=== PATIENT | female | born 1945 | race Caucasian/White ===

== ENCOUNTER 2018-04-12 13:53 | Inpatient (IN) | payer OTHER, BC ==
[2018-04-12 15:49] LABS: Absolute Lymphocytes (CBC) 1.5 K/uL (0.7-4.9); Absolute Monocytes 0.5 K/uL (0.1-1.3); Absolute Neutrophil 3.7 K/uL (1.8-8.0); Basophils % 0.7 % (0-1.3); Eosinophils % 2.8 % (0-4.4); Hematocrit 36.7 % (36.0-45.0); Lymphocytes % 25.9 % (15.3-44.8); MCH 29.2 pg (27.0-35.0); MCV 89.5 fL (80-100); MPV 9.4 fL (7.6-11.3); Monocytes % 9.2 % (3.3-12.3); RBC Red Blood Cell Count 4.09 M/uL (3.86-4.86)
[2018-04-12 15:50] LABS: Protime INR 1.32
--- NOTE | 2018-04-12 15:51 | ER ---
Nurse's Notes [facility] Name: Helen Hdz Age: 73 yrs Sex: Female : 1945 Arrival Date: 04/12/2018 Time: 13:57 Bed 8 Private MD: out of town, doctor Diagnosis: Cellulitis and acute lymphangitis of other parts of limb;Type 2 diabetes mellitus;Personal history of diabetic foot ulcer-recurrent Presentation: 04/12 14:04 Presenting complaint: Patient states: "My doctor sent me to [facility] for a bone ph infection in my foot. I got IV antibiotics and it was getting better. I got home from the hospital on Thursday and when the home health nurse came today she said it was looking bad again and that new blisters have formed." Pt reports wound to L foot, denies fever, N/V/D. Transition of care: patient was not received from another setting of care. Onset of symptoms was April 12, 2018. Risk Assessment: Do you want to hurt yourself or someone else? Patient reports no desire to harm self or others. Initial Sepsis Screen: Does the patient meet any 2 criteria? No. Patient's initial sepsis screen is negative. Does the patient have a suspected source of infection? Yes: Bone or joint infection. Note PCP Dr Alvarez. Care prior to arrival: None. 14:04 Method Of Arrival: Ambulatory ph 14:04 Acuity: MARINO 3 ph Historical: - Allergies: 14:11 Oxycodone; ph 14:11 Tape; ph - PMHx: 14:11 Atrial Fib; Diabetes - NIDDM; Hypertension; ph - PSHx: 14:11 Hysterectomy; klaudia foot; Knee surgery; achilles repair; ph - Immunization history:: Adult Immunizations up to date. - Social history:: Smoking status: Patient/guardian denies using tobacco. - Ebola Screening: : No symptoms or risks identified at this time. Screenin:00 Abuse screen: Denies threats or abuse. Denies injuries from another. Nutritional sv screening: No deficits noted. Tuberculosis screening: No symptoms or risk factors identified. Fall Risk None identified. Assessment: 15:00 General: Appears in no apparent distress. comfortable, obese, well developed, Behavior sv is calm, cooperative, appropriate for age. General: Denies fever. Pain: Complains of pain in left foot Pain currently is 6 out of 10 on a pain scale. Quality of pain is described as tender, Is intermittent. Neuro: Level of Consciousness is awake, alert, obeys commands, Oriented to person, place, time, situation, Moves all extremities. Speech is normal. Cardiovascular: Patient's skin is warm and dry. Respiratory: Respiratory effort is even, unlabored, Respiratory pattern is regular, symmetrical. Derm: Skin is pink, warm \\T\\ dry. Wound noted lateral side of left foot Wound is wound is circular about 1 inch diameter. Pt reports redness has increased around her wound. There is also a new "blister" that has "popped up". Pt had her wound covered by the home health nurse. Musculoskeletal: Range of motion: intact in all extremities. 15:40 Reassessment: Patient appears in no apparent distress at this time. No changes from sv previously documented assessment. Patient and/or family updated on plan of care and expected duration. Pain level reassessed. Patient is alert, oriented x 3, equal unlabored respirations, skin warm/dry/pink. 16:50 Reassessment: Patient appears in no apparent distress at this time. No changes from sv previously documented assessment. Patient and/or family updated on plan of care and expected duration. Pain level reassessed. Patient is alert, oriented x 3, equal unlabored respirations, skin warm/dry/pink. Vital Signs: 14:08 BP 120 / 70; Pulse 77; Resp 18; Temp 98.7; Pulse Ox 100% on R/A; Weight 103.42 kg; ph Height 5 ft. 8 in. (172.72 cm); Pain 6/10; 15:38 BP 126 / 66; Pulse 59 MON; Resp 15; Pulse Ox 100% ; sv 16:00 BP 122 / 79; Pulse 57; Resp 14; Pulse Ox 99% ; sv 17:06 BP 137 / 60; Pulse 59; Resp 16; Pulse Ox 100% ; sv 14:08 Body Mass Index 34.67 (103.42 kg, 172.72 cm) ph 15:38 A fib sv ED Course: 13:57 Patient arrived in ED. mr 13:58 out of town, doctor is Private Physician. mr 14:08 Triage completed. ph 14:11 Arm band placed on. ph 14:12 Samy Howell MD is Attending Physician. aleshia 15:00 Chaka, Rosi, RN is Primary Nurse. sv 15:00 Patient has correct armband on for positive identification. Bed in low position. Call sv light in reach. Side rails up X2. Adult w/ patient. laboratory monitor on. Pulse ox on. NIBP on. Door closed. Warm blanket given. Head of bed elevated. 15:05 Initial lab(s) drawn, by me, sent to lab. First set of blood cultures drawn by me. sv Inserted saline lock: 20 gauge in left forearm, using aseptic technique. Blood collected. Flushed left forearm with 5 ml normal saline. 15:36 ED physician to see patient. sv 15:39 Chest Single View XRAY Sent. sv 15:39 Foot Left 2 View XRAY Sent. sv 15:42 X-ray completed. Portable x-ray completed in exam room. Patient tolerated procedure jw2 well. 15:43 Chest Single View XRAY In Process Unspecified. EDMS 15:43 Foot Left 2 View XRAY In Process Unspecified. EDMS 15:47 Niranjan Prajapati MD is Hospitalizing Provider. aleshia 16:[address] via stretcher. sv 16:50 Wound care: to decubitus located on lateral side of left foot was cleaned with with NS, sv dressed with Kerlix, non-adherent gauze and silvadene ointment. Wound is 1.3 cm length x 1 cm width., Patient tolerated well. 17:11 No provider procedures requiring assistance completed. Patient admitted, IV remains in sv place. intact. Administered Medications: 17:04 Drug: Zosyn 3.375 grams Route: IVPB; Infused Over: 60 mins; Site: left forearm; sv 17:30 Follow up: Response: No adverse reaction; IV Status: Completed infusion; IV Intake: sv 100ml 17:04 Drug: NS 0.9% 1000 ml Route: IV; Rate: 125 ml/hr; Site: left forearm; sv 17:05 Drug: Silvadene Cream 1 % 1 application Route: Topical; Site: affected area; sv 17:45 Drug: vancoMYCIN 1 grams Route: IVPB; Infused Over: 2 hrs; Site: left antecubital; sg 17:47 Follow up: Response: No adverse reaction; IV Status: Infusion continued upon admission sv Intake: 17:30 IV: 100ml; Total: 100ml. sv Outcome: 15:50 Decision to Hospitalize by Provider. aleshia 17:30 Admitted to Med/surg accompanied by tech, family with patient, via wheelchair, room sv 224, with chart, Report called to Juliette GONZALES 17:30 Condition: stable 17:30 Instructed on the need for admit. 17:47 Patient left the ED. noelle Signatures: Dispatcher [employer] Rosi Whitaker RN RN sv Gay, Steven, RN RN sg Anderson, Corey, MD MD cha Rivera, Maria mr Hall, Patricia, RN RN Sheron Carbone 2 Corrections: (The following items were deleted from the chart) 19:54 17:30 Admitted to Med/surg accompanied by tech, family with patient, via wheelchair, sv with chart, Report called to Juliette GONZALES
--- NOTE | 2018-04-12 15:51 | EDPHYS ---
Physician Documentation [facility] Name: Helen Hdz Age: 73 yrs Sex: Female : 1945 Arrival Date: 04/12/2018 Time: 13:57 Bed 8 Private MD: out of town, doctor ED Physician Samy Howell HPI: 04/12 15:39 This 73 yrs old Female presents to ER via Ambulatory with complaints of Wound aleshia Infection. 15:39 The patient presents to the emergency department na. Context: the OD/poisoning occurred aleshia at at an unknown location. Associated signs and symptoms: Pertinent positives: nausea, red left lateral foot. Severity of symptoms: At their worst the symptoms were moderate in the emergency department the symptoms are unchanged. The patient has experienced similar episodes in the past, several times. Historical: - Allergies: 14:11 Oxycodone; ph 14:11 Tape; ph - PMHx: 14:11 Atrial Fib; Diabetes - NIDDM; Hypertension; ph - PSHx: 14:11 Hysterectomy; klaudia foot; Knee surgery; achilles repair; ph - Immunization history:: Adult Immunizations up to date. - Social history:: Smoking status: Patient/guardian denies using tobacco. - Ebola Screening: : No symptoms or risks identified at this time. ROS: 15:41 Constitutional: Negative for fever, chills, and weight loss, Eyes: Negative for injury, aleshia pain, redness, and discharge, ENT: Negative for injury, pain, and discharge, Neck: Negative for injury, pain, and swelling, Cardiovascular: Negative for chest pain, palpitations, and edema, Respiratory: Negative for shortness of breath, cough, wheezing, and pleuritic chest pain, Abdomen/GI: Negative for abdominal pain, nausea, vomiting, diarrhea, and constipation, Back: Negative for injury and pain, : Negative for injury, bleeding, discharge, and swelling, Skin: Negative for injury, rash, and discoloration, Neuro: Negative for headache, weakness, numbness, tingling, and seizure, Psych: Negative for depression, anxiety, suicide ideation, homicidal ideation, and hallucinations, Allergy/Immunology: Negative for hives, rash, and allergies, Endocrine: Negative for neck swelling, polydipsia, polyuria, polyphagia, and marked weight changes, Hematologic/Lymphatic: Negative for swollen nodes, abnormal bleeding, and unusual bruising. 15:41 MS/extremity: Positive for decreased range of motion, pain, swelling, tenderness, warmth, of the dorsum of left foot. Exam: 15:41 Constitutional: This is a well developed, well nourished patient who is awake, alert, aleshia and in no acute distress. Head/Face: Normocephalic, atraumatic. Eyes: Pupils equal round and reactive to light, extra-ocular motions intact. Lids and lashes normal. Conjunctiva and sclera are non-icteric and not injected. Cornea within normal limits. Periorbital areas with no swelling, redness, or edema. ENT: Nares patent. No nasal discharge, no septal abnormalities noted. Tympanic membranes are normal and external auditory canals are clear. Oropharynx with no redness, swelling, or masses, exudates, or evidence of obstruction, uvula midline. Mucous membranes moist. Neck: Trachea midline, no thyromegaly or masses palpated, and no cervical lymphadenopathy. Supple, full range of motion without nuchal rigidity, or vertebral point tenderness. No Meningismus. Chest/axilla: Normal chest wall appearance and motion. Nontender with no deformity. No lesions are appreciated. Cardiovascular: Regular rate and rhythm with a normal S1 and S2. No gallops, murmurs, or rubs. Normal PMI, no JVD. No pulse deficits. Respiratory: Lungs have equal breath sounds bilaterally, clear to auscultation and percussion. No rales, rhonchi or wheezes noted. No increased work of breathing, no retractions or nasal flaring. Abdomen/GI: Soft, non-tender, with normal bowel sounds. No distension or tympany. No guarding or rebound. No evidence of tenderness throughout. Back: No spinal tenderness. No costovertebral tenderness. Full range of motion. Female : Normal external genitalia. Neuro: Awake and alert, GCS 15, oriented to person, place, time, and situation. Cranial nerves II-XII grossly intact. Motor strength 5/5 in all extremities. Sensory grossly intact. Cerebellar exam normal. Normal gait. Psych: Awake, alert, with orientation to person, place and time. Behavior, mood, and affect are within normal limits. 15:41 Musculoskeletal/extremity: ROM: full active range of motion, full passive range of motion, Circulation is intact in all extremities. numbness, decreased sensation, Compartment Syndrome exam of affected extremity: is normal. DVT Exam: no pain, no tenderness, negative Homans' sign noted on exam, no appreciated bluish discoloration, no erythema, no increased warmth, swelling. 15:41 Skin: cellulitis, that is mild, that is moderate, induration, that is moderate is noted. Vital Signs: 14:08 BP 120 / 70; Pulse 77; Resp 18; Temp 98.7; Pulse Ox 100% on R/A; Weight 103.42 kg; ph Height 5 ft. 8 in. (172.72 cm); Pain 6/10; 15:38 BP 126 / 66; Pulse 59 MON; Resp 15; Pulse Ox 100% ; sv 16:00 BP 122 / 79; Pulse 57; Resp 14; Pulse Ox 99% ; sv 17:06 BP 137 / 60; Pulse 59; Resp 16; Pulse Ox 100% ; sv 14:08 Body Mass Index 34.67 (103.42 kg, 172.72 cm) ph 15:38 A fib sv MDM: 14:12 Patient medically screened. [facility] 15:43 Data reviewed: vital signs, nurses notes, lab test result(s), EKG, radiologic studies, aleshia plain films. 04/12 15:17 Order name: Amylase, Serum 04/12 15:17 Order name: Basic Metabolic Panel 04/12 15:17 Order name: Blood Culture Adult (2) 04/12 15:17 Order name: BNP; Complete Time: 16:04/12 15:17 Order name: C-Reactive Protein 04/12 15:17 Order name: CBC with Diff; Complete Time: 16:04/12 15:17 Order name: Ckmb 04/12 15:17 Order name: CPK 04/12 15:17 Order name: Lactate 04/12 15:17 Order name: LFT's 04/12 15:17 Order name: Lipase 04/12 15:17 Order name: Procalcitonin 04/12 15:17 Order name: Protime (+inr); Complete Time: 16:27 04/12 15:17 Order name: Ptt, Activated; Complete Time: 16:27 04/12 15:17 Order name: Sed Rate; Complete Time: 16:04/12 15:17 Order name: Troponin (emerg Dept Use Only); Complete Time: 16:27 sv 04/12 15:17 Order name: Chest Single View XRAY; Complete Time: 16:27 sv 04/12 15:22 Order name: Foot Left 2 View XRAY; Complete Time: 16:27 sv 04/12 15:39 Order name: Wound Culture [facility] 04/12 15:58 Order name: Foot Left Wo Cont EDMS 04/12 16:27 Order name: Basic Metabolic Panel EDMS 04/12 16:27 Order name: Basic Metabolic Panel EDMS 04/12 16:27 Order name: Basic Metabolic Panel EDMS 04/12 16:27 Order name: Basic Metabolic Panel EDMS 04/12 16:27 Order name: CBC with Automated Diff EDMS 04/12 16:27 Order name: CBC with Automated Diff EDMS 04/12 16:27 Order name: CBC with Automated Diff EDMS 04/12 16:27 Order name: CBC with Automated Diff EDMS 04/12 15:17 Order name: Cardiac monitoring; Complete Time: 15:39 sv 04/12 15:17 Order name: EKG - Nurse/Tech; Complete Time: 15:39 sv 04/12 15:17 Order name: IV Saline Lock - Large Bore; Complete Time: 15:18 sv 04/12 15:17 Order name: Labs collected and sent; Complete Time: 15:18 sv 04/12 15:17 Order name: O2 Per Protocol; Complete Time: 15:18 sv 04/12 15:17 Order name: O2 Sat Monitoring; Complete Time: 15:18 sv 04/12 15:58 Order name: CONS Physician Consult EDME 04/12 16:27 Order name: CONS Pharmacy Consult EDME 04/12 16:27 Order name: CONS Pharmacy Consult EDME 04/12 16:27 Order name: Consistent Carb (ADA) [address] EDMS Administered Medications: 17:04 Drug: Zosyn 3.375 grams Route: IVPB; Infused Over: 60 mins; Site: left forearm; sv 17:30 Follow up: Response: No adverse reaction; IV Status: Completed infusion; IV Intake: sv 100ml 17:04 Drug: NS 0.9% 1000 ml Route: IV; Rate: 125 ml/hr; Site: left forearm; sv 17:05 Drug: Silvadene Cream 1 % 1 application Route: Topical; Site: affected area; sv 17:45 Drug: vancoMYCIN 1 grams Route: IVPB; Infused Over: 2 hrs; Site: left antecubital; 17:47 Follow up: Response: No adverse reaction; IV Status: Infusion continued upon admission sv Disposition: 04/12/18 15:50 Hospitalization ordered by Niranjan Prajapati for Inpatient Admission. Preliminary diagnosis are Cellulitis and acute lymphangitis of other parts of limb, Type 2 diabetes mellitus, Personal history of diabetic foot ulcer - recurrent. - Bed requested for Telemetry/MedSurg (Inpatient). - Status is Inpatient Admission. sg - Condition is Fair. - Problem is new. - Symptoms have improved. UTI on Admission? No Signatures: Dispatcher [employer] EDRosi Deng RN RN Jolynn Malik RN RN dw Gay, Steven, RN RN sg Anderson, Corey, MD MD cha Hall, Patricia, RN RN ph Corrections: (The following items were deleted from the chart) 16:36 15:50 Hospitalization Ordered by Niranjan Prajapati MD for Inpatient Admission. Preliminary dw diagnosis is Cellulitis and acute lymphangitis of other parts of limb; Type 2 diabetes mellitus; Personal history of diabetic foot ulcer - recurrent. Bed requested for Telemetry/MedSurg (Inpatient). Status is Inpatient Admission. Condition is Fair. Problem is new. Symptoms have improved. UTI on Admission? No. aleshia 16:37 16:36 04/12/2018 15:50 Hospitalization Ordered by Niranjan Prajapati MD for Inpatient dw Admission. Preliminary diagnosis is Cellulitis and acute lymphangitis of other parts of limb; Type 2 diabetes mellitus; Personal history of diabetic foot ulcer - recurrent. Bed requested for Telemetry/MedSurg (Inpatient). Status is Inpatient Admission. Condition is Fair. Problem is new. Symptoms have improved. UTI on Admission? No. dante 17:47 16:37 04/12/2018 15:50 Hospitalization Ordered by Niranjan Prajapati MD for Inpatient sg Admission. Preliminary diagnosis is Cellulitis and acute lymphangitis of other parts of limb; Type 2 diabetes mellitus; Personal history of diabetic foot ulcer - recurrent. Bed requested for Telemetry/MedSurg (Inpatient). Status is Inpatient Admission. Condition is Fair. Problem is new. Symptoms have improved. UTI on Admission? No. dante
[2018-04-12] MEDS ORDERED: GLUCAGON 1 MG/VIAL IM PRN (15:56)
[2018-04-12] MEDS ORDERED: D50W 25 GM/50 ML SYRINGE IV PRN (15:56)
[2018-04-12 15:58] LABS: Potassium 4.5 mEq/L (3.6-5.0)
--- NOTE | 2018-04-12 16:04 | RAD REPORT ---
EXAM DESCRIPTION: RAD - Foot Left 2 View - 04/12/2018 3:47 pm CLINICAL HISTORY: Left foot pain FINDINGS: Soft tissue swelling involves the lateral aspect of foot. Lucency is present within the ba se of the fifth metatarsal which may indicate osteomyelitis. The bones are osteoporotic. No acute fracture or dislocation is seen
--- NOTE | 2018-04-12 16:07 | RAD REPORT ---
EXAM DESCRIPTION: Dolores Single View04/12/2018 3:47 pm CLINICAL HISTORY: fever COMPARISON: 2016 FINDINGS: The lungs appear clear of acute infiltrate. The heart is upper limits normal size IMPRESSION: No acute abnormalities displayed
[2018-04-12 16:11] LABS: CKMB Creatine Kinase MB 3.5 ng/ml (0.3-4.0)
[2018-04-12] MEDS ORDERED: ONDANSETRON 4 MG/2 ML VIAL IV PRN (16:24)
[2018-04-12] MEDS ORDERED: MORPHINE 2 MG/ML SYR IV PRN (16:24)
[2018-04-12] MEDS ORDERED: ACETAMINOPHEN 500 MG TAB PO PRN (16:24)
[2018-04-12] MEDS: INSULIN -REGULAR HUMAN 50 UNIT/0.5 ML ML SQ SCH ×2 (16:30→20:36)
[2018-04-12] MEDS ORDERED: SILVER SULFADIAZINE 1% 25 GM TOP ONE (16:37)
[2018-04-12 16:39] LABS: Albumin 3.8 g/dL (3.2-5.5); Bilirubin Direct 0.1 mg/dL (0-0.2); C-Reactive Protein 7.3 mg/L (<10.0); Protein, Total 7.7 g/dL (6.0-8.3)
[2018-04-12] MEDS ORDERED: PIPER/TAZO/NS 3.375gm 3.375 GM/100 ML BAG ONE ×2 (16:45→23:11)
[2018-04-12] MEDS ORDERED: VANCOMYCIN 1.25 GM in NA CHLORIDE 0.9% 250 ML IVPB SCH (17:00)
[2018-04-12] MEDS: PIPER/TAZO/NS 3.375gm 3.375 GM/100 ML BAG IVPB SCH ×2 (17:00→23:52)
[2018-04-12] MEDS ORDERED: VANCOMYCIN 1 GM/250 ML BAG ONE (17:29)
[2018-04-12] MEDS: NA CHLORIDE 0.9% 1,000 ML IV SCH ×2 (18:07→23:51)
--- NOTE | 2018-04-12 18:16 | HP ---
Date of Admission: 04/12/2018 Primary Care Physician: Dr. Alvarez Consultants: Dr. Cohen, General Surgery and Dr. Calzada with ID Code Status: Full. Chief Complaint: Redness, swelling of the left foot. History Of Present Illness: The patient is a 73-year-old female with a past medical history of diabetes; hypertension; atrial fibrillation, on Xarelto; hypothyroidism; chronic venous insufficiency; neuropathy, who was recently discharged approximately 1 week ago from [facility] for long-term IV antibiotics. The patient received 6 weeks of IV antibiotics for left foot diabetic ulcer and cellulitis. The patient states that she was doing well until approximately 1 week when the foot began to appear slightly pink along the dorsal aspect and started to worsen. The patient was been seen by home health nurses and her followup appointment with Dr. Rose was not until April 19 , however, got concerned. The patient denies any fevers, chills, nausea, vomiting. No discharge from the ulceration. The patient contacted Dr. Calzada, who recommended the patient be evaluated in the ER. Upon arrival, her workup revealed normal WBC count. ESR was elevated at 50. C-reactive protein was normal. Procalcitonin is also negative. The patient was started on IV antibiotics and referred for admission. X-ray was done to rule out any acute free air in the foot, none was seen. However, lucency which shown indicating osteomyelitis in the fifth metatarsal. When the patient was seen in the ER, she was awake, alert, and oriented x3, in some mild distress due to her pain. Past Medical History: Diabetes, hypertension, atrial fibrillation, hypothyroidism, chronic venous insufficiency, neuropathy. 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 Allergies: THE PATIENT DENIES ANY ALLERGY TO HYDROCODONE, WHICH IS LISTED IN HER CHART, DOES REPORT ALLERGY TO ZYVOX, WHICH CAUSES A RASH. Medications: List reviewed. Social History: The patient denies any smoking, alcohol, or illicit drug use. Family History: No history of premature coronary artery disease. Review of Systems: An 11-point system reviewed and negative except as per HPI. Physical Examination: Vital signs: Blood pressure 120/70, pulse 77, respirations 18, temperature 98.7 , O2 of 100% on room air. General: Awake, alert, oriented x3, some mild distress. Elderly female, ill appearing. HEENT: Normocephalic, atraumatic, PERRLA, EOMI. Moist mucous membranes. Oropharynx is clear. Poor dentition. Conjunctivae anicteric. Neck: Supple. No JVD. Trachea midline. CV: S1, S2. Irregularly irregular. Peripheral pulses weak bilaterally. No murmurs. Respiratory: Clear to auscultation bilaterally. No wheezing. No stridor. No use of accessory muscles. Gastrointestinal: Abdomen is soft, nontender, nondistended. Positive bowel sounds. No guarding or rigidity. Extremities: No clubbing, cyanosis. Trace pedal edema. No calf tenderness. Skin: The patient has erythema of the left foot on the dorsal aspect extending into the palmar aspect with a dry ulcer. No pustular drainage. Mild tenderness to palpation, warm to touch. Neuro: Cranial nerves II through XII intact grossly. No focal neurological deficits. Strength is 5/5 bilateral upper and lower extremities. Speech is normal. Decreased sensation to bilateral lower extremities to light touch. Psych: Mood is okay. Affect is full. Insight and judgment are good. Laboratory Data: Sodium 136, potassium 4.5, CO2 of 28, BUN 25, creatinine 0.79 , glucose 92, lactic acid 9.7, calcium 9.3. BNP 297. Troponin less than 0.03. Albumin 2.8, amylase 49, lipase 62. Procalcitonin 0.05. INR 1.2. WBC is 6, H and H are 12 and 36.7, platelets 225, neutrophils 61%. Blood cultures and wound cultures pending. Chest x-ray personally reviewed, shows no acute abnormalities. Foot x-ray personally reviewed shows soft tissue swelling involves the lateral aspect of the foot. Lucency is present within the base of the fifth metatarsal which may indicate osteomyelitis. Wounds are osteopenic. No acute fracture or dislocation is seen. Assessment: A 73-year-old female with; 1. Left foot osteomyelitis secondary to diabetic foot ulcer, failed outpatient treatment. We will continue with broad-spectrum IV antibiotics, followup on blood cultures and wound cultures. Dr. Cohen and Dr. Calzada with Surgery and ID have been consulted. The patient may need surgical intervention. 2. Atrial fibrillation, on Xarelto. We will hold dose for now due to a possible surgical intervention, controlled ventricular rate. We will continue beta-ciara. 3. Diabetes mellitus type 2 with neuropathy, non-insulin dependent. We will continue with sliding scale insulin. Monitor Accu-Cheks. 4. Essential hypertension. Resume home medications as appropriate. 5. Hypothyroidism, continue [place] Thyroid. 6. Chronic venous insufficiency. 7. Obesity. 8. Gastrointestinal and deep venous thrombosis prophylaxis with PPI and SCDs. No chemical anticoagulation due to possible surgery. Plan: Admit the patient to Med-Surg, place as an inpatient, MRI of the left foot in a.m. ASHUTOSH Voice ID: [id number]
[2018-04-12] MEDS ORDERED: HOME MED 1 EA UNK (Acetaminophen With Codeine [Tylenol With Codeine #4 Tablet] 1 TAB) PO PRN (18:25)
[2018-04-12 18:27] VITALS: BMI 34.7
[2018-04-12] MEDS: HYDROCODONE/APAP 7.5/325 MG TAB PO PRN ×2 (20:35→23:54)
[2018-04-12] MEDS: GABAPENTIN 400 MG CAP PO SCH (20:35)
--- NOTE | 2018-04-12 23:37 | CON ---
Date of Consultation: 04/12/2018 Diagnoses: Left foot cellulitis, abscess, infected diabetic ulcer. History Of Present Illness: This is a case of a 73-year-old patient with a history of osteomyelitis, who just finished 6 weeks of antibiotics in [facility] in [place] about a week ago. The patie nt was seen by the wound [facility] health nurse, found to have acceleration of her symptoms with redn ess over the left foot region, increase in temperature, diagnosis of cellulitis, sent to the ER. The patient was admitted with an abscess and infected diabetic ulcer. The patient states she was gettin g a lot better, and then this restarted once again. Most of the erythema is on the dorsum of the isabelle t on the lateral side. She denies any trauma. She is saying that she has a diabetic ulcer in that a shashi, has not healed in about a year and a half. Past Medical History: Atrial fibrillation, diabetes, and hypertension. Past Surgical History: Hysterectomy and knee surgery. Allergies: OXYCODONE. Social History: She does not smoke. She does not drink alcohol. Review of Systems: Constitutional: Denies any fever or chills. Respiratory: Denies any shortness of breath. Gastrointestinal: Denies any melena or hematochezia. Genitourinary: Denies any dysuria or hematuria. Physical Examination: General: The patient is awake and alert. HEENT: Pupils are equal and reactive. Anicteric. Neck: Supple. Chest: Clear. Abdomen: Soft and depressible. No guarding or rebound. Pelvic: Deferred. Breasts: Deferred. Rectal: Deferred. Extremities: Over the left foot region, the patient has a plantar diabetic ulcer on the fifth metata rsal region. On the dorsum of left foot, the patient has an area of about 10 x 10 cm with erythema, increased temperature, consistent with cellulitis. It looks like there is some fluctuance forming on the dorsal part of the foot. Dorsalis pedis is still present, although diminished. No cyanosis. T he patient has some peripheral neuropathy. Laboratory Data: WBC count 6, with hemoglobin 12, and platelets of 325. INR is 1.32. Creatinine is 0.79. Foot x-ray shows soft tissue swelling in lateral aspect of the foot, the base of the fifth me tatarsal region, may indicate osteomyelitis. Assessment/plan: Osteomyelitis, infected diabetic foot ulcer with abscess, with plan for incision an d drainage and debridement. With benefits, alternatives, and risks fully explained to the patient, w hich include, but are not limited to infection, bleeding, damage to adjacent structures, anesthesia c omplications, nonhealing wound, myocardial infarction, and even . She also understands this may not relieve any symptoms. She might need more than one surgical intervention. She understood. The patient has to be n.p.o. after midnight. TAJ/CHRISTINE Voice ID: [id number] Report ID: [id number]
[2018-04-13 00:45] LABS: Urine Appearance CLOUDY; Urine Bilirubin NEGATIVE (NEG); Urine Blood NEGATIVE (NEG); Urine Color YELLOW; Urine Glucose NEGATIVE (NEG); Urine Protein NEGATIVE (NEG); Urine Specific Gravity >=1.030 (1.005-1.030)
[2018-04-13 00:47] LABS: Urine Microscopic Reflex ORDER UMIC
[2018-04-13 01:34] LABS: Calcium Oxalate Crystals- Ur MODERATE (NONE SEEN); Urine Bacteria <20 /HPF (<20); Urine Culture Reflex Order REFLEXED; Urine RBC NONE SEEN /HPF (NONE SEEN)
[2018-04-13] MEDS: LEVOTHYROXINE SOD 0.05 MG TABLET PO SCH (04:21)
[2018-04-13 04:35] LABS: Absolute Lymphocytes (CBC) 1.3 K/uL (0.7-4.9); Absolute Monocytes 0.4 K/uL (0.1-1.3); Absolute Neutrophil 2.2 K/uL (1.8-8.0); Basophils % 1.1 % (0-1.3); Eosinophils % 3.5 % (0-4.4); Hematocrit 32.8 % (36.0-45.0); Lymphocytes % 32.6 % (15.3-44.8); MCH 29.5 pg (27.0-35.0); MCV 89.6 fL (80-100); MPV 9.1 fL (7.6-11.3); Monocytes % 10.7 % (3.3-12.3); RBC Red Blood Cell Count 3.66 M/uL (3.86-4.86)
[2018-04-13 04:45] LABS: Potassium 4.8 mEq/L (3.6-5.0)
[2018-04-13] MEDS: INSULIN -REGULAR HUMAN 50 UNIT/0.5 ML ML SQ SCH ×4 (07:30→21:00)
[2018-04-13] MEDS: GABAPENTIN 400 MG CAP PO SCH ×4 (08:07→21:12)
[2018-04-13] MEDS ORDERED: PROPOFOL 200 MG/20 ML VIAL IV ONE (08:27)
[2018-04-13] MEDS ORDERED: MIDAZOLAM HCL 2 MG/2 ML INJ ONE (08:28)
[2018-04-13] MEDS ORDERED: FENTANYL CITR 100 MCG/2 ML ONE (08:29)
[2018-04-13] MEDS ORDERED: ONDANSETRON HCL 40 MG/20 ML VIAL ONE (08:29)
[2018-04-13] MEDS: FUROSEMIDE 40 MG TABLET PO SCH (09:00)
[2018-04-13] MEDS: LISINOPRIL 20 MG TAB PO SCH (09:00)
[2018-04-13] MEDS: ATENOLOL 25 MG TAB PO SCH (09:00)
[2018-04-13] MEDS: PIPER/TAZO/NS 3.375gm 3.375 GM/100 ML BAG IVPB SCH ×2 (09:00→17:30)
--- NOTE | 2018-04-13 09:53 | P.BOP ---
Preoperative diagnosis: left foot abscess, infected diabetic ulcer, osteomyelitis Postoperative diagnosis: same Primary procedure: Incision and drainage of complex left foot abscess 10x7x5 Estimated blood loss: <10cc Specimen: necrotic tissue , culture Findings: left foot abscess with multiple loculations Anesthesia: General Complications: None Transferred to: Recovery Room Condition: Good
[2018-04-13] MEDS: VANCOMYCIN 1.75 GM in NA CHLORIDE 0.9% 500 ML IVPB SCH (11:53)
[2018-04-13] MEDS: NA CHLORIDE 0.9% 1,000 ML IV SCH (14:11)
[2018-04-13] MEDS: HYDROCODONE/APAP 7.5/325 MG TAB PO PRN ×2 (14:12→21:12)
--- NOTE | 2018-04-13 14:47 | CON ---
History: The patient is a well known case to me for last couple of years. [facility]. [facility] treatment of IV antibiotic and diabetic foot ulcer abena tment. The patient's course in the hospital was without any challenges. The patient was sent home o n home treatment and antibiotics. A call was received from home health team that the patient is not doing well, and she was admitted to the hospital yesterday. The patient also had a surgical debridem ent of her left foot abscess by surgical team. Past Medical History: Include diabetes mellitus, osteomyelitis of left foot, morbid obesity, hyperte nsion, atrial fibrillation, hypothyroidism, chronic venous insufficiency, neuropathy. 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 Allergies: HYDROCODONE, ZYVOX. Social History: Nonsmoker, nondrinker. Lives at home. Family History: Noncontributory. Medications: Vancomycin and Zosyn. See MARs for other medication. Review of Systems: A 10-point review was performed. Physical Examination: General: This is a 73-year-old female, not in any acute cardiopulmonary distress. Vital Signs: Temperature 97, pulse 63, respirations 16, blood pressure 119/63. HEENT: Poor dentition, otherwise unremarkable. Neck: Supple. Lungs: Clear to auscultation. Heart: S1, S2. Regular. Abdomen: Soft, nontender. Bowel sounds positive. Extremities: Left foot in surgical dressing. Laboratory Data: Shows WBC 4.1, hemoglobin 10.8, platelets are 181. Chemistry shows sodium 140, pot assium 4.8, chloride 107, bicarb 28, BUN 25, creatinine 0.9, glucose is 97. Micro data shows blood c ultures are pending, and blood and wound culture done yesterday shows 3+ Staph coagulase positive for staph aureus. Assessment And Plan: Left foot osteomyelitis and abscesses, status post debridement and cellulitis, improving. Continue IV antibiotic, empiric antibiotic for now. We will examine the patient's wound in foot tomorrow as the patient has surgical debridement done today. Thank you Dr. Prajapati for consult. NF/MODL Voice ID: [id number] Report ID: [id number]
--- NOTE | 2018-04-13 15:03 | EKG ---
Test Date: 2018-04-12 Test Time: 15:25:33 Control Panel Tester: SWATI MEASUREMENT RESULTS: Intervals: Rate: 51 ME: QRSD: 78 QT: 450 QTc: 414 Mcloud: P: ME: QRS: -28 T: 2 INTERPRETIVE STATEMENTS: Atrial fibrillation with slow ventricular response Inferior infarct, age undetermined Anterior infarct, age undetermined Abnormal ECG Compared to ECG 10/16/2016 17:50:35 No significant changes Electronically Signed On 04-13-18 14:59:15 CDT by Horacio Banks
--- NOTE | 2018-04-13 18:14 | RAD REPORT ---
EXAM DESCRIPTION: MRIFoot Left Wo Cont04/13/2018 4:02 pm CLINICAL HISTORY: Left foot pain and swelling COMPARISON: March 2017 TECHNIQUE: Axial, sagittal and coronal magnetic resonance imaging of the left foot was obtained. FINDINGS: A soft tissue ulceration involves the lateral aspect of the forefoot. No significant abnormal signal is visualized within the bones to suggest osteomyelitis. A 3 centimeter area of abnormal signal is present within the adjacent soft tissue along at the planta r surface of the lateral forefoot. IMPRESSION: No evidence of osteomyelitis 3 centimeter area of abnormal signal within the plantar soft tissue of the lateral forefoot may repre sent an abscess. As IV contrast was not administered it is difficult to confirm if this is an abscess . Ultrasound is recommended for further evaluation
--- NOTE | 2018-04-13 19:18 | PN ---
Date of Progress Note: 04/13/2018 Subjective: The patient is seen and examined. Chart reviewed and case discussed with RN and Dr. Farnaz rubio. The patient had I and D done today. Tolerated procedure well. The patient was continued on IV antibiotics. Does complain of some pain at the incision site. Review of Systems: Negative except as above. Medications: Reviewed. Physical Examination: Vital Signs: Temperature 97.1, heart rate 63, blood pressure 119/63, respirations 16, O2 of 98% on r oom air. General: Awake, alert, and oriented x3. Some mild distress. Ill-appearing elderly female, obese, BMI 34.7. CV: S1 and S2. No murmurs. Irregularly irregular. Peripheral pulses weak bilater ally. Respiratory: Moving air well bilaterally. No wheezing. Gastrointestinal: Abdomen is soft, nontender, and nondistended. Positive bowel sounds. Extremities: No clubbing or cyanosis. The patient has 2+ lower extremity edema. Neurologic: Nonfocal. The patient does have decreased sensation to light touch in lower extremities . Skin: Left foot incision site clean, dry, intact, and bandaged. Laboratory Data: Sodium 140, potassium 4.8, chloride 107, CO2 of 28, BUN 25, creatinine 0.92, glucos e 97, and calcium 8.6. WBC 4.1, H and H 10.8 and 32.8, and platelets 181. Wound cultures pending. Blood cultures also pending. Urine culture pending. Preliminary wound culture is growing 2+ coagula se positive Staph. Assessment And Plan: A 73-year-old female with: 1.Left foot osteomyelitis secondary to diabetic foot ulcer, failed outpatient treatment. We will co ntinue vancomycin and Zosyn. Blood cultures are pending. Wound culture is growing Staph preliminary. We will follow up with ID and Sensitivity. Appreciate Dr. Cohen and Dr Calzada's input. At this point, the patient will need continued IV antibiotics prior to possible amputation. The patient yohana erated abscess I and D well. We will follow up on culture results. 2.Atrial fibrillation with controlled ventricular rate. Xarelto on hold due to the procedure. We wi ll resume with Xarelto in a.m. Continue beta-ciara. 3.Diabetes mellitus type 2 with neuropathy, non-insulin dependent. We will continue sliding scale. Monitor Accu-Cheks. Check hemoglobin A1c. 4.Essential hypertension, stable. 5.Hypothyroidism. Continue [place] Thyroid. 6.Chronic venous insufficiency. 7.Obesity, BMI 34.7. 8.Gastrointestinal and deep venous thrombosis prophylaxis with PPI and SCDs. No chemical anticoagul ation due to surgery. We will continue with treatment. Obtain MRI of the foot for further intervent ion planning. We will obtain PICC line for IV antibiotics. Continue wound care. /CHRISTINE Voice ID: [id number] Report ID: [id number]
[2018-04-14] MEDS: PIPER/TAZO/NS 3.375gm 3.375 GM/100 ML BAG IVPB SCH ×2 (00:32→10:16)
[2018-04-14] MEDS: VANCOMYCIN 1.75 GM in NA CHLORIDE 0.9% 500 ML IVPB SCH (05:28)
[2018-04-14] MEDS: LEVOTHYROXINE SOD 0.05 MG TABLET PO SCH (05:29)
[2018-04-14 05:53] LABS: Absolute Lymphocytes (CBC) 0.9 K/uL (0.7-4.9); Absolute Monocytes 0.3 K/uL (0.1-1.3); Absolute Neutrophil 2.1 K/uL (1.8-8.0); Basophils % 0.9 % (0-1.3); Eosinophils % 3.7 % (0-4.4); Lymphocytes % 26.3 % (15.3-44.8); MCH 29.5 pg (27.0-35.0); MCV 89.5 fL (80-100); MPV 8.8 fL (7.6-11.3); Monocytes % 9.7 % (3.3-12.3); RBC Red Blood Cell Count 3.57 M/uL (3.86-4.86)
[2018-04-14 06:00] LABS: Potassium 4.2 mEq/L (3.6-5.0)
[2018-04-14] MEDS: INSULIN -REGULAR HUMAN 50 UNIT/0.5 ML ML SQ SCH ×2 (07:30→11:30)
[2018-04-14 08:31] VITALS: O2SAT 91
--- NOTE | 2018-04-14 08:38 | RAD REPORT ---
EXAM DESCRIPTION: RAD - Chest Single View - 04/13/2018 11:57 pm CLINICAL HISTORY: Device placement PICC line placement COMPARISON: April 04 FINDINGS: A PICC line has been inserted with its tip in the superior vena cava. The lungs appear clear of acute infiltrate. The heart is borderline enlarged IMPRESSION: PICC line with its tip in thesuperior vena cava
[2018-04-14 09:42] VITALS: TEMP 97.2
[2018-04-14] MEDS: GABAPENTIN 400 MG CAP PO SCH ×2 (10:17→12:51)
[2018-04-14] MEDS: ATENOLOL 25 MG TAB PO SCH (10:17)
[2018-04-14] MEDS: LISINOPRIL 20 MG TAB PO SCH (10:17)
[2018-04-14] MEDS: FUROSEMIDE 40 MG TABLET PO SCH (10:17)
[2018-04-14] MEDS: HYDROCODONE/APAP 7.5/325 MG TAB PO PRN (12:51)
[2018-04-14] MEDS ORDERED: RIVAROXABAN 20 MG TABLET PO SCH (13:06)
[2018-04-14 15:05] VITALS: BP 163/72
--- NOTE | 2018-04-15 07:17 | DS ---
Date of Discharge: 04/14/2018 Consultants: Dr. Cohen with General Surgery. Dr. Calzada with ID. Procedures: On , incision and drainage of complex left foot abscess 10 cm x 7 cm x 5 cm. Admitting Diagnoses: 1.Diabetic foot ulcer, osteomyelitis, failed outpatient treatment. 2.Atrial fibrillation, on Xarelto, paroxysmal. 3.Diabetes mellitus type 2 with neuropathy, noninsulin dependent. 4.Essential hypertension. 5.Hypothyroidism. 6.Chronic venous insufficiency. 7.Obesity. Discharge Diagnoses: 1.Diabetic foot ulcer, status post I and D with no osteomyelitis. X-ray showed concerns for osteomy elitis; however, MRI of the foot did not show any osteo. We will continue with 6 more weeks of IV an tibiotics. 2.Atrial fibrillation with controlled ventricular rate, on Xarelto, chronic. 3.Diabetes mellitus type 2 with neuropathy, non-insulin dependent. 4.Essential hypertension. 5.Hypothyroidism, on [place] Thyroid. 6.Chronic venous insufficiency. 7.Obesity, BMI 34.7. Hospital Course: The patient is a 73-year-old female who was recently discharged from [facility] for diabetic foot wound. The patient had been doing well. She was free of disease. Howev er, approximately one and half weeks after discharge, the patient developed some redness and erythema on the lateral aspect of her left foot. The patient was found to have diabetic foot ulcer. X-ray s howed initially changes consistent with osteomyelitis. The patient was taken by Dr. Cohen for I a nd D, which the patient tolerated well. Her Xarelto had been held due to the procedure. The patient 's diabetes otherwise was fairly well controlled. The patient was resumed on IV antibiotics. Dr. Tiarra mcleod, who had been taken care of the patient for the past couple of years, was consulted, agreed with treatment. PICC line was placed. The patient was referred back to [facility]. Her wound culture s preliminary are growing Staph aureus with final ID and sensitivity pending. The patient remained a febrile. Her pain improved, swelling went down. MRI of the foot was done to confirm osteomyelitis, however, showed a 2 cm area of abnormal signal within the plantar soft tissue of the lateral foot, ma y represent abscess. The patient was then discharged back to [facility] in stable condition. Activity: Fall precautions. Wound care as per surgeon. Followup: Primary care physician in 1 week. Follow up with Infectious Disease, Dr. Calzada, in 2 wee ks. Follow up with surgeon, Dr. Cohen, in 2 weeks for wound check. Return to ER for worsening co ndition. Diet: Diabetic. Total time spent discharging the patient was 39 minutes. Physical Examination: General: Awake, alert, oriented x3. No acute distress. CV: S1, S2. Irregularly irregular. Peripheral pulses weak. Respiratory: Moving air well bilaterally. Abdomen: Abdomen is soft, nontender, and nondistended. Positive bowel sounds. Extremities: No clubbing or cyanosis. The patient has peripheral edema. Neurologic: Nonfocal. Skin: Left foot incision site clean, dry, intact. SA/MODL Voice ID: [id number] Report ID: [id number]
--- NOTE | 2018-04-26 15:32 | OP ---
Date of Procedure: 04/13/2018 Surgeon: Jesús Cohen MD Preoperative Diagnoses: Left foot abscess, infected diabetic ulcer, osteomyelitis. Postoperative Diagnoses: Left foot abscess, infected diabetic ulcer, osteomyelitis. Procedures: Incision and drainage of complex left foot abscess, 10 x 7 x 5 cm. Estimated Blood Loss: Less than 10 cc. Specimen: Necrotic tissue and culture. Findings: Left foot abscess with multiple loculations. Anesthesia: General plus local. Indications: This is the case of a female, who comes to us with above diagnosis. Fully explained th e benefits and alternatives of I and D of the complex left leg abscess with debridement which include , but are not limited to infection, bleeding, damage to adjacent structures, anesthesia complication, nonhealing wound, chronic wound, SC, and even . She also understands this may not relieve the symptoms. She might need more than one surgical intervention. She understands the possibility of al so amputation, although she is not ready to sign any amputation papers. Description Of Procedure: The patient was brought to the operating room, placed in supine position. Anesthesia was done without complication. Time-out was called. Left foot was prepped and draped in a sterile fashion. After that, we proceeded to incise the abscess. It looked like that the complex abscess goes through and through from dorsal to the plantar surface of the foot. So, we have to put drains in that area. It is a complex abscess with multiple loculations going through the foot. Nec rotic tissue was removed. This goes all the way down to tendon and muscle. Area was irrigated. Hem ostasis was obtained. The area was packed. The patient tolerated the procedure well. Local anesthe tic was applied over the area. The patient sent to recovery in stable condition. Sponge count and i nstrument counts were correct. HM/MODL Voice ID: [id number] Report ID: [id number]
== END 2018-04-14 16:10 | DRG 638 ==
LOC: ER 13:53 → ERHOLD 15:52 → 2ND 17:20
PROVIDERS: ADMIT Family Medicine; ATTEND Family Medicine
PROC: 02HV33Z Insertion of Infusion Device into Superior Vena Cava, Percutaneous Approach (ICD-10-PCS; 2018-04-13)
PROC: 0Y9N3ZZ Drainage of Left Foot, Percutaneous Approach (ICD-10-PCS; principal; 2018-04-13 09:00)
DX: E11.621 Type 2 diabetes mellitus with foot ulcer (principal); L02.612 Cutaneous abscess of left foot; I48.0 Paroxysmal atrial fibrillation; E11.40 Type 2 diabetes mellitus with diabetic neuropathy, unspecified; I10 Essential (primary) hypertension; E03.9 Hypothyroidism, unspecified; I87.2 Venous insufficiency (chronic) (peripheral); E66.9 Obesity, unspecified; Z68.34 Body mass index [BMI] 34.0-34.9, adult; Z96.659 Presence of unspecified artificial knee joint; Z79.01 Long term (current) use of anticoagulants
CPT/HCPCS: 36415; 71045; 80048; 80076; 81003; 81015; 82150; 82550; 82553; 82962; 83605; 83690; 83880; 84145; 84484; 85025; 85610; 85652; 85730; 86140; 87040; 87070; 87075; 87077; 87086; 87088; 87186; 87205; 88304; 93005; 94760; 96365; 96375; 99285; J2250; J2405; J2543; J3010; J3370; J7030

== ENCOUNTER 2018-10-22 18:21 | Inpatient (IN) | payer OTHER, BC ==
--- OUTSIDE RECORDS SUMMARY | 2018-10-22 20:46 | XMS REPORT ---
:1945 [facility] [address] [place] [address] Dr. Becker [address] [place] [id number] Care Team Providers Name Role Phone Unavailable Unavailable Unavailable Problems This patient has no known problems. Allergies, Adverse Reactions, Alerts This patient has no known allergies or adverse reactions. Medications This patient has no known medications.
--- OUTSIDE RECORDS SUMMARY | 2018-10-22 20:46 | XMS REPORT ---
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 with diabetes mellitus due to underlying condition Problem Seasonal allergies J30.2 Active Problem Paroxysmal atrial fibrillation I48.0 Active Problem Heart disease I51.9 Active Problem Hypothyroidism, unspecified type E03.9 Active Problem Type 2 diabetes mellitus without E11.9 Active complication, without long-term current use of insulin Assessment Family history of breast cancer Z80.3 Active Assessment Hypothyroidism, unspecified type E03.9 Active Assessment Type 2 diabetes mellitus without E11.9 Active complication, without long-term current use of insulin Assessment Chronic renal failure, stage 2 N18.2 Active (mild) Assessment Seasonal allergies J30.2 Active Assessment 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 with diabetes mellitus due to underlying condition Medications Medication Code Code Instructions Start End Status Dosage System Date Date Fluticasone ND 34439980639 50 MCG/ACT Aug 09, Active 1 spray in Propionate Nasally Once a 2018 each day nostril Metformin HCl ND 18036884431 500 MG Orally Active 1 tablet twice a day with a meal Furosemide ND 75456817492 40 MG Orally Active 1 tablet Once a day Gabapentin ND 78329571697 400 MG Orally Active 2 capsules qid three times a day, 3 at bedtime Acetaminophen-Co ND 83759710271 300-60 MG Oral Active (Schedule deine three times a III Drug) day TK 1 T PO Q 6 H PRN Xarelto ND 49459502364 20 MG Orally Active 1 tablet Once a day with food Potassium ND 25978374161 20 MEQ Orally Active 1 capsule Chloride Once a day Lisinopril [facility] 29137371049 20 MG Orally Active 1 tablet Once a day Desloratadine [facility] 85987859393 5 MG Orally Aug 09, Sep 08, Active 1 tablet Once a day 2017 2017 Levothyroxine [facility] 00318825812 125 MCG Orally Active 1 tablet on Sodium Once a day an empty stomach in the morning Atenolol [facility] 49985454076 25 MG Oral Active TAKE 1 TABLET BY MOUTH EVERY DAY Results No Known Results Summary Purpose [employer] Submission
--- OUTSIDE RECORDS SUMMARY | 2018-10-22 20:46 | XMS REPORT ---
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
--- OUTSIDE RECORDS SUMMARY | 2018-10-22 20:46 | XMS REPORT ---
:1945 Author Organization [employer] Care Team Providers Name Role Phone Ezio Michelle Provider Role Unavailable Allergies, Adverse Reactions, Alerts Substance Reaction Event Type Zyvox nausea + blisters in mout Drug Allergy Lortab rash Drug Allergy Hydrocodone Bitartrate rash Drug Allergy Problems Problem Type Condition Code Onset Dates Condition Status Assessment Paroxysmal atrial fibrillation I48.0 Active Problem Type 2 diabetes mellitus without [...] failure, stage 2 N18.2 Active (mild) Assessment Essential (primary) hypertension I10 Active Assessment Chronic renal failure, stage 2 N18.2 Active (mild) Assessment 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 with diabetes mellitus due to underlying condition Assessment Hyperthyroidism E05.90 Active Assessment Type 2 diabetes mellitus without E11.9 Active complication, without long-term current use of insulin Medications Medication Code Code Instructions Start End Status Dosage System Date Date Potassium [facility] 65116917122 20 MEQ Orally Active 1 capsule Chloride Once a day Gabapentin [facility] 83116114047 400 MG Orally Active 2 capsules qid three times a day, 3 at bedtime Levothyroxine ND 52393912882 150 MCG Orally Active 1 tablet Sodium Once a day on an empty stomach in the morning Atenolol ND 68904226596 25 MG Oral Active TAKE 1 TABLET BY MOUTH EVERY DAY Lisinopril ND 40845809857 20 MG Orally Active 1 tablet Once a day Metformin HCl ND 72880925667 500 MG Orally Active 1 tablet twice a day with a meal Furosemide ND 53112466869 40 MG Orally Active 1 tablet Once a day Xarelto [facility] 30213856721 20 MG Orally Active 1 tablet Once a day with food Acetaminophen-Co [facility] [address]-88 300-60 MG Oral Active (Schedule deine three times a III Drug) day TK 1 T PO Q 6 H PRN Results No Known Results Summary Purpose [employer] Submission
--- OUTSIDE RECORDS SUMMARY | 2018-10-22 20:47 | XMS REPORT ---
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 with diabetes mellitus due to underlying condition Problem Seasonal allergies J30.2 Active Problem Paroxysmal atrial fibrillation I48.0 Active Problem Heart disease I51.9 Active Problem Hypothyroidism, unspecified type E03.9 Active Problem Type 2 diabetes mellitus without E11.9 Active complication, without long-term current use of insulin Medications Medication Code System Code Instructions Start Date End Date Status Dosage Lisinopril [facility] 66917328843 20 MG Orally Once Active 1 tablet a day Results No Known Results Summary Purpose [employer] Submission
[2018-10-22] MEDS ORDERED: SODIUM CHL 0.9% 1000 ML BAG IV SCH (22:00)
[2018-10-22 22:23] VITALS: BMI 33.3
[2018-10-22] MEDS ORDERED: NA CHLORIDE 0.9% 1,000 ML IV SCH (23:45)
[2018-10-22 23:51] LABS: Urine Appearance CLEAR; Urine Bilirubin NEGATIVE (NEG); Urine Blood NEGATIVE (NEG); Urine Color YELLOW; Urine Glucose NEGATIVE (NEG); Urine Protein NEGATIVE (NEG)
[2018-10-22 23:57] LABS: Urine Microscopic Reflex ORDER UMIC
[2018-10-23 01:35] LABS: Urine Bacteria <20 /HPF (<20); Urine Culture Reflex Order REFLEXED; Urine RBC NONE SEEN /HPF (NONE SEEN)
[2018-10-23] MEDS ORDERED: VANCOMYCIN 1.75 GM in NA CHLORIDE 0.9% 500 ML IVPB ONE (03:00)
[2018-10-23] MEDS: TRAMADOL HCL 50 MG TAB PO PRN ×2 (04:23→17:40)
[2018-10-23 05:43] LABS: Absolute Lymphocytes (CBC) 1.6 K/uL (0.7-4.9); Absolute Monocytes 0.6 K/uL (0.1-1.3); Absolute Neutrophil 3.7 K/uL (1.8-8.0); Basophils % 0.6 % (0-1.3); Eosinophils % 2.5 % (0-4.4); Hematocrit 32.7 % (36.0-45.0); Lymphocytes % 26.3 % (15.3-44.8); MCH 31.7 pg (27.0-35.0); MCV 89.2 fL (80-100); MPV 9.4 fL (7.6-11.3); Monocytes % 10.3 % (3.3-12.3); RBC Red Blood Cell Count 3.66 M/uL (3.86-4.86)
[2018-10-23 05:53] LABS: Albumin 3.2 g/dL (3.4-5.0); Bilirubin Total 1.7 mg/dL (0.2-1.0); Potassium 4.4 mmol/L (3.5-5.1); Protein, Total 7.5 g/dL (6.4-8.2)
[2018-10-23] MEDS: PANTOPRAZOLE 40MG TABLET PO SCH (06:57)
[2018-10-23] MEDS ORDERED: VANCOMYCIN 1.75 GM in NA CHLORIDE 0.9% 500 ML IVPB SCH (07:00)
[2018-10-23] MEDS ORDERED: INFLUENZA VACCINE (for 3y+) 0.5 ML DOSE IMVAC ONE (09:00)
[2018-10-23] MEDS: VANCOMYCIN 1.75 GM in NA CHLORIDE 0.9% 500 ML IVPB SCH (10:05)
--- NOTE | 2018-10-23 11:39 | P.HP ---
Certification for Inpatient Patient admitted to: Inpatient With expected LOS: >2 Midnights Patient will require the following post-hospital care: Home Health Services Practitioner: I am a practitioner with admitting privileges, knowledge of patient current condition, hospital course, and medical plan of care. Services: Services provided to patient in accordance with Admission requirements found in Title 42 Section 412.3 of the Code of Federal Regulations Patient History Date of Service: 10/23/18 Primary Care Provider: Viviana Reason for admission: Infection of right thumb History of Present Illness: Patient is here with an infection of the right thumb. She was seen in the wound care center on 10/13. States she was biting her thumb over the holidays. Started getting swollen. Had started her on augmentin. States she had 5 doses of this. However she started having red streaks running up her forearm. However the patient denies any pain, fever or chills. The patient went to [facility]. Wished to be transfered here instead of [facility]. Was started on vancomycin Allergies acetaminophen [From Lortab] Allergy (Verified 10/22/18 21:58) Itching dextrose 5 % in water [From Zyvox] Allergy (Verified 10/22/18 21:58) Nausea/Vomiting hydrocodone [From Lortab] Allergy (Verified 10/22/18 21:58) Itching linezolid [From Zyvox] Allergy (Verified 10/22/18 21:58) Nausea/Vomiting oxycodone Allergy (Verified 10/22/18 21:58) Unknown adhesive tape Adverse Reaction (Verified 10/22/18 21:58) Itching Home Medications: Atenolol [Tenormin*] 25 mg PO DAILY 06/10/18 Furosemide 40 mg PO DAILY 06/10/18 Gabapentin 2 cap PO TIDWM 06/10/18 Gabapentin 3 cap PO BEDTIME 06/10/18 Vance [Vance*] 1 pkt PO BID 06/10/18 Levothyroxine Sodium [Synthroid] 150 mcg PO DAILY 06/10/18 Lisinopril [Prinivil*] 1 tab PO DAILY 06/10/18 Metformin HCl [Glucophage] 1 tab PO TID 06/10/18 Potassium Chloride 10 meq PO DAILY 06/10/18 Rivaroxaban [Xarelto*] 20 mg PO DAILY AT SUPPER 06/10/18 Apap/Codeine 300mg/60mg 1 tab PO TID 10/22/18 - Past Medical/Surgical History Has patient received pneumonia vaccine in the past: Yes Diabetic: Yes -: Atrial fibrillation -: HTN -: DM-Type 2 -: Hypothyroidism -: Chronic venous insufficiency -: Diabetic ulcer to the left foot -: DM Neuropathy -: 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 -: Hysterectomy Psychosocial/ Personal History: She is a , She has one child, She lives by herself - Family History Father -: Heart disease, Lung disease - Social History Smoking Status: Never smoker Alcohol use: No CD- Drugs: No Caffeine use: Yes Place of Residence: Home Review of Systems 10-point ROS is otherwise unremarkable Musculoskeletal: Hand Pain (swelling of the right thumb) Physical Examination - Vital Signs Temperature: 97.4 F Blood Pressure: 144/66 Pulse: 68 Respirations: 16 Pulse Ox (%): 97 - Physical Exam General: Alert, In no apparent distress HEENT: Atraumatic, PERRLA, Mucous membr. moist/pink, EOMI, Sclerae nonicteric Neck: Supple, 2+ carotid pulse no bruit, No LAD, Without JVD or thyroid abnormality Respiratory: Clear to auscultation bilaterally, Normal air movement Cardiovascular: Regular rate/rhythm, Normal S1 S2 Gastrointestinal: Normal bowel sounds, No tenderness Musculoskeletal: No tenderness, Other (swelling of the right thumb. The patient has no tenderness on palpation and passive movement of the thumb) Integumentary: No rashes, Erythema (right thumb) Neurological: Normal gait, Normal speech, Normal strength at 5/5 x4 extr, Normal tone, Normal affect Lymphatics: No axilla or inguinal lymphadenopathy - Studies Laboratory Data (last 24 hrs) 10/23/18 04:53: Sodium 138, Potassium 4.4, BUN 26 H, Creatinine 0.80, Glucose 95 , Total Bilirubin 1.7 H, AST 18, ALT 19, Alkaline Phosphatase 61 10/23/18 04:53: WBC 6.2 D, Hgb 11.6 L, Hct 32.7 L, Plt Count 245 Assessment and Plan - Problems (Diagnosis) (1) Infected abrasion of right thumb Current Visit: Yes Status: Acute Plan: Patient failed out patient oral antibiotics. Will put her on unsyn and continue vancomycin. Have discussed with Dr. Rutherford. Will keep npo if the patient needs surgery tomorrow. Qualifiers: Encounter type: subsequent encounter Qualified Code(s): S60.311D - Abrasion of right thumb, subsequent encounter; L08.9 - Local infection of the skin and subcutaneous tissue, unspecified (2) Diabetes Onset Date: 06/11/18 Current Visit: No Status: Chronic Plan: Continue home metformin. Will have an insulin sliding scale. Will check a1c. 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 Adjust as necessary Qualifiers: Hypertension type: essential hypertension Qualified Code(s): I10 - Essential (primary) hypertension (4) Hypothyroidism Onset Date: 10/17/16 Current Visit: No Status: Chronic Plan: check tsh Qualifiers: Hypothyroidism type: acquired Qualified Code(s): E03.9 - Hypothyroidism, unspecified Discharge Plan: Home Plan to discharge in: Greater than 2 days - Advance Directives Does patient have a Living Will: No Does patient have a Durable POA for Healthcare: No - Code Status/Comfort Care Code Status Assessed: No Code Status: Full Code Physician Review: Patient Assessed, Agree with Above Assessment and Plan Critical Care: No Time Spent Managing Pts Care (In Minutes): 50
[2018-10-23] MEDS ORDERED: AMPICILLIN/SULBACT 1.5GM VIAL IVPB SCH (12:00)
[2018-10-23] MEDS: NA CHLORIDE 0.9% 1,000 ML IV SCH ×3 (12:00→23:54)
[2018-10-23] MEDS: AMPICILLIN/SULBACT 1.5 GM in NA CHLORIDE 0.9% 100 ML IVPB SCH ×3 (12:52→23:48)
[2018-10-23] MEDS: METFORMIN HCL 500 MG TAB PO SCH (12:52)
[2018-10-23] MEDS: GABAPENTIN 400 MG CAP PO SCH ×2 (12:54→17:00)
[2018-10-23] MEDS ORDERED: RIVAROXABAN 10 MG TABLET PO SCH (17:00)
[2018-10-23] MEDS ORDERED: ENOXAPARIN 40 MG/0.4 ML SQ SCH (17:00)
[2018-10-23] MEDS: JUVEN PACKET PO SCH (21:36)
[2018-10-24] MEDS: VANCOMYCIN 1.75 GM in NA CHLORIDE 0.9% 500 ML IVPB SCH ×2 (03:39→21:02)
[2018-10-24 06:04] LABS: Absolute Lymphocytes (CBC) 1.4 K/uL (0.7-4.9); Absolute Monocytes 0.4 K/uL (0.1-1.3); Absolute Neutrophil 2.3 K/uL (1.8-8.0); Basophils % 0.9 % (0-1.3); Eosinophils % 3.7 % (0-4.4); Hematocrit 32.2 % (36.0-45.0); Lymphocytes % 32.3 % (15.3-44.8); MCH 30.8 pg (27.0-35.0); MCV 90.3 fL (80-100); MPV 8.8 fL (7.6-11.3); Monocytes % 9.6 % (3.3-12.3); RBC Red Blood Cell Count 3.56 M/uL (3.86-4.86)
[2018-10-24 06:18] LABS: Albumin 2.9 g/dL (3.4-5.0); Bilirubin Total 0.9 mg/dL (0.2-1.0); Potassium 4.4 mmol/L (3.5-5.1); Protein, Total 7.1 g/dL (6.4-8.2); Thyroid Stimulating Hormone 0.239 uIU/mL (0.360-3.740)
[2018-10-24] MEDS: PANTOPRAZOLE 40MG TABLET PO SCH ×2 (06:30→13:13)
[2018-10-24] MEDS: LEVOTHYROXINE SOD 0.075 MG TAB PO SCH ×2 (06:30→13:13)
[2018-10-24] MEDS: AMPICILLIN/SULBACT 1.5 GM in NA CHLORIDE 0.9% 100 ML IVPB SCH ×3 (06:43→17:45)
[2018-10-24] MEDS: GABAPENTIN 400 MG CAP PO SCH ×3 (08:00→17:40)
[2018-10-24] MEDS: NA CHLORIDE 0.9% 1,000 ML IV SCH ×3 (08:00→21:08)
[2018-10-24] MEDS: JUVEN PACKET PO SCH ×2 (09:00→21:02)
[2018-10-24] MEDS: ATENOLOL 25 MG TAB PO SCH (09:05)
[2018-10-24] MEDS ORDERED: NA CHLORIDE 0.9% 1,000 ML ONE (09:19)
[2018-10-24] MEDS ORDERED: FENTANYL CITR 100 MCG/2 ML ONE (09:48)
[2018-10-24] MEDS ORDERED: MIDAZOLAM HCL 2 MG/2 ML INJ ONE (09:48)
[2018-10-24] MEDS ORDERED: PROPOFOL 200 MG/20 ML VIAL IV ONE (10:11)
[2018-10-24 11:03] VITALS: O2SAT 100
--- NOTE | 2018-10-24 11:13 | P.PN ---
Subjective Date of Service: 10/24/18 Primary Care Provider: Viviana Chief Complaint: Infection of right thumb Subjective: New changes (post op) Review of Systems is unable to be obtained (post up very drowsy) Physical Examination - Vital Signs Temperature: 97.9 F Blood Pressure: 157/69 Pulse: 55 Respirations: 18 Pulse Ox (%): 99 - Physical Exam General: In no apparent distress, Confused HEENT: Atraumatic, PERRLA, EOMI Neck: Supple, JVD not distended Respiratory: Clear to auscultation bilaterally, Normal air movement Cardiovascular: Regular rate/rhythm, Normal S1 S2 Gastrointestinal: Normal bowel sounds, No tenderness Musculoskeletal: No tenderness, Other (right thumb has surgical dressing on it) Integumentary: No rashes Neurological: Normal speech, Normal tone, Normal affect Lymphatics: No axilla or inguinal lymphadenopathy - Studies Laboratory Data (last 24 hrs) 10/24/18 05:40: Sodium 141, Potassium 4.4, BUN 26 H, Creatinine 0.80, Glucose 104, Total Bilirubin 0.9, AST 19, ALT 18, Alkaline Phosphatase 55 10/24/18 05:40: WBC 4.4 D, Hgb 11.0 L, Hct 32.2 L, Plt Count 222 Assessment & Plan - Problems (Diagnosis) (1) Infected abrasion of right thumb Current Visit: Yes Status: Acute Plan: Patient failed out patient oral antibiotics. Will put her on unsyn and continue vancomycin. Taken to the OR by Dr. Rutherford. Per nursing, wound irrigated and drained. Cultures taken. Will await the results. Qualifiers: Encounter type: subsequent encounter Qualified Code(s): S60.311D - Abrasion of right thumb, subsequent encounter; L08.9 - Local infection of the skin and subcutaneous tissue, unspecified (2) Diabetes Onset Date: 06/11/18 Current Visit: No Status: Chronic Plan: Continue home metformin. Will have an insulin sliding scale. Will check a1c. ADA diet Qualifiers: Diabetes mellitus type: type 2 Diabetes mellitus parts counterman insulin use: unspecified parts counterman insulin use status Diabetes mellitus complication status : with neurologic complications Diabetes mellitus complication detail: with polyneuropathy Qualified Code(s): E11.42 - Type 2 diabetes mellitus with diabetic polyneuropathy (3) HTN (hypertension) Onset Date: 10/17/16 Current Visit: No Status: Chronic Plan: Continue home medications. Adjust as necessary Qualifiers: Hypertension type: essential hypertension Qualified Code(s): I10 - Essential (primary) hypertension (4) Hypothyroidism Onset Date: 10/17/16 Current Visit: No Status: Chronic Plan: check tsh Qualifiers: Hypothyroidism type: acquired Qualified Code(s): E03.9 - Hypothyroidism, unspecified Discharge Plan: Home Plan to discharge in: 48 Hours - Code Status/Comfort Care Code Status Assessed: No Code Status: Full Code Physician Review: Patient Assessed, Agree with Above Assessment and Plan Critical Care: No Time Spent Managing Pts Care (In Minutes): 25
[2018-10-24] MEDS: METFORMIN HCL 500 MG TAB PO SCH ×2 (12:00→17:00)
[2018-10-24] MEDS: TRAMADOL HCL 50 MG TAB PO PRN (13:12)
[2018-10-24] MEDS: FUROSEMIDE 40 MG TABLET PO SCH (13:13)
[2018-10-24] MEDS: POTASSIUM CL SA 10 MEQ TAB PO SCH (13:13)
[2018-10-24] MEDS: LISINOPRIL 20 MG TAB PO SCH (13:13)
[2018-10-25] MEDS: AMPICILLIN/SULBACT 1.5 GM in NA CHLORIDE 0.9% 100 ML IVPB SCH ×3 (00:11→12:00)
[2018-10-25] MEDS: NA CHLORIDE 0.9% 1,000 ML IV SCH (04:00)
[2018-10-25] MEDS: TRAMADOL HCL 50 MG TAB PO PRN ×2 (05:32→12:59)
[2018-10-25] MEDS: PANTOPRAZOLE 40MG TABLET PO SCH (05:33)
[2018-10-25] MEDS: LEVOTHYROXINE SOD 0.075 MG TAB PO SCH (05:33)
[2018-10-25 06:20] LABS: Absolute Lymphocytes (CBC) 1.3 K/uL (0.7-4.9); Absolute Monocytes 0.4 K/uL (0.1-1.3); Basophils % 0.7 % (0-1.3); Hematocrit 30.3 % (36.0-45.0); Lymphocytes % 26.7 % (15.3-44.8); MCV 89.4 fL (80-100); MPV 8.9 fL (7.6-11.3); Monocytes % 8.4 % (3.3-12.3); RBC Red Blood Cell Count 3.39 M/uL (3.86-4.86)
[2018-10-25 06:40] LABS: Albumin 2.9 g/dL (3.4-5.0); Bilirubin Total 0.9 mg/dL (0.2-1.0); Potassium 3.9 mmol/L (3.5-5.1); Protein, Total 6.7 g/dL (6.4-8.2)
[2018-10-25] MEDS: JUVEN PACKET PO SCH (09:00)
--- NOTE | 2018-10-25 09:14 | OP ---
Surgeon: Geoffrey Rutherford MD School Examiner: None. Preoperative Diagnosis: Paronychia of the right thumb. Postoperative Diagnosis: Paronychia of the right thumb. Procedure Performed: Nail plate removal, debridement of skin and subcutaneous tissue. Anesthesia: General. Procedure In Detail: After satisfactory induction of general anesthesia, the nail was prepped with B etadine scrub, Betadine paint, dry sterile drapes were applied in usual manner. The arm was elevated, exsanguinated with an Esmarch, tourniquet was inflated to 250 mmHg. Hand was placed on a [place] ta ble. A periosteal elevator was used to remove the nail plate. There was an area of cloudy fluid on the radial side. The wound was cultured. Then the wound was jet lavaged, irrigated. After that, th e skin and subcutaneous tissue were debrided as needed with the scalpel and tenotomy scissors. After irrigation, tourniquet was released and then Xeroform and 2-inch Kyle were applied. The patient to lerated the procedure well and returned to recovery. ABHIJEET/CHRISTINE Voice ID: [id number] Report ID: [id number]
[2018-10-25] MEDS: ATENOLOL 25 MG TAB PO SCH (09:51)
[2018-10-25] MEDS: LISINOPRIL 20 MG TAB PO SCH (09:51)
[2018-10-25] MEDS: GABAPENTIN 400 MG CAP PO SCH ×2 (09:51→13:08)
[2018-10-25] MEDS: METFORMIN HCL 500 MG TAB PO SCH ×2 (09:51→12:00)
[2018-10-25] MEDS: FUROSEMIDE 40 MG TABLET PO SCH (09:51)
[2018-10-25] MEDS: POTASSIUM CL SA 10 MEQ TAB PO SCH (09:52)
--- NOTE | 2018-10-25 10:55 | P.DS ---
Admission Date: 10/22/18 Discharge Date: 10/25/18 Primary Care Provider: Viviana Disposition: ROUTINE DISCHARGE Discharge Condition: GOOD Reason for Admission: Infection of right thumb - Problems (1) Infected abrasion of right thumb Onset Date: 10/25/18 Current Visit: Yes Status: Acute Qualifiers: Encounter type: subsequent encounter Qualified Code(s): S60.311D - Abrasion of right thumb, subsequent encounter; L08.9 - Local infection of the skin and subcutaneous tissue, unspecified (2) Diabetes Onset Date: 06/11/18 Current Visit: No Status: Chronic Qualifiers: Diabetes mellitus type: type 2 Diabetes mellitus half-way insulin use: unspecified half-way insulin use status Diabetes mellitus complication status : with neurologic complications Diabetes mellitus complication detail: with polyneuropathy Qualified Code(s): E11.42 - Type 2 diabetes mellitus with diabetic polyneuropathy (3) HTN (hypertension) Onset Date: 10/17/16 Current Visit: No Status: Chronic Qualifiers: Hypertension type: essential hypertension Qualified Code(s): I10 - Essential (primary) hypertension (4) Hypothyroidism Onset Date: 10/17/16 Current Visit: No Status: Chronic Qualifiers: Hypothyroidism type: acquired Qualified Code(s): E03.9 - Hypothyroidism, unspecified Brief History of Present Illness: Patient is here with an infection of the right thumb. She was seen in the wound care center on 10/13. States she was biting her thumb over the holidays. Started getting swollen. Had started her on augmentin. States she had 5 doses of this. However she started having red streaks running up her forearm. However the patient denies any pain, fever or chills. The patient went to [facility]. Wished to be transfered here instead of [facility]. Was started on vancomycin Hospital Course: Transfered from [facility]. Started on IV fluids. Seen by Dr. Rutherford and had surgical debridement of the right thumb nail on 10/24/18. Will discharge her today on oral antibiotics. Will have her follow up with Dr. Rutherford on Thu 10am. Can follow up with me in the wound care center the following Thursday Vital Signs/Physical Exam: Temp Pulse Resp BP Pulse Ox 97.4 F 55 18 133/72 97 10/25/18 04:00 10/25/18 04:00 10/25/18 04:00 10/25/18 04:00 10/25/18 04:00 General: Alert, In no apparent distress HEENT: Atraumatic, PERRLA, EOMI Neck: Supple, JVD not distended Respiratory: Clear to auscultation bilaterally, Normal air movement Cardiovascular: Regular rate/rhythm, Normal S1 S2 Gastrointestinal: Normal bowel sounds, No tenderness Musculoskeletal: No tenderness Integumentary: No rashes Neurological: Normal speech, Normal tone, Normal affect Lymphatics: No axilla or inguinal lymphadenopathy Laboratory Data at Discharge: WBC 5.0 K/uL (4.3-10.9) 10/25/18 06:00 Hgb 10.5 g/dL (12.0-15.0) L 10/25/18 06:00 Hct 30.3 % (36.0-45.0) L 10/25/18 06:00 Plt Count 220 K/uL (152-406) 10/25/18 06:00 Sodium 140 mmol/L (136-145) 10/25/18 06:00 Potassium 3.9 mmol/L (3.5-5.1) 10/25/18 06:00 BUN 26 mg/dL (7-18) H 10/25/18 06:00 Creatinine 0.80 mg/dL (0.55-1.3) 10/25/18 06:00 Glucose 106 mg/dL (74-106) 10/25/18 06:00 Total Bilirubin 0.9 mg/dL (0.2-1.0) 10/25/18 06:00 AST 16 U/L (15-37) 10/25/18 06:00 ALT 17 U/L (12-78) 10/25/18 06:00 Alkaline Phosphatase 58 U/L (45-117) 10/25/18 06:00 Home Medications: RX: Atenolol [Tenormin*] 25 mg PO DAILY 06/10/18 RX: Furosemide 40 mg PO DAILY 06/10/18 RX: Gabapentin 2 cap PO TIDWM 06/10/18 RX: Gabapentin 3 cap PO BEDTIME 06/10/18 RX: Vance [Vance*] 1 pkt PO BID 06/10/18 RX: Levothyroxine Sodium [Synthroid] 150 mcg PO DAILY 06/10/18 RX: Lisinopril [Prinivil*] 1 tab PO DAILY 06/10/18 RX: Metformin HCl [Glucophage] 1 tab PO TID 06/10/18 RX: Potassium Chloride 10 meq PO DAILY 06/10/18 RX: Rivaroxaban [Xarelto*] 20 mg PO DAILY AT SUPPER 06/10/18 Apap/Codeine 300mg/60mg 1 tab PO TID 10/22/18 Amox/Clavulanate [Augmentin 875-125 Tab] 875 mg PO BID 7 Days #14 tab 10/25/18 Smz./Tmp. [Bactrim Ds 800 MG/160 MG] 1 tab PO BID 7 Days #14 tab 10/25/18 New Medications: Amox/Clavulanate [Augmentin 875-125 Tab] 875 mg PO BID 7 Days #14 tab Smz./Tmp. [Bactrim Ds 800 MG/160 MG] 1 tab PO BID 7 Days #14 tab Diet: ADA Activity: Ad carin Followup: Geoffrey Rutherford MD [ACTIVE - CAN ADMIT] - 1-2 Days Time spent managing pt's care (in minutes): 40
--- NOTE | 2018-10-25 12:47 | PN ---
The patient's wound is open. We removed the nail plate yesterday. We will plan on letting it heal b y itself with topical dressing changes, Xeroform q.shift, and she will be discharged per her primary care. MADIE Voice ID: [id number] Report ID: [id number]
[2018-10-25 15:40] VITALS: BP 163/85; TEMP 97.8
== END 2018-10-25 17:05 | disposition home or self-care (01) | DRG 603 ==
LOC: 2ND 20:44
PROVIDERS: ADMIT Internal Medicine; ATTEND Internal Medicine
PROC: 0JDJ3ZZ Extraction of Right Hand Subcutaneous Tissue and Fascia, Percutaneous Approach (ICD-10-PCS; 2018-10-24)
PROC: 0HTQXZZ Resection of Finger Nail, External Approach (ICD-10-PCS; principal; 2018-10-24 09:00)
DX: L08.9 Local infection of the skin and subcutaneous tissue, unspecified (principal); S60.311D Abrasion of right thumb, subsequent encounter; X58.XXXD Exposure to other specified factors, subsequent encounter; E03.9 Hypothyroidism, unspecified; I10 Essential (primary) hypertension; I48.91 Unspecified atrial fibrillation; Z79.01 Long term (current) use of anticoagulants; Z79.84 Long term (current) use of oral hypoglycemic drugs; E11.42 Type 2 diabetes mellitus with diabetic polyneuropathy; L03.011 Cellulitis of right finger
CPT/HCPCS: 29581; 36415; 80053; 80202; 81003; 81015; 82962; 83036; 84443; 85025; 87070; 87075; 87077; 87086; 87088; 87186; 87205; 88304; 88311; 99213; J0295; J2250; J2704; J3010; J7030

== ENCOUNTER 2020-07-18 14:51 | Emergency (ER) | payer OTHER, BC ==
--- OUTSIDE RECORDS SUMMARY | 2020-07-18 14:53 | XMS REPORT | Continuity of Care Document ---
:1945 Author Organization Formerly [facility] t Address [address] [place] [address] Care Team Providers Name Role Phone Unavailable Unavailable Unavailable Problems Condition Condition Condition Status Onset Resolution Last Treating Co mments Source Name Details Category Date Date Treatment Clinician Date Paroxysmal Paroxysmal Problem Active [facility] atrial atrial [facility] fibrillati fibrillati [facility] ent Clinics Type 2 Type [address] [facility] diabetes diabetes [facility] - mellitus mellitus Memori a without without l complicati complicati Ou tpati on, on, ent without without Clinics long-term long-term current current use of use of insulin insulin Essential Essential Problem Active [facility] (primary[facility] (primary[facility] - hypertensi hypertensi Me moria on on l Outpati ent Clinics Hyperthyro Hyperthyro Problem Active [facility] idism idism [facility] Diabetic Diabetic Problem [facility]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 Mariza kes - athy athy Memoria associated associated l with with Outpati diabetes diabetes ent mellitus mellitus Clinic s due to due to underlying underlying condition condition Acquired Acquired Problem [facility] hypothyroi hypothyroi Mariza kes - dism dism [facility]oria l Out[facility] ent Clinics Heart Heart Problem Active [facility] disease disease [facility] Chronic Chronic Problem Active [facility] renal renal [facility] - failure, failure, 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) (mild) Outpati ent Clinics Environmen Environmen Problem Active [facility] natasha natasha [facility] - allergies allergies Kenyon lauri l Outpati ent Clinics Seasonal Seasonal Problem Active [facility] allergies allergies [facility] - [facility] 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, 1.5, [facility]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 l Outpati ent Clinics 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 Me moria l Outpati ent Clinics Obstructiv Obstructiv Problem Active [facility] e sleep e sleep [facility] - apnea apnea Memoria syndrome syndrome [facility] Allergies, Adverse Reactions, Alerts Allergy Allergy Status Severity Reaction(s) Onset Inactive Treating Comm ents Source Name Type Date Date Clinician Hydrocod Adverse Active rash [facility] one Reaction [facility] - Bitartra Memoria te l [facility] Zyvox Adverse Active nausea + [facility] Reaction blisters in Venkat es - mout Memoria [facility] Lortab Adverse Active rash [facility] Reaction [facility] - Memoria [facility] Medications Ordered Filled Start Stop Current Ordering Indication Dosage Frequency Signature Comments Components Source Medication Medication Date Date Medication? Clinician (SIG) Name Name Levothyroxi Levothyroxi 2019- Yes Ezio [address] [facility] ne Sodium ne Sodium 9-20 Viviana on an Venkat es - 00:00: empty Memoria 00 stomach in the [facility] ent Clinics Liothyronin Liothyronin Yes Ezio [address] [facility] e Sodium e Sodium 9-20 Viviana on an [facility]ukes - 00:00: empty Memoria 00 stomach [facility] Eliquis 5 Eliquis 5 2019-0 2020- No Ezio one [facility] mg mg 9 03-07 Viviana [facility] - 00:00: 00:00 Memoria 00 :00 [facility] Simvastatin Simvastatin 2018- Yes Ezio [address] [facility] 2-05 Viviana in the [facility] - 00:00: evening Memoria 00 [facility] ent [facility] Fluticasone Fluticasone Yes Ezio [address] [facility] Propionate Propionate 9-24 Viviana each Mariza kes - 00:00: nostril Memoria 00 [facility] ent [facility] Levothyroxi Levothyroxi Yes Ezio [address] [facility] ne Sodium ne Sodium Viviana on an Venkat es - empty Memoria stomach in [facility] ent [facility] Metformin Metformin Yes Ezio [address] [facility] HCl HCl Viviana with a [facility]ukes - meal Memoria [facility] Atenolol Atenolol Yes Ezio TAKE [address] [facility] Viviana TABLET BY Lukes - MOUTH Memoria EVERY DAY [facility] ent [facility] Potassium Potassium Yes Ezio [address] [facility] Chloride Chloride Viviana [facility] - Memoria l Outpati ent Clinics Potassium Potassium Yes Ezio TAKE [address] Chloride Chloride Viviana TABLET BY L ukes - Eli ER Eli ER MOUTH Memoria EVERY DAY l Outpati ent Clinics Acetaminoph Acetaminoph Yes Ezio (Schedule [facility] en-Codeine en-Codeine Viviana III Drug) [facility] - TK 1 T PO Memoria Q 6 H PRN l Outpati ent Clinics Gabapentin Gabapentin Yes Ezio TAKE [address] [facility] Viviana CAPSULES [facility] - BY MOUTH 3 Memoria TIMES A l DAY AND 3 Outpati CAPSULES ent BY MOUTH Clinics AT BEDTIME Furosemide Furosemide Yes Ezio [address] [facility] Viviana [facility] Lisinopril Lisinopril Yes Ezio [address] [facility] Viviana [facility] Procedures This patient has no known procedures. Encounters Start End Encounter Admission Attending Care Care Encounter Source Date/Time Date/Time Type Type Clinicians Facility Department ID 2019-09-23 2019-09-23 Outpatient Yovana Yent [id number] [facility] 16:28:00 16:28:00 [facility] Medicine Outpati ent Clinics 2019-08-12 2019-08-12 Outpatient Y[place]ana [place] [id number] [facility] 13:07:00 13:07:00 [facility] Medicine Outpati ent Clinics 2019-08-03 2019-08-03 Outpatient Yovana Yent [id number] [facility] 15:14:00 15:14:00 [facility] Medicine Outpati ent Clinics 2019-08-01 2019-08-01 [place]patient [place] [id number] [facility] 15:20:00 15:20:00 [facility] Medicine Outpati ent Clinics 2019-07-27 2019-07-27 Outpatient [place] [id number] 11:40:00 11:40:00 [facility] Medicine Outpati ent Clinics 2019-07-25 2019-07-25 Outpatient [place] [id number] [address] 14:00:00 14:00:[address] [facility] Medicine Medicine Outpati ent Clinics 2019-03-24 2019-03-24 [place] [id number] 10:51:00 10:51:[address] [facility] Medicine Medicine Outpati ent Clinics 2019-03-23 2019-03-23 [facility] [id number] 14:00:00 14:00:[address] [facility] Medicine l Medicine Outpati ent Clinics 2018-12-21 2018-12-21 [facility] [id number] [facility] 10:00:00 10:00:[address] [facility] Medicine Medicine Outpati ent Clinics 2018-12-06 2018-12-06 [facility] [id number] [facility] 13:00:00 13:00:00 t [facility] Medicine Outpati ent Clinics 2018-12-06 2018-12-06 [facility] [id number] [address] 08:35:00 08:35:[address] [facility] Medicine Medicine Outpati ent Clinics 2018-11-25 2018-11-25 [facility] [id number] [facility] 14:09:00 14:09:[address] [facility] Medicine Medicine Outpati ent Clinics 2018-11-11 2018-11-11 [facility] [id number] [address] 11:42:00 11:42:[address] [facility] Medicine Medicine Outpati ent Clinics 2018-08-10 2018-08-10 [facility] [id number] [facility] 13:19:00 13:19:[address] [facility] Medicine Medicine Outpati ent Clinics 2018-08-09 2018-08-09 [facility] [id number] [facility] 10:30:00 10:30:[address] [facility] Medicine Medicine Outpati ent Clinics 2018-07-23 2018-07-23 Outpatient Yovana [place] [id number] [facility] 09:44:00 09:44:00 [facility] 2018-07-12 2018-07-12 Outpatient Yovana Clarke [id number] 10:30:00 10:30:00 [facility] ent Clinics Results This patient has no known results.
[2020-07-18 16:19] LABS: Absolute Lymphocytes (CBC) 1.5 K/uL (0.7-4.9); Basophils % 0.5 % (0-1.3); Hematocrit 33.7 % (36.0-45.0); Lymphocytes % 33.9 % (15.3-44.8); MPV 9.2 fL (7.6-11.3); RBC Red Blood Cell Count 3.77 M/uL (3.86-4.86)
[2020-07-18 16:26] LABS: Protime INR 1.57
[2020-07-18] MEDS ORDERED: METHYLPREDNISOLONE 125 MG INJ ONE (16:38)
[2020-07-18] MEDS ORDERED: IPRATROPIUM BROM 0.5MG/2.5ML ONE (16:38)
[2020-07-18] MEDS ORDERED: ALBUTEROL 2.5 MG/3 ML NEB SOL ONE (16:39)
--- NOTE | 2020-07-18 16:43 | RAD REPORT ---
EXAM DESCRIPTION: Dolores Single View07/18/2020 4:05 pm CLINICAL HISTORY: Shortness breath COMPARISON: none FINDINGS: The lungs appear clear of acute infiltrate. The heart is borderline enlarged IMPRESSION: No acute abnormalities displayed
[2020-07-18 16:54] LABS: Albumin 3.4 g/dL (3.4-5.0); Bilirubin Direct 0.4 mg/dL (0-0.2); Bilirubin Total 1.6 mg/dL (0.2-1.0); Magnesium 2.2 mg/dL (1.8-2.4); Potassium 3.9 mmol/L (3.5-5.1); Protein, Total 7.9 g/dL (6.4-8.2)
--- NOTE | 2020-07-18 17:41 | ER ---
Nurse's Notes [facility] Name: Helen Hdz Age: 75 yrs Sex: Female : 1945 Arrival Date: 07/18/2020 Time: 14:54 Bed 19 Private MD: Ezio Michelle Diagnosis: Acute bronchitis Presentation: 07/18 15:00 Chief complaint: Patient states: Cough, SOB, CP, no appetite since Thursday, getting ll1 worse. Fever 99.4 at home. Coronavirus screen: Client denies travel out of the [place] in the last 14 days. cough unrelated to allergies, difficulty breathing, fatigue, fever, Client presents with at least one sign or symptom that may indicate coronavirus-19. Standard/surgical mask placed on the client. Ebola Screen: Patient denies travel to an Ebola-affected area in the 21 days before illness onset. Initial Sepsis Screen: Does the patient meet any 2 criteria? No. Patient's initial sepsis screen is negative. Risk Assessment: Do you want to hurt yourself or someone else? Patient reports no desire to harm self or others. Onset of symptoms was July 14, 2020. 15:00 Method Of Arrival: Wheelchair ll1 15:00 Acuity: MARINO 3 ll1 Historical: - Allergies: 15:04 Oxycodone; ll1 15:04 Tape; ll1 - PMHx: 15:04 Atrial Fib; Hypertension; Diabetes - NIDDM; ll1 - PSHx: 15:04 Hysterectomy; klaudia foot; Knee surgery; achilles repair; ll1 - Immunization history:: Flu vaccine is not up to date. - Social history:: Smoking status: Patient denies any tobacco usage or history of. Patient/guardian denies using street drugs. Screenin:57 Abuse screen: Denies threats or abuse. Denies injuries from another. Nutritional ph screening: No deficits noted. Tuberculosis screening: No symptoms or risk factors identified. Fall Risk None identified. Assessment: 15:45 General: Appears in no apparent distress. comfortable, obese, well groomed, Behavior is ph calm, cooperative, appropriate for age. Pain: Denies pain. Neuro: Level of Consciousness is awake, alert, obeys commands, Oriented to person, place, time, situation. Cardiovascular: Capillary refill < 3 seconds in bilateral fingers Patient's skin is warm and dry. Rhythm is regular. Respiratory: Reports shortness of breath at rest cough that is non-productive, Airway is patent Respiratory effort is even, unlabored, Respiratory pattern is regular, symmetrical, Breath sounds with wheezes in mediastinum. GI: No signs and/or symptoms were reported involving the gastrointestinal system. EENT: Reports nasal congestion nasal discharge. Derm: Skin is intact, Skin is pink, warm \T\ dry. Musculoskeletal: Circulation, motion, and sensation intact. Range of motion: intact in all extremities. 16:57 Reassessment: Patient appears in no apparent distress at this time. Patient and/or ph family updated on plan of care and expected duration. Pain level reassessed. Patient is alert, oriented x 3, equal unlabored respirations, skin warm/dry/pink. 17:00 Reassessment: Patient appears in no apparent distress at this time. Patient and/or ph family updated on plan of care and expected duration. Pain level reassessed. Patient is alert, oriented x 3, equal unlabored respirations, skin warm/dry/pink. Vital Signs: 15:00 BP 132 / 66; Pulse 75; Resp 20; Temp 98.2; Pulse Ox 98% ; Weight 113.4 kg; Height 5 ft. ll1 6 in. (167.64 cm); Pain 7/10; 16:52 BP 138 / 64; Pulse 72; Resp 18; Pulse Ox 99% on Nebulizer Mask; ph 18:00 BP 127 / 68; Pulse 78; Resp 18; Temp 97.8; Pulse Ox 99% on R/A; ph 15:00 Body Mass Index 40.35 (113.40 kg, 167.64 cm) ll1 ED Course: 14:54 Patient arrived in ED. mr 14:55 Ezio Michelle MD is Private Physician. mr 15:03 Triage completed. ll1 15:04 Arm band placed on Patient placed in an exam room, on a stretcher. ll1 15:09 Theodora Rosa, CHRISTIAN is Primary Nurse. ph 15:09 Grupo Oro PA is PHCP. jr8 15:09 Tony Posada MD is Attending Physician. jr8 15:40 Inserted saline lock: 20 gauge in right antecubital area, using aseptic technique. jp3 Blood collected. Patient maintains SpO2 saturation greater than 95% on room air. 15:40 First set of blood cultures drawn by me. jp3 15:53 Initial lab(s) drawn, by me, sent to lab. Second set of blood cultures drawn by me. jp3 16:05 XRAY Chest (1 view) In Process Unspecified. EDMS 16:57 Patient has correct armband on for positive identification. Bed in low position. Call ph light in reach. Side rails up X 1. environmental monitoring specialist on. Pulse ox on. NIBP on. Door closed. Noise minimized. Warm blanket given. 17:40 Ezio Michelle MD is Referral Physician. jr8 18:25 No provider procedures requiring assistance completed. IV discontinued, intact, ph bleeding controlled, No redness/swelling at site. Pressure dressing applied. Administered Medications: 16:49 Drug: Albuterol - atroVENT (3:1) (2.5 mg - 0.5 mg) 3 ml Route: Nebulizer; ph 18:30 Follow up: Response: No adverse reaction ph 16:49 Drug: SOLU-Medrol 125 mg Route: IVP; Site: right antecubital; ph 18:29 Follow up: Response: No adverse reaction ph 17:59 Drug: Tussionex Pennkinetic ER 5 ml Route: PO; ph 18:26 Follow up: Response: No adverse reaction ph Outcome: 17:41 Discharge ordered by . jrLucille 18:25 Discharged to home via wheelchair. ph 18:25 Condition: good 18:25 Discharge instructions given to patient, Instructed on discharge instructions, follow up and referral plans. medication usage, Demonstrated understanding of instructions, follow-up care, medications, Prescriptions given X prescriptions called into [facility] by GRACE Lombardo 18:27 Patient left the ED. Addendum: 07/21/2020 11:24 Addendum: COVID-19 Result: Negative result given to RN to notify pt. Notified pt of i w negative COVID 19 swab results. Pt advised that even with a negative test result they should remain in isolation until symptom free for 3 days without medication. Pt also advised to return to the ED for worsening symptoms. Signatures: Dispatcher [employer] [facility] Otilia Holcomb mr Erlinda Grigsby RN RN Grupo Oro PA PA jrTheodora Sarkar RN RN Sarah Hernandez RN RN Kunal Almonte jp3 Salbador Gates, RN RN ll1
--- NOTE | 2020-07-18 17:41 | EDPHYS ---
Physician Documentation [facility] Name: Helen Hdz Age: 75 yrs Sex: Female : 1945 Arrival Date: 07/18/2020 Time: 14:54 Bed 19 Private MD: Ezio Michelle ED Physician Tony Posada HPI: 07/18 17:13 This 75 yrs old Female presents to ER via Wheelchair with complaints of jr8 Cough, Shortness Of Breath, Chest Pain. 17:13 The patient or guardian reports cough, that is intermittent, described as mild. Onset: jr8 The symptoms/episode began/occurred gradually, 3 day(s) ago. Severity of symptoms: At their worst the symptoms were mild, in the emergency department the symptoms are unchanged. Modifying factors: The symptoms are alleviated by nothing, the symptoms are aggravated by nothing. Associated signs and symptoms: The patient has no apparent associated signs or symptoms. The patient has not experienced similar symptoms in the past. The patient has not recently seen a physician. Patient stated that she has had three days of cold like symptoms but now having shortness of breath and wheezing . Historical: - Allergies: 15:04 Oxycodone; ll1 15:04 Tape; ll1 - PMHx: 15:04 Atrial Fib; Hypertension; Diabetes - NIDDM; ll1 - PSHx: 15:04 Hysterectomy; klaudia foot; Knee surgery; achilles repair; ll1 - Immunization history:: Flu vaccine is not up to date. - Social history:: Smoking status: Patient denies any tobacco usage or history of. Patient/guardian denies using street drugs. ROS: 17:13 Eyes: Negative for injury, pain, redness, and discharge, ENT: Negative for injury, jr8 pain, and discharge, Neck: Negative for injury, pain, and swelling, Cardiovascular: Negative for chest pain, palpitations, and edema, Abdomen/GI: Negative for abdominal pain, nausea, vomiting, diarrhea, and constipation, Back: Negative for injury and pain, MS/Extremity: Negative for injury and deformity, Skin: Negative for injury, rash, and discoloration, Neuro: Negative for headache, weakness, numbness, tingling, and seizure. 17:13 Respiratory: Positive for cough, shortness of breath, wheezing, expiratory. Exam: 17:13 Eyes: Pupils equal round and reactive to light, extra-ocular motions intact. Lids and jr8 lashes normal. Conjunctiva and sclera are non-icteric and not injected. Cornea within normal limits. Periorbital areas with no swelling, redness, or edema. ENT: Nares patent. No nasal discharge, no septal abnormalities noted. Tympanic membranes are normal and external auditory canals are clear. Oropharynx with no redness, swelling, or masses, exudates, or evidence of obstruction, uvula midline. Mucous membranes moist. Neck: Trachea midline, no thyromegaly or masses palpated, and no cervical lymphadenopathy. Supple, full range of motion without nuchal rigidity, or vertebral point tenderness. No Meningismus. Cardiovascular: Regular rate and rhythm with a normal S1 and S2. No gallops, murmurs, or rubs. Normal PMI, no JVD. No pulse deficits. Abdomen/GI: Soft, non-tender, with normal bowel sounds. No distension or tympany. No guarding or rebound. No evidence of tenderness throughout. Back: No spinal tenderness. No costovertebral tenderness. Full range of motion. Skin: Warm, dry with normal turgor. Normal color with no rashes, no lesions, and no evidence of cellulitis. MS/ Extremity: Pulses equal, no cyanosis. Neurovascular intact. Full, normal range of motion. Neuro: Awake and alert, GCS 15, oriented to person, place, time, and situation. Cranial nerves II-XII grossly intact. Motor strength 5/5 in all extremities. Sensory grossly intact. Cerebellar exam normal. Normal gait. 17:13 Respiratory: the patient does not display signs of respiratory distress, Respirations: normal, Breath sounds: wheezing: expiratory that is moderate, is heard diffusely. Vital Signs: 15:00 BP 132 / 66; Pulse 75; Resp 20; Temp 98.2; Pulse Ox 98% ; Weight 113.4 kg; Height 5 ft. ll1 6 in. (167.64 cm); Pain 7/10; 16:52 BP 138 / 64; Pulse 72; Resp 18; Pulse Ox 99% on Nebulizer Mask; ph 18:00 BP 127 / 68; Pulse 78; Resp 18; Temp 97.8; Pulse Ox 99% on R/A; ph 15:00 Body Mass Index 40.35 (113.40 kg, 167.64 cm) ll1 MDM: 15:16 Patient medically screened. 8 17:13 Data reviewed: vital signs, nurses notes, lab test result(s), EKG, radiologic studies, jr8 plain films. Data interpreted: Pulse oximetry: on room air is 99 %. Interpretation: normal. Counseling: I had a detailed discussion with the patient and/or guardian regarding: the historical points, exam findings, and any diagnostic results supporting the discharge/admit diagnosis, lab results, radiology results, the need for outpatient follow up, a family practitioner, to return to the emergency department if symptoms worsen or persist or if there are any questions or concerns that arise at home. Response to treatment: the patient's symptoms have markedly improved after treatment. ED course: Patients wheezing has improved. feeling better. No pneumonia present. Hemodynamically stable with normal oxygen saturations. Dr. Michelle came and saw patient as well and will f/u with him on outpatient basis. Knows to come back if worse . 07/18 15:20 Order name: Basic Metabolic Panel; Complete Time: 17:00 07/18 15:20 Order name: CBC with Diff; Complete Time: 17:00 07/18 15:20 Order name: LFT's; Complete Time: 17:00 07/18 15:20 Order name: Magnesium; Complete Time: 17:00 07/18 15:20 Order name: NT PRO-BNP; Complete Time: 17:00 07/18 15:20 Order name: PT-INR; Complete Time: 17:00 07/18 15:20 Order name: XRAY Chest (1 view); Complete Time: 17:00 07/18 15:20 Order name: EKG; Complete Time: 15:21 07/18 15:20 Order name: Blood Culture Adult (2) 07/18 15:20 Order name: Procalcitonin; Complete Time: 17:10 07/18 17:10 Order name: COVID-19 07/18 15:20 Order name: Cardiac monitoring; Complete Time: 16:04 07/18 15:20 Order name: EKG - Nurse/Tech; Complete Time: 16:49 07/18 15:20 Order name: IV Saline Lock; Complete Time: 16:04 07/18 15:20 Order name: Labs collected and sent; Complete Time: 16:07/18 15:20 Order name: O2 Per Protocol; Complete Time: 16:07/18 15:20 Order name: O2 Sat Monitoring; Complete Time: 16: Administered Medications: 16:49 Drug: Albuterol - atroVENT (3:1) (2.5 mg - 0.5 mg) 3 ml Route: Nebulizer; ph 18:30 Follow up: Response: No adverse reaction ph 16:49 Drug: SOLU-Medrol 125 mg Route: IVP; Site: right antecubital; ph 18:29 Follow up: Response: No adverse reaction ph 17:59 Drug: Tussionex Pennkinetic ER 5 ml Route: PO; ph 18:26 Follow up: Response: No adverse reaction ph Disposition: 07/19 17:05 Co-signature as Attending Physician, Tony Posada MD I agree with the assessment and kdr plan of care. Disposition: 07/18/20 17:41 Discharged to Home. Impression: Acute bronchitis. - Condition is Stable. - Discharge Instructions: Acute Bronchitis, Adult. - Medication Reconciliation Form, Thank You Letter, Antibiotic Education, Prescription Opioid Use form. - Follow up: Ezio Michelle MD; When: 2 - 3 days; Reason: Recheck today's complaints, Continuance of care, Re-evaluation by your physician. - Problem is new. - Symptoms have improved. - Notes: Prescriptions for Prednisone 10 mg, Albuterol inhaler, Albuterol ampules, and nebulizer machine were called in to [facility] upon patient request. Signatures: Dispatcher [employer] EDAR Tony Posada MD MD [facility] Grupo Oro PA PA jr8 Theodora Rosa RN RN Sarah Hernandez RN RN Salbador Gates RN RN ll1 Corrections: (The following items were deleted from the chart) 07/18 18:27 17:41 07/18/2020 17:41 Discharged to Home. Impression: Acute bronchitis. Condition is hb Stable. Forms are Medication Reconciliation Form, Thank You Letter, Antibiotic Education, Prescription Opioid Use. Follow up: Ezio Michelle; When: 2 - 3 days; Reason: Recheck today's complaints, Continuance of care, Re-evaluation by your physician. Problem is new. Symptoms have improved. jr8
[2020-07-18] MEDS ORDERED: HYDROCODONE/CHLORPHEN 5 ML/OSYR ONE (17:50)
--- NOTE | 2020-07-19 08:17 | EKG ---
Test Date: 2020-07-18 Test Time: 16:33:51 [employer] Instructor: ROSA MEASUREMENT RESULTS: Intervals: Rate: 81 CT: QRSD: 72 QT: 392 QTc: [address] [place]: P: CT: QRS: -30 T: 43 INTERPRETIVE STATEMENTS: Atrial fibrillation Left axis deviation Low voltage QRS Cannot rule out Anteroseptal infarct, age undetermined Abnormal ECG Compared to ECG 06/10/2018 17:51:25 Left-axis deviation now present Low QRS voltage now present Left ventricular hypertrophy no longer present Myocardial infarct finding still present Electronically Signed On 07-19-20 08:16:24 CDT by Horacio Banks
[2020-07-20 14:53] VITALS: O2SAT 99
[2020-07-20 14:54] VITALS: BP 127/68; TEMP 97.8
== END 2020-07-18 18:27 | disposition home or self-care (01) ==
LOC: ER 14:51
DX: J20.9 Acute bronchitis, unspecified (principal); Z20.828 Contact with and (suspected) exposure to other viral communicable diseases; Z88.6 Allergy status to analgesic agent
CPT/HCPCS: 93005; 87040 ×2; 85025; 80048; 36415; 83735; 85610; 80076; 84145; 83880; 71045; 96374; 99285; U0002; J2930

== ENCOUNTER 2020-09-19 12:01 | Emergency (ER) | payer OTHER, BC ==
--- OUTSIDE RECORDS SUMMARY | 2020-09-19 12:19 | XMS REPORT | Continuity of Care Document ---
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 [facility] - mellitus mellitus Memori a without without l complicati complicati Ou tpati on, on, ent without without Clinics long-term long-term current current use of use of insulin insulin Essential Essential Problem Active [facility] (primary) (primary) [facility] - hypertensi hypertensi Me moria on on l [facility] Hyperthyro Hyperthyro Problem Active [facility] idism idism [facility] - [facility]oria l [facility] Diabetic Diabetic Problem Active [facility] [...] stage 2 stage 2 l (mild) (mild) [facility] Environmen Environmen Problem Active [facility] natasha natasha [facility] - allergies allergies Kenyon lauri l [facility] Seasonal Seasonal Problem Active [facility] allergies allergies [facility] - [facility] l [facility] 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, 1.5, [facility]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 [facility] 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 Me moria l [facility] Obstructiv Obstructiv Problem Active [facility] e sleep e sleep [facility] - apnea apnea Memoria syndrome syndrome [facility] Allergies, Adverse Reactions, Alerts Allergy Allergy Status Severity Reaction(s) Onset Inactive Treating Comm ents Source Name Type Date Date Clinician Hydrocod Adverse Active rash [facility] one Reaction [facility] - Bitartra Memoria te l [facility] Zyvox Adverse Active nausea + [facility] Reaction blisters in [facility] Lortab Adverse Active rash [facility] Reaction [facility] - Memoria [facility] Medications Ordered Filled Start Stop Current Ordering Indication Dosage Frequency Signature Comments Components Source Medication Medication Date Date Medication? Clinician (SIG) Name Name Levothyroxi Levothyroxi 2019- Yes Ezio [address] [facility] ne Sodium ne Sodium 9-20 Viviana on an Venkat es - 00:00: empty [facility]oria 00 [facility] Liothyronin Liothyronin Yes Ezio [address] [facility] e Sodium e Sodium 9-20 Viviana on an [facility]ukes - 00:00: empty Memoria 00 stomach [facility] Eliquis 5 Eliquis 5 2019-0 2020- No Ezio one [facility] mg mg 07-25 03-07 Viviana [facility] - 00:00: 00:00 Memoria 00 :00 [facility] Simvastatin Simvastatin 2018-0 Yes Ezio [address] [facility] 2-05 Viviana in the [facility] - 00:00: evening Memoria 00 [facility] ent [facility] Fluticasone Fluticasone 2018-0 Yes Ezio [address] [facility] Propionate Propionate 9-24 Viviana each Mariza kes - 00:00: nostril Memoria 00 [facility] Levothyroxi Levothyroxi Yes Ezio [address] [facility] ne Sodium ne Sodium Viviana on an Venkat es - empty [facility]oria stomach [facility] Metformin Metformin Yes Ezio [address] [facility] HCl HCl Viviana with a [facility]ukes - meal Memoria [facility] Atenolol Atenolol Yes Ezio TAKE [address] [facility] Viviana TABLET BY [facility] - MOUTH Memoria EVERY DAY l Outpati ent Clinics Potassium Potassium Yes Ezio 1 capsule [facility] [...] Date/Time Type Type Clinicians Facility Department ID 2020-07-31 2020-07-31 Orders Doctor JUAN [id number] 00:00:00 00:00:00 Only Unassigned, RAPHAEL [id number] O[facility] [id number] 2019-09-23 2019-09-23 Outpatient Yovana Clarke [id number] [facility] 16:28:00 16:28:00 [facility] Medicine Outpati ent Clinics 2019-08-12 2019-08-12 Outpatient Yovana Clarke [id number] [facility] 13:07:00 13:07:00 [facility] Medicine Outpati ent Clinics 2019-08-03 2019-08-03 Outpatient Yovana Clarke [id number] [facility] 15:14:00 15:14:00 [facility] Medicine Outpati ent Clinics 2019-08-01 2019-08-01 Outpatient Yovana Clarke [id number] [facility] 15:20:00 15:20:00 t [facility] Medicine Medicine Outpati ent Clinics 2019-07-27 2019-07-27 [facility] [id number] [facility] 11:40:00 11:40:00 t [facility] Medicine Outpati ent Clinics 2019-07-25 2019-07-25 [facility] [id number] 14:00:00 14:00:00 t [facility] Medicine l Medicine Outpati ent Clinics 2019-03-24 2019-03-24 [facility] [id number] [address] 10:51:00 10:51:00 t [facility] Medicine Outpati ent Clinics 2019-03-23 2019-03-23 [facility] [id number] 14:00:00 14:00:00 t [facility] Medicine Outpati ent Clinics 2018-12-21 2018-12-21 [facility] [id number] 10:00:00 10:00:00 t [facility] Medicine Medicine Outpati ent Clinics 2018-12-06 2018-12-06 [facility] [id number] [facility] 13:00:00 13:00:00 [facility] Medicine Outpati ent Clinics 2018-12-06 2018-12-06 [facility] [id number] 08:35:00 08:35:00 t [facility] Medicine Medicine Outpati ent Clinics 2018-11-25 2018-11-25 [facility] [id number] 14:09:00 14:09:00 [facility] Medicine Medicine Outpati ent Clinics 2018-11-11 2018-11-11 [facility] [id number] 11:42:00 11:42:00 [facility] Medicine Medicine Outpati ent Clinics 2018-08-10 2018-08-10 [facility] [id number] 13:19:00 13:19:00 t [facility] 2018-08-09 2018-08-09 [facility] [id number] [facility] 10:30:00 10:30:00 t [facility] 2018-07-23 2018-07-23 [facility] [id number] [facility] 09:44:00 09:44:00 t [facility] 2018-07-12 2018-07-12 [facility] [id number] [facility] 10:30:00 10:30:00 t [facility] Results This patient has no known results.
--- NOTE | 2020-09-19 13:36 | RAD REPORT ---
EXAM DESCRIPTION: RAD - Foot Left 3 View - 09/19/2020 1:29 pm CLINICAL HISTORY: non-healing wound Diabetic, foot wound COMPARISON: Foot Left 3 View dated 07/30/2020; Foot Left 2 View dated 11/28/2019 FINDINGS: Large ulceration is present at the base of the fifth metatarsal with bony exposure suspect ed. This likely indicates chronic osteomyelitis. Small to moderate posterior and plantar calcaneal sp urs are seen. No soft tissue gas is evident.
[2020-09-19 13:53] LABS: Absolute Lymphocytes (CBC) 1.5 K/uL (0.7-4.9); Basophils % 0.8 % (0-1.3); Lymphocytes % 20.6 % (15.3-44.8); MPV 8.7 fL (7.6-11.3)
[2020-09-19 14:19] LABS: Potassium 4.3 mmol/L (3.5-5.1)
--- NOTE | 2020-09-19 14:58 | ER ---
Nurse's Notes [facility] Name: Helen Hdz Age: 75 yrs Sex: Female : 1945 Arrival Date: 09/19/2020 Time: 12:03 Bed 13 Private MD: Ezio Michelle Diagnosis: Cellulitis of left lower limb Presentation: 09/19 12:14 Chief complaint: Patient states: "I have a wound on my left foot and I have diabetes. I jd3 have been dealing with it for 2 years. I have home health nurse taking care of it every other day. today the nurse said it is turning cuba and she is worried it might be getting gangrenous.". Coronavirus screen: At this time, the client does not indicate any symptoms associated with coronavirus-19. Ebola Screen: Patient negative for fever greater than or equal to 101.5 degrees Fahrenheit, and additional compatible Ebola Virus Disease symptoms. Initial Sepsis Screen: Does the patient meet any 2 criteria? No. Patient's initial sepsis screen is negative. Does the patient have a suspected source of infection? No. Patient's initial sepsis screen is negative. Risk Assessment: Do you want to hurt yourself or someone else? Patient reports no desire to harm self or others. Onset of symptoms was September 19, 2020. 12:14 Method Of Arrival: Ambulatory jd3 12:14 Acuity: MARINO 3 jd3 12:19 Note wound care doctor: Dr. Michelle. jd3 Historical: - Allergies: 12:17 Tape; jd3 12:17 Oxycodone; jd3 - PMHx: 12:17 Hypertension; Atrial Fib; Diabetes - NIDDM; jd3 - PSHx: 12:17 klaudia foot; Knee surgery; Hysterectomy; achilles repair; jd3 - Immunization history:: Adult Immunizations up to date. - Social history:: Smoking status: Patient denies any tobacco usage or history of. - Family history:: not pertinent. - Hospitalizations: : No recent hospitalization is reported. Screenin:30 Abuse screen: Denies threats or abuse. Denies injuries from another. Nutritional ca1 screening: No deficits noted. Tuberculosis screening: No symptoms or risk factors identified. Fall Risk IV access (20 points). Assessment: 12:30 General: Appears in no apparent distress. comfortable, Behavior is calm, cooperative, ca1 appropriate for age. Pain: Denies pain. Neuro: Level of Consciousness is awake, alert, obeys commands, Oriented to person, place, time, situation. Cardiovascular: Heart tones S1 S2 present Capillary refill < 3 seconds Patient's skin is warm and dry. Respiratory: Airway is patent Respiratory effort is even, unlabored, Respiratory pattern is regular, symmetrical, Breath sounds are clear bilaterally. GI: Abdomen is round non-distended, Bowel sounds present X 4 quads. Abd is soft and non tender X 4 quads. : No signs and/or symptoms were reported regarding the genitourinary system. EENT: No signs and/or symptoms were reported regarding the EENT system. Derm: Skin is healthy with good turgor, Skin is pink, warm \\T\\ dry. Wound noted arch of left foot Wound is ulcer, warm to touch, foul smelling, and draining greenish-yellow drainage. Musculoskeletal: Circulation, motion, and sensation intact. Capillary refill < 3 seconds. 13:26 Reassessment: Patient appears in no apparent distress at this time. Patient and/or ca1 family updated on plan of care and expected duration. Pain level reassessed. Patient is alert, oriented x 3, equal unlabored respirations, skin warm/dry/pink. 14:33 Reassessment: Patient appears in no apparent distress at this time. Patient and/or ca1 family updated on plan of care and expected duration. Pain level reassessed. Patient is alert, oriented x 3, equal unlabored respirations, skin warm/dry/pink. 15:22 Reassessment: Patient appears in no apparent distress at this time. Patient is alert, ca1 oriented x 3, equal unlabored respirations, skin warm/dry/pink. Vital Signs: 12:17 BP 125 / 66; Pulse 87; Resp 17 S; Temp 97.1(TE); Pulse Ox 99% on R/A; Weight 108.86 kg jd3 (R); Height 5 ft. 6 in. (167.64 cm) (R); Pain 2/10; 13:26 BP 100 / 67; Pulse 85; Resp 16 S; Pulse Ox 98% on R/A; ca1 14:30 BP 100 / 51; Pulse 71; Resp 16 S; Pulse Ox 95% on R/A; ca1 15:24 BP 115 / 64; Pulse 65; Resp 16 S; Pulse Ox 97% on R/A; ca1 12:17 Body Mass Index 38.74 (108.86 kg, 167.64 cm) jd3 ED Course: 12:03 Patient arrived in ED. ag5 12:03 Ezio Michelle MD is Private Physician. ag5 12:15 Triage completed. jd3 12:19 Arm band placed on. jd3 12:25 Refugio Santoyo MD is Attending Physician. rn 12:30 Patient has correct armband on for positive identification. Placed in gown. Bed in low ca1 position. Call light in reach. Side rails up X 1. Pulse ox on. NIBP on. 13:03 Lorin Kraft, CHRISTIAN is Primary Nurse. ca1 13:23 No provider procedures requiring assistance completed. Initial lab(s) drawn, by nj, ca1 sent to lab. Inserted saline lock: 20 gauge in right antecubital area, using aseptic technique. Blood collected. 13:30 XRAY Foot LEFT 3 View In Process Unspecified. EDMS 14:43 Wound culture swab sent to lab. jp3 14:57 Ezio Michelle MD is Referral Physician. rn 15:26 IV discontinued, intact, bleeding controlled, No redness/swelling at site. Pressure ca1 dressing applied. Administered Medications: No medications were administered Outcome: 14:58 Discharge ordered by . rn 15:26 Discharged to home via wheelchair. ca1 15:26 Condition: stable 15:26 Discharge instructions given to patient, Instructed on discharge instructions, follow up and referral plans. medication usage, Demonstrated understanding of instructions, follow-up care, medications, Prescriptions given X 1. 15:31 Patient left the ED. ca1 Addendum: 09/23/2020 07:19 Addendum: Culture Results: Positive wound culture. No further action required. Bacteria e b sensitive to prescribed antibiotic. Signatures: Dispatcher [employer] EDMS Refugio Santoyo MD MD rn Davies, Jonathon, RN RN Irais Hernandez Jacob jp3 Lorin Kraft RN RN ca1 Sondra Evangelista ag5 Corrections: (The following items were deleted from the chart) 09/19 12:20 12:17 Pulse 87bpm; Resp 17bpm; Spontaneous; Pulse Ox 99% RA; Temp 97.1F Temporal; jd3 108.86 kg Reported; Height 5 ft. 6 in. Reported; BMI: 38.7; Pain 2/10; jd3
--- NOTE | 2020-09-19 14:58 | EDPHYS ---
Physician Documentation [facility] Name: Helen Hdz Age: 75 yrs Sex: Female : 1945 Arrival Date: 09/19/2020 Time: 12:03 Bed 13 Private MD: Ezio Michelle ED Physician Refugio Santoyo HPI: 09/19 13:14 This 75 yrs old Female presents to ER via Ambulatory with complaints of Wound rn Infection. 13:14 wound infection. Description: draining. Onset: The symptoms/episode began/occurred at rn an unknown time. Modifying factors: the symptoms are alleviated by nothing, the symptoms are aggravated by nothing. Severity of symptoms: At their worst the symptoms were mild, in the emergency department the symptoms are unchanged. The patient has experienced similar episodes in the past. Reports longstanding wound to left lateral foot, home healthcare commented that wound appears to be draining more and looks infected, with some odor. No fever. No new trauma. Reports hx of osteomyelitis. Sees Dr. Michelle, rpeorts gets like this, abx improves it temporarily. . Historical: - Allergies: 12:17 Tape; jd3 12:17 Oxycodone; jd3 - PMHx: 12:17 Hypertension; Atrial Fib; Diabetes - NIDDM; jd3 - PSHx: 12:17 klaudia foot; Knee surgery; Hysterectomy; achilles repair; jd3 - Immunization history:: Adult Immunizations up to date. - Social history:: Smoking status: Patient denies any tobacco usage or history of. - Family history:: not pertinent. - Hospitalizations: : No recent hospitalization is reported. ROS: 13:14 Constitutional: Negative for fever, chills, and weight loss, Eyes: Negative for injury, rn pain, redness, and discharge, Neck: Negative for injury, pain, and swelling, Cardiovascular: Negative for chest pain, palpitations Respiratory: Negative for shortness of breath, cough, wheezing, and pleuritic chest pain, Abdomen/GI: Negative for abdominal pain, nausea, vomiting, diarrhea, and constipation, MS/Extremity: Negative for injury and deformity, Skin: + non-healing wound with increased drainage left foot Neuro: + chronic neuropathy and numbness to bilateral feet Exam: 13:14 Constitutional: This is a well developed, well nourished patient who is awake, alert, rn and in no acute distress. Head/Face: Normocephalic, atraumatic. Eyes: Pupils equal round, extra-ocular motions intact. ENT: MMM Cardiovascular: Regular rate and rhythm. No pulse deficits. Respiratory: No increased work of breathing, no retractions or nasal flaring. MS/ Extremity: Pulses equal, no cyanosis. Full, normal range of motion. Equal circumference. + wound to bottom/lateral left foot, minimal drainage, no streaking, no warmth, no fluctuance. Neuro: Awake and alert, GCS 15, oriented to person, place, time, and situation. Vital Signs: 12:17 BP 125 / 66; Pulse 87; Resp 17 S; Temp 97.1(TE); Pulse Ox 99% on R/A; Weight 108.86 kg jd3 (R); Height 5 ft. 6 in. (167.64 cm) (R); Pain 2/10; 13:26 BP 100 / 67; Pulse 85; Resp 16 S; Pulse Ox 98% on R/A; ca1 14:30 BP 100 / 51; Pulse 71; Resp 16 S; Pulse Ox 95% on R/A; ca1 15:24 BP 115 / 64; Pulse 65; Resp 16 S; Pulse Ox 97% on R/A; ca1 12:17 Body Mass Index 38.74 (108.86 kg, 167.64 cm) jd3 MDM: 12:25 Patient medically screened. rn 14:56 Differential diagnosis: cellulitis. Data reviewed: vital signs, nurses notes, lab test rn result(s), radiologic studies, plain films, and as a result, I will discharge patient. Counseling: I had a detailed discussion with the patient and/or guardian regarding: the historical points, exam findings, and any diagnostic results supporting the discharge/admit diagnosis, lab results, radiology results, the need for outpatient follow up, to return to the emergency department if symptoms worsen or persist or if there are any questions or concerns that arise at home. Special discussion: I discussed with the patient/guardian in detail that at this point there is no indication for admission to the hospital. It is understood, however, that if the symptoms persist or worsen the patient needs to return immediately for re-evaluation. ED course: Xray foot does not show new osteomyelitis, procalcitonin normal, normal WBC, will dc home with f/u and abx. . 14:59 ED course: Checked wound cultures from recent wound care visits, multiple organisms, rn common susceptibility to levaquin, will dc home with levaquin.. 09/19 12:47 Order name: CBC with Diff; Complete Time: 14:35 rn 09/19 12:47 Order name: Basic Metabolic Panel; Complete Time: 14:35 rn 09/19 12:47 Order name: Procalcitonin; Complete Time: 14:56 rn 09/19 12:47 Order name: Sed Rate; Complete Time: 14:35 rn 09/19 12:47 Order name: XRAY Foot LEFT 3 View; Complete Time: 13:41 rn 09/19 14:36 Order name: Wound Culture rn 09/19 12:47 Order name: IV Start; Complete Time: 13:23 rn Administered Medications: No medications were administered Disposition: 09/19/20 14:58 Discharged to Home. Impression: Cellulitis of left lower limb. - Condition is Stable. - Discharge Instructions: Cellulitis, Adult, Wound Care. - Prescriptions for Levaquin 500 mg Oral Tablet - take 1 tablet by ORAL route once daily for 7 days; 7 tablet. - Medication Reconciliation Form, Thank You Letter, Antibiotic Education, Prescription Opioid Use form. - Follow up: Ezio Michelle MD; When: As needed; Reason: Recheck today's complaints, Re-evaluation by your physician. - Problem is new. - Symptoms have improved. Signatures: Dispatcher [employer] EDMS Refugio Santoyo MD MD rn Davies, Jonathon, RN RN jd3 Lorin Kraft RN RN ca1 Corrections: (The following items were deleted from the chart) 15:31 14:58 09/19/2020 14:58 Discharged to Home. Impression: Cellulitis of left lower limb. ca1 Condition is Stable. Forms are Medication Reconciliation Form, Thank You Letter, Antibiotic Education, Prescription Opioid Use. Follow up: Ezio Michelle; When: As needed; Reason: Recheck today's complaints, Re-evaluation by your physician. Problem is new. Symptoms have improved. rn
[2020-09-19 16:04] VITALS: TEMP 97.1
[2020-09-19 16:08] VITALS: BP 115/64; O2SAT 97
== END 2020-09-19 15:31 | disposition home or self-care (01) ==
LOC: ER 12:01
DX: L03.116 Cellulitis of left lower limb (principal); E11.9 Type 2 diabetes mellitus without complications; I10 Essential (primary) hypertension; Z88.5 Allergy status to narcotic agent; Z91.048 Other nonmedicinal substance allergy status
CPT/HCPCS: 36415; 80048; 84145; 85025; 85652; 87070; 87077; 87186; 87205; 99284

== ENCOUNTER 2021-02-25 12:10 | Day surgery (SDC) | payer OTHER, BC ==
[2021-02-25 12:05] LABS: Absolute Lymphocytes (CBC) 1.5 K/uL (0.7-4.9); Basophils % 0.7 % (0-1.3); Hematocrit 25.8 % (36.0-45.0); Lymphocytes % 13.3 % (15.3-44.8); MPV 7.6 fL (7.6-11.3); RBC Red Blood Cell Count 3.29 M/uL (3.86-4.86)
[2021-02-25 12:24] LABS: Bilirubin Total 1.8 mg/dL (0.2-1.0); Protein, Total 7.5 g/dL (6.4-8.2)
[2021-02-25] MEDS ORDERED: NA CHLORIDE 0.9% 1,000 ML ONE (12:48)
[2021-02-25 13:52] VITALS: TEMP 98.4; O2SAT 100; BMI 35.6
[2021-02-25 15:55] VITALS: BP 90/52
== END 2021-02-25 15:35 | disposition home or self-care (01) ==
LOC: DS 12:10
PROVIDERS: ATTEND Internal Medicine
DX: E11.42 Type 2 diabetes mellitus with diabetic polyneuropathy (principal); E43 Unspecified severe protein-calorie malnutrition; N17.9 Acute kidney failure, unspecified
CPT/HCPCS: 85025; 36415; 80053; 96365; 96366; J7030

== ENCOUNTER 2021-02-25 15:30 | Observation (INO) | payer OTHER, BC ==
--- OUTSIDE RECORDS SUMMARY | 2021-02-25 15:33 | XMS REPORT | Continuity of Care Document ---
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 [facility] - mellitus mellitus Memori a without without l complicati complicati Ou tpati on, on, ent without without Clinics long-term long-term current current use of use of insulin insulin Essential Essential Problem Active [facility] (primary) (primary) [facility] s - hypertensi hypertensi Me moria on on l [facility] Hyperthyro Hyperthyro Problem Active [facility] idism idism [facility] - Memoria l [facility] Diabetic Diabetic Problem Active [facility]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 Mariza kes - athy athy Memoria associated associated l with with [facility] diabetes diabetes ent mellitus mellitus Clinic s due to due to underlying underlying condition condition Acquired Acquired Problem Active [facility] hypothyroi hypothyroi Mariza kes - dism dism Memoria l [facility] Heart Heart Problem Active [facility] disease disease [facility] - Memoria l [facility] Chronic Chronic Problem Active [facility] renal renal [facility] - failure, failure, 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) (mild) [facility] Environmen Environmen Problem Active [facility] natasha natasha [facility] - allergies allergies Kenyon lauri l [facility] Seasonal Seasonal Problem Active [facility] allergies allergies Luke [facility] - Memoria l [facility] 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, 1.5, [facility]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 [facility] 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 Me moria l [facility] 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 [facility] Allergies, Adverse Reactions, Alerts Allergy Allergy Status Severity Reaction(s) Onset Inactive Treating Comm ents Source Name Type Date Date Clinician Hydrocod Adverse Active rash [facility] one Reaction [facility] - Bitartra Memoria te l [facility] Zyvox Adverse Active nausea + [facility] Reaction blisters in Venkat es - mout Memoria [facility] Lortab Adverse Active rash [facility] Reaction [facility] - Memoria [facility] Medications Ordered Filled Start Stop Current Ordering Indication Dosage Frequency Signature Comments Components Source Medication Medication Date Date Medication? Clinician (SIG) Name Name Levothyroxi Levothyroxi 2019-0 Yes Ezio [address] [facility] ne Sodium ne Sodium 9-20 Viviana on an Venkat es - 00:00: empty Memoria 00 stomach [facility] Liothyronin Liothyronin 0 Yes Ezio [address] [facility] e Sodium e Sodium 9-20 Viviana on an Lukes - 00:00: empty Memoria 00 stomach [facility] Eliquis 5 Eliquis 5 2019-0 2020- No Ezio one [facility] mg mg 07-25 03-07 Viviana [facility] - 00:00: 00:00 Memoria 00 :00 [facility] Simvastatin Simvastatin 2018-0 Yes Ezio [address] [facility] 2-05 Viviana in the [facility]ukes - 00:00: evening Memoria 00 [facility] Fluticasone Fluticasone 2017-0 Yes Ezio [address] [facility] Propionate Propionate 9-24 Viviana each Mariza kes - 00:00: nostril Memoria 00 [facility] Levothyroxi Levothyroxi Yes Ezio [address] [facility] ne Sodium ne Sodium Viviana on an Venkat es - empty Memoria stomach [facility] the [facility] Metformin Metformin Yes Ezio [address] [facility] HCl HCl Viviana with a [facility]ukes - meal Memoria l Outpati ent Clinics Atenolol Atenolol Yes Ezio TAKE [address] [facility] Viviana TABLET BY Lukes - MOUTH Memoria EVERY DAY l Outpati ent Clinics Potassium Potassium Yes Ezio [address] [facility] Chloride Chloride Viviana [facility] - Memoria l [facility] Potassium Potassium Yes Ezio TAKE [...] [facility] Viviana [facility] - Memoria l [facility] Lisinopril Lisinopril Yes Ezio [address] [facility] Viviana [facility] - Memoria l [facility] Procedures This patient has no known procedures. Encounters Start End Encounter Admission Attending Care Care Encounter Source Date/Time Date/Time Type Type Clinicians Facility Department ID 2021-02-17 2021-02-18 Emergency [facility] [id number] 19:27:00 00:07:00 Kimberly Garcia [id number] [place] [id number] [place] [id number] 2020-11-28 2020-11-28 Orders Doctor MARTINEZ [id number] 00:00:00 00:00:00 Only UnassignedRAPHAEL [id number] [id number] 2020-07-31 2020-07-31 Orders Doctor MARTINEZ [id number] 00:00:00 00:00:00 Only UnassignedRAPHAEL [id number] [id number] 2019-09-23 2019-09-23 [facility] [id number] [facility] 16:28:00 16:28:00 t [facility] Medicine Medicine Outpati ent Clinics 2019-08-12 2019-08-12 [facility] [id number] [facility] 13:07:00 13:07:00 t [facility] Medicine Medicine Outpati ent Clinics 2019-08-03 2019-08-03 [facility] [id number] 15:14:00 15:14:00 t [facility] Medicine l Medicine Outpati ent Clinics 2019-08-01 2019-08-01 [facility] [id number] [address] 15:20:00 15:20:00 t [facility] Medicine l Medicine Outpati ent Clinics 2019-07-27 2019-07-27 [facility] [id number] 11:40:00 11:40:00 t [facility] Medicine Medicine Outpati ent Clinics 2019-07-25 2019-07-25 [facility] [id number] [address] 14:00:00 14:00:00 t [facility] Medicine Medicine Outpati ent Clinics 2019-03-24 2019-03-24 [facility] [id number] 10:51:00 10:51:00 t [facility] Medicine Medicine Outpati ent Clinics 2019-03-23 2019-03-23 [facility] [id number] [address] 14:00:00 14:00:00 t [facility] Medicine Medicine Outpati ent Clinics 2018-12-21 2018-12-21 [facility] [id number] 10:00:00 10:00:00 [facility] Medicine Medicine Outpati ent Clinics 2018-12-06 2018-12-06 [facility] [id number] [address] 13:00:00 13:00:00 [facility] Medicine Medicine Outpati ent Clinics 2018-12-06 2018-12-06 [facility] [id number] 08:35:00 08:35:00 t [facility] Medicine Outpati ent Clinics 2018-11-25 2018-11-25 [facility] [id number] 14:09:00 14:09:00 t [facility] Medicine Outpati ent Clinics 2018-11-11 2018-11-11 [facility] [id number] 11:42:00 11:42:00 t [facility] Medicine Outpati ent Clinics 2018-08-10 2018-08-10 [facility] [id number] [address] 13:19:00 13:19:00 [facility] Medicine Outpati ent Clinics 2018-08-09 2018-08-09 [facility] [id number] 10:30:00 10:30:00 t [facility] Medicine Outpati ent Clinics 2018-07-23 2018-07-23 [facility] [id number] 09:44:00 09:44:00 t [facility] Medicine Outpati ent Clinics 2018-07-12 2018-07-12 [facility] [id number] 10:30:00 10:30:00 t [facility] Medicine Outpati ent Clinics Results This patient has no known results.
[2021-02-25] MEDS: NA CHLORIDE 0.9% 1,000 ML IV SCH ×2 (17:00→22:37)
--- NOTE | 2021-02-25 19:50 | ER ---
Nurse's Notes [facility] Name: Helen Hdz Age: 76 yrs Sex: Female : 1945 Arrival Date: 02/25/2021 Time: 15:32 Bed Direct Admit Private MD: Diagnosis: Supraventricular tachycardia Vital Signs: 02/25 20:43 BP 160 / 100; Pulse 110; Resp 18; Temp 97.5; Pulse Ox 98% on R/A; mg2 ED Course: 15:32 Patient arrived in ED. iw 16:43 Mariaa Yip, RN is Primary Nurse. aa 16:45 COVID-19 : Document "Date of Symptom Onset" if Symptomatic. Sent. [facility] 16:45 COVID swab sent to lab. 5 19:47 Ezio Michelle MD is Hospitalizing Provider. iw 20:52 Izabel Lau MD is Attending Physician. ma2 Administered Medications: No medications were administered Outcome: 19:49 Decision to Hospitalize by Provider. iw 20:54 Admitted to Med/surg accompanied by tech, via wheelchair, room 228, with chart, Report mg2 called to CHRISTIAN Gonzales 20:54 Condition: stable 20:54 Instructed on the need for admit, Demonstrated understanding of instructions. 20:55 Patient left the ED. mg2 Signatures: Erlinda Grigsby, Mariaa Trejo RN, CHRISTIAN RN Louise Up Mohammad, MD MD ma2 Peter Green RN RN mg2
[2021-02-25 22:06] VITALS: BMI 36.2
[2021-02-26] MEDS: NA CHLORIDE 0.9% 1,000 ML IV SCH ×2 (05:28→12:39)
--- NOTE | 2021-02-26 10:22 | P.HP ---
Certification for Inpatient Patient admitted to: Observation With expected LOS: <2 Midnights Practitioner: I am a practitioner with admitting privileges, knowledge of patient current condition, hospital course, and medical plan of care. Services: Services provided to patient in accordance with Admission requirements found in Title 42 Section 412.3 of the Code of Federal Regulations Patient History Date of Service: 02/25/21 Primary Care Provider: Viviana Reason for admission: PEM, recurrent falls. History of Present Illness: Called from patients daughter on Thursday morning. She has several falls, she is not eating and drinking for the past week. also the patient has been forgetting her blood pressure and diabetes medications. Spends most of her day in the bed or the chair. The patient was to go to wound care with Dr. Rose this morning. However she was too weak to get into the truck. The patient was sent to same day surgery. She was weak in the surgery center. recieved a lt of fluid. However she was still fairly week. We could try home health. However based on her clinical exam she was deemed too great a fall risk to be sent home She was also having increased pain in the foot(has a diabetic ulcer on her left foot). Was decided to keep her for observations. Allergies acetaminophen [From Lortab] Allergy (Verified 10/22/18 21:58) Itching dextrose 5 % in water [From Zyvox] Allergy (Verified 10/22/18 21:58) Nausea/Vomiting hydrocodone [From Lortab] Allergy (Verified 10/22/18 21:58) Itching linezolid [From Zyvox] Allergy (Verified 10/22/18 21:58) Nausea/Vomiting oxycodone Allergy (Verified 10/22/18 21:58) Unknown adhesive tape Adverse Reaction (Verified 10/22/18 21:58) Itching Home Medications: Acetaminophen with Codeine [Acetaminophen-Cod #4 Tablet] 1 tab PO TID PRN 02/25/21 Carvedilol [Coreg] 1 tab PO BID 02/25/21 Furosemide [Lasix*] 40 mg PO DAILY 02/25/21 Gabapentin [Neurontin*] 400 mg PO TID 02/25/21 Iron,Carbonyl [Ferretts] 1 tab PO DAILY 02/25/21 Levothyroxine [Synthroid*] 1 tab PO DAILY 02/25/21 Liothyronine Sodium [Cytomel] 25 mcg PO DAILY 02/25/21 Lisinopril [Zestril] 20 mg PO DAILY 02/25/21 Metformin ER [Glucophage ER*] 1 tab PO BID 02/25/21 Potassium Oral Tab [Klor-Con 10 mEq Tab*] 20 meq PO DAILY 02/25/21 Rivaroxaban [Xarelto*] 20 mg PO DAILY 02/25/21 - Past Medical/Surgical History Has patient received pneumonia vaccine in the past: Yes Diabetic: Yes -: Atrial fibrillation -: HTN -: DM-Type 2 -: Hypothyroidism -: Chronic venous insufficiency -: Diabetic ulcer to the left foot -: DM Neuropathy -: 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 -: Hysterectomy Psychosocial/ Personal History: She is a , She has one child, She lives by herself - Family History Father -: Heart disease, Lung disease - Social History Smoking Status: Never smoker Alcohol use: No CD- Drugs: No Caffeine use: Yes Place of Residence: Home Review of Systems General: Weakness, Malaise Gastrointestinal: Other (loss of apetitte) Physical Examination - Vital Signs Temperature: 97.0 F Blood Pressure: 120/68 Pulse: 112 Respirations: 18 Pulse Ox (%): 96 - Physical Exam General: Alert, In no apparent distress HEENT: Atraumatic, PERRLA, Mucous membr. moist/pink, EOMI, Sclerae nonicteric Neck: Supple, 2+ carotid pulse no bruit, No LAD, Without JVD or thyroid abnormality Respiratory: Clear to auscultation bilaterally, Normal air movement Cardiovascular: Regular rate/rhythm, Normal S1 S2 Gastrointestinal: Normal bowel sounds, No tenderness Musculoskeletal: No tenderness Integumentary: No rashes Neurological: Normal gait, Normal speech, Normal strength at 5/5 x4 extr, Normal tone, Normal affect Lymphatics: No axilla or inguinal lymphadenopathy Assessment and Plan - Problems (Diagnosis) (1) Protein-energy malnutrition Current Visit: Yes Status: Acute Plan: Patient needs assistance transfering. Has had 4-5 falls in the last week. She is also not eating. Qualifiers: Protein-calorie malnutrition severity: severe Qualified Code(s): E43 - Unspecified severe protein-calorie malnutrition (2) Recurrent falls Current Visit: Yes Status: Acute Plan: As stated above. Will admit for fluids nutrition and pt consult. Will add zinc to her regiment. As this my explain the loss of taste. (3) Type 2 diabetes mellitus with foot ulcer Current Visit: Yes Status: Acute Plan: will consult wound care. she states she has been walking on the wound due to the current wrapping which is causing increased pain . Qualifiers: Diabetes mellitus halfway insulin use: with halfway use Qualified Code(s): E11.621 - Type 2 diabetes mellitus with foot ulcer; L97.509 - Non- pressure chronic ulcer of other part of unspecified foot with unspecified severity; Z79.4 - correction (current) use of insulin (4) HTN (hypertension) Onset Date: 10/17/16 Current Visit: No Status: Chronic Plan: will restart home meds. Will adjust as necessary. Qualifiers: Hypertension type: essential hypertension Qualified Code(s): I10 - Essential (primary) hypertension (5) Hypothyroidism Onset Date: 10/17/16 Current Visit: No Status: Chronic Plan: check a tsh Qualifiers: Hypothyroidism type: acquired Qualified Code(s): E03.9 - Hypothyroidism, unspecified Discharge Plan: Home Plan to discharge in: 48 Hours - Advance Directives Does patient have a Living Will: No Does patient have a Durable POA for Healthcare: No - Code Status/Comfort Care Code Status Assessed: No Code Status: Full Code Physician Review: Patient Assessed, Agree with Above Assessment and Plan Critical Care: No Time Spent Managing Pts Care (In Minutes): 75
--- NOTE | 2021-02-26 10:28 | P.PN ---
Subjective Date of Service: 02/26/21 Primary Care Provider: Viviana Chief Complaint: PEM, recurrent falls. Subjective: Improving Review of Systems 10-point ROS is otherwise unremarkable General: Weakness Physical Examination - Vital Signs Temperature: 97.0 F Blood Pressure: 120/68 Pulse: 112 Respirations: 18 Pulse Ox (%): 96 - Physical Exam General: Alert, In no apparent distress HEENT: Atraumatic, PERRLA, EOMI Neck: Supple, JVD not distended Respiratory: Clear to auscultation bilaterally, Normal air movement Cardiovascular: Regular rate/rhythm, Normal S1 S2 Gastrointestinal: Normal bowel sounds, No tenderness Musculoskeletal: No tenderness Integumentary: No rashes Neurological: Normal speech, Normal tone, Normal affect Lymphatics: No axilla or inguinal lymphadenopathy Assessment & Plan - Problems (Diagnosis) (1) Protein-energy malnutrition Current Visit: Yes Status: Acute Plan: Patient needs assistance transfering. Has had 4-5 falls in the last week. She is also not eating. Qualifiers: Protein-calorie malnutrition severity: severe Qualified Code(s): E43 - Unspecified severe protein-calorie malnutrition (2) Recurrent falls Current Visit: Yes Status: Acute Plan: As stated above. Will admit for fluids nutrition and pt consult. Will add zinc to her regiment. As this my explain the loss of taste. (3) Type 2 diabetes mellitus with foot ulcer Current Visit: Yes Status: Acute Plan: will consult wound care. she states she has been walking on the wound due to the current wrapping which is causing increased pain . Qualifiers: Diabetes mellitus manager long term care insulin use: with manager long term care use Qualified Code(s): E11.621 - Type 2 diabetes mellitus with foot ulcer; L97.509 - Non- pressure chronic ulcer of other part of unspecified foot with unspecified severity; Z79.4 - group home (current) use of insulin (4) HTN (hypertension) Onset Date: 10/17/16 Current Visit: No Status: Chronic Plan: will restart home meds. Will adjust as necessary. Qualifiers: Hypertension type: essential hypertension Qualified Code(s): I10 - Essential (primary) hypertension (5) Hypothyroidism Onset Date: 10/17/16 Current Visit: No Status: Chronic Plan: check a tsh Qualifiers: Hypothyroidism type: acquired Qualified Code(s): E03.9 - Hypothyroidism, unspecified Discharge Plan: Home Plan to discharge in: 24 Hours - Code Status/Comfort Care Code Status Assessed: No Code Status: Full Code Physician Review: Patient Assessed, Agree with Above Assessment and Plan Critical Care: No Time Spent Managing Pts Care (In Minutes): 20
[2021-02-26] MEDS: GABAPENTIN 400 MG CAP PO SCH ×3 (13:51→22:43)
--- NOTE | 2021-02-26 16:35 | EKG ---
Test Date: 2021-02-25 Test Time: 15:36:20 Lockmaker: JENIFER MEASUREMENT RESULTS: Intervals: Rate: 101 [place]: QRSD: 78 QT: 350 QTc: 453 [place]: P: [place]: QRS: -24 T: 52 INTERPRETIVE STATEMENTS: Atrial fibrillation with rapid ventricular response with premature ventricular or aberrantly conducted complexes Low voltage QRS Cannot rule out Anteroseptal infarct, age undetermined Abnormal ECG Compared to ECG 07/18/2020 16:33:51 Ventricular premature complex(es) now present Left-axis deviation no longer present Myocardial infarct finding still present Electronically Signed On 02-26-21 16:33:10 CDT by Horacio Banks
[2021-02-26] MEDS ORDERED: RIVAROXABAN 20 MG TABLET PO SCH (17:00)
[2021-02-26] MEDS: METFORMIN ER 500 MG TAB PO SCH (17:01)
[2021-02-26] MEDS ORDERED: METFORMIN ER 500 MG TAB PO SCH (21:00)
[2021-02-26] MEDS: carvediloL 3.125 MG TAB PO SCH ×2 (21:00→22:43)
[2021-02-27] MEDS: NA CHLORIDE 0.9% 1,000 ML IV SCH ×2 (01:29→09:00)
[2021-02-27] MEDS ORDERED: LEVOTHYROXINE SOD 0.088 MG TAB PO SCH (06:30)
--- NOTE | 2021-02-27 07:44 | P.DS ---
Admission Date: 02/25/21 Discharge Date: 02/27/21 Primary Care Provider: Viviana Disposition: ROUTINE DISCHARGE Discharge Condition: FAIR Reason for Admission: PEM, recurrent falls. - Problems (1) Protein-energy malnutrition Current Visit: Yes Status: Acute Qualifiers: Protein-calorie malnutrition severity: severe Qualified Code(s): E43 - Unspecified severe protein-calorie malnutrition (2) Recurrent falls Current Visit: Yes Status: Acute (3) Type 2 diabetes mellitus with foot ulcer Current Visit: Yes Status: Acute Qualifiers: Diabetes mellitus terminal operator insulin use: with terminal operator use Qualified Code(s): E11.621 - Type 2 diabetes mellitus with foot ulcer; L97.509 - Non- pressure chronic ulcer of other part of unspecified foot with unspecified severity; Z79.4 - local intermodal truck driver (current) use of insulin (4) HTN (hypertension) Onset Date: 10/17/16 Current Visit: No Status: Chronic Qualifiers: Hypertension type: essential hypertension Qualified Code(s): I10 - Essential (primary) hypertension (5) Hypothyroidism Onset Date: 10/17/16 Current Visit: No Status: Chronic Qualifiers: Hypothyroidism type: acquired Qualified Code(s): E03.9 - Hypothyroidism, unspecified Brief History of Present Illness: Called from patients daughter on Thursday morning. She has several falls, she is not eating and drinking for the past week. also the patient has been forgetting her blood pressure and diabetes medications. Spends most of her day in the bed or the chair. The patient was to go to wound care with Dr. Rose this morning. However she was too weak to get into the truck. The patient was sent to same day surgery. She was weak in the surgery center. recieved a lt of fluid. However she was still fairly week. We could try home health. However based on her clinical exam she was deemed too great a fall risk to be sent home She was also having increased pain in the foot(has a diabetic ulcer on her left foot). Was decided to keep her for observations. Hospital Course: patient was admitted for recurrent falls. She did well with fluids. Was able to walk and transfer with PT. Will discharge her home with home PT. Have the patient follow up with me in the office in a week. Vital Signs/Physical Exam: Temp Pulse Resp BP Pulse Ox 98.1 F 103 H 20 114/53 L 97 02/27/21 04:00 02/27/21 04:00 02/27/21 04:00 02/27/21 04:00 02/27/21 04:00 General: Alert, In no apparent distress HEENT: Atraumatic, PERRLA, EOMI Neck: Supple, JVD not distended Respiratory: Clear to auscultation bilaterally, Normal air movement Cardiovascular: Regular rate/rhythm, Normal S1 S2 Gastrointestinal: Normal bowel sounds, No tenderness Musculoskeletal: No tenderness Integumentary: No rashes Neurological: Normal speech, Normal tone, Normal affect Lymphatics: No axilla or inguinal lymphadenopathy Home Medications: Acetaminophen with Codeine [Acetaminophen-Cod #4 Tablet] 1 tab PO TID PRN 02/25/21 Carvedilol [Coreg] 1 tab PO BID 02/25/21 Furosemide [Lasix*] 40 mg PO DAILY 02/25/21 Gabapentin [Neurontin*] 400 mg PO TID 02/25/21 Iron,Carbonyl [Ferretts] 1 tab PO DAILY 02/25/21 Levothyroxine [Synthroid*] 1 tab PO DAILY 02/25/21 Liothyronine Sodium [Cytomel] 25 mcg PO DAILY 02/25/21 Lisinopril [Zestril] 20 mg PO DAILY 02/25/21 Metformin ER [Glucophage ER*] 1 tab PO BID 02/25/21 Potassium Oral Tab [Klor-Con 10 mEq Tab*] 20 meq PO DAILY 02/25/21 Rivaroxaban [Xarelto*] 20 mg PO DAILY 02/25/21 Diet: ADA Activity: Ad carin Followup: Ezio Michelle MD [Primary Care Provider] - 1 Week Physician Review: Patient Assessed, Agree with Above Assessment and Plan Time spent managing pt's care (in minutes): 30
[2021-02-27] MEDS: METFORMIN ER 500 MG TAB PO SCH (07:58)
[2021-02-27] MEDS: GABAPENTIN 400 MG CAP PO SCH (07:59)
[2021-02-27] MEDS: carvediloL 3.125 MG TAB PO SCH (07:59)
[2021-02-27 08:00] VITALS: BP 138/66
[2021-02-27 08:08] VITALS: O2SAT 99
[2021-02-27 08:28] VITALS: TEMP 99.1
[2021-02-27] MEDS ORDERED: IRON CARBONYL PO SCH (09:00)
[2021-02-27] MEDS ORDERED: lisinopriL 20 MG TAB PO SCH (09:00)
[2021-02-27] MEDS ORDERED: ZINC SULFATE 220 MG CAP PO SCH (09:00)
[2021-02-27] MEDS ORDERED: LIOTHYRONINE SOD 25 MCG TAB PO SCH (09:00)
[2021-02-27] MEDS ORDERED: POTASSIUM CL SA 10 MEQ TAB PO SCH (09:00)
== END 2021-02-27 10:55 | disposition home health service (06) ==
LOC: ER 15:30 → ERHOLD 16:24 → 2ND 20:30 → UNDODISOB 02-27 10:35
PROVIDERS: ADMIT Internal Medicine; ATTEND Internal Medicine
DX: E43 Unspecified severe protein-calorie malnutrition (principal); R29.6 Repeated falls; E11.621 Type 2 diabetes mellitus with foot ulcer; I10 Essential (primary) hypertension; E03.9 Hypothyroidism, unspecified; L97.529 Non-pressure chronic ulcer of other part of left foot with unspecified severity; Z20.822 Contact with and (suspected) exposure to COVID-19; I48.91 Unspecified atrial fibrillation; Z79.4 Long term (current) use of insulin; I87.2 Venous insufficiency (chronic) (peripheral); E11.40 Type 2 diabetes mellitus with diabetic neuropathy, unspecified; Z96.659 Presence of unspecified artificial knee joint; Z89.422 Acquired absence of other left toe(s); R94.31 Abnormal electrocardiogram [ECG] [EKG]
CPT/HCPCS: 93005; 87040; 82947 ×5; 99251; 97116 ×2; 97161; 97530; U0003; J7030 ×3; G0378

== ENCOUNTER 2021-03-04 12:35 | Inpatient (IN) | payer OTHER, BC ==
[2021-03-04 11:05] LABS: Absolute Lymphocytes (CBC) 1.7 K/uL (0.7-4.9); Basophils % 0.6 % (0-1.3); Hematocrit 23.8 % (36.0-45.0); Lymphocytes % 14.6 % (15.3-44.8); MPV 7.4 fL (7.6-11.3); RBC Red Blood Cell Count 3.07 M/uL (3.86-4.86)
[2021-03-04 11:49] LABS: Albumin 1.8 g/dL (3.4-5.0); Potassium 4.5 mmol/L (3.5-5.1); Prealbumin 4.6 mg/dL (20-40)
--- OUTSIDE RECORDS SUMMARY | 2021-03-04 12:40 | XMS REPORT | Continuity of Care Document ---
:1945 Author Organization [facility] t Address [address] [place] [address] [address]. [address] [place] [address] Care Team Providers Name Role Phone Jesse RAMSEY S Attending Clinician Doctor Unassigned, Name Attending Clinician Unavailable Problems Condition Condition Condition Status Onset Resolution Last Treating Co mments Source Name Details Category Date Date Treatment Clinician Date 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 Paroxysmal Paroxysmal Problem Active [facility] atrial atrial [facility] - fibrillati fibrillati Me moria [facility] Type 2 Type [address] [facility] diabetes diabetes [facility] - mellitus mellitus Memori a without without l complicati complicati Ou tpati on, on, ent without without Clinics long-term long-term current current use of use of insulin insulin Essential Essential Problem Active [facility] (primary) (primary) [facility] - hypertensi hypertensi Me moria [facility] Hyperthyro Hyperthyro Problem Active [facility] idism idism [facility] - [facility] Diabetic Diabetic Problem Active [facility]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 Mariza kes - athy athy Memoria associated associated l with [facility] mellitus mellitus Clinic s due to due to underlying underlying condition condition Acquired Acquired Problem Active [facility] hypothyroi hypothyroi Mariza kes - dism dism [facility] l [facility] Heart Heart Problem Active [facility] disease disease [facility] Chronic Chronic Problem Active [facility] renal renal [facility] - failure, failure, 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) (mild) [facility] Environmen Environmen Problem Active [facility] natasha natasha [facility] - allergies allergies Kenyon lauri l [facility] Seasonal Seasonal Problem Active [facility] allergies allergies [facility] - Memoria l [facility] 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, 1.5, [facility]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 [facility] 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 Me moria l [facility] Allergies, Adverse Reactions, Alerts Allergy Allergy Status Severity Reaction(s) Onset Inactive Treating Comm ents Source Name Type Date Date Clinician Hydrocod Adverse Active rash [facility] one Reaction [facility] - Bitartra Memoria te l [facility] Zyvox Adverse Active nausea + [facility] Reaction blisters in Venkat es - mout Memoria l [facility] Lortab Adverse Active rash [facility] Medications Ordered Filled Start Stop Current Ordering Indication Dosage Frequency Signature Comments Components Source Medication Medication Date Date Medication? Clinician (SIG) Name Name Levothyroxi Levothyroxi 2019-0 Yes Ezio [address] [facility] ne Sodium ne Sodium 9-20 Viviana on an Venkat es - 00:00: empty Memoria 00 [facility] Liothyronin Liothyronin 2019-0 Yes Ezio [address] [facility] e Sodium e Sodium 9-20 Viviana on an [facility]ukes - 00:00: empty Memoria 00 stomach [facility] Eliquis 5 Eliquis 5 2019-0 2020- No Ezio one [facility] mg mg 07-25 03-07 Viviana [facility] - 00:00: 00:00 Memoria 00 :00 [facility] ent [facility] Simvastatin Simvastatin 2019-0 Yes Ezio [address] [facility] 2-05 Viviana in the [facility] - 00:00: evening Memoria 00 [facility] Fluticasone Fluticasone 2018-0 Yes Ezio [address] [facility] Propionate Propionate 9-24 Viviana each Mariza kes - 00:00: nostril Memoria 00 [facility] Levothyroxi Levothyroxi Yes Ezio [address] [facility] ne Sodium ne Sodium Viviana on an Venkat es - empty [facility] Metformin Metformin Yes Ezio 1 [...] Clinicians Facility Department ID 2021-02-17 2021-02-18 Emergency [place] [id number] 19:27:00 00:07:00 Kimberly Garcia [id number] [place] [id number] M[place] [id number] 2020-11-28 2020-11-28 Orders Doctor MARTINEZ [id number] 00:00:00 00:00:00 Only UnassignedRAPHAEL [id number] [id number] 2020-07-31 2020-07-31 Orders Doctor MARTINEZ [id number] 00:00:00 00:00:00 Only UnassignedRAPHAEL [id number] [id number] 2019-09-23 2019-09-23 [facility] [id number] [facility] 16:28:00 16:28:00 t [facility] Medicine Outpati ent Clinics 2019-08-12 2019-08-12 [facility] [id number] 13:07:00 13:07:00 t [facility] Medicine Outpati ent Clinics 2019-08-03 2019-08-03 [facility] [id number] [address] 15:14:00 15:14:00 t [facility] Out[facility]i [facility] Clinics 2019-08-01 2019-08-01 [facility] [id number] 15:20:00 15:20:00 t [facility] Out[facility]i [facility] Clinics 2019-07-27 2019-07-27 [facility] [id number] [address] 11:40:00 11:40:00 t [facility] Out[facility] Clinics 2019-07-25 2019-07-25 [facility] [id number] [address] 14:00:00 14:00:00 t [facility] Out[facility]i [facility] Clinics 2019-03-24 2019-03-24 [facility] [id number] [address] 10:51:00 10:51:00 t [facility] Out[facility]i ent Clinics 2019-03-23 2019-03-23 [facility] [id number] 14:00:00 14:00:00 t [facility] Out[facility] Clinics 2018-12-21 2018-12-21 [facility] [id number] [address] 10:00:00 10:00:00 t [facility] Out[facility]i [facility] Clinics 2018-12-06 2018-12-06 [facility] [id number] [facility] 13:00:00 13:00:00 t [facility] Medicine Outpati ent Clinics 2018-12-06 2018-12-06 [facility] [id number] [address] 08:35:00 08:35:00 t [facility] Outpati ent Clinics 2018-11-25 2018-11-25 [facility] [id number] [facility] 14:09:00 14:09:00 t [facility] Out[facility]i [facility] Clinics 2018-11-11 2018-11-11 [facility] [id number] 11:42:00 11:42:00 t [facility] Out[facility]i [facility] Clinics 2018-08-10 2018-08-10 [facility] [id number] 13:19:00 13:19:00 t [facility] Out[facility]i [facility] Clinics 2018-08-09 2018-08-09 [facility] [id number] [address] 10:30:00 10:30:00 t [facility] Out[facility] Clinics 2018-07-23 2018-07-23 [facility] [id number] [address] 09:44:00 09:44:00 t [facility] Out[facility]i [facility] Clinics 2018-07-12 2018-07-12 [facility] [id number] 10:30:00 10:30:00 t [facility] Medicine Outpati ent Clinics Results This patient has no known results.
--- NOTE | 2021-03-04 14:50 | RAD REPORT ---
EXAM DESCRIPTION: Dolores Single View03/04/2021 2:32 pm CLINICAL HISTORY: Left foot wound COMPARISON: 2019 FINDINGS: The lungs appear clear of acute infiltrate. The heart is borderline enlarged IMPRESSION: No acute abnormalities displayed
--- NOTE | 2021-03-04 15:02 | ER ---
Nurse's Notes [facility] Name: Helen Hdz Age: 76 yrs Sex: Female : 1945 Arrival Date: 03/04/2021 Time: 12:37 Bed Waiting Private MD: Ezio Michelle Diagnosis: Presentation: 03/04 13:33 Chief complaint: Patient states: L foot wound getting worse and more severe for 1 week. ll1 Confusion/repeating things last night. Sent by wound care center for eval. Dr. Michelle is coming to see her. Coronavirus screen: Client denies travel out of the [place] in the last 14 days. At this time, the client does not indicate any symptoms associated with coronavirus-19. Ebola Screen: Patient denies travel to an Ebola-affected area in the 21 days before illness onset. Initial Sepsis Screen: Does the patient meet any 2 criteria? HR > 90 bpm. No. Patient's initial sepsis screen is negative. Does the patient have a suspected source of infection? Yes: Skin breakdown/wound. Risk Assessment: Do you want to hurt yourself or someone else? Patient reports no desire to harm self or others. Onset of symptoms was February 25, 2021. 13:33 Method Of Arrival: Wheelchair ll1 13:33 Acuity: MARINO 2 ll1 Historical: - Allergies: 13:36 Oxycodone; ll1 13:36 Tape; ll1 13:36 Latex, Natural Rubber; ll1 - PMHx: 13:36 Atrial Fib; Diabetes - NIDDM; Hypertension; wound care-years; ll1 - Immunization history:: Flu vaccine is not up to date. - Social history:: Smoking status: Patient denies any tobacco usage or history of. Assessment: 14:49 Reassessment: PT was direct admit. Went to room 421. Vital Signs: 13:33 BP 95 / 65; Pulse 100; Resp 20; Temp 97.4; Pulse Ox 100% ; Weight 100.24 kg; Height 5 ll1 ft. 6 in. (167.64 cm); Pain 3/10; 13:33 Body Mass Index 35.67 (100.24 kg, 167.64 cm) ll1 ED Course: 12:37 Patient arrived in ED. mr 12:38 Ezio Michelle MD is Private Physician. mr 13:35 Triage completed. ll1 13:36 Arm band placed on. ll1 Administered Medications: No medications were administered Outcome: 15:01 Patient left the ED. 1 15:02 Admitted to Med/surg accompanied by [facility], via wheelchair, room 421. 15:02 Condition: stable 15:02 Instructed on the need for admit. 15:04 Patient left the ED. Signatures: Otilia Holcomb mr Kayy Damian RN RN Salbador Gates RN RN 1
[2021-03-04] MEDS ORDERED: HYDROCODONE/APAP 7.5/325 MG TAB PO PRN (15:23)
[2021-03-04 17:11] VITALS: BMI 35.6
[2021-03-04 17:33] LABS: Urine Appearance CLEAR (Clear); Urine Bilirubin NEGATIVE (Negataive); Urine Blood TRACE (Negative); Urine Color YELLOW (Yellow); Urine Glucose NEGATIVE (Negative); Urine Protein NEGATIVE (Negative); Urine pH 5.5 (5.0-7.0)
[2021-03-04 17:47] LABS: Urine Bacteria <20 /HPF (<20); Urine RBC <5 /HPF (NONE SEEN)
--- NOTE | 2021-03-04 18:12 | RAD REPORT ---
EXAM DESCRIPTION: RAD - Ankle Left 3 View -03/04/2021 5:41 pm CLINICAL HISTORY: Left ankle pain FINDINGS: There is little normal appearing talus. The talus is small and fragmented. Tibiotalar disl ocation is present. Talonavicular dislocation is seen Marked irregularity involves tarsometatarsal joints with bony fragmentation and bone loss. Fragmentat ion involves the calcaneocuboid joint. Marked soft tissue swelling It is uncertain if all of these findings are related to osteomyelitis or a combination of osteomyelit is, neuropathic joint and/or surgery.
[2021-03-04 19:11] LABS: Absolute Lymphocytes (CBC) 1.5 K/uL (0.7-4.9); Basophils % 0.5 % (0-1.3); Hematocrit 23.4 % (36.0-45.0); Lymphocytes % 17.2 % (15.3-44.8); MPV 7.6 fL (7.6-11.3); RBC Red Blood Cell Count 3.02 M/uL (3.86-4.86)
[2021-03-04 19:12] LABS: Protime INR 2.74
[2021-03-04 19:23] LABS: ALT/SGPT 29 U/L (12-78); AST/SGOT 42 U/L (15-37); Albumin 1.7 g/dL (3.4-5.0); Alkaline Phosphatase 113 U/L (45-117); BUN Blood Urea Nitrogen 23 mg/dL (7-18); Bicarbonate 26 mmol/L (21-32); Bilirubin Direct 0.8 mg/dL (0-0.2); Bilirubin Total 1.2 mg/dL (0.2-1.0); Glucose Level 174 mg/dL (74-106); Magnesium 2.1 mg/dL (1.8-2.4); NT PRO-BNP 2028 pg/mL (<450); Potassium 4.2 mmol/L (3.5-5.1); Protein, Total 6.7 g/dL (6.4-8.2); Sodium Level 130 mmol/L (136-145); Troponin (Emerg Dept Use Only) < 0.02 ng/mL (0.0-0.045)
[2021-03-05] MEDS: MORPHINE 4 MG/ML SYR IV PRN ×2 (08:09→14:37)
[2021-03-05 08:20] LABS: Absolute Lymphocytes (CBC) 1.5 K/uL (0.7-4.9); Basophils % 0.7 % (0-1.3); Lymphocytes % 20.2 % (15.3-44.8); MPV 7.1 fL (7.6-11.3); RBC Red Blood Cell Count 3.36 M/uL (3.86-4.86)
[2021-03-05 08:39] LABS: ALT/SGPT 35 U/L (12-78); AST/SGOT 51 U/L (15-37); Albumin 1.9 g/dL (3.4-5.0); Alkaline Phosphatase 124 U/L (45-117); BUN Blood Urea Nitrogen 19 mg/dL (7-18); Bicarbonate 30 mmol/L (21-32); Bilirubin Total 1.1 mg/dL (0.2-1.0); Ferritin 754.5 ng/mL (8-388); Glucose Level 105 mg/dL (74-106); Protein, Total 7.6 g/dL (6.4-8.2); Sodium Level 134 mmol/L (136-145); Transferrin 136 mg/dL (200-360)
[2021-03-05] MEDS ORDERED: D50W 25 GM/50 ML SYRINGE IV PRN (15:03)
[2021-03-05] MEDS ORDERED: GLUCAGON 1 MG/VIAL IM PRN (15:03)
--- NOTE | 2021-03-05 15:08 | P.PN ---
Subjective Date of Service: 03/05/21 Primary Care Provider: Viviana Chief Complaint: charcots foot Subjective: No new changes Review of Systems 10-point ROS is otherwise unremarkable Musculoskeletal: Foot Pain (left) Physical Examination - Vital Signs Temperature: 97.1 F Blood Pressure: 111/73 Pulse: 103 Respirations: 18 Pulse Ox (%): 99 - Physical Exam General: Alert, In no apparent distress HEENT: Atraumatic, PERRLA, EOMI Neck: Supple, JVD not distended Respiratory: Clear to auscultation bilaterally, Normal air movement Cardiovascular: Regular rate/rhythm, Normal S1 S2 Gastrointestinal: Normal bowel sounds, No tenderness Musculoskeletal: No tenderness Integumentary: No rashes Neurological: Normal speech, Normal tone, Normal affect Lymphatics: No axilla or inguinal lymphadenopathy Assessment & Plan - Problems (Diagnosis) (1) Charcot's joint, left ankle and foot Current Visit: No Status: Acute Plan: Discussed the patient with Dr. Oneill. no role for surgical correction of the ankle. Will consult Dr. Hernandez and get an MRI. Have discussed with the patient. Would most likely need a BKA Spent 20min with the patient discussing this. (2) Type 2 diabetes mellitus with foot ulcer Current Visit: No Status: Acute Plan: will control her on insulin sliding scale. Qualifiers: Diabetes mellitus predatory animal exterminator insulin use: with predatory animal exterminator use (3) Atrial fibrillation Onset Date: 10/17/16 Current Visit: No Status: Chronic Plan: will continue carvedilol. Hold xarelto in anticipation of surgery. Qualifiers: Atrial fibrillation type: paroxysmal Qualified Code(s): I48.0 - Paroxysmal atrial fibrillation (4) HTN (hypertension) Onset Date: 10/17/16 Current Visit: No Status: Chronic Plan: stable continue lisinopril Qualifiers: Discharge Plan: LTAC Plan to discharge in: Greater than 2 days - Code Status/Comfort Care Code Status Assessed: No Physician Review: Patient Assessed, Agree with Above Assessment and Plan Critical Care: No Time Spent Managing Pts Care (In Minutes): 30
[2021-03-05] MEDS: INSULIN -REGULAR HUMAN 50 UNIT/0.5 ML ML SQ SCH ×2 (16:30→21:00)
--- NOTE | 2021-03-05 19:04 | RAD REPORT ---
EXAM DESCRIPTION: MRI - Foot Left Wo Cont - 03/05/2021 6:14 pm CLINICAL HISTORY: left charcots foot, Pain and swelling COMPARISON: Foot Left Wo Cont dated 04/13/2018; Foot Left Wo Cont dated 04/01/2017; Foot Left Wo Cont dated 10/17/2016; MRI FOOT LEFT dated 09/06/2013; Ankle Left 3 View dated 03/04/2021 FINDINGS: There is marked destructive changes with soft tissue involving the mid foot and ankle, in particular the intertarsal articulations as well as the tarsal metatarsal articulations compatible wi th advanced Charcot joint. Midfoot collapse is noted with loss of the plantar arch. Marked abnormal t hickening of the distal Achilles tendon is present. Abnormal diminished marrow signal with elevated T2 and FLAIR signal posterior calcaneus likely indica anthony osteomyelitis. IMPRESSION: Severe Charcot arthropathy. Osteomyelitis involving the the posterior and lateral aspect of the calcaneus.
[2021-03-05 19:19] LABS: Hematocrit 24.2 % (36.0-45.0)
[2021-03-05] MEDS: JUVEN PACKET PO SCH (21:00)
[2021-03-05] MEDS: carvediloL 3.125 MG TAB PO SCH (21:49)
[2021-03-05] MEDS: GABAPENTIN 400 MG CAP PO SCH (21:50)
[2021-03-06] MEDS: CODEINE 30MG/APAP 300MG TAB PO PRN ×3 (00:20→22:04)
--- NOTE | 2021-03-06 02:20 | CON ---
Date of Consultation: 03/05/2021 Reason For Consultation: Left ankle pain, instability and drainage. History Of Present Illness: Ms. Hdz is a 76-year-old female who was admitted to the hospital yester day for left ankle pain, instability, and draining wound. The patient reports history of left ankle, foot pain in the past with wounds that were treated by Dr. Bosch. The patient states that she has b een recently trying to do more ambulation over the past month and reports her left foot and ankle wer e rolling underneath her with progressive deformity and worsening wound and drainage to her left foot and ankle. She reports history of diabetes, and she had been mobilizing with the use of immobilizer as well as been trying to attempt to walk a little bit more until the increased pain and deformity. She denies any fall but does report significant pain with ambulation. Past Medical History: Includes atrial fibrillation, diabetes, hypertension. Allergies: INCLUDES OXYCODONE, TAPE, LATEX. Medications: Per medication reconciliation. Social History: Denies tobacco use. Physical Examination: General: No apparent distress. HEENT: Normocephalic, atraumatic. Neck: Supple. Cardiovascular: Brisk cap refill to all digits. Chest: Nonlabored breathing. Abdomen: Nondistended. Psychiatric: Responds to exam. Left lower extremity, the patient has multiple wounds over the later al ankle and foot with some serosanguineous as well as purulent drainage. Erythema of the left foot. She does have a supination deformity of the left foot and ankle as well as an abduction deformity o f the ankle. The patient has been walking on the lateral side of her ankle. X-rays: X-rays of her left ankle demonstrate some significant degenerative changes of the left ankle as well as fragmentation of the talus and calcaneus. No obvious talar body noted on x-ray. There d oes appear to be some fragmentation of the medial malleolus as well. Assessment And Plan: Helen is a 76-year-old female with left Charcot foot deformity with possible o steomyelitis. X-rays demonstrate severe fragmentation and destructive changes of the hindfoot with n o sign of significant talar body to reconstruct to allow the patient to have a plantigrade foot with this pain noted as well as her ongoing foot wounds. I discussed with the patient the possibility of difficulty with ambulation again with this foot. I discussed with. Viviana the findings of her x-ray. We will proceed with MRI of the left foot. I did discuss with the patient the possibility of needin g a below-knee amputation given her ongoing infection as well as history of severe fragmentation of t he talus with difficulty of ambulating on the left foot in the future. We will follow up with the arnold miller on the MRI. RYAN/CHRISTINE Voice ID: [id number] Report ID: [id number]
[2021-03-06] MEDS ORDERED: LIOTHYRONINE SOD 25 MCG TAB PO SCH (07:30)
[2021-03-06] MEDS ORDERED: LIOTHYRONINE SOD 5 MCG TAB PO SCH (07:30)
[2021-03-06] MEDS: INSULIN -REGULAR HUMAN 50 UNIT/0.5 ML ML SQ SCH ×4 (07:30→21:00)
[2021-03-06 08:39] LABS: Absolute Lymphocytes (CBC) 1.8 K/uL (0.7-4.9); Hematocrit 24.7 % (36.0-45.0); Lymphocytes % 26.6 % (15.3-44.8); MPV 7.4 fL (7.6-11.3); RBC Red Blood Cell Count 3.17 M/uL (3.86-4.86)
[2021-03-06 08:50] LABS: ALT/SGPT 30 U/L (12-78); AST/SGOT 41 U/L (15-37); Albumin 1.7 g/dL (3.4-5.0); Alkaline Phosphatase 109 U/L (45-117); BUN Blood Urea Nitrogen 16 mg/dL (7-18); Bicarbonate 27 mmol/L (21-32); Bilirubin Total 0.8 mg/dL (0.2-1.0); Glucose Level 102 mg/dL (74-106); Potassium 4.3 mmol/L (3.5-5.1); Protein, Total 6.7 g/dL (6.4-8.2); Sodium Level 136 mmol/L (136-145)
[2021-03-06] MEDS: JUVEN PACKET PO SCH ×2 (09:00→21:00)
[2021-03-06] MEDS: IRON CARBONYL PO SCH (09:00)
[2021-03-06] MEDS ORDERED: BISACODYL 10 MG RECTAL SUPP PR PRN (09:07)
--- NOTE | 2021-03-06 09:10 | P.PN ---
Subjective Date of Service: 03/06/21 Primary Care Provider: Viviana Chief Complaint: charcots foot Subjective: No new changes Review of Systems 10-point ROS is otherwise unremarkable Gastrointestinal: Constipation Musculoskeletal: Foot Pain Physical Examination - Vital Signs Temperature: 97.3 F Blood Pressure: 105/52 Pulse: 110 Respirations: 17 Pulse Ox (%): 97 - Physical Exam General: Alert, In no apparent distress HEENT: Atraumatic, PERRLA, EOMI Neck: Supple, JVD not distended Respiratory: Clear to auscultation bilaterally, Normal air movement Cardiovascular: Regular rate/rhythm, Normal S1 S2 Gastrointestinal: Normal bowel sounds, No tenderness Musculoskeletal: No tenderness Integumentary: No rashes Neurological: Normal speech, Normal tone, Normal affect Lymphatics: No axilla or inguinal lymphadenopathy - Studies Laboratory Data (last 24 hrs) 03/04/21 10:35: Sodium 126 L, Potassium 4.5, BUN 26 H, Creatinine 0.99, Glucose 192 H 03/04/21 10:35: WBC 11.60 H, Hgb 7.7 L*, Hct 23.8 L, Plt Count 487 H Assessment & Plan - Problems (Diagnosis) (1) Charcot's joint, left ankle and foot Current Visit: No Status: Acute Plan: Discussed the patient with Dr. Oneill. no role for surgical correction of the ankle. Will consult Dr. Hernandez and get an MRI. Have discussed with the patient. Would most likely need a BKA Spent 20min with the patient discussing this. (2) Type 2 diabetes mellitus with foot ulcer Current Visit: No Status: Acute Plan: will control her on insulin sliding scale. 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 Hold xarelto in anticipation of surgery. Qualifiers: Atrial fibrillation type: paroxysmal Qualified Code(s): I48.0 - Paroxysmal atrial fibrillation (4) HTN (hypertension) Onset Date: 10/17/16 Current Visit: No Status: Chronic Plan: stable continue lisinopril Qualifiers: Discharge Plan: LTAC Plan to discharge in: Greater than 2 days - Code Status/Comfort Care Code Status Assessed: No Physician Review: Patient Assessed, Agree with Above Assessment and Plan Critical Care: No Time Spent Managing Pts Care (In Minutes): 25
[2021-03-06] MEDS: LEVOTHYROXINE SOD 0.088 MG TAB PO SCH (11:23)
[2021-03-06] MEDS: lisinopriL 20 MG TAB PO SCH (11:23)
[2021-03-06] MEDS: GABAPENTIN 400 MG CAP PO SCH ×3 (11:24→22:04)
[2021-03-06] MEDS: POTASSIUM CL SA 10 MEQ TAB PO SCH (11:24)
[2021-03-06] MEDS: carvediloL 3.125 MG TAB PO SCH ×2 (11:24→22:03)
[2021-03-06] MEDS: LIOTHYRONINE SOD 25 MCG TAB PO SCH (11:25)
[2021-03-06] MEDS: ACETAMINOPHEN 325 MG TABLET PO PRN ×2 (11:30→22:03)
[2021-03-06] MEDS: VANCOMYCIN 1.75 GM in NA CHLORIDE 0.9% 500 ML IVPB SCH (13:30)
[2021-03-06] MEDS: Meropenem 500 MG/100 ML BAG IV SCH ×2 (15:21→22:03)
[2021-03-06] MEDS ORDERED: Meropenem 500 MG VIAL IV SCH (17:00)
[2021-03-06 18:31] LABS: Hematocrit 26.4 % (36.0-45.0)
--- NOTE | 2021-03-06 22:08 | P.PN ---
Subjective Date of Service: 03/06/21 Primary Care Provider: Viviana Chief Complaint: left foot instability with foot pain and wounds Subjective: No new changes patient reports continued pain; is scheduled for BKA tomorrow with Dr. Hernandez Physical Examination - Vital Signs Temperature: 97.1 F Blood Pressure: 108/75 Pulse: 92 Respirations: 17 Pulse Ox (%): 98 - Physical Exam General: Alert, In no apparent distress Musculoskeletal: Other (Left foot: bandage in place with some serosanguinous drainage; no tracking erythema) Assessment And Plan - Plan Helen is a 76 yo female with a left Charcot foot with talar fragmentation, instability and osteomyelitis -no surgical stabilization recommended at this time; given talar fragmentation, patient is not a candidate for stabilization or able to ambulate with a plantigrade foot -patient scheduled for BKA tomorrow with Dr. Hernandez -may followup as needed Physician Review: Patient Assessed, Agree with Above Assessment and Plan
[2021-03-07] MEDS: ACETAMINOPHEN 325 MG TABLET PO PRN ×2 (06:50→23:05)
[2021-03-07] MEDS: CODEINE 30MG/APAP 300MG TAB PO PRN ×2 (06:50→23:04)
[2021-03-07] MEDS: Meropenem 500 MG/100 ML BAG IV SCH ×3 (06:50→21:21)
[2021-03-07] MEDS: INSULIN -REGULAR HUMAN 50 UNIT/0.5 ML ML SQ SCH ×4 (07:30→23:00)
[2021-03-07] MEDS: JUVEN PACKET PO SCH ×2 (09:00→21:00)
[2021-03-07] MEDS: IRON CARBONYL PO SCH (09:00)
--- NOTE | 2021-03-07 09:22 | P.PN ---
Subjective Date of Service: 03/07/21 Primary Care Provider: Viviana Chief Complaint: left foot instability with foot pain and wounds Subjective: No new changes Review of Systems 10-point ROS is otherwise unremarkable Musculoskeletal: Foot Pain (left) Physical Examination - Vital Signs Temperature: 97.3 F Blood Pressure: 128/72 Pulse: 114 Respirations: 17 Pulse Ox (%): 99 - Physical Exam General: Alert, In no apparent distress HEENT: Atraumatic, PERRLA, EOMI Neck: Supple, JVD not distended Respiratory: Clear to auscultation bilaterally, Normal air movement Cardiovascular: Regular rate/rhythm, Normal S1 S2 Gastrointestinal: Normal bowel sounds, No tenderness Musculoskeletal: No tenderness Integumentary: No rashes Neurological: Normal speech, Normal tone, Normal affect Lymphatics: No axilla or inguinal lymphadenopathy Assessment & Plan - Problems (Diagnosis) (1) Charcot's joint, left ankle and foot Current Visit: No Status: Acute Plan: Discussed the patient with Dr. Oneill. no role for surgical correction of the ankle. Will consult Dr. Hernandez and get an MRI. Have discussed with the patient. Would most likely need a BKA Spent 20min with the patient discussing this. 03/07 Amputation today. Have discussed placement with the psychologist social. Will have PT evaluate her tomorrow. after her surgery (2) Type 2 diabetes mellitus with foot ulcer Current Visit: No Status: Acute Plan: will control her on insulin sliding scale. 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 Hold xarelto in anticipation of surgery. Qualifiers: Atrial fibrillation type: paroxysmal Qualified Code(s): I48.0 - Paroxysmal atrial fibrillation (4) HTN (hypertension) Onset Date: 10/17/16 Current Visit: No Status: Chronic Plan: stable continue lisinopril Qualifiers: Discharge Plan: LTAC - Code Status/Comfort Care Code Status Assessed: No Physician Review: Patient Assessed, Agree with Above Assessment and Plan Critical Care: No Time Spent Managing Pts Care (In Minutes): 20
[2021-03-07] MEDS: LEVOTHYROXINE SOD 0.088 MG TAB PO SCH (09:50)
[2021-03-07] MEDS: LIOTHYRONINE SOD 25 MCG TAB PO SCH (09:51)
[2021-03-07] MEDS: GABAPENTIN 400 MG CAP PO SCH ×3 (10:11→21:21)
[2021-03-07] MEDS: carvediloL 3.125 MG TAB PO SCH ×2 (10:11→21:21)
[2021-03-07] MEDS: POTASSIUM CL SA 10 MEQ TAB PO SCH (10:12)
[2021-03-07] MEDS: lisinopriL 20 MG TAB PO SCH (10:12)
[2021-03-07] MEDS: VANCOMYCIN 1.75 GM in NA CHLORIDE 0.9% 500 ML IVPB SCH (11:11)
[2021-03-07] MEDS ORDERED: NA CHLORIDE 0.9% 1,000 ML ONE (11:25)
[2021-03-07] MEDS ORDERED: MIDAZOLAM HCL 2 MG/2 ML INJ ONE (11:32)
[2021-03-07] MEDS ORDERED: FENTANYL CITR 100 MCG/2 ML ONE (11:32)
[2021-03-07] MEDS ORDERED: NS 0.9% VIAL 20 ML ONE (11:36)
[2021-03-07] MEDS ORDERED: dexAMETHasone 10 MG/ML VIAL ONE (11:37)
[2021-03-07] MEDS ORDERED: LIDOCAINE 1% MPF 5 ML VIAL ONE (11:37)
[2021-03-07] MEDS ORDERED: LIDOCAINE 2% MPF 5 ML VIAL ONE (12:16)
[2021-03-07] MEDS ORDERED: propofoL 200 MG/20 ML VIAL IV ONE ×4 (12:16→14:31)
--- NOTE | 2021-03-07 14:21 | CON ---
Date of Consultation: 03/06/2021 Brief History Of Present Illness: The patient is a 76-year-old female, who was admitted in the hospital yesterday with complaints of left ankle pain, instability, draining wound. She has had a history of a left ankle foot pain in the area in the past and wounds were treated elsewhere. She had multiple attempts to treat this foot and had progressive worsening with infection, evidence of os teomyelitis, pain, dysmobility. She was seen by Dr. Rose as well as Dr. Leal in an attempt to try a nd salvage her foot, which by report the patient was a poor candidate for limb salvage. As such, I w as consulted by Dr. Michelle for left [id number] amputation. After consultation with the patient, s he agrees that she would like to stop dealing with this chronic wound, pain she has had associated wi th this, which has not been improved by any of the previous measures and ultimately would like a belo w-the-knee amputation at this point for symptomatic improvement as well. Past Medical History: Significant for atrial fibrillation, diabetes, hypertension. Social History: She denies smoking, alcohol, recreational drug use. Review of Systems: Ten-point review of systems other than HPI, denies. Physical Examination: Vital Signs: At the time of my examination, her BMI is 35.7. Her blood pressure was 108/75, heart r ate was 92, respiratory rate 17, temperature 97.1. General: She is awake, alert, oriented. Psychiatric: Appropriate. Conversive. HEENT: Normocephalic. Sclerae icteric. Mucous membranes are moist. Oropharynx clear. Neck: Supple without JVD. Chest: Normal expansion and excursion. Cardiovascular: Regular rate and rhythm. Pulmonary: Clear to auscultation bilaterally. Abdomen: Soft, nontender. Extremities: Focused examination of extremities, she has a left lower extremity calcaneal wound with draining purulence, tenderness, cellulitis, swelling to the area involving the foot and the calcanea l area. Laboratory Data: She had a laboratory exam, which reveals a white blood cell count of 6.7, hemoglobi n 7.7, hematocrit 24.7, platelet count was 504. Her neutrophils were 59%. Her sodium 136, potassium 4.3, chloride 104, carbon dioxide 27, BUN 16, creatinine 0.4, glucose is 102. Her AST is 41, ALT 30 , alkaline phosphatase is 109. She had imaging performed, which included a foot MRI, officially read as severe Charcot arthropathy, osteomyelitis, involving the posterior and lateral aspects of the carolyn caneus. She had an ankle x-ray as well, which was officially read as there was little normal appeari ng talus. The talus is small and fragmented. Tibiotalar dislocation is present. The talonavicular dislocation seen. Marked irregularity involving the tarsometatarsal joints with bony fragmentation, bone loss fragmentation involving the calcaneocuboid joint, marked soft tissue swelling. It is uncer tain if all these findings are related to osteomyelitis and/or combination of osteomyelitis, neuropat hic joint and/or surgery. She had a consultation with Dr. Leal. Dr. Leal discussed with the patient and left in consultation, which recommended an MRI and discussed the possibility of needing a below- the-knee amputation. Assessment And Plan: This is a 76-year-old female, who presents with chronic pain and wound/osteomye litis of the left foot. 1.IV fluid hydration. 2.Antibiotic coverage. 3.I have explained the risks, benefits, and alternatives of left odrmq-npc-uvxu amputation including , but not limited to bleeding, infection, damage to surrounding tissues, heart attack, stroke, blood clots, need for further operation, need for revisions of the stump, ongoing wound care, chronic pain, phantom limb pain, and other unforeseen complications related to anesthesia and other perioperative complications. The patient agrees to proceed as indicated. All questions answered. Thank you for this interesting consult. MARGO/CHRISTINE Voice ID: [id number] Report ID: [id number]
--- NOTE | 2021-03-07 14:30 | P.OP ---
Swing Grinder: Maday Castellano Preoperative diagnosis: LEFT Foot Osteomyelitis Postoperative diagnosis: LEFT Foot Osteomyelitis Primary procedure: LEFT Below Knee Amputation Anesthesia: IV + Regional Block Estimated blood loss: ~50cc Specimen: LEFT lower Extremity Findings: viable flaps, osteomyelits of left foot Complications: None Drain(s): BRETT drain (10 Fr Round) Transferred to: Recovery Room Condition: Good
[2021-03-07] MEDS ORDERED: MORPHINE 2 MG/ML SYR IV PRN (15:00)
[2021-03-07] MEDS ORDERED: D50W 25 GM/50 ML VIAL IV PRN (15:13)
[2021-03-07] MEDS: HYDROCODONE/APAP 7.5/325 MG TAB PO PRN ×2 (15:42→21:20)
--- NOTE | 2021-03-07 16:09 | OP ---
Date of Procedure: 03/07/2021 Surgeon: Carlyle Hernandez MD, Preoperative Diagnosis: Left foot acute on chronic osteomyelitis. Postoperative Diagnosis: Left foot acute on chronic osteomyelitis. Procedure Performed: A left vveap-rrx-rwvo amputation. Anesthesia: IV plus regional. Estimated Blood Loss: Less than 50 mL. Specimen: Left lower extremity. Findings: Osteomyelitis of the left foot extending to the calcaneus with cellulitic changes and viab le flaps at the end of the procedure. Complications: None. Drains: A 10-Occitan round BRETT drain. Disposition: The patient was transferred to the recovery room in good condition. Procedure In Detail: After informed consent was obtained, the patient was brought to the operating r oom, prepped and draped in the usual sterile fashion after adequate anesthesia was achieved with a re gional block performed preoperatively. The patient was given IV sedation after being prepped appropr iately. A tourniquet was applied to 300 mmHg. At this point, I demarcated the area by marking appro ximately 10 cm to 11 cm below the anterior tibial tuberosity on the left lower extremity. I then cir cumferentially dissected flaps down on the medial and lateral margins following the groove of the gas trocnemius muscle down as distally as possible and connecting the flaps based on a posterior vascular ized pedicle flap. At this point, I cut down through the anterior and lateral demarcating margins us ing a 10 blade. The skin was circumferentially dissected all the way around. The small saphenous an d greater saphenous veins were encountered. These were suture ligated with a 2-0 nylon suture. At t his point, dissection was continued down in the anterior compartment through the muscular plane to ex pose the syndesmotic membrane between the tibia and the fibula. The vascular pedicle was appreciated with the anterior tibial vascular pedicle. The vessels were individually as well as the t ibial nerve which was grasped, stick-tied, and allowed to retract after pulling it down approximately 4 to 5 cm. It was retracted back deeply into the muscular tissue planes. I then stick-tied the tib ialis anterior blood vessel and placed a second ligation suture of 3-0 nylon behind the stick-tie. I then ligated the tibialis vein at this point and these structures were allowed to retract. At this point, dissection was continued down circumferentially around the tibia. The tibia was scored anteri kevin and a periosteal elevator was used to push the periosteum back proximally away from the plane fo r separation. At this point, I passed a laparotomy pad behind and swept the posterior periosteum ernie k as well after creating a protective plane with a laparotomy pad and residual muscular tissue was li gated using electrocautery. I then created the osteotomy using a powered saw with cooling throughout the procedure until the tibia was . I then beveled the anterior surface using the same mallory d oscillating saw. At this point, the edges were beveled circumferentially around. At this point, I dissected through the syndesmotic membrane to expose the peroneal vascular pedicle and the deep costa svetlana nerve at this point. These structures were individually ligated in a similar fashion with 3-0 V icryl stick-tie on the nerve as well as on the artery and simple suture ligation of the vein. The ar tyrone was double ligated with a stick-tie as well as the simple suture ligation proximal to that and t hese structures were allowed to retract back in the muscular plane once again. I then dissected circ umferentially around the tibia at this point and scored the anterior surface and pushed the periosteu m back proximally as well. The tibial transection point was approximately 2 cm higher than the tibia and as such, the fibula was transected with the same said oscillating saw using cooling effect throu gh. At this point when it was , a bone spike was then placed into the tibia and the Edie knife was used to cut the posterior plane down through the previous demarcated area through the poste rior compartment staying in close apposition to the fibula and tibia throughout. The Achilles tendon was then at this point and the specimen was passed off for pathologic examination. At thi s point, I irrigated the stump and dissected the posterior tibial vascular pedicle and nerve at this point and individually suture ligated the posterior tibial artery with a double ligature method of 3- 0 nylon with a stick-tie as well as a free tie and the nerve was suture ligated as well after retract ing it into the field and allowing it to retract posteriorly after being skeletonized away from the v ascular pedicle. The vein was then simple suture ligated at this point and the structure allowed to retract once again. At this point, the tourniquet was taken down. 77 minutes of tourniquet time was appreciated at this point. I then irrigated it copiously and achieved hemostasis of small perforati ng vessels using simple 3-0 ties at this point and hemostasis with electrocautery. I then flipped in the gastrocnemius flap slightly and removed the soleus and posterior compartment in its entirety usi ng electrocautery and sent it off for pathologic examination. The gastroc vascularized pedicle flap and soft tissue were found to be pink and viable and with good blood supply. At this point, I chelly t the flap anteriorly, trimmed the gastrocnemius appropriately and placed a drain into the muscular p heavenly and brought it out through a separate left upper lateral stab incision and was secured to the sk in at this point. The drain was a 7-Occitan round drain, hooked up to the BRETT bulb and the muscular pl ane was then closed to the anterior fascia of the tibialis at this point using interrupted 2-0 Vicryl sutures with good approximation of tissues. Good hemostasis was achieved throughout this. I irriga carlyle the area once again and dried it and I reapplied sutures of 3-0 Vicryl and 2-0 nylon to the subcu taneous plane and the skin was then brought in close apposition using a combination of interrupted st aples as well as 2-0 nylon sutures. The flaps were pink and viable at the end of the procedure witho ut any additional hemostatic maneuvers being required and the flap had a nice coverage. As such, a s terile dressing was then placed over the top including Xeroform and fluffy dressings and a knee immob ilizer. The patient tolerated the procedure well without evidence of complication and transferred to PACU in good condition. All counts correct at the end of the case. TK/MODL Voice ID: [id number] Report ID: [id number]
[2021-03-07 18:10] LABS: Hematocrit 29.1 % (36.0-45.0)
[2021-03-08] MEDS: HYDROCODONE/APAP 7.5/325 MG TAB PO PRN (02:20)
[2021-03-08] MEDS: ACETAMINOPHEN 325 MG TABLET PO PRN ×3 (04:11→16:27)
[2021-03-08] MEDS: CODEINE 30MG/APAP 300MG TAB PO PRN ×4 (04:11→22:36)
[2021-03-08 06:59] LABS: Absolute Lymphocytes (CBC) 1.1 K/uL (0.7-4.9); Hematocrit 25.3 % (36.0-45.0); Lymphocytes % 15.7 % (15.3-44.8); MPV 7.3 fL (7.6-11.3); RBC Red Blood Cell Count 3.23 M/uL (3.86-4.86)
[2021-03-08] MEDS: Meropenem 500 MG/100 ML BAG IV SCH ×3 (07:09→21:42)
[2021-03-08 07:16] LABS: BUN Blood Urea Nitrogen 18 mg/dL (7-18); Bicarbonate 23 mmol/L (21-32); Glucose Level 163 mg/dL (74-106); Potassium 5.3 mmol/L (3.5-5.1); Sodium Level 135 mmol/L (136-145)
--- NOTE | 2021-03-08 08:16 | P.PN ---
Subjective Date of Service: 03/08/21 Primary Care Provider: Viviana Chief Complaint: left foot instability with foot pain and wounds Subjective: New changes (patient a bit tearful today. Which is understandable.) Review of Systems Neurological: Other (neuropathy pain in the right arm. phantom limb pain in her left foot.) Physical Examination - Vital Signs Temperature: 97.4 F Blood Pressure: 118/73 Pulse: 94 Respirations: 19 Pulse Ox (%): 97 - Physical Exam General: Alert, In no apparent distress HEENT: Atraumatic, PERRLA, EOMI Neck: Supple, JVD not distended Respiratory: Clear to auscultation bilaterally, Normal air movement Cardiovascular: Regular rate/rhythm, Normal S1 S2 Gastrointestinal: Normal bowel sounds, No tenderness Musculoskeletal: No tenderness Integumentary: No rashes Neurological: Normal speech, Normal tone, Normal affect Lymphatics: No axilla or inguinal lymphadenopathy Assessment & Plan - Problems (Diagnosis) (1) Charcot's joint, left ankle and foot Current Visit: No Status: Acute Plan: Discussed the patient with Dr. Oneill. no role for surgical correction of the ankle. Will consult Dr. Hernnadez and get an MRI. Have discussed with the patient. Would most likely need a BKA Spent 20min with the patient discussing this. 03/08. Start PT (2) Type 2 diabetes mellitus with foot ulcer Current Visit: No Status: Acute Plan: will control her on insulin sliding scale. 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 Hold xarelto in anticipation of surgery. Qualifiers: Atrial fibrillation type: paroxysmal Qualified Code(s): I48.0 - Paroxysmal atrial fibrillation (4) HTN (hypertension) Onset Date: 10/17/16 Current Visit: No Status: Chronic Plan: stable continue lisinopril Qualifiers: (5) Phantom limb pain Current Visit: Yes Status: Acute Plan: will increase her gabapentin to 600mg po tid Discharge Plan: Home - Code Status/Comfort Care Code Status Assessed: No Physician Review: Patient Assessed, Agree with Above Assessment and Plan Critical Care: No Time Spent Managing Pts Care (In Minutes): 20
[2021-03-08] MEDS: IRON CARBONYL PO SCH (09:00)
[2021-03-08] MEDS: JUVEN PACKET PO SCH ×2 (09:00→21:00)
[2021-03-08] MEDS: LIOTHYRONINE SOD 25 MCG TAB PO SCH (09:09)
[2021-03-08] MEDS: lisinopriL 20 MG TAB PO SCH (09:10)
[2021-03-08] MEDS: POTASSIUM CL SA 10 MEQ TAB PO SCH (09:10)
[2021-03-08] MEDS: carvediloL 3.125 MG TAB PO SCH ×2 (09:10→21:42)
[2021-03-08] MEDS: INSULIN -REGULAR HUMAN 50 UNIT/0.5 ML ML SQ SCH ×4 (09:11→21:43)
--- NOTE | 2021-03-08 09:13 | P.PN ---
Subjective Date of Service: 03/08/21 Primary Care Provider: Viviana Chief Complaint: left foot instability with foot pain and wounds Subjective: Improving (Patient has no pain at this time, feels well generally) Physical Examination - Vital Signs Temperature: 97.4 F Blood Pressure: 118/73 Pulse: 94 Respirations: 19 Pulse Ox (%): 97 - Physical Exam General: Alert, In no apparent distress, Cooperative Musculoskeletal: Other (LEFT BKA site is clean, minimal sersanuanous discharge, BRETT minimal serosang) Assessment And Plan - Current Problems (Diagnosis) (1) Below-knee amputation of left lower extremity Current Visit: Yes Status: Acute Plan: - Patient is doing well, will take down dressings in AM - knee immobilizer - continue medical management Physician Review: Patient Assessed, Agree with Above Assessment and Plan
[2021-03-08] MEDS: GABAPENTIN 300 MG CAP PO SCH ×3 (09:15→21:43)
[2021-03-08] MEDS: LEVOTHYROXINE SOD 0.088 MG TAB PO SCH (09:16)
[2021-03-08] MEDS: VANCOMYCIN 1.75 GM in NA CHLORIDE 0.9% 500 ML IVPB SCH (11:03)
[2021-03-09] MEDS: Meropenem 500 MG/100 ML BAG IV SCH ×3 (04:34→21:29)
[2021-03-09 04:41] LABS: Absolute Lymphocytes (CBC) 2.4 K/uL (0.7-4.9); Basophils % 0.2 % (0-1.3); Hematocrit 26.2 % (36.0-45.0); Lymphocytes % 26.5 % (15.3-44.8); MPV 7.3 fL (7.6-11.3); RBC Red Blood Cell Count 3.27 M/uL (3.86-4.86)
[2021-03-09 04:59] LABS: BUN Blood Urea Nitrogen 21 mg/dL (7-18); Bicarbonate 24 mmol/L (21-32); Glucose Level 106 mg/dL (74-106); Potassium 4.9 mmol/L (3.5-5.1); Sodium Level 140 mmol/L (136-145)
[2021-03-09] MEDS: INSULIN -REGULAR HUMAN 50 UNIT/0.5 ML ML SQ SCH ×4 (07:30→21:31)
[2021-03-09] MEDS: GABAPENTIN 300 MG CAP PO SCH ×3 (08:30→21:29)
[2021-03-09] MEDS: LIOTHYRONINE SOD 25 MCG TAB PO SCH (08:30)
[2021-03-09] MEDS: lisinopriL 20 MG TAB PO SCH (08:31)
[2021-03-09] MEDS: LEVOTHYROXINE SOD 0.088 MG TAB PO SCH (08:31)
[2021-03-09] MEDS: CODEINE 30MG/APAP 300MG TAB PO PRN ×3 (08:31→22:49)
[2021-03-09] MEDS: ACETAMINOPHEN 325 MG TABLET PO PRN ×3 (08:31→22:48)
[2021-03-09] MEDS: POTASSIUM CL SA 10 MEQ TAB PO SCH (08:31)
[2021-03-09] MEDS: IRON CARBONYL PO SCH (08:32)
[2021-03-09] MEDS: JUVEN PACKET PO SCH ×2 (08:32→21:00)
[2021-03-09] MEDS: carvediloL 3.125 MG TAB PO SCH ×2 (08:32→21:30)
--- NOTE | 2021-03-09 09:40 | P.PN ---
Subjective Date of Service: 03/09/21 Primary Care Provider: Viviana Chief Complaint: left foot instability with foot pain and wounds Subjective: Improving Review of Systems 10-point ROS is otherwise unremarkable Musculoskeletal: Foot Pain Physical Examination - Vital Signs Temperature: 97.7 F Blood Pressure: 136/82 Pulse: 84 Respirations: 18 Pulse Ox (%): 97 - Physical Exam General: Alert, In no apparent distress HEENT: Atraumatic, PERRLA, EOMI Neck: Supple, JVD not distended Respiratory: Clear to auscultation bilaterally, Normal air movement Cardiovascular: Regular rate/rhythm, Normal S1 S2 Gastrointestinal: Normal bowel sounds, No tenderness Musculoskeletal: No tenderness Integumentary: No rashes Neurological: Normal speech, Normal tone, Normal affect Lymphatics: No axilla or inguinal lymphadenopathy Assessment & Plan - Problems (Diagnosis) (1) Charcot's joint, left ankle and foot Current Visit: No Status: Acute Plan: Discussed the patient with Dr. Oneill. no role for surgical correction of the ankle. Will consult Dr. Hernandez and get an MRI. Have discussed with the patient. Would most likely need a BKA Spent 20min with the patient discussing this. 03/08. Start PT (2) Type 2 diabetes mellitus with foot ulcer Current Visit: No Status: Acute Plan: will control her on insulin sliding scale. Qualifiers: Diabetes mellitus manager terminal insulin use: with manager terminal use (3) Atrial fibrillation Onset Date: 10/17/16 Current Visit: No Status: Chronic Plan: will continue carvedilol. Hold xarelto in anticipation of surgery. Qualifiers: Atrial fibrillation type: paroxysmal Qualified Code(s): I48.0 - Paroxysmal atrial fibrillation (4) HTN (hypertension) Onset Date: 10/17/16 Current Visit: No Status: Chronic Plan: stable continue lisinopril Qualifiers: (5) Phantom limb pain Current Visit: Yes Status: Acute Plan: will increase her gabapentin to 600mg po tid Discharge Plan: LTAC Plan to discharge in: Greater than 2 days Physician Review: Patient Assessed, Agree with Above Assessment and Plan Critical Care: No Time Spent Managing Pts Care (In Minutes): 20
[2021-03-09] MEDS: VANCOMYCIN 1.75 GM in NA CHLORIDE 0.9% 500 ML IVPB SCH (10:15)
--- NOTE | 2021-03-09 10:30 | P.PN ---
Subjective Date of Service: 03/09/21 Primary Care Provider: Viviana Chief Complaint: left foot instability with foot pain and wounds Subjective: Improving (patient has no pain, no issues) Physical Examination - Vital Signs Temperature: 97.7 F Blood Pressure: 136/82 Pulse: 84 Respirations: 18 Pulse Ox (%): 97 - Physical Exam General: Alert, In no apparent distress, Cooperative Musculoskeletal: Other (LEFT BKA site is clean and dry, BRETT serosanguanous, suture line is viable. flaps remain well perfused) Assessment And Plan - Current Problems (Diagnosis) (1) Below-knee amputation of left lower extremity Current Visit: Yes Status: Acute Plan: - Patient is doing well, will take down dressings in AM - knee immobilizer - continue medical management - ok to DC home after PT/OT eval Physician Review: Patient Assessed, Agree with Above Assessment and Plan
[2021-03-10] MEDS: Meropenem 500 MG/100 ML BAG IV SCH ×2 (04:13→14:09)
[2021-03-10 04:20] LABS: BUN Blood Urea Nitrogen 20 mg/dL (7-18); Bicarbonate 27 mmol/L (21-32); Glucose Level 90 mg/dL (74-106); Sodium Level 141 mmol/L (136-145)
[2021-03-10 04:54] LABS: Absolute Lymphocytes (CBC) 2.3 K/uL (0.7-4.9); Basophils % 0.9 % (0-1.3); Hematocrit 27.6 % (36.0-45.0); Lymphocytes % 32.8 % (15.3-44.8); MPV 7.4 fL (7.6-11.3); RBC Red Blood Cell Count 3.44 M/uL (3.86-4.86)
[2021-03-10] MEDS: CODEINE 30MG/APAP 300MG TAB PO PRN ×2 (07:07→12:04)
[2021-03-10] MEDS: ACETAMINOPHEN 325 MG TABLET PO PRN ×2 (07:08→12:04)
[2021-03-10] MEDS: INSULIN -REGULAR HUMAN 50 UNIT/0.5 ML ML SQ SCH ×3 (07:30→16:20)
[2021-03-10] MEDS: LIOTHYRONINE SOD 25 MCG TAB PO SCH (08:14)
[2021-03-10] MEDS: carvediloL 3.125 MG TAB PO SCH (08:14)
[2021-03-10] MEDS: GABAPENTIN 300 MG CAP PO SCH ×2 (08:14→14:11)
[2021-03-10] MEDS: lisinopriL 20 MG TAB PO SCH (08:15)
[2021-03-10] MEDS: IRON CARBONYL PO SCH (08:15)
[2021-03-10] MEDS: POTASSIUM CL SA 10 MEQ TAB PO SCH (08:15)
[2021-03-10] MEDS: JUVEN PACKET PO SCH (08:15)
[2021-03-10] MEDS: LEVOTHYROXINE SOD 0.088 MG TAB PO SCH (08:15)
[2021-03-10 08:32] VITALS: O2SAT 95
[2021-03-10] MEDS ORDERED: ENOXAPARIN 40 MG/0.4 ML SQ SCH (09:00)
[2021-03-10 09:01] LABS: Anisocytosis SLIGHT; Blood Morphology Comment NOTED (NOT SEEN); Platelet Estimate ADEQ
--- NOTE | 2021-03-10 10:46 | P.PN ---
Subjective Date of Service: 03/10/21 Primary Care Provider: Viviana Chief Complaint: s/p LEFT BKA Subjective: Improving Patient has only mild pain, intermittently. Physical Examination - Vital Signs Temperature: 98.2 F Blood Pressure: 131/77 Pulse: 97 Respirations: 16 Pulse Ox (%): 97 - Physical Exam General: Alert, In no apparent distress, Oriented x3, Cooperative Musculoskeletal: Other (LEFT BKA site remains clean and dry, BRETT serosanguanous) Assessment And Plan - Current Problems (Diagnosis) (1) Below-knee amputation of left lower extremity Current Visit: Yes Status: Acute Plan: - Patient is doing well, will take down dressings in AM - knee immobilizer - continue medical management - ok to DC home after PT/OT eval - DC BRETT today Physician Review: Patient Assessed, Agree with Above Assessment and Plan
[2021-03-10] MEDS: VANCOMYCIN 1.75 GM in NA CHLORIDE 0.9% 500 ML IVPB SCH (11:51)
--- NOTE | 2021-03-10 14:29 | P.DS ---
Admission Date: 03/04/21 Discharge Date: 03/10/21 Primary Care Provider: Viviana Disposition: TRANSFER TO INPATIENT REHAB Discharge Condition: GOOD Reason for Admission: s/p LEFT BKA - Problems (1) Charcot's joint, left ankle and foot Current Visit: No Status: Acute (2) Type 2 diabetes mellitus with foot ulcer Current Visit: No Status: Acute Qualifiers: Diabetes mellitus longterm insulin use: with supervisor intermediates use (3) Atrial fibrillation Onset Date: 10/17/16 Current Visit: No Status: Chronic Qualifiers: Atrial fibrillation type: paroxysmal Qualified Code(s): I48.0 - Paroxysmal atrial fibrillation (4) HTN (hypertension) Onset Date: 10/17/16 Current Visit: No Status: Chronic Qualifiers: (5) Phantom limb pain Current Visit: Yes Status: Acute Brief History of Present Illness: Patient was sent to the [facility] by Dr. Rose. She had a new ulcer and worsening of her pain in her right foot. Was not able to bear any weight and there was a possibility of an ankle fracture. Hospital Course: Patient was admitted. Had an xray of her left ankle which was review by Dr. Leal. There was a charcot foot with disentagration of the talus. There was no role for surgical repair. Considering this we consulted Dr. Hernandez for a left BKA. Start her on antibiotics as she has signs of osteomyelitus on CT scan of the foot. She did well with the surgery. She had some worsening neuropathy in her right arm and some phantom limb pain. We increased the gabapentin for this reason. She has been accepted to inpatient rehab on the 5th floor. Will be transfering her there today. Vital Signs/Physical Exam: Temp Pulse Resp BP Pulse Ox 96.9 F 91 H 16 141/88 H 97 03/10/21 12:00 03/10/21 12:00 03/10/21 13:04 03/10/21 12:00 03/10/21 13:04 General: Alert, In no apparent distress HEENT: Atraumatic, PERRLA, EOMI Neck: Supple, JVD not distended Respiratory: Clear to auscultation bilaterally, Normal air movement Cardiovascular: Regular rate/rhythm, Normal S1 S2 Gastrointestinal: Normal bowel sounds, No tenderness Musculoskeletal: No tenderness Integumentary: No rashes Neurological: Normal speech, Normal tone, Normal affect Lymphatics: No axilla or inguinal lymphadenopathy Laboratory Data at Discharge: WBC 7.00 K/uL (4.3-10.9) D 03/10/21 03:15 Hgb 8.4 g/dL (12.0-15.0) L 03/10/21 03:15 Hct 27.6 % (36.0-45.0) L 03/10/21 03:15 Plt Count 471 K/uL (152-406) H 03/10/21 03:15 PT 31.8 SECONDS (9.5-12.5) H 03/04/21 18:55 INR 2.74 03/04/21 18:55 Sodium 141 mmol/L (136-145) 03/10/21 03:15 Potassium 5.0 mmol/L (3.5-5.1) 03/10/21 03:15 BUN 20 mg/dL (7-18) H 03/10/21 03:15 Creatinine 0.60 mg/dL (0.55-1.3) 03/10/21 03:15 Glucose 90 mg/dL (74-106) 03/10/21 03:15 Magnesium 2.1 mg/dL (1.8-2.4) 03/04/21 18:55 Total Bilirubin 0.8 mg/dL (0.2-1.0) 03/06/21 07:43 AST 41 U/L (15-37) H 03/06/21 07:43 ALT 30 U/L (12-78) 03/06/21 07:43 Alkaline Phosphatase 109 U/L (45-117) 03/06/21 07:43 Home Medications: Acetaminophen with Codeine [Acetaminophen-Cod #4 Tablet] 1 tab PO TID PRN 02/25/21 Carvedilol [Coreg] 1 tab PO BID 02/25/21 Furosemide [Lasix*] 40 mg PO DAILY 02/25/21 Gabapentin [Neurontin*] 400 mg PO TID 02/25/21 Iron,Carbonyl [Ferretts] 1 tab PO DAILY 02/25/21 Levothyroxine [Synthroid*] 1 tab PO AC 02/25/21 Liothyronine Sodium [Cytomel] 25 mcg PO AC 02/25/21 Lisinopril [Zestril] 20 mg PO DAILY 02/25/21 Metformin ER [Glucophage ER*] 1 tab PO BID 02/25/21 Potassium Oral Tab [Klor-Con 10 mEq Tab*] 20 meq PO DAILY 02/25/21 Rivaroxaban [Xarelto*] 20 mg PO DAILY 02/25/21 Gabapentin 600 mg PO TID 30 Days #90 tablet 03/10/21 Tramadol HCl [Ultram] 50 mg PO BID* PRN 30 Days #60 tablet 03/10/21 New Medications: Gabapentin 600 mg PO TID 30 Days #90 tablet Tramadol HCl [Ultram] 50 mg PO BID* PRN 30 Days #60 tablet PRN Reason: Pain Scale 5-7 (Moderate) Diet: ADA Activity: Fall precautions Followup: Ezio Michelle MD [Primary Care Provider] - (1 week after discharge from in patient PT ) Time spent managing pt's care (in minutes): 30
[2021-03-10 17:37] VITALS: BP 134/79; TEMP 97.2
== END 2021-03-10 16:38 | DRG 41 ==
LOC: ER 12:35 → 4TH 14:16
PROVIDERS: ADMIT Internal Medicine; ATTEND Internal Medicine
PROC: 0Y6J0Z2 Detachment at Left Lower Leg, Mid, Open Approach (ICD-10-PCS; principal; 2021-03-07 12:30)
DX: E11.610 Type 2 diabetes mellitus with diabetic neuropathic arthropathy (principal); E44.0 Moderate protein-calorie malnutrition; D61.9 Aplastic anemia, unspecified; M86.8X7 Other osteomyelitis, ankle and foot; E11.69 Type 2 diabetes mellitus with other specified complication; E11.621 Type 2 diabetes mellitus with foot ulcer; L97.519 Non-pressure chronic ulcer of other part of right foot with unspecified severity; I10 Essential (primary) hypertension; G54.6 Phantom limb syndrome with pain; I48.0 Paroxysmal atrial fibrillation; D53.9 Nutritional anemia, unspecified; Z68.35 Body mass index [BMI] 35.0-35.9, adult; Z91.040 Latex allergy status; Z88.5 Allergy status to narcotic agent; Z91.048 Other nonmedicinal substance allergy status
CPT/HCPCS: 11042; 11043; 36415; 71045; 80048; 80053; 80076; 80202; 81001; 82040; 82728; 82947; 83540; 83735; 83880; 84134; 84466; 84484; 85014; 85018; 85025; 85044; 85610; 85652; 86140; 86850; 86900; 86901; 87040; 87070; 87075; 87077; 87086; 87088; 87186; 87205; 88305; 97110; 97161; 97530; 99285; J1100; J1650; J2185; J2250; J2704; J3010; J3370; J7030; J7040

== ENCOUNTER 2021-03-10 10:32 | Inpatient (IN) | payer OTHER, BC ==
--- NOTE | 2021-03-10 12:18 | R.PREADM ---
PRE-ADMISSION SCREENING FORM SCREENING DATE AND TIME 03/08/2021 10:40 (CDT) ANTICIPATED REHAB ADMISSION DATE 03/10/2021 REFERRING FACILITY [facility] REFERRAL DATE AND TIME 03/08/2021 10:41 (CDT) REFERRAL ROOM# 421 ACUTE ADMIT DATE 03/04/2021 Previous Rehabilitation(s): No. ACUTE FILER HELPER/DC HABILITATION ASSISTANT Cecilia REFERRING PHYSICIAN Dr Michelle REHAB FACILITY [facility] CLINICAL LIAISON Felipe Helm PHYSICIAN REVIEWER Dr. Javier Chong M.D. MR# [id number] NAME RODNEY PUENTE ADDRESS [address] [place] [address] PHONE [facility] [id number] DATE OF 1945 AGE 76 SSN# [id number] GENDER female MARITAL STATUS RACE white PREF. LANGUAGE (IF NON-CZECH) Czech ADMIT FROM 02 - [facility] PRE-HOSPITAL LIVING SETTING 01 - Home (private home/apt. board/care, assisted living, detention, transitional living) HOME TYPE AND DETAILS Type of home: mobile home # of steps to enter the residence: 3 # of steps within the residence: 0 # of levels in the residence: 1 Pt. claims to live in a mobile home w/ her daughter. Her daughter just got a new job and will be [employer] [facility] [facility] work. Pt. normally was ambulating w/ a rollator prior to L BKA. She has a [id number] w / small ledge, no shower chair. She was taking sponge baths per pt. due to the L foot wound/condition . PRE-HOSPITAL LIVING WITH Family/Relatives FAMILY SUPPORT Yes PRIMARY FAMILY CONTACT NAME Kelsy Meyers PRIMARY FAMILY CONTACT ALT. PHONE PRIMARY FAMILY CONTACT RELATIONSHIP DAUGHTER IS PRIMARY FAMILY CONTACT AUTH. REP.? no 1ST EMERGENCY CONTACT Kelsy Meyers 1ST CONTACT ALT. PHONE 1ST CONTACT RELATIONSHIP DAUGHTER IS 1ST CONTACT AUTH. REP.? no PHONE 2ND CONTACT ON ADM.? no PATIENT EMPLOYMENT STATUS Retired (for age) PATIENT EMPLOYER No Employer PAYOR INFORMATION: 1ST PAYOR NAME MEDICARE 1ST PAYOR PHONE 1ST PAYOR INJURY/ILLNESS DUE TO ACCIDENT? No ANOTHER GREEN PARTY RESPONSIBLE? No PRIMARY REHAB/ACUTE DIAGNOSIS: Left foot acute on chronic osteomyelitis. Left BKA ONSET DATE 03/04/2021 REHAB IMPAIRMENT CATEGORY (JASSON): 10 Amputation, lower extremity (Amp/LE) MEETS 60% rule AFFECTED EXTREMITIES: LLE PRIMARY DIAGNOSIS-RELATED SURGERIES: Emergency Amputation of Limb(Unilateral Lower Limb Below the Knee (BK)) - performed by Dr Hernandez on 03/07/2021 COMORBID REHAB/ACUTE DIAGNOSES: - Tier 3 Type 2 diabetes mellitus with foot ulcer (E11.621) Type 2 diabetes mellitus with other skin ulcer (E11.622) SUMMARY OF ACUTE HOSPITALIZATION: Pt. is a 76 yo Right-handed white female. On 03/04/2021 she was admitted to [facility] and underwent emergency surgery for Left foot acute on chronic osteomyelitis. Left BKA (Amputation of Limb(Unilateral Lower Limb Below the Kne e (BK))) by Dr Hernandez. Pre-morbidly, Pt. was independent/mod-I in Transfers Control, Locomotion, Self-Care, Social Cognition , Sphincter Control, and Communication; and she had good Balance and Safety Awareness. Currently, she has deficits of Transfers Control, Balance, Locomotion, Safety Awareness, and Self-Car e. Pt. is now referred to [facility] for acute in-patient rehabilitation in order to maximize patient's functional independence in activities of daily living, strength, ROM, and mobi lity. Patient has realistic goal of being discharged at assistance level 6-Franko to reside at Home with Fam yury/Relatives. CONSULT: Consult Certified Prosthetic for prosthesis construction PAST MEDICAL HISTORY Diabetes AFIB HTN MEDICATION ALLERGIES: acetamenophen dextrose 5% in water linezolid adhesive tape ENVIRONMENTAL ALLERGIES: None Known - Substance Allergies None Known - Other Allergies None Known CODE STATUS: Do not resuscitate(DNR) WEIGHT/HEIGHT/BMI: WEIGHT 221 lbs HEIGHT 5' 6" BMI 35.7 DIET: - Diet Type Regular - Diet - Solid Texture Regular - Diet - Liquid Texture Regular - Tube Feed N/A SKIN DIAGRAM: AMPUTATION on Left lower leg; extent - large; stage - NS(Not Stageable). Treatment - Per Physician's Orders. Aching Left lower leg pain; level - 7. REVIEW OF SYSTEMS: - Gen Alert and awake Lying in bed No apparent distress Oriented to: person, time, and place - Vital Signs Vital signs stable, afebrile - CVS RRR VITAL SIGNS Temperature: 97.4 F SBP/DBP: 118/73 Pulse: 94 Resp: 20 Vital signs stable, afebrile MEDICATIONS/TREATMENT: Other- See attached MAR (Medication Administration Record). CURRENT SPHINCTER CONTROL: Pre-hospital bladder status: incontinent # of bladder accidents in the last 7 days prior to screenin Pre-hospital bowel status: continent # of bowel accidents in the last 7 days prior to screenin DETAILED CURRENT FUNCTIONAL STATUS: - Bladder Bladder control device used: diaper - Walking score based on distance walked: 0(N/A) - Wheelchair score based on distance traveled: 0(N/A) QI SCORES: - Self-Care A. Eating 04-Supervision or touching assistance B. Oral hygiene 04-Supervision or touching assistance C. Toileting hygiene 03-Partial/moderate assistance E. Shower/bathe self 01-Dependent F. Upper body dressing 02-Substantial/maximal assistance G. Lower body dressing 01-Dependent H. Putting on/taking off footwear 01-Dependent - Mobility A. Roll left and right 04-Supervision or touching assistance B. Sit to lying 04-Supervision or touching assistance C. Lying to sitting on side of bed 04-Supervision or touching assistance D. Sit to stand 04-Supervision or touching assistance E. Chair/qeu-pc-kysuo transfer F. Toilet transfer G. Car transfer 88-Not attempted due to medical condition or safety concerns I. Walk 10 feet 88-Not attempted due to medical condition or safety concerns J. Walk 50 feet with two turns 88-Not attempted due to medical condition or safety concerns K. Walk 150 feet 88-Not attempted due to medical condition or safety concerns L. Walking 10 feet on uneven surfaces 88-Not attempted due to medical condition or safety concerns M. 1 step (curb) 88-Not attempted due to medical condition or safety concerns N. 4 steps 88-Not attempted due to medical condition or safety concerns O. 12 steps 88-Not attempted due to medical condition or safety concerns P. Picking up object 88-Not attempted due to medical condition or safety concerns - Bladder and Bowel Bladder continence 0-Always continent Bowel continence 0-Always continent - Endurance Poor - Balance Poor - Safety Awareness Poor CURRENT FUNC. DEFICITS: Self-Care, Mobility, Endurance, Balance, and Safety Awareness HISTORY OF FALLS. HAS THE PATIENT HAD TWO OR MORE FALLS IN THE PAST YEAR OR ANY FALL WITH INJURY IN T HE PAST YEAR?: No PRIOR SURGERY. DID THE PATIENT HAVE MAJOR SURGERY DURING THE 100 DAYS PRIOR TO ADMISSION?: Yes THERAPY NOTES FROM ACUTE CARE: Attached. SPECIAL NEEDS: - Safety Concerns Skin breakdown precautions needed due to skin breakdown risk PRECAUTIONS: - Weight Bearing Precaution NWB left LE PATIENT NEEDS ACTIVE AND ONGOING THERAPEUTIC INTERVENTION OF MULTIPLE THERAPY DISCIPLINES, INCLUDING: - Orthotics/Prosthetics Prosthetic Evaluation. - Dietary and Nutrition Adequate Nutrition. Nutritional Education. Nutritional Supplements. PATIENT NEEDS CLOSE MEDICAL SUPERVISION BY A REHABILITATION PHYSICIAN FOR: Coordination of Treatment Team Diabetes Management Medical and Co-Morbidity Management Post-Op Complications Wound Care PATIENT REQUIRES 24X7 REHAB NURSING FOR MEDICAL AND FUNCTIONAL MGT. OF THE FOLLOWING DEFICITS: Disease Management Medication Management Patient/Family Education Providing Safe Environment Skin Integrity PATIENT REQUIRES INTENSIVE, COORDINATED INTERDISCIPLINARY APPROACH TO REHAB: Arranging Home Equipment/Services Discharge Planning Family Intervention/Training Domestic Cleaner/Case Management PATIENT REHAB POTENTIAL: Juani PUENTE is able and expected to receive 3 hours of individualized therapy daily on at least 5 of ever y 7 days Juani PUENTE's prognosis for significant practical improvement within a reasonable period of time appears Good Expected level of measurable improvement will be of a practical value to Juani PUENTE's functional capacit y or adaptations to impairments Has a viable Discharge Plan Medically appropriate; condition is sufficiently stable to participate in intensive rehab program DISCHARGE PLAN: - Estimated Length of Stay (days) 11. - Consensus on plan Discharge plan has been discussed with primary caregiver. Patient/Family is in agreement with the tiesha n. Primary caregiver is in agreement with the plan. - Patient/Family Goals Return home with assistance. - Planned Living Setting Upon Discharge Home, to live with Family/Relatives. RECOMMENDED CARE LEVEL: IRF RECOMMENDATION DETAILS: Recommended Admission to Comprehensive Rehabilitation Program to Increase Functional Gates SCREENER'S COMPLETENESS CONFIRMATION: - Screening Confirmation The patient data collection on this preadmission screening form is finished PHYSICIANS REVIEW AND ADMISSION DETERMINATION Admit - Based on my review of the Pre-Admission Screening results, in my medical judgment and experie nce, I concur with the findings and recommend admission to [facility], as this patient requires an IRF level of care. SIGNATURE PANEL: Rock Crushing Machine Operator - [electronically] signed by Myriam Louis RN on 03/10/2021 at 10:16 (CDT) Physician Reviewer - [electronically] signed by Dr. Javier Chong M.D. on 03/10/2021 at 12:17 (CDT )
--- OUTSIDE RECORDS SUMMARY | 2021-03-10 16:51 | XMS REPORT | Continuity of Care Document ---
:[address] [facility] t Address [address] [place] [address] Dr. Becker [address] [place] [address] Care Team Providers Name Role Phone Jesse RAMSEY S Attending Clinician Doctor Unassigned, Name Attending Clinician Unavailable Problems Condition Condition Condition Status Onset Resolution Last Treating Co mments Source Name Details Category Date Date Treatment Clinician Date 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 [facility] Paroxysmal Paroxysmal Problem Active [facility] atrial atrial [facility] - fibrillati fibrillati Me moria on on l [facility] Type 2 Type [address] [facility] diabetes diabetes [facility] - mellitus mellitus Memori a without without l complicati complicati Ou tpati on, on, ent without without Clinics long-term long-term current current use of use of insulin insulin Essential Essential Problem Active [facility] (primary[facility] (primary[facility] - hypertensi hypertensi Me moria on on l [facility] Hyperthyro Hyperthyro Problem Active [facility] idism idism [facility] - Memoria l [facility] Diabetic Diabetic Problem Active [facility]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 Mariza kes - athy athy Memoria associated associated l with with [facility] diabetes diabetes ent mellitus mellitus Clinic s due to due to underlying underlying condition condition Acquired Acquired Problem Active [facility] hypothyroi hypothyroi Mariza kes - dism dism Memoria l [facility] Heart Heart Problem Active [facility] disease disease [facility] - Memoria l [facility] Chronic Chronic Problem Active [facility] renal renal [facility] - failure, failure, 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) (mild) [facility] Environmen Environmen Problem Active [facility] natasha natasha [facility] - allergies allergies Kenyon lauri l [facility] Seasonal Seasonal Problem Active [facility] allergies allergies [facility] - Memoria l [facility] 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, 1.5, [facility]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 [facility] 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 Me moria l [facility] Clinics Allergies, Adverse Reactions, Alerts Allergy Allergy Status Severity Reaction(s) Onset Inactive Treating Comm ents Source Name Type Date Date Clinician Hydrocod Adverse Active rash [facility] one Reaction [facility] - Bitartra Memoria te l [facility] Zyvox Adverse Active nausea + [facility] Reaction blisters in Venkat es - mout Memoria l [facility] Lortab Adverse Active rash [facility] Medications Ordered Filled Start Stop Current Ordering Indication Dosage Frequency Signature Comments Components Source Medication Medication Date Date Medication? Clinician (SIG) Name Name Levothyroxi Levothyroxi 2019-0 Yes Ezio [address] [facility] ne Sodium ne Sodium 9-20 Viviana on an Venkat es - 00:00: empty Memoria 00 [facility] Liothyronin Liothyronin 2019-0 Yes Ezio [address] [facility] e Sodium e Sodium 9-20 Viviana on an [facility]ukes - 00:00: empty Memoria 00 stomach [facility] Eliquis 5 Eliquis 5 2019-0 2020- No Ezio one [facility] mg mg 07-25 03-07 Viviana [facility] - 00:00: 00:00 Memoria 00 :00 [facility] Simvastatin Simvastatin 2019-0 Yes Ezio [address] [facility] 2-05 Viviana in the [facility] - 00:00: evening Memoria 00 [facility] Fluticasone Fluticasone 2018-0 Yes Ezio [address] [facility] Propionate Propionate 9-24 Viviana each Mariza kes - 00:00: nostril Memoria 00 [facility] Levothyroxi Levothyroxi Yes Ezio [address] [facility] ne Sodium ne Sodium Viviana on an Venkat es - empty [facility]oria [facility] Metformin Metformin Yes [...] Clinicians Facility Department ID 2021-02-17 2021-02-18 [place] [id number] 19:27:00 00:07:00 Kimberly Garcia [id number] [place] [id number] [place] [id number] 2020-11-28 2020-11-28 Orders Doctor MARTINEZ [id number] 00:00:00 00:00:00 Only UnassignedRAPHAEL [id number] [id number] 2020-07-31 2020-07-31 Orders Doctor MARTINEZ [id number] 00:00:00 00:00:00 Only UnassignedRAPHAEL [id number] [id number] 2019-09-23 2019-09-23 [facility] [id number] [address] 16:28:00 16:28:00 t [facility] Medicine Outpati ent Clinics 2019-08-12 2019-08-12 [facility] [id number] 13:07:00 13:07:00 t [facility] Medicine Outpati ent Clinics 2019-08-03 2019-08-03 [facility] [id number] 15:14:00 15:14:00 t [facility] Outpati ent Clinics 2019-08-01 2019-08-01 [facility] [id number] 15:20:00 15:20:00 t [facility] Outpati ent Clinics 2019-07-27 2019-07-27 [facility] [id number] 11:40:00 11:40:00 t [facility] Medicine Outpati ent Clinics 2019-07-25 2019-07-25 [facility] [id number] 14:00:00 14:00:00 t [facility] Medicine Outpati ent Clinics 2019-03-24 2019-03-24 [facility] [id number] 10:51:00 10:51:00 t [facility] Outpati ent Clinics 2019-03-23 2019-03-23 [facility] [id number] 14:00:00 14:00:00 t [facility] Outpati ent Clinics 2018-12-21 2018-12-21 [facility] [id number] 10:00:00 10:00:00 t [facility] Medicine Outpati ent Clinics 2018-12-06 2018-12-06 [facility] [id number] 13:00:00 13:00:00 t [facility] Medicine Outpati ent Clinics 2018-12-06 2018-12-06 [facility] [id number] 08:35:00 08:35:00 t [facility] Medicine Outpati ent Clinics 2018-11-25 2018-11-25 [facility] [id number] [facility] 14:09:00 14:09:00 t [facility] Medicine Outpati ent Clinics 2018-11-11 2018-11-11 [facility] [id number] 11:42:00 11:42:00 t [facility] Medicine Outpati ent Clinics 2018-08-10 2018-08-10 [facility] [id number] [address] 13:19:00 13:19:00 t [facility] Outpati ent Clinics 2018-08-09 2018-08-09 [facility] [id number] 10:30:00 10:30:00 t [facility] Medicine Outpati ent Clinics 2018-07-23 2018-07-23 [facility] [id number] 09:44:00 09:44:00 t [facility] Outpati ent Clinics 2018-07-12 2018-07-12 [facility] [id number] 10:30:00 10:30:00 t [facility] Medicine Outpati ent Clinics Results This patient has no known results.
[2021-03-10 17:27] VITALS: BMI 35.6
[2021-03-10] MEDS ORDERED: GLUCAGON 1 MG/VIAL IM PRN (17:32)
[2021-03-10] MEDS ORDERED: D50W 25 GM/50 ML SYRINGE IV PRN (17:32)
[2021-03-10] MEDS: carvediloL 3.125 MG TAB PO SCH (18:04)
[2021-03-10] MEDS: CODEINE 30MG/APAP 300MG TAB PO PRN (19:27)
[2021-03-10] MEDS: GABAPENTIN 300 MG CAP PO SCH (20:40)
[2021-03-10] MEDS: DOCUSATE NA/SENNA CONC 1 TAB PO PRN (20:40)
[2021-03-10] MEDS: INSULIN -REGULAR HUMAN 50 UNIT/0.5 ML ML SQ SCH (20:46)
[2021-03-10 21:29] LABS: Urine Appearance CLEAR (Clear); Urine Bilirubin NEGATIVE (Negataive); Urine Blood NEGATIVE (Negative); Urine Color YELLOW (Yellow); Urine Glucose NEGATIVE (Negative); Urine Protein NEGATIVE (Negative); Urine Specific Gravity 1.015 (1.005-1.030)
[2021-03-10 23:36] LABS: Urine Bacteria <20 /HPF (<20); Urine RBC <5 /HPF (NONE SEEN)
[2021-03-10 23:37] LABS: Urine Yeast PRESENT (NONE SEEN); Urine Yeast with Hyphae PRESENT
[2021-03-11] MEDS: carvediloL 3.125 MG TAB PO SCH ×2 (05:30→16:52)
[2021-03-11] MEDS: LIOTHYRONINE SOD 25 MCG TAB PO SCH (06:23)
[2021-03-11] MEDS: LEVOTHYROXINE SOD 0.088 MG TAB PO SCH (06:24)
[2021-03-11 06:42] LABS: Absolute Lymphocytes (CBC) 2.1 K/uL (0.7-4.9); Basophils % 1.4 % (0-1.3); Hematocrit 31.1 % (36.0-45.0); Lymphocytes % 33.6 % (15.3-44.8); MPV 7.1 fL (7.6-11.3)
[2021-03-11 07:23] LABS: Albumin 2.1 g/dL (3.4-5.0); BUN Blood Urea Nitrogen 15 mg/dL (7-18); Bicarbonate 22 mmol/L (21-32); Glucose Level 99 mg/dL (74-106); Magnesium 2.5 mg/dL (1.8-2.4); Potassium 4.8 mmol/L (3.5-5.1); Prealbumin 17.6 mg/dL (20-40); Sodium Level 140 mmol/L (136-145)
[2021-03-11] MEDS: INSULIN -REGULAR HUMAN 50 UNIT/0.5 ML ML SQ SCH ×4 (07:30→19:40)
[2021-03-11] MEDS: JUVEN PACKET PO SCH ×3 (08:00→19:40)
[2021-03-11] MEDS: TRAMADOL HCL 50 MG TAB PO PRN ×2 (08:10→13:03)
[2021-03-11] MEDS: lisinopriL 20 MG TAB PO SCH (08:11)
[2021-03-11] MEDS: FERROUS SULFATE 325 MG TAB PO SCH (08:11)
[2021-03-11] MEDS: FE SULF/FA/VIT B COMP & C TAB PO SCH (08:12)
[2021-03-11] MEDS: POTASSIUM CL SA 10 MEQ TAB PO SCH (08:12)
[2021-03-11] MEDS: METFORMIN ER 500 MG TAB PO SCH ×2 (08:12→16:52)
[2021-03-11] MEDS: FUROSEMIDE 40 MG TABLET PO SCH (08:12)
[2021-03-11] MEDS: GABAPENTIN 300 MG CAP PO SCH (08:12)
[2021-03-11] MEDS: CODEINE 30MG/APAP 300MG TAB PO PRN ×2 (10:53→19:01)
[2021-03-11] MEDS: GABAPENTIN 400 MG CAP PO SCH ×2 (14:19→19:01)
[2021-03-11] MEDS: RIVAROXABAN 20 MG TABLET PO SCH (16:52)
--- NOTE | 2021-03-11 17:05 | R.HP ---
HISTORY AND PHYSICAL FACILITY: [facility] ENCOUNTER DATE AND TIME: 03/11/2021 16:59 (CDT) MR#: [id number] NAME RODNEY PUENTE ADDRESS: [address] [place] [address] CITY: [place]IP [id number] PHONE: DATE OF : 1945 AGE: 76 SSN# [id number] GENDER: Female DEXTERITY Right-handed MARITAL STATUS RACE White PRE-HOSPITAL LIVING SETTING 01 - Home (private home/apt. board/care, assisted living, halfway, transitional living) PRE-HOSPITAL LIVING WITH Family/Relatives ENCOUNTER PHYSICIAN: Dr. Javier Chong M.D. REFERRING DOCTOR: Dr Michelle DATE OF ADMISSION: 03/10/2021 17:00 (CDT) REFERRING FACILITY [facility] HOME TYPE AND DETAILS: Type of home: mobile home # of steps to enter the residence: 3 # of steps within the residence: 0 # of levels in the residence: 1 Pt. claims to live in a mobile home w/ her daughter. Her daughter just got a new job and will be [employer] for work. Pt. normally was ambulating w/ a rollator prior to L BKA. She has a [id number] w / small ledge, no shower chair. She was taking sponge baths per pt. due to the L foot wound/condition . 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 is a 76 yo Right-handed white female. On 03/04/[address] [facility] and underwent emergency surgery for Left foot acute on chronic osteomyelitis. Left BKA (Amputation of Limb(Unilateral Lower Limb Below the Kne e (BK))) by Dr Hernandez. Pre-morbidly, Pt. was independent/mod-I in Transfers Control, Locomotion, Self-Care, Social Cognition , Sphincter Control, and Communication; and she had good Balance and Safety Awareness. Currently, she has deficits of Transfers Control, Balance, Locomotion, Safety Awareness, and Self-Car e. Pt. is now referred to [facility] for acute in-patient rehabilitation in order to maximize patient's functional independence in activities of daily living, strength, ROM, and mobi lity. Patient has realistic goal of being discharged at assistance level 6-Franko to reside at Home with Fam yury/Relatives. MEDICATION ALLERGIES: acetamenophen dextrose 5% in water linezolid adhesive tape ENVIRONMENTAL ALLERGIES: None Known - Substance Allergies None Known - Other Allergies None Known PAST MEDICAL HISTORY: Diabetes AFIB HTN SOCIAL HISTORY: - Home Living Family/Relatives REVIEW OF SYSTEMS: - Gen No Chills Fatigue No Fever - Eyes No Double Vision No itchiness - ENMT No Difficulty Swallowing - CVS Chest Discomfort No Chest Pain No Fatigue No Weight Gain - Resp No Cough No Shortness of Breath - GI Continent No Abdominal Pain No Constipation No Diarrhea - Continent No Kidney Pain No Painful Urination No Urinary Urgency - MSK No Joint Pain Muscle Cramps Stiffness - Skin No Itching No Rash No Suspicious Lesions - Neuro Coordination Difficulty No Difficulty with Concentration No Memory Loss No Seizures Weakness - Psych No Anxiety No Depression No HIV Exposure No Persistent Infections No Seasonal Allergies - Endo No Cold/Heat Intolerance No Excessive Hunger No Excessive Thirst No Excessive Urination PHYSICAL EXAM - Gen Alert and awake Lying in bed No apparent distress Oriented to: person, time, and place - Skin Left BKA bandage in place with good hemostasis. Atraumatic - Eyes No abnormalities - ENMT No abnormalities - Neck No stiffness No cervical adenopathy - CVS RRR - Chest Clear - Abd + bowel sounds - GI Soft No abnormalities - No abnormalities - Ext No significant edema - MSK 3-4/5 weakness in the proximal left lower extremity. - Psych No abnormalities VITAL SIGNS Temperature: 97.4 F SBP/DBP: 118/73 Pulse: 94 Resp: 20 NURSING: - Shower allowing shower - Lab Results blood Sugar Check ACHS - Skin care per protocol PRECAUTIONS: - Weight Bearing Precaution NWB left LE ACTIVITIES OOB only with supervision QI SCORES: - Self-Care A. Eating 04-Supervision or touching assistance B. Oral hygiene 04-Supervision or touching assistance C. Toileting hygiene 03-Partial/moderate assistance E. Shower/bathe self 01-Dependent F. Upper body dressing 02-Substantial/maximal assistance G. Lower body dressing 01-Dependent H. Putting on/taking off footwear 01-Dependent - Mobility A. Roll left and right 04-Supervision or touching assistance B. Sit to lying 04-Supervision or touching assistance C. Lying to sitting on side of bed 04-Supervision or touching assistance D. Sit to stand 04-Supervision or touching assistance E. Chair/fbv-du-mzhjq transfer F. Toilet transfer G. Car transfer 88-Not attempted due to medical condition or safety concerns I. Walk 10 feet 88-Not attempted due to medical condition or safety concerns J. Walk 50 feet with two turns 88-Not attempted due to medical condition or safety concerns K. Walk 150 feet 88-Not attempted due to medical condition or safety concerns L. Walking 10 feet on uneven surfaces 88-Not attempted due to medical condition or safety concerns M. 1 step (curb) 88-Not attempted due to medical condition or safety concerns N. 4 steps 88-Not attempted due to medical condition or safety concerns O. 12 steps 88-Not attempted due to medical condition or safety concerns P. Picking up object 88-Not attempted due to medical condition or safety concerns - Bladder and Bowel Bladder continence 0-Always continent Bowel continence 0-Always continent - Endurance Poor - Balance Poor - Safety Awareness Poor CURRENT FUNC. DEFICITS: Self-Care, Mobility, Endurance, Balance, and Safety Awareness MEDICATIONS: - Other See attached MAR (Medication Administration Record) ASSESSMENT: Pt. is a 76 yo Right-handed white female.On 03/04/[address] [facility] and [facility] emergency surgery for Left foot acute on chronic osteomyelitis. Left BKA (Amputation of Limb(Unilateral Lower Limb Below the Kne e (BK))) by Dr Hernandez.Pre-morbidly, Pt. was independent/mod-I in Transfers Control, Locomotion, Self -Care, Social Cognition, Sphincter Control, and Communication; and she had good Balance and Safety Aw areness.Currently, she has deficits of Transfers Control, Balance, Locomotion, Safety Awareness, and Self-Care.Pt. is now referred to [facility] for acute in-patient rehabilitatio n in order to maximize patient's functional independence in activities of daily living, strength, ROM , and mobility.- Rehab Goal Patient has realistic goal of being discharged at assistance level 6-Franko to reside at Home with Fam yury/Relatives. REHAB PLAN: - Physical Therapy Gait dysfunction - to improve, our physical therapists will perform initial evaluation of pt's status upon admission and devise an individualized program for Gait Training, and Wheel Chair mobility Inability to transfer - to improve, our physical therapists will perform initial evaluation of pt's s tatus upon admission and devise an individualized program for Bed mobility Need for home safety evaluation - to improve, our physical therapists will perform initial evaluation of pt's status upon admission and devise an individualized program for Home Evaluation Need in caregiver upon discharge - to improve, our physical therapists will perform initial evaluatio n of pt's status upon admission and devise an individualized program for Caregiver Training Edema - to improve, our physical therapists will perform initial evaluation of pt's status upon admi ssion and devise an individualized program for Elevation Training, and Lymphedema Therapy New precaution - to improve, our physical therapists will perform initial evaluation of pt's status u julius admission and devise an individualized program for Patient precaution education Poor balance - to improve, our physical therapists will perform initial evaluation of pt's status upo n admission and devise an individualized program for Balance Training Weakness - to improve, our physical therapists will perform initial evaluation of pt's status upon ad mission and devise an individualized program for Aquatic Therapy, Neuromuscular Reeducation, and Stre ngthening Achieving independence - to improve, our physical therapists will perform initial evaluation of pt's status upon admission and devise an individualized program for Community Reintegration Activities - Occupational Therapy ADL deficits - to improve, our occupation therapists will perform initial evaluation of pt's status u julius admission and devise an individualized program for Bathing, Bed mobility, Community Reintegration , Cooking, Dressing, Eating, Fine Motor Skills, Grooming, Homemaking, Kitchen Mobility, Laundry, Yolie ent Education, Safety Awareness, Splinting - Positioning, Transfers(Toilet, Tub, Shower), and Wheel C hair Management Need for healthcare insurance sales agent - to improve, our occupation therapists will perform initial evaluation of pt's s tatus upon admission and devise an individualized program for Caregiver Training Weakness - to improve, our occupation therapists will perform initial evaluation of pt's status upon admission and devise an individualized program for Aquatic Therapy, Balance, Endurance, UE ROM, and U E strengthening MEDICAL PLAN: - Diet Type Start Regular - Diet - Liquid Texture Start Regular - Tube Feed Start N/A - Lab Results blood Sugar Check ACHS - Weight Bearing Precaution NWB left LE - Skin care per protocol - Other See attached MAR (Medication Administration Record) - N/A Perform Consult Certified Prosthetic for prosthesis construction - Diet - Solid Texture Regular - Shower shower DISCHARGE PLAN: - Estimated Length of Stay (days) 11. - Consensus on plan Discharge plan has been discussed with primary caregiver. Patient/Family is in agreement with the tiesha n. Primary caregiver is in agreement with the plan. - Patient/Family Goals Return home with assistance. - Planned Living Setting Upon Discharge Home, to live with Family/Relatives. SIGNATURE PANEL: (CDT)
--- NOTE | 2021-03-11 17:08 | PAPE ---
POST ADMISSION PHYSICIAN EVALUATION PATIENT: [facility] MR# [id number] REFERRING DOCTOR Dr Michelle EVALUATION DATE AND TIME 03/11/2021 17:06 (CDT) NAME RODNEY PUENTE DATE OF 1945 AGE 76 PHONE SSN# [id number] GENDER female EVALUATING PHYSICIAN Dr. Javier Chong M.D. ADMISSION DIAGNOSIS: Left foot acute on chronic osteomyelitis. Left BKA ONSET DATE 03/04/2021 SECONDARY/COMORBID DIAGNOSES TIERED: - Tier 3 Type 2 diabetes mellitus with foot ulcer (E11.621) Type 2 diabetes mellitus with other skin ulcer (E11.622) POST-ADMISSION FUNCTIONAL/MEDICAL STATUS: - Bladder Same Bladder control device used: diaper - Walking Same score based on distance walked: 0(N/A) - Wheelchair Same score based on distance traveled: 0(N/A) STATUS CHANGE EVALUATION: No change in Functional or Medical Status is identified compared with Pre-Admission screening. PATIENT NEEDS CLOSE MEDICAL SUPERVISION BY A REHABILITATION PHYSICIAN FOR: Coordination of Treatment Team Diabetes Management Medical and Co-Morbidity Management Post-Op Complications Wound Care PATIENT REQUIRES 24X7 REHAB NURSING FOR MEDICAL AND FUNCTIONAL MGT. OF THE FOLLOWING DEFICITS: Disease Management Medication Management Patient/Family Education Providing Safe Environment Skin Integrity PATIENT REQUIRES INTENSIVE, COORDINATED INTERDISCIPLINARY APPROACH TO REHAB: Arranging Home Equipment/Services Discharge Planning Family Intervention/Training Valve Inspector/Case Management LIST OF IDENTIFIED AND POTENTIAL PROBLEMS: Alteration in leisure activities Bladder, Incontinence Diabetes, Hyperglycemia/hypoglycemia Issues Infection, Actual or Potential Mobility Impaired Pain, Alteration in Comfort Self Care Deficit Skin Integrity, Actual or Potential Urinary Tract Infection (UTI), Actual or Potential PATIENT COULD BE AT RISK FOR COMPLICATIONS FROM ADVERSE MEDICAL CONDITIONS DUE TO HIS/HER COMORBIDITI ES AND THE RIGORS OF THE INTENSIVE REHABILLITATION PROGRAM. METHODS OR INTERVENTIONS TO AVOID COMPLIC ATIONS INCLUDE: - Bleeding Assess lab values and manage abnormalities. Nursing to teach precautions for anti-coagulation therapy . Wound to be assessed every shift. - Infection Clinical staff to assess and manage the signs and symptoms of infection including fever, redness, war mth, etc. - Urinary Tract Infection - Falls Patient will be evaluated for Fall Precautions and will be placed on Fall Precautions as indicated pe r protocol. - Skin Breakdown Nursing will assess skin daily using assessment tool and will place on Skin Breakdown Precautions as indicated per protocol. - Pain Clinical staff may employ non-medication methods such as massage, distraction, decrease stimulus, etc . as needed. Clinical staff will assess patient's pain level every shift per protocol to assess and e nsure pain management effectiveness. Medications will be given and the pain level re-assessed. PRELIMINARY PLAN OF CARE: - Physical Therapy Patient needs Physical Therapy for a daily minimum of 1.5 hours at least 5 out of 7 days, to improve: Mobility, Strengthening, Transfers, Stretching, ROM, Endurance, Ability to manage stairs, Gait, and Balance. - Speech Therapy Patient needs Speech Therapy for a daily minimum of 0.5 hours at least 5 out of 7 days, to improve: S wallowing, Cognition, Language Skills, and Compensatory Strategies. - Rehabilitation Nursing Patient requires 24x7 Rehabilitation Nursing for: Pain Issues, Identifying and preventing risk factor s, Monitoring and reporting current medical conditions, Assisting with ambulation and transfer, Dominique ting with all ADL-s, Teaching patients about disease process and medications, Family teaching, Provid ing safe environment, Bowel and Bladder Issues, Skin Integrity, and Medication Management. Patient needs Valve Inspector and/or Case Management for: Discharge Planning, Arranging Home Equipmen t or Services, and Family Interventions. - Dietary and Nutrition Services Patient needs Dietary and Nutrition Services for: Adequate Nutrition, Nutritional Supplements, and Nu tritional Education. - Occupational Therapy Patient needs Occupational Therapy for a daily minimum of 1.5 hours at least 5 out of 7 days, to impr ove Activities of Daily Living, including: Eating, Grooming, Bathing, Dressing, Toileting, Toilet Tra nsfers, Community Reintegration, Higher functional activities, Adaptive Equipment, Splinting, Househo ld Tasks, and Other activities as determined. QI SCORES: - Self-Care A. Eating 04-Supervision or touching assistance B. Oral hygiene 04-Supervision or touching assistance C. Toileting hygiene 03-Partial/moderate assistance E. Shower/bathe self 01-Dependent F. Upper body dressing 02-Substantial/maximal assistance G. Lower body dressing 01-Dependent H. Putting on/taking off footwear 01-Dependent - Mobility A. Roll left and right 04-Supervision or touching assistance B. Sit to lying 04-Supervision or touching assistance C. Lying to sitting on side of bed 04-Supervision or touching assistance D. Sit to stand 04-Supervision or touching assistance E. Chair/flr-yc-hgdbr transfer F. Toilet transfer G. Car transfer 88-Not attempted due to medical condition or safety concerns I. Walk 10 feet 88-Not attempted due to medical condition or safety concerns J. Walk 50 feet with two turns 88-Not attempted due to medical condition or safety concerns K. Walk 150 feet 88-Not attempted due to medical condition or safety concerns L. Walking 10 feet on uneven surfaces 88-Not attempted due to medical condition or safety concerns M. 1 step (curb) 88-Not attempted due to medical condition or safety concerns N. 4 steps 88-Not attempted due to medical condition or safety concerns O. 12 steps 88-Not attempted due to medical condition or safety concerns P. Picking up object 88-Not attempted due to medical condition or safety concerns - Bladder and Bowel Bladder continence 0-Always continent Bowel continence 0-Always continent - Endurance Poor - Balance Poor - Safety Awareness Poor POTENTIAL FUNCTIONAL GOALS FOR PATIENT TO ACHIEVE BY DISCHARGE: - Safety Precaution Patient will remain free from falls or injury at time of discharge. - Bed Mobility Patient will perform bed mobility at 4-Amber level of assistance. - Transfers Patient will complete transfers from bed to chair at 4-Amber level of assistance. - Mobility Patient will ambulate 150 ft with 4-Amber level of assistance with RW. PATIENT REHAB POTENTIAL Juani PUENTE is able and expected to receive 3 hours of individualized therapy daily on at least 5 of ever y 7 days APattie PUENTE's prognosis for significant practical improvement within a reasonable period of time appears Good Expected level of measurable improvement will be of a practical value to Juani PUENTE's functional capacit y or adaptations to impairments Has a viable Discharge Plan Medically appropriate; condition is sufficiently stable to participate in intensive rehab program DISCHARGE PLAN: - Estimated Length of Stay (days) 11. - Consensus on plan Discharge plan has been discussed with primary caregiver. Patient/Family is in agreement with the tiesha n. Primary caregiver is in agreement with the plan. - Patient/Family Goals Return home with assistance. - Planned Living Setting Upon Discharge Home, to live with Family/Relatives. CONCLUSION ON REHABILITATION NECESSITY: I have evaluated patient's pre-admission functional status and, comparing it to the patient's post-ad mission functional status now, I conclude that the pre-admission assessment was accurate. Patient's c ondition on admission supports the medical necessity of admission to IRF. It is safe to proceed with patient's therapy program. SIGNATURE PANEL: (CDT)
[2021-03-11] MEDS: NYSTATIN PWDR 100000 UNIT/GM TOP SCH (19:00)
[2021-03-11] MEDS: CRANBERRY FRUIT EXTRACT 200 MG CAP PO SCH (19:00)
[2021-03-12] MEDS: carvediloL 3.125 MG TAB PO SCH ×2 (05:08→16:53)
[2021-03-12] MEDS: LEVOTHYROXINE SOD 0.088 MG TAB PO SCH (06:22)
[2021-03-12] MEDS: LIOTHYRONINE SOD 25 MCG TAB PO SCH (06:22)
[2021-03-12] MEDS: NYSTATIN PWDR 100000 UNIT/GM TOP SCH ×2 (07:13→20:00)
[2021-03-12] MEDS: INSULIN -REGULAR HUMAN 50 UNIT/0.5 ML ML SQ SCH ×4 (07:30→20:01)
[2021-03-12] MEDS: JUVEN PACKET PO SCH ×2 (08:00→20:00)
[2021-03-12] MEDS: lisinopriL 20 MG TAB PO SCH (08:09)
[2021-03-12] MEDS: GABAPENTIN 400 MG CAP PO SCH ×3 (08:09→20:00)
[2021-03-12] MEDS: FUROSEMIDE 40 MG TABLET PO SCH (08:09)
[2021-03-12] MEDS: METFORMIN ER 500 MG TAB PO SCH ×2 (08:09→16:53)
[2021-03-12] MEDS: POTASSIUM CL SA 10 MEQ TAB PO SCH (08:09)
[2021-03-12] MEDS: FE SULF/FA/VIT B COMP & C TAB PO SCH (08:10)
[2021-03-12] MEDS: TRAMADOL HCL 50 MG TAB PO PRN ×2 (08:10→20:01)
[2021-03-12] MEDS: FERROUS SULFATE 325 MG TAB PO SCH (08:10)
[2021-03-12] MEDS: CRANBERRY FRUIT EXTRACT 200 MG CAP PO SCH ×2 (08:10→20:00)
[2021-03-12] MEDS: CODEINE 30MG/APAP 300MG TAB PO PRN (16:17)
[2021-03-12] MEDS: RIVAROXABAN 20 MG TABLET PO SCH (16:53)
--- NOTE | 2021-03-12 18:08 | R.PN ---
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 Left BKACHIEF COMPLAINT: Left foot osteomyelitis and gangrene, s/p left BKA. SUBJECTIVE: Pt denied any Shortness of Breath. Pt denied any depression. Patient hopped 8' x 3 with minimum to contact guard assistance. VITAL SIGNS Temperature: 97.4 F SBP/DBP: 118/73 Pulse: 94 Resp: 20 MEDICATION ALLERGIES: acetamenophen dextrose 5% in water linezolid adhesive tape ENVIRONMENTAL ALLERGIES: None Known - Substance Allergies None Known - Other Allergies None Known CONSULT: Perform Consult Certified Prosthetic for prosthesis construction NURSING: - Shower allowing shower - Lab Results blood Sugar Check ACHS - Skin care per protocol PRECAUTIONS: - Weight Bearing Precaution NWB left LE ACTIVITIES OOB only with supervision THERAPIES: - Orthotics/Prosthetics Prosthetic Evaluation. - Dietary and Nutrition Adequate Nutrition. Nutritional Education. Nutritional Supplements. PHYSICAL EXAM - Gen Alert and awake Lying in bed No apparent distress Oriented to: person, time, and place - Skin Left BKA bandage in place with good hemostasis. Atraumatic - Eyes No abnormalities - ENMT No abnormalities - Neck No stiffness No cervical adenopathy - CVS RRR - Chest Clear - Abd + bowel sounds - GI Soft No abnormalities - No abnormalities - Ext No significant edema - MSK 3-4/5 weakness in the proximal left lower extremity. - Psych No abnormalities ASSESSMENT: Pt. 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 Left BKA (Amputation of Limb(Unilateral Lower Limb Below the Kne e (BK))) by Dr Hernandez.Pre-morbidly, Pt. was independent/mod-I in Transfers Control, Locomotion, Self -Care, Social Cognition, Sphincter Control, and Communication; and she had good Balance and Safety Aw areness.Currently, she has deficits of Transfers Control, Balance, Locomotion, Safety Awareness, and Self-Care.Pt. is now referred to [facility] for acute in-patient rehabilitatio n in order to maximize patient's functional independence in activities of daily living, strength, ROM , and mobility.- Rehab Goal Patient has realistic goal of being discharged at assistance level 6-Franko to reside at Home with Fam yury/Relatives. MDM/PLAN: - Physical Therapy Gait dysfunction - to improve, our physical therapists will perform initial evaluation of pt's statu s upon admission and devise an individualized program for Gait Training, and Wheel Chair mobility Inability to transfer - to improve, our physical therapists will perform initial evaluation of pt's status upon admission and devise an individualized program for Bed mobility Need for home safety evaluation - to improve, our physical therapists will perform initial evaluatio n of pt's status upon admission and devise an individualized program for Home Evaluation Need in caregiver upon discharge - to improve, our physical therapists will perform initial evaluati on of pt's status upon admission and devise an individualized program for Caregiver Training Edema - to improve, our physical therapists will perform initial evaluation of pt's status upon admis gabe and devise an individualized program for Elevation Training, and Lymphedema Therapy New precaution - to improve, our physical therapists will perform initial evaluation of pt's status upon admission and devise an individualized program for Patient precaution education Poor balance - to improve, our physical therapists will perform initial evaluation of pt's status up on admission and devise an individualized program for Balance Training Weakness - to improve, our physical therapists will perform initial evaluation of pt's status upon a dmission and devise an individualized program for Aquatic Therapy, Neuromuscular Reeducation, and Str engthening Achieving independence - to improve, our physical therapists will perform initial evaluation of pt's status upon admission and devise an individualized program for Community Reintegration Activities - Occupational Therapy ADL deficits - to improve, our occupation therapists will perform initial evaluation of pt's status upon admission and devise an individualized program for Bathing, Bed mobility, Community Reintegratio n, Cooking, Dressing, Eating, Fine Motor Skills, Grooming, Homemaking, Kitchen Mobility, Laundry, Pat ient Education, Safety Awareness, Splinting - Positioning, Transfers(Toilet, Tub, Shower), and Wheel Chair Management Need for human services care specialist - to improve, our occupation therapists will perform initial evaluation of pt's status upon admission and devise an individualized program for Caregiver Training Weakness - to improve, our occupation therapists will perform initial evaluation of pt's status upon admission and devise an individualized program for Aquatic Therapy, Balance, Endurance, UE ROM, and UE strengthening - Other See attached MAR (Medication Administration Record) - Diet Type Continue Regular - Diet - Liquid Texture Continue Regular - Tube Feed Continue N/A - Lab Results blood Sugar Check ACHS - Weight Bearing Precaution NWB left LE - Skin care per protocol - N/A Perform Consult Certified Prosthetic for prosthesis construction - Diet - Solid Texture Continue Regular - Shower allowing shower FUNCTIONAL STATUS: UPDATED AT WEEKLY TEAM CONFERENCE - Bladder Same Bladder control device used: diaper - Walking Same score based on distance walked: 0(N/A) - Wheelchair Same score based on distance traveled: 0(N/A) FUNCTIONAL STATUS: - Self-Care A. Eating Ind B. Grooming sup C. Bathing Amber D. Dressing - Upper sup E. Dressing - Lower modA F. Toileting Amber - Sphincter Control G. Bladder control Amber H. Bowel control Amber - Transfers Control I. Bed/Chair/Wheelchair modA J. Toilet modA K. Tub/Shower modA - Locomotion L. Walk/Wheelchair (B) modA M. Stairs ADNO - Communication N. Comprehension (B) Amber O. Expression (B) sup - Social Cognition P. Social Interaction Franko Q. Problem Solving Amber R. Memory Franko - Endurance Fair - Balance Fair - Safety Awareness Fair QI SCORES: - Self-Care A. Eating 04-Supervision or touching assistance B. Oral hygiene 04-Supervision or touching assistance C. Toileting hygiene 03-Partial/moderate assistance E. Shower/bathe self 01-Dependent F. Upper body dressing 02-Substantial/maximal assistance G. Lower body dressing 01-Dependent H. Putting on/taking off footwear 01-Dependent - Mobility A. Roll left and right 04-Supervision or touching assistance B. Sit to lying 04-Supervision or touching assistance C. Lying to sitting on side of bed 04-Supervision or touching assistance D. Sit to stand 04-Supervision or touching assistance E. Chair/lfp-gj-qjxid transfer F. Toilet transfer G. Car transfer 88-Not attempted due to medical condition or safety concerns I. Walk 10 feet 88-Not attempted due to medical condition or safety concerns J. Walk 50 feet with two turns 88-Not attempted due to medical condition or safety concerns K. Walk 150 feet 88-Not attempted due to medical condition or safety concerns L. Walking 10 feet on uneven surfaces 88-Not attempted due to medical condition or safety concerns M. 1 step (curb) 88-Not attempted due to medical condition or safety concerns N. 4 steps 88-Not attempted due to medical condition or safety concerns O. 12 steps 88-Not attempted due to medical condition or safety concerns P. Picking up object 88-Not attempted due to medical condition or safety concerns - Bladder and Bowel Bladder continence 0-Always continent Bowel continence 0-Always continent - Endurance Poor - Balance Poor - Safety Awareness Poor CURRENT FUNC. DEFICITS: Self-Care, Mobility, Endurance, Balance, and Safety Awareness SIGNATURE PANEL: (CDT)
[2021-03-12] MEDS ORDERED: D50W 25 GM/50 ML VIAL IV PRN (19:00)
[2021-03-13] MEDS: carvediloL 3.125 MG TAB PO SCH ×2 (05:24→17:17)
[2021-03-13] MEDS: LIOTHYRONINE SOD 25 MCG TAB PO SCH (06:51)
[2021-03-13] MEDS: LEVOTHYROXINE SOD 0.088 MG TAB PO SCH (06:51)
[2021-03-13] MEDS: INSULIN -REGULAR HUMAN 50 UNIT/0.5 ML ML SQ SCH ×4 (07:30→20:43)
[2021-03-13] MEDS: JUVEN PACKET PO SCH ×2 (08:00→20:00)
[2021-03-13] MEDS: lisinopriL 20 MG TAB PO SCH ×2 (08:00→09:54)
[2021-03-13] MEDS: NYSTATIN PWDR 100000 UNIT/GM TOP SCH ×2 (08:00→20:43)
[2021-03-13] MEDS: CRANBERRY FRUIT EXTRACT 200 MG CAP PO SCH ×2 (08:15→20:43)
[2021-03-13] MEDS: METFORMIN ER 500 MG TAB PO SCH ×2 (08:15→17:17)
[2021-03-13] MEDS: POTASSIUM CL SA 10 MEQ TAB PO SCH (08:15)
[2021-03-13] MEDS: GABAPENTIN 400 MG CAP PO SCH ×3 (08:15→20:43)
[2021-03-13] MEDS: FE SULF/FA/VIT B COMP & C TAB PO SCH (08:16)
[2021-03-13] MEDS: FERROUS SULFATE 325 MG TAB PO SCH (08:16)
[2021-03-13] MEDS: FUROSEMIDE 40 MG TABLET PO SCH (08:16)
[2021-03-13] MEDS: TRAMADOL HCL 50 MG TAB PO PRN (08:18)
[2021-03-13] MEDS: CODEINE 30MG/APAP 300MG TAB PO PRN (12:17)
[2021-03-13] MEDS: RIVAROXABAN 20 MG TABLET PO SCH (17:17)
[2021-03-14] MEDS: carvediloL 3.125 MG TAB PO SCH ×2 (05:01→16:31)
[2021-03-14 06:04] LABS: Absolute Lymphocytes (CBC) 2.6 K/uL (0.7-4.9); Basophils % 1.4 % (0-1.3); Hematocrit 33.2 % (36.0-45.0); Lymphocytes % 41.7 % (15.3-44.8); MPV 7.5 fL (7.6-11.3); RBC Red Blood Cell Count 4.19 M/uL (3.86-4.86)
[2021-03-14] MEDS: LIOTHYRONINE SOD 25 MCG TAB PO SCH (06:20)
[2021-03-14] MEDS: LEVOTHYROXINE SOD 0.088 MG TAB PO SCH (06:20)
[2021-03-14 06:41] LABS: Albumin 2.5 g/dL (3.4-5.0); Magnesium 2.1 mg/dL (1.8-2.4); Potassium 4.3 mmol/L (3.5-5.1); Prealbumin 24.5 mg/dL (20-40)
[2021-03-14] MEDS: INSULIN -REGULAR HUMAN 50 UNIT/0.5 ML ML SQ SCH ×4 (07:15→20:18)
[2021-03-14] MEDS: JUVEN PACKET PO SCH ×2 (08:00→20:00)
[2021-03-14] MEDS: NYSTATIN PWDR 100000 UNIT/GM TOP SCH ×2 (08:00→20:00)
[2021-03-14] MEDS: TRAMADOL HCL 50 MG TAB PO PRN (08:01)
[2021-03-14] MEDS: lisinopriL 20 MG TAB PO SCH (08:03)
[2021-03-14] MEDS: GABAPENTIN 400 MG CAP PO SCH ×3 (08:03→20:17)
[2021-03-14] MEDS: POTASSIUM CL SA 10 MEQ TAB PO SCH (08:03)
[2021-03-14] MEDS: FE SULF/FA/VIT B COMP & C TAB PO SCH (08:03)
[2021-03-14] MEDS: FUROSEMIDE 40 MG TABLET PO SCH (08:04)
[2021-03-14] MEDS: FERROUS SULFATE 325 MG TAB PO SCH (08:04)
[2021-03-14] MEDS: CRANBERRY FRUIT EXTRACT 200 MG CAP PO SCH ×2 (08:04→20:17)
[2021-03-14] MEDS: METFORMIN ER 500 MG TAB PO SCH ×2 (08:04→16:30)
[2021-03-14 08:36] LABS: Anisocytosis 1+; Blood Morphology Comment NOTED (NOT SEEN); Platelet Estimate ADEQ; White Blood Cell Scan OK (OK)
[2021-03-14] MEDS: CODEINE 30MG/APAP 300MG TAB PO PRN (12:03)
[2021-03-14] MEDS: RIVAROXABAN 20 MG TABLET PO SCH (16:31)
[2021-03-15] MEDS: carvediloL 3.125 MG TAB PO SCH ×2 (05:12→17:25)
[2021-03-15] MEDS: LEVOTHYROXINE SOD 0.088 MG TAB PO SCH (06:32)
[2021-03-15] MEDS: LIOTHYRONINE SOD 25 MCG TAB PO SCH (06:32)
[2021-03-15] MEDS: INSULIN -REGULAR HUMAN 50 UNIT/0.5 ML ML SQ SCH ×4 (07:16→20:35)
[2021-03-15] MEDS: TRAMADOL HCL 50 MG TAB PO PRN (07:59)
[2021-03-15] MEDS: POTASSIUM CL SA 10 MEQ TAB PO SCH (08:00)
[2021-03-15] MEDS: FERROUS SULFATE 325 MG TAB PO SCH (08:00)
[2021-03-15] MEDS: lisinopriL 20 MG TAB PO SCH (08:00)
[2021-03-15] MEDS: JUVEN PACKET PO SCH ×2 (08:00→20:34)
[2021-03-15] MEDS: FUROSEMIDE 40 MG TABLET PO SCH (08:01)
[2021-03-15] MEDS: GABAPENTIN 400 MG CAP PO SCH ×3 (08:01→20:35)
[2021-03-15] MEDS: FE SULF/FA/VIT B COMP & C TAB PO SCH (08:01)
[2021-03-15] MEDS: METFORMIN ER 500 MG TAB PO SCH ×2 (08:01→17:25)
[2021-03-15] MEDS: CRANBERRY FRUIT EXTRACT 200 MG CAP PO SCH ×2 (08:01→20:34)
--- NOTE | 2021-03-15 09:50 | P.RH.PN ---
Estimated Length of Stay: 17 Expected Discharge Date: 03/26/21 Discharge Disposition Plan[facility] Family Support: Yes [facility] Goal: Mobility, Transfers, Self Care Vital Signs: Last Vital Signs Temp 97.2 F 03/15/21 07:37 Pulse 95 H 03/15/21 08:01 Resp 16 03/15/21 08:59 BP 127/56 L 03/15/21 08:01 Pulse Ox 100 03/15/21 08:59 Laboratory: Laboratory Last Values WBC 6.20 K/uL (4.3-10.9) 03/14/21 05:46 RBC 4.19 M/uL (3.86-4.86) 03/14/21 05:46 Hgb 10.5 g/dL (12.0-15.0) L 03/14/21 05:46 Hct 33.2 % (36.0-45.0) L 03/14/21 05:46 MCV 79.3 fL (80-100) L 03/14/21 05:46 MCH 25.0 pg (27.0-35.0) L 03/14/21 05:46 MCHC 31.5 g/dL (32.0-36.0) L 03/14/21 05:46 RDW 20.3 % (12.1-15.2) H 03/14/21 05:46 Plt Count 375 K/uL (152-406) D 03/14/21 05:46 MPV 7.5 fL (7.6-11.3) L 03/14/21 05:46 Neutrophils % 45.4 % (41.7-73.7) 03/14/21 05:46 Lymphocytes % 41.7 % (15.3-44.8) 03/14/21 05:46 Monocytes % 6.8 % (3.3-12.3) 03/14/21 05:46 Eosinophils % 4.7 % (0-4.4) H 03/14/21 05:46 Basophils % 1.4 % (0-1.3) H 03/14/21 05:46 Absolute Neutrophils 2.8 K/uL (1.8-8.0) 03/14/21 05:46 Absolute Lymphocytes 2.6 K/uL (0.7-4.9) 03/14/21 05:46 Absolute Monocytes 0.4 K/uL (0.1-1.3) 03/14/21 05:46 Absolute Eosinophils 0.3 K/uL (0-0.5) 03/14/21 05:46 Absolute Basophils 0.1 K/uL (0-0.5) 03/14/21 05:46 Platelet Estimate Adeq 03/14/21 05:46 Anisocytosis 1+ 03/14/21 05:46 Morphology Comment Noted (NOT SEEN) 03/14/21 05:46 Sodium 141 mmol/L (136-145) 03/14/21 05:46 Potassium 4.3 mmol/L (3.5-5.1) 03/14/21 05:46 Chloride 107 mmol/L (98-107) 03/14/21 05:46 Carbon Dioxide 26 mmol/L (21-32) 03/14/21 05:46 BUN 25 mg/dL (7-18) H 03/14/21 05:46 Creatinine 0.76 mg/dL (0.55-1.3) 03/14/21 05:46 Estimated GFR 74 mL/min (=/>90) L 03/14/21 05:46 Glucose 93 mg/dL (74-106) 03/14/21 05:46 POC Glucose 80 mg/dL (65-120) 03/15/21 07:06 Calcium 9.2 mg/dL (8.5-10.1) D 03/14/21 05:46 Magnesium 2.1 mg/dL (1.8-2.4) 03/14/21 05:46 Albumin 2.5 g/dL (3.4-5.0) L 03/14/21 05:46 Prealbumin 24.5 mg/dL (20-40) 03/14/21 05:46 Urine Color Yellow (Yellow) 03/10/21 19:40 Urine Appearance Clear (Clear) 03/10/21 19:40 Urine pH 7.0 (5.0-7.0) 03/10/21 19:40 Ur Specific Earling 1.015 (1.005-1.030) 03/10/21 19:40 Glucose (UA)(Auto) Negative (Negative) 03/10/21 19:40 Urine Ketones Negative (Negative) 03/10/21 19:40 Urine Blood Negative (Negative) 03/10/21 19:40 Urine Nitrite Negative (Negative) 03/10/21 19:40 Urine Bilirubin Negative (Negataive) 03/10/21 19:40 Urine Urobilinogen 4.0 mg/dL (0.2-1.0) H 03/10/21 19:40 Ur Leukocyte Esterase 2+ (Negative) H 03/10/21 19:40 Urine RBC <5 /HPF (NONE SEEN) 03/10/21 19:40 Urine WBC 5-10 /HPF (<5) H 03/10/21 19:40 Ur Squamous Epith Cells 5-10 /HPF (NONE SEEN) H 03/10/21 19:40 Urine Bacteria <20 /HPF (<20) 03/10/21 19:40 Urine Yeast Present (NONE SEEN) H 03/10/21 19:40 Ur Yeast w Hyphae Present 03/10/21 19:40 Urine Yeast (Budding) Present (NONE SEEN) H 03/10/21 19:40 Urine Culture Reflexed Not needed 03/10/21 19:40 Urine Total Protein Negative (Negative) 03/10/21 19:40 SARS-CoV-2 RNA (RT-PCR) Negative (NEGATIVE) 03/10/21 17:10 Smear Scan Ok (OK) 03/14/21 05:46 Weight: 221 lb Wound Present: No Closed Surgical Incision Present: Yes Negative Pressure Wound Therapy Present: No Physician Update: She has easy fatigue but works very hard. She requires help with ADLs at max assistance. Moderate assistance with transfers. She can self propel the wheelchair but requires supervisioni. She only walker in the parallel bars. She lives at home with her daughter and her house is not ready. She may have to be at jail. Summary: Patient's care plan and superintendent terminal goals have been reviewed and revised as necessary. Please see the Rehabilitation Signature page for all necessary signatures.
[2021-03-15] MEDS: NYSTATIN PWDR 100000 UNIT/GM TOP SCH ×2 (10:05→20:34)
[2021-03-15] MEDS: CODEINE 30MG/APAP 300MG TAB PO PRN (12:10)
[2021-03-15] MEDS: RIVAROXABAN 20 MG TABLET PO SCH (17:25)
[2021-03-15] MEDS: DOCUSATE NA/SENNA CONC 1 TAB PO PRN (20:35)
[2021-03-16] MEDS: carvediloL 3.125 MG TAB PO SCH ×2 (05:14→17:16)
[2021-03-16] MEDS: LEVOTHYROXINE SOD 0.088 MG TAB PO SCH (06:59)
[2021-03-16] MEDS: LIOTHYRONINE SOD 25 MCG TAB PO SCH (06:59)
[2021-03-16] MEDS: INSULIN -REGULAR HUMAN 50 UNIT/0.5 ML ML SQ SCH ×4 (07:30→20:30)
[2021-03-16] MEDS: FUROSEMIDE 40 MG TABLET PO SCH (07:48)
[2021-03-16] MEDS: lisinopriL 20 MG TAB PO SCH (07:49)
[2021-03-16] MEDS: CRANBERRY FRUIT EXTRACT 200 MG CAP PO SCH ×2 (07:52→20:29)
[2021-03-16] MEDS: GABAPENTIN 400 MG CAP PO SCH ×3 (07:52→20:29)
[2021-03-16] MEDS: POTASSIUM CL SA 10 MEQ TAB PO SCH ×2 (07:52→08:00)
[2021-03-16] MEDS: FE SULF/FA/VIT B COMP & C TAB PO SCH (07:52)
[2021-03-16] MEDS: METFORMIN ER 500 MG TAB PO SCH ×2 (07:52→17:16)
[2021-03-16] MEDS: NYSTATIN PWDR 100000 UNIT/GM TOP SCH ×2 (07:53→20:00)
[2021-03-16] MEDS: FERROUS SULFATE 325 MG TAB PO SCH (07:53)
[2021-03-16] MEDS: JUVEN PACKET PO SCH ×2 (07:53→20:00)
[2021-03-16] MEDS: TRAMADOL HCL 50 MG TAB PO PRN (07:54)
[2021-03-16] MEDS: RIVAROXABAN 20 MG TABLET PO SCH (17:16)
[2021-03-16] MEDS: CODEINE 30MG/APAP 300MG TAB PO PRN (20:29)
[2021-03-17] MEDS: carvediloL 3.125 MG TAB PO SCH ×2 (05:05→16:43)
[2021-03-17] MEDS: LIOTHYRONINE SOD 25 MCG TAB PO SCH (06:22)
[2021-03-17] MEDS: LEVOTHYROXINE SOD 0.088 MG TAB PO SCH (06:22)
[2021-03-17 06:53] LABS: BUN Blood Urea Nitrogen 26 mg/dL (7-18); Bicarbonate 26 mmol/L (21-32); Glucose Level 95 mg/dL (74-106); Potassium 4.1 mmol/L (3.5-5.1); Sodium Level 138 mmol/L (136-145)
[2021-03-17] MEDS: INSULIN -REGULAR HUMAN 50 UNIT/0.5 ML ML SQ SCH ×4 (07:30→19:39)
[2021-03-17] MEDS: lisinopriL 20 MG TAB PO SCH (08:00)
[2021-03-17] MEDS: JUVEN PACKET PO SCH ×2 (08:00→19:39)
[2021-03-17] MEDS: NYSTATIN PWDR 100000 UNIT/GM TOP SCH ×2 (08:00→19:39)
[2021-03-17] MEDS: FE SULF/FA/VIT B COMP & C TAB PO SCH (08:18)
[2021-03-17] MEDS: CRANBERRY FRUIT EXTRACT 200 MG CAP PO SCH ×2 (08:18→19:34)
[2021-03-17] MEDS: FERROUS SULFATE 325 MG TAB PO SCH (08:18)
[2021-03-17] MEDS: GABAPENTIN 400 MG CAP PO SCH ×3 (08:18→19:39)
[2021-03-17] MEDS: METFORMIN ER 500 MG TAB PO SCH ×2 (08:19→16:43)
[2021-03-17] MEDS: FUROSEMIDE 40 MG TABLET PO SCH (08:19)
[2021-03-17] MEDS: POTASSIUM CL SA 10 MEQ TAB PO SCH (08:19)
[2021-03-17] MEDS: RIVAROXABAN 20 MG TABLET PO SCH (16:43)
[2021-03-17] MEDS: CODEINE 30MG/APAP 300MG TAB PO PRN (19:34)
[2021-03-18] MEDS: carvediloL 3.125 MG TAB PO SCH ×2 (05:03→17:26)
[2021-03-18] MEDS: LEVOTHYROXINE SOD 0.088 MG TAB PO SCH (06:32)
[2021-03-18] MEDS: LIOTHYRONINE SOD 25 MCG TAB PO SCH (06:32)
[2021-03-18] MEDS: CODEINE 30MG/APAP 300MG TAB PO PRN (07:55)
[2021-03-18] MEDS: lisinopriL 20 MG TAB PO SCH (07:56)
[2021-03-18] MEDS: METFORMIN ER 500 MG TAB PO SCH ×2 (07:57→17:25)
[2021-03-18] MEDS: POTASSIUM CL SA 10 MEQ TAB PO SCH (07:57)
[2021-03-18] MEDS: CRANBERRY FRUIT EXTRACT 200 MG CAP PO SCH ×2 (07:57→19:58)
[2021-03-18] MEDS: GABAPENTIN 400 MG CAP PO SCH ×3 (07:57→19:58)
[2021-03-18] MEDS: FERROUS SULFATE 325 MG TAB PO SCH (07:58)
[2021-03-18] MEDS: FE SULF/FA/VIT B COMP & C TAB PO SCH (07:58)
[2021-03-18] MEDS: FUROSEMIDE 40 MG TABLET PO SCH (07:58)
[2021-03-18] MEDS: INSULIN -REGULAR HUMAN 50 UNIT/0.5 ML ML SQ SCH ×2 (08:00→20:00)
[2021-03-18] MEDS: JUVEN PACKET PO SCH ×2 (08:00→19:51)
[2021-03-18] MEDS: NYSTATIN PWDR 100000 UNIT/GM TOP SCH ×2 (11:10→19:59)
[2021-03-18] MEDS: TRAMADOL HCL 50 MG TAB PO PRN (12:08)
[2021-03-18] MEDS: RIVAROXABAN 20 MG TABLET PO SCH (17:25)
--- NOTE | 2021-03-18 17:32 | FAST ---
[employer] FORM SHIFT START DATE/TIME: 03/18/2021 07:00 (CDT) SHIFT END DATE/TIME: 03/18/2021 19:00 (CDT) NAME RODNEY PUENTE DATE OF : 1945 DATE OF ADMISSION: 03/10/2021 17:00 (CDT) PHONE: AGE: 76 N# [id number] GENDER: Female ENCOUNTER PHYSICIAN: Dr. Javier Chong M.D. ADMISSION DIAGNOSIS: - Amputation of Limb 05 - Unilateral Lower Limb Below the Knee (BK) (05.4) Left foot acute on chronic osteomyelitis. Left BKA. EATING: EATING - STEP 1: Does the patient complete the activity by him/herself with no assistance (physical, verbal/nonverbal cueing, setup/clean-up)? No. EATING - STEP 2: Does the patient need only setup/clean-up assistance from one helper? Yes. 1. [id number] ADMISSION PERFORMANCE: Setup or clean-up assistance CODE: 05 ORAL HYGIENE: ORAL HYGIENE - STEP 1: Does the patient complete the activity by him/herself with no assistance (physical, verbal/nonverbal cueing, setup/clean-up)? No. ORAL HYGIENE - STEP 2: Does the patient need only setup/clean-up assistance from one helper? Yes. 1. [id number] ADMISSION PERFORMANCE: Setup or clean-up assistance CODE: 05 TOILETING HYGIENE: TOILETING HYGIENE - STEP 1: Does the patient complete the activity by him/herself with no assistance (physical, verbal/nonverbal cueing, setup/clean-up)? No. TOILETING HYGIENE - STEP 2: Does the patient need only setup/clean-up assistance from one helper? Yes. 1. [id number] ADMISSION PERFORMANCE: Setup or clean-up assistance CODE: 05 BATHING: Not assessed/no information CODE: - DRESSING - UPPER BODY: DRESSING - UPPER BODY - STEP 1: Does the patient complete the activity by him/herself with no assistance (physical, verbal/nonverbal cueing, setup/clean-up)? No. DRESSING - UPPER BODY - STEP 2: Does the patient need only setup/clean-up assistance from one helper? Yes. 1. [id number] ADMISSION PERFORMANCE: Setup or clean-up assistance CODE: 05 DRESSING - LOWER BODY: DRESSING - LOWER BODY - STEP 1: Does the patient complete the activity by him/herself with no assistance (physical, verbal/nonverbal cueing, setup/clean-up)? No. DRESSING - LOWER BODY - STEP 2: Does the patient need only setup/clean-up assistance from one helper? Yes. 1. [id number] ADMISSION PERFORMANCE: Setup or clean-up assistance CODE: 05 PUTTING ON/TAKING OFF FOOTWEAR: Not attempted due to medical condition or safety concerns CODE: 88 ROLL LEFT AND RIGHT: ROLL LEFT AND RIGHT - STEP 1: Does the patient complete the activity by him/herself with no assistance (physical, verbal/nonverbal cueing, setup/clean-up)? No. ROLL LEFT AND RIGHT - STEP 2: Does the patient need only setup/clean-up assistance from one helper? Yes. 1. [id number] ADMISSION PERFORMANCE: Setup or clean-up assistance CODE: 05 SIT TO LYING: SIT TO LYING - STEP 1: Does the patient complete the activity by him/herself with no assistance (physical, verbal/nonverbal cueing, setup/clean-up)? No. SIT TO LYING - STEP 2: Does the patient need only setup/clean-up assistance from one helper? Yes. 1. [id number] ADMISSION PERFORMANCE: Setup or clean-up assistance CODE: 05 LYING TO SITTING: LYING TO SITTING ON SIDE OF BED - STEP 1: Does the patient complete the activity by him/herself with no assistance (physical, verbal/nonverbal cueing, setup/clean-up)? No. LYING TO SITTING ON SIDE OF BED - STEP 2: Does the patient need only setup/clean-up assistance from one helper? Yes. 1. [id number] ADMISSION PERFORMANCE: Setup or clean-up assistance CODE: 05 SIT TO STAND: SIT TO STAND - STEP 1: Does the patient complete the activity by him/herself with no assistance (physical, verbal/nonverbal cueing, setup/clean-up)? No. SIT TO STAND - STEP 2: Does the patient need only setup/clean-up assistance from one helper? Yes. 1. [id number] ADMISSION PERFORMANCE: Setup or clean-up assistance CODE: 05 TRANSFERS: BED, CHAIR: CHAIR/[id number] TRANSFER - STEP 1: Does the patient complete the activity by him/herself with no assistance (physical, verbal/nonverbal cueing, setup/clean-up)? No. CHAIR/[id number] TRANSFER - STEP 2: Does the patient need only setup/clean-up assistance from one helper? Yes. 1. [id number] ADMISSION PERFORMANCE: Setup or clean-up assistance CODE: 05 TRANSFER TOILET: TOILET TRANSFER - STEP 1: Does the patient complete the activity by him/herself with no assistance (physical, verbal/nonverbal cueing, setup/clean-up)? No. TOILET TRANSFER - STEP 2: Does the patient need only setup/clean-up assistance from one helper? Yes. 1. [id number] ADMISSION PERFORMANCE: Setup or clean-up assistance CODE: 05 TRANSFERS: CAR: Not assessed/no information CODE: - WALK 10 FEET: Not assessed/no information CODE: - 1 STEP (CURB): Not assessed/no information CODE: - PICKING UP OBJECT: Not assessed/no information CODE: - DOES THE PATIENT USE A WHEELCHAIR/SCOOTER? Q1. DOES THE PATIENT USE A WHEELCHAIR/SCOOTER?: Yes CODE: 1 WHEEL 50 FEET WITH TWO TURNS: WHEEL 50 FEET WITH TWO TURNS - STEP 1: Does the patient complete the activity by him/herself with no assistance (physical, verbal/nonverbal cueing, setup/clean-up)? No. WHEEL 50 FEET WITH TWO TURNS - STEP 2: Does the patient need only setup/clean-up assistance from one helper? Yes. 1. [id number] ADMISSION PERFORMANCE: Setup or clean-up assistance CODE: 05 INDICATE THE TYPE OF WHEELCHAIR/SCOOTER USED: RR1. INDICATE THE TYPE OF WHEELCHAIR/SCOOTER USED.: Manual CODE: 1 WHEEL 150 FEET: WHEEL 150 FEET - STEP 1: Does the patient complete the activity by him/herself with no assistance (physical, verbal/nonverbal cueing, setup/clean-up)? No. WHEEL 150 FEET - STEP 2: Does the patient need only setup/clean-up assistance from one helper? Yes. 1. [id number] ADMISSION PERFORMANCE: Setup or clean-up assistance CODE: 05 INDICATE THE TYPE OF WHEELCHAIR/SCOOTER USED: SS1. INDICATE THE TYPE OF WHEELCHAIR/SCOOTER USED.: Manual CODE: 1 BLADDER AND BOWEL: H350. BLADDER CONTINENCE (3-DAY ASSESSMENT PERIOD): Always continent (no documented incontinence) CODE: 0 H400. BOWEL CONTINENCE (3-DAY ASSESSMENT PERIOD): Always continent CODE: 0 SIGNATURE PANEL: The following modified sections: 1. [id number] Admission Performance, 1. [id number] Admission Performance, 1. [id number] Admission Performance, 1. NC9702b Admission Performance, 1. IR6661p Admission Performance, 1. [id number] Admission Performance, 1. [id number] Admission Performance, 1. [id number] Admission Performance , 1. [id number] Admission Performance, 1. [id number] Admission Performance, 1. [id number] Admission Performanc e, Q1. Does the patient use a wheelchair/scooter?, 1. [id number] Admission Performance, RR1. Indicate th e type of wheelchair/scooter used., 1. [id number] Admission Performance, Code, SS1. Indicate the type of wheelchair/scooter used., H350. Bladder Continence (3-day assessment period), H400. Bowel Continence (3-day assessment period) were [electronically] signed by Sasha Ayala C.N.APattie on ThuMar 18 2021 17 :31:58 T-0500 (Central Daylight Time)
--- NOTE | 2021-03-18 18:37 | R.PN ---
PROGRESS NOTES ENCOUNTER DATE AND TIME: 03/18/2021 18:30 (CDT) NAME RODNEY PUENTE DATE OF : 1945 DATE OF ADMISSION: 03/10/2021 17:00 (CDT) Left foot acute on chronic osteomyelitis. Left BKACHIEF COMPLAINT: Left foot osteomyelitis and gangrene, s/p left BKA. SUBJECTIVE: Pt denied any Shortness of Breath. Pt denied any depression. WBC 6.2, Hgb 10.5, glucose 82 to 122, Inspector And Unloader 0.64. Sliding board transfer done with contact guard assistance. VITAL SIGNS Temperature: 97.3 F SBP/DBP: 129/64 Pulse: 88 Resp: 16 MEDICATION ALLERGIES: acetamenophen dextrose 5% in water linezolid adhesive tape ENVIRONMENTAL ALLERGIES: None Known - Substance Allergies None Known - Other Allergies None Known CONSULT: Perform Consult Certified Prosthetic for prosthesis construction NURSING: - Shower allowing shower - Lab Results blood Sugar Check ACHS - Skin care per protocol PRECAUTIONS: - Weight Bearing Precaution NWB left LE ACTIVITIES OOB only with supervision THERAPIES: - Orthotics/Prosthetics Prosthetic Evaluation. - Dietary and Nutrition Adequate Nutrition. Nutritional Education. Nutritional Supplements. PHYSICAL EXAM - Gen Alert and awake Lying in bed No apparent distress Oriented to: person, time, and place - Skin Left BKA bandage in place with good hemostasis. Atraumatic - Eyes No abnormalities - ENMT No abnormalities - Neck No stiffness No cervical adenopathy - CVS RRR - Chest Clear - Abd + bowel sounds - GI Soft No abnormalities - No abnormalities - Ext No significant edema - MSK 3-4/5 weakness in the proximal left lower extremity. - Psych No abnormalities ASSESSMENT: Pt. is a 76 yo Right-handed white female.On 03/04/2021 she was admitted to [facility] and [facility] emergency surgery for Left foot acute on chronic osteomyelitis. Left BKA (Amputation of Limb(Unilateral Lower Limb Below the Kne e (BK))) by Dr Hernandez.Pre-morbidly, Pt. was independent/mod-I in Transfers Control, Locomotion, Self -Care, Social Cognition, Sphincter Control, and Communication; and she had good Balance and Safety Aw areness.Currently, she has deficits of Transfers Control, Balance, Locomotion, Safety Awareness, and Self-Care.Pt. is now referred to [facility] for acute in-patient rehabilitatio n in order to maximize patient's functional independence in activities of daily living, strength, ROM , and mobility.- Rehab Goal Patient has realistic goal of being discharged at assistance level 6-Franko to reside at Home with Fam yury/Relatives. MDM/PLAN: - Physical Therapy Gait dysfunction - to improve, our physical therapists will perform initial evaluation of pt's statu s upon admission and devise an individualized program for Gait Training, and Wheel Chair mobility Inability to transfer - to improve, our physical therapists will perform initial evaluation of pt's status upon admission and devise an individualized program for Bed mobility Need for home safety evaluation - to improve, our physical therapists will perform initial evaluatio n of pt's status upon admission and devise an individualized program for Home Evaluation Need in caregiver upon discharge - to improve, our physical therapists will perform initial evaluati on of pt's status upon admission and devise an individualized program for Caregiver Training Edema - to improve, our physical therapists will perform initial evaluation of pt's status upon admi ssion and devise an individualized program for Elevation Training, and Lymphedema Therapy New precaution - to improve, our physical therapists will perform initial evaluation of pt's status upon admission and devise an individualized program for Patient precaution education Poor balance - to improve, our physical therapists will perform initial evaluation of pt's status up on admission and devise an individualized program for Balance Training Weakness - to improve, our physical therapists will perform initial evaluation of pt's status upon a dmission and devise an individualized program for Aquatic Therapy, Neuromuscular Reeducation, and Str engthening Achieving independence - to improve, our physical therapists will perform initial evaluation of pt's status upon admission and devise an individualized program for Community Reintegration Activities - Occupational Therapy ADL deficits - to improve, our occupation therapists will perform initial evaluation of pt's status upon admission and devise an individualized program for Bathing, Bed mobility, Community Reintegratio n, Cooking, Dressing, Eating, Fine Motor Skills, Grooming, Homemaking, Kitchen Mobility, Laundry, Pat ient Education, Safety Awareness, Splinting - Positioning, Transfers(Toilet, Tub, Shower), and Wheel Chair Management Need for clinical manager home care - to improve, our occupation therapists will perform initial evaluation of pt's status upon admission and devise an individualized program for Caregiver Training Weakness - to improve, our occupation therapists will perform initial evaluation of pt's status upon admission and devise an individualized program for Aquatic Therapy, Balance, Endurance, UE ROM, and UE strengthening - Other See attached MAR (Medication Administration Record) - Diet Type Continue Regular - Diet - Liquid Texture Continue Regular - Tube Feed Continue N/A - Lab Results blood Sugar Check ACHS - Weight Bearing Precaution NWB left LE - Skin care per protocol - N/A Perform Consult Certified Prosthetic for prosthesis construction - Diet - Solid Texture Continue Regular - Shower allowing shower FUNCTIONAL STATUS: UPDATED AT WEEKLY TEAM CONFERENCE - Bladder Same Bladder control device used: diaper - Walking Same score based on distance walked: 0(N/A) - Wheelchair Same score based on distance traveled: 0(N/A) FUNCTIONAL STATUS: - Self-Care A. Eating Ind B. Grooming sup C. Bathing Amber D. Dressing - Upper sup E. Dressing - Lower modA F. Toileting Amber - Sphincter Control G. Bladder control Amber H. Bowel control Amber - Transfers Control I. Bed/Chair/Wheelchair modA J. Toilet modA K. Tub/Shower modA - Locomotion L. Walk/Wheelchair (B) modA M. Stairs ADNO - Communication N. Comprehension (B) Amber O. Expression (B) sup - Social Cognition P. Social Interaction Franko Q. Problem Solving Amber R. Memory Franko - Endurance Fair - Balance Fair - Safety Awareness Fair QI SCORES: - Self-Care A. Eating 04-Supervision or touching assistance B. Oral hygiene 04-Supervision or touching assistance C. Toileting hygiene 03-Partial/moderate assistance E. Shower/bathe self 01-Dependent F. Upper body dressing 02-Substantial/maximal assistance G. Lower body dressing 01-Dependent H. Putting on/taking off footwear 01-Dependent - Mobility A. Roll left and right 04-Supervision or touching assistance B. Sit to lying 04-Supervision or touching assistance C. Lying to sitting on side of bed 04-Supervision or touching assistance D. Sit to stand 04-Supervision or touching assistance E. Chair/unz-ay-anpnh transfer F. Toilet transfer G. Car transfer 88-Not attempted due to medical condition or safety concerns I. Walk 10 feet 88-Not attempted due to medical condition or safety concerns J. Walk 50 feet with two turns 88-Not attempted due to medical condition or safety concerns K. Walk 150 feet 88-Not attempted due to medical condition or safety concerns L. Walking 10 feet on uneven surfaces 88-Not attempted due to medical condition or safety concerns M. 1 step (curb) 88-Not attempted due to medical condition or safety concerns N. 4 steps 88-Not attempted due to medical condition or safety concerns O. 12 steps 88-Not attempted due to medical condition or safety concerns P. Picking up object 88-Not attempted due to medical condition or safety concerns - Bladder and Bowel Bladder continence 0-Always continent Bowel continence 0-Always continent - Endurance Poor - Balance Poor - Safety Awareness Poor CURRENT FUNC. DEFICITS: Self-Care, Mobility, Endurance, Balance, and Safety Awareness SIGNATURE PANEL: (CDT)
[2021-03-19] MEDS: carvediloL 3.125 MG TAB PO SCH ×2 (05:29→17:20)
[2021-03-19] MEDS: LIOTHYRONINE SOD 25 MCG TAB PO SCH (06:41)
[2021-03-19] MEDS: LEVOTHYROXINE SOD 0.088 MG TAB PO SCH (06:41)
[2021-03-19] MEDS: TRAMADOL HCL 50 MG TAB PO PRN (07:52)
[2021-03-19] MEDS: GABAPENTIN 400 MG CAP PO SCH ×3 (07:53→20:37)
[2021-03-19] MEDS: POTASSIUM CL SA 10 MEQ TAB PO SCH (07:53)
[2021-03-19] MEDS: FE SULF/FA/VIT B COMP & C TAB PO SCH (07:54)
[2021-03-19] MEDS: METFORMIN ER 500 MG TAB PO SCH ×2 (07:54→17:21)
[2021-03-19] MEDS: CRANBERRY FRUIT EXTRACT 200 MG CAP PO SCH ×2 (07:54→20:37)
[2021-03-19] MEDS: FUROSEMIDE 40 MG TABLET PO SCH (07:54)
[2021-03-19] MEDS: FERROUS SULFATE 325 MG TAB PO SCH (07:55)
[2021-03-19] MEDS: NYSTATIN PWDR 100000 UNIT/GM TOP SCH ×2 (07:55→20:37)
[2021-03-19] MEDS: JUVEN PACKET PO SCH ×2 (08:00→19:52)
[2021-03-19] MEDS: INSULIN -REGULAR HUMAN 50 UNIT/0.5 ML ML SQ SCH ×2 (08:00→20:00)
[2021-03-19] MEDS: lisinopriL 20 MG TAB PO SCH (08:00)
[2021-03-19] MEDS: CODEINE 30MG/APAP 300MG TAB PO PRN (12:16)
[2021-03-19] MEDS: RIVAROXABAN 20 MG TABLET PO SCH (17:21)
--- NOTE | 2021-03-19 18:14 | R.PN ---
PROGRESS NOTES ENCOUNTER DATE AND TIME: 03/19/2021 18:10 (CDT) NAME RODNEY PUENTE DATE OF : 1945 DATE OF ADMISSION: 03/10/2021 17:00 (CDT) Left foot acute on chronic osteomyelitis. Left BKACHIEF COMPLAINT: Left foot osteomyelitis and gangrene, s/p left BKA. SUBJECTIVE: Pt denied any Shortness of Breath. Pt denied any depression. WBC 6.2, Hgb 10.5, glucose 88 to 114, Hub Inventory Specialist 0.64. Sliding board transfer done with contact guard assistance. Propelled wheelchair 100' with bilateral upper extremities. Fatigues easily. VITAL SIGNS Temperature: 97.0 F SBP/DBP: 98/60 Pulse: 95 Resp: 16 MEDICATION ALLERGIES: acetamenophen dextrose 5% in water linezolid adhesive tape ENVIRONMENTAL ALLERGIES: None Known - Substance Allergies None Known - Other Allergies None Known CONSULT: Perform Consult Certified Prosthetic for prosthesis construction NURSING: - Shower allowing shower - Lab Results blood Sugar Check ACHS - Skin care per protocol PRECAUTIONS: - Weight Bearing Precaution NWB left LE ACTIVITIES OOB only with supervision THERAPIES: - Orthotics/Prosthetics Prosthetic Evaluation. - Dietary and Nutrition Adequate Nutrition. Nutritional Education. Nutritional Supplements. PHYSICAL EXAM - Gen Alert and awake Lying in bed No apparent distress Oriented to: person, time, and place - Skin Left BKA bandage in place with good hemostasis. Atraumatic - Eyes No abnormalities - ENMT No abnormalities - Neck No stiffness No cervical adenopathy - CVS RRR - Chest Clear - Abd + bowel sounds - GI Soft No abnormalities - No abnormalities - Ext No significant edema - MSK 3-4/5 weakness in the proximal left lower extremity. - Psych No abnormalities ASSESSMENT: Pt. is a 76 yo Right-handed white female.On 03/04/2021 she was admitted to [facility] and [facility] emergency surgery for Left foot acute on chronic osteomyelitis. Left BKA (Amputation of Limb(Unilateral Lower Limb Below the Kne e (BK))) by Dr Hernandez.Pre-morbidly, Pt. was independent/mod-I in Transfers Control, Locomotion, Self -Care, Social Cognition, Sphincter Control, and Communication; and she had good Balance and Safety Aw areness.Currently, she has deficits of Transfers Control, Balance, Locomotion, Safety Awareness, and Self-Care.Pt. is now referred to [facility] for acute in-patient rehabilitatio n in order to maximize patient's functional independence in activities of daily living, strength, ROM , and mobility.- Rehab Goal Patient has realistic goal of being discharged at assistance level 6-Franko to reside at Home with Fam yury/Relatives. MDM/PLAN: - Physical Therapy Gait dysfunction - to improve, our physical therapists will perform initial evaluation of pt's statu s upon admission and devise an individualized program for Gait Training, and Wheel Chair mobility Inability to transfer - to improve, our physical therapists will perform initial evaluation of pt's status upon admission and devise an individualized program for Bed mobility Need for home safety evaluation - to improve, our physical therapists will perform initial evaluatio n of pt's status upon admission and devise an individualized program for Home Evaluation Need in caregiver upon discharge - to improve, our physical therapists will perform initial evaluati on of pt's status upon admission and devise an individualized program for Caregiver Training Edema - to improve, our physical therapists will perform initial evaluation of pt's status upon admi ssion and devise an individualized program for Elevation Training, and Lymphedema Therapy New precaution - to improve, our physical therapists will perform initial evaluation of pt's status upon admission and devise an individualized program for Patient precaution education Poor balance - to improve, our physical therapists will perform initial evaluation of pt's status up on admission and devise an individualized program for Balance Training Weakness - to improve, our physical therapists will perform initial evaluation of pt's status upon a dmission and devise an individualized program for Aquatic Therapy, Neuromuscular Reeducation, and Str engthening Achieving independence - to improve, our physical therapists will perform initial evaluation of pt's status upon admission and devise an individualized program for Community Reintegration Activities - Occupational Therapy ADL deficits - to improve, our occupation therapists will perform initial evaluation of pt's status upon admission and devise an individualized program for Bathing, Bed mobility, Community Reintegratio n, Cooking, Dressing, Eating, Fine Motor Skills, Grooming, Homemaking, Kitchen Mobility, Laundry, Pat ient Education, Safety Awareness, Splinting - Positioning, Transfers(Toilet, Tub, Shower), and Wheel Chair Management Need for plant health care technician - to improve, our occupation therapists will perform initial evaluation of pt's status upon admission and devise an individualized program for Caregiver Training Weakness - to improve, our occupation therapists will perform initial evaluation of pt's status upon admission and devise an individualized program for Aquatic Therapy, Balance, Endurance, UE ROM, and UE strengthening - Other See attached MAR (Medication Administration Record) - Diet Type Continue Regular - Diet - Liquid Texture Continue Regular - Tube Feed Continue N/A - Lab Results blood Sugar Check ACHS - Weight Bearing Precaution NWB left LE - Skin care per protocol - N/A Perform Consult Certified Prosthetic for prosthesis construction - Diet - Solid Texture Continue Regular - Shower allowing shower FUNCTIONAL STATUS: UPDATED AT WEEKLY TEAM CONFERENCE - Bladder Same Bladder control device used: diaper - Walking Same score based on distance walked: 0(N/A) - Wheelchair Same score based on distance traveled: 0(N/A) FUNCTIONAL STATUS: - Self-Care A. Eating Ind B. Grooming sup C. Bathing Amber D. Dressing - Upper sup E. Dressing - Lower modA F. Toileting Amber - Sphincter Control G. Bladder control Amber H. Bowel control Amber - Transfers Control I. Bed/Chair/Wheelchair modA J. Toilet modA K. Tub/Shower modA - Locomotion L. Walk/Wheelchair (B) modA M. Stairs ADNO - Communication N. Comprehension (B) Amber O. Expression (B) sup - Social Cognition P. Social Interaction Franko Q. Problem Solving Amber R. Memory Franko - Endurance Fair - Balance Fair - Safety Awareness Fair QI SCORES: - Self-Care A. Eating 04-Supervision or touching assistance B. Oral hygiene 04-Supervision or touching assistance C. Toileting hygiene 03-Partial/moderate assistance E. Shower/bathe self 01-Dependent F. Upper body dressing 02-Substantial/maximal assistance G. Lower body dressing 01-Dependent H. Putting on/taking off footwear 01-Dependent - Mobility A. Roll left and right 04-Supervision or touching assistance B. Sit to lying 04-Supervision or touching assistance C. Lying to sitting on side of bed 04-Supervision or touching assistance D. Sit to stand 04-Supervision or touching assistance E. Chair/igo-wi-jygys transfer F. Toilet transfer G. Car transfer 88-Not attempted due to medical condition or safety concerns I. Walk 10 feet 88-Not attempted due to medical condition or safety concerns J. Walk 50 feet with two turns 88-Not attempted due to medical condition or safety concerns K. Walk 150 feet 88-Not attempted due to medical condition or safety concerns L. Walking 10 feet on uneven surfaces 88-Not attempted due to medical condition or safety concerns M. 1 step (curb) 88-Not attempted due to medical condition or safety concerns N. 4 steps 88-Not attempted due to medical condition or safety concerns O. 12 steps 88-Not attempted due to medical condition or safety concerns P. Picking up object 88-Not attempted due to medical condition or safety concerns - Bladder and Bowel Bladder continence 0-Always continent Bowel continence 0-Always continent - Endurance Poor - Balance Poor - Safety Awareness Poor CURRENT FUNC. DEFICITS: Self-Care, Mobility, Endurance, Balance, and Safety Awareness SIGNATURE PANEL: (CDT)
[2021-03-19] MEDS: DOCUSATE NA/SENNA CONC 1 TAB PO PRN (20:37)
[2021-03-20] MEDS: carvediloL 3.125 MG TAB PO SCH ×2 (05:35→17:14)
[2021-03-20] MEDS: LIOTHYRONINE SOD 25 MCG TAB PO SCH (06:52)
[2021-03-20] MEDS: LEVOTHYROXINE SOD 0.088 MG TAB PO SCH (06:53)
[2021-03-20] MEDS: INSULIN -REGULAR HUMAN 50 UNIT/0.5 ML ML SQ SCH ×2 (07:01→19:47)
[2021-03-20] MEDS: POTASSIUM CL SA 10 MEQ TAB PO SCH (07:25)
[2021-03-20] MEDS: CRANBERRY FRUIT EXTRACT 200 MG CAP PO SCH ×2 (07:25→19:04)
[2021-03-20] MEDS: FE SULF/FA/VIT B COMP & C TAB PO SCH (07:25)
[2021-03-20] MEDS: METFORMIN ER 500 MG TAB PO SCH ×2 (07:26→17:16)
[2021-03-20] MEDS: lisinopriL 20 MG TAB PO SCH (07:26)
[2021-03-20] MEDS: GABAPENTIN 400 MG CAP PO SCH ×3 (07:26→19:03)
[2021-03-20] MEDS: FERROUS SULFATE 325 MG TAB PO SCH (07:27)
[2021-03-20] MEDS: TRAMADOL HCL 50 MG TAB PO PRN ×2 (07:27→19:03)
[2021-03-20] MEDS: JUVEN PACKET PO SCH ×2 (07:28→19:04)
[2021-03-20] MEDS: FUROSEMIDE 40 MG TABLET PO SCH (08:00)
[2021-03-20] MEDS: NYSTATIN PWDR 100000 UNIT/GM TOP SCH ×2 (12:24→19:04)
[2021-03-20] MEDS: RIVAROXABAN 20 MG TABLET PO SCH (17:16)
--- NOTE | 2021-03-20 18:09 | R.PN ---
PROGRESS NOTES ENCOUNTER DATE AND TIME: 03/20/2021 18:06 (CDT) NAME RODNEY PUENTE DATE OF : 1945 DATE OF ADMISSION: 03/10/2021 17:00 (CDT) Left foot acute on chronic osteomyelitis. Left BKACHIEF COMPLAINT: Left foot osteomyelitis and gangrene, s/p left BKA. SUBJECTIVE: Pt denied any Shortness of Breath. Pt denied any depression. WBC 6.2, Hgb 10.5, glucose 87 to 98, Board Layer 0.64. Sliding board transfer done with contact guard assistance. Propelled wheelchair 250' with bilateral upper extremities. Fatigues easily. VITAL SIGNS Temperature: 97.0 F SBP/DBP: 102/51 Pulse: 72 Resp: 16 MEDICATION ALLERGIES: acetamenophen dextrose 5% in water linezolid adhesive tape ENVIRONMENTAL ALLERGIES: None Known - Substance Allergies None Known - Other Allergies None Known CONSULT: Perform Consult Certified Prosthetic for prosthesis construction NURSING: - Shower allowing shower - Lab Results blood Sugar Check ACHS - Skin care per protocol PRECAUTIONS: - Weight Bearing Precaution NWB left LE ACTIVITIES OOB only with supervision THERAPIES: - Orthotics/Prosthetics Prosthetic Evaluation. - Dietary and Nutrition Adequate Nutrition. Nutritional Education. Nutritional Supplements. PHYSICAL EXAM - Gen Alert and awake Lying in bed No apparent distress Oriented to: person, time, and place - Skin Left BKA bandage in place with good hemostasis. Atraumatic - Eyes No abnormalities - ENMT No abnormalities - Neck No stiffness No cervical adenopathy - CVS RRR - Chest Clear - Abd + bowel sounds - GI Soft No abnormalities - No abnormalities - Ext No significant edema - MSK 3-4/5 weakness in the proximal left lower extremity. - Psych No abnormalities ASSESSMENT: Pt. is a 76 yo Right-handed white female.On 03/04/2021 she was admitted to [facility] and [facility] emergency surgery for Left foot acute on chronic osteomyelitis. Left BKA (Amputation of Limb(Unilateral Lower Limb Below the Kne e (BK))) by Dr Hernandez.Pre-morbidly, Pt. was independent/mod-I in Transfers Control, Locomotion, Self -Care, Social Cognition, Sphincter Control, and Communication; and she had good Balance and Safety Aw areness.Currently, she has deficits of Transfers Control, Balance, Locomotion, Safety Awareness, and Self-Care.Pt. is now referred to [facility] for acute in-patient rehabilitatio n in order to maximize patient's functional independence in activities of daily living, strength, ROM , and mobility.- Rehab Goal Patient has realistic goal of being discharged at assistance level 6-Franko to reside at Home with Fam yury/Relatives. MDM/PLAN: - Physical Therapy Gait dysfunction - to improve, our physical therapists will perform initial evaluation of pt's statu s upon admission and devise an individualized program for Gait Training, and Wheel Chair mobility Inability to transfer - to improve, our physical therapists will perform initial evaluation of pt's status upon admission and devise an individualized program for Bed mobility Need for home safety evaluation - to improve, our physical therapists will perform initial evaluatio n of pt's status upon admission and devise an individualized program for Home Evaluation Need in caregiver upon discharge - to improve, our physical therapists will perform initial evaluati on of pt's status upon admission and devise an individualized program for Caregiver Training Edema - to improve, our physical therapists will perform initial evaluation of pt's status upon admi ssion and devise an individualized program for Elevation Training, and Lymphedema Therapy New precaution - to improve, our physical therapists will perform initial evaluation of pt's status upon admission and devise an individualized program for Patient precaution education Poor balance - to improve, our physical therapists will perform initial evaluation of pt's status up on admission and devise an individualized program for Balance Training Weakness - to improve, our physical therapists will perform initial evaluation of pt's status upon a dmission and devise an individualized program for Aquatic Therapy, Neuromuscular Reeducation, and Str engthening Achieving independence - to improve, our physical therapists will perform initial evaluation of pt's status upon admission and devise an individualized program for Community Reintegration Activities - Occupational Therapy ADL deficits - to improve, our occupation therapists will perform initial evaluation of pt's status upon admission and devise an individualized program for Bathing, Bed mobility, Community Reintegratio n, Cooking, Dressing, Eating, Fine Motor Skills, Grooming, Homemaking, Kitchen Mobility, Laundry, Pat ient Education, Safety Awareness, Splinting - Positioning, Transfers(Toilet, Tub, Shower), and Wheel Chair Management Need for lpn care manager - to improve, our occupation therapists will perform initial evaluation of pt's status upon admission and devise an individualized program for Caregiver Training Weakness - to improve, our occupation therapists will perform initial evaluation of pt's status upon admission and devise an individualized program for Aquatic Therapy, Balance, Endurance, UE ROM, and UE strengthening - Other See attached MAR (Medication Administration Record) - Diet Type Continue Regular - Diet - Liquid Texture Continue Regular - Tube Feed Continue N/A - Lab Results blood Sugar Check ACHS - Weight Bearing Precaution NWB left LE - Skin care per protocol - N/A Perform Consult Certified Prosthetic for prosthesis construction - Diet - Solid Texture Continue Regular - Shower allowing shower FUNCTIONAL STATUS: UPDATED AT WEEKLY TEAM CONFERENCE - Bladder Same Bladder control device used: diaper - Walking Same score based on distance walked: 0(N/A) - Wheelchair Same score based on distance traveled: 0(N/A) FUNCTIONAL STATUS: - Self-Care A. Eating Ind B. Grooming sup C. Bathing Amber D. Dressing - Upper sup E. Dressing - Lower modA F. Toileting Amber - Sphincter Control G. Bladder control Amber H. Bowel control Amber - Transfers Control I. Bed/Chair/Wheelchair modA J. Toilet modA K. Tub/Shower modA - Locomotion L. Walk/Wheelchair (B) modA M. Stairs ADNO - Communication N. Comprehension (B) Amber O. Expression (B) sup - Social Cognition P. Social Interaction Franko Q. Problem Solving Amber R. Memory Franko - Endurance Fair - Balance Fair - Safety Awareness Fair QI SCORES: - Self-Care A. Eating 04-Supervision or touching assistance B. Oral hygiene 04-Supervision or touching assistance C. Toileting hygiene 03-Partial/moderate assistance E. Shower/bathe self 01-Dependent F. Upper body dressing 02-Substantial/maximal assistance G. Lower body dressing 01-Dependent H. Putting on/taking off footwear 01-Dependent - Mobility A. Roll left and right 04-Supervision or touching assistance B. Sit to lying 04-Supervision or touching assistance C. Lying to sitting on side of bed 04-Supervision or touching assistance D. Sit to stand 04-Supervision or touching assistance E. Chair/fyh-ql-uqbra transfer F. Toilet transfer G. Car transfer 88-Not attempted due to medical condition or safety concerns I. Walk 10 feet 88-Not attempted due to medical condition or safety concerns J. Walk 50 feet with two turns 88-Not attempted due to medical condition or safety concerns K. Walk 150 feet 88-Not attempted due to medical condition or safety concerns L. Walking 10 feet on uneven surfaces 88-Not attempted due to medical condition or safety concerns M. 1 step (curb) 88-Not attempted due to medical condition or safety concerns N. 4 steps 88-Not attempted due to medical condition or safety concerns O. 12 steps 88-Not attempted due to medical condition or safety concerns P. Picking up object 88-Not attempted due to medical condition or safety concerns - Bladder and Bowel Bladder continence 0-Always continent Bowel continence 0-Always continent - Endurance Poor - Balance Poor - Safety Awareness Poor CURRENT FUNC. DEFICITS: Self-Care, Mobility, Endurance, Balance, and Safety Awareness SIGNATURE PANEL: (CDT)
[2021-03-20] MEDS: DOCUSATE NA/SENNA CONC 1 TAB PO PRN (19:04)
[2021-03-20] MEDS ORDERED: MELATONIN 3 MG TABLET PO PRN (20:34)
[2021-03-20] MEDS: MELATONIN 3 MG TABLET PO PRN (21:40)
[2021-03-21] MEDS: carvediloL 3.125 MG TAB PO SCH ×2 (05:05→17:13)
[2021-03-21] MEDS: LEVOTHYROXINE SOD 0.088 MG TAB PO SCH (06:22)
[2021-03-21] MEDS: LIOTHYRONINE SOD 25 MCG TAB PO SCH (06:22)
[2021-03-21 06:46] LABS: Absolute Lymphocytes (CBC) 2.3 K/uL (0.7-4.9); Basophils % 1.6 % (0-1.3); Hematocrit 31.1 % (36.0-45.0); Lymphocytes % 42.4 % (15.3-44.8); MPV 8.5 fL (7.6-11.3); RBC Red Blood Cell Count 3.85 M/uL (3.86-4.86)
[2021-03-21 07:13] LABS: Albumin 2.9 g/dL (3.4-5.0); Magnesium 2.2 mg/dL (1.8-2.4); Potassium 4.4 mmol/L (3.5-5.1); Prealbumin 25.3 mg/dL (20-40)
[2021-03-21] MEDS: FUROSEMIDE 40 MG TABLET PO SCH (07:58)
[2021-03-21] MEDS: CRANBERRY FRUIT EXTRACT 200 MG CAP PO SCH ×3 (07:59→20:13)
[2021-03-21] MEDS: FERROUS SULFATE 325 MG TAB PO SCH (07:59)
[2021-03-21] MEDS: GABAPENTIN 400 MG CAP PO SCH ×3 (07:59→20:13)
[2021-03-21] MEDS: METFORMIN ER 500 MG TAB PO SCH ×2 (07:59→17:13)
[2021-03-21] MEDS: POTASSIUM CL SA 10 MEQ TAB PO SCH (07:59)
[2021-03-21] MEDS: INSULIN -REGULAR HUMAN 50 UNIT/0.5 ML ML SQ SCH ×2 (08:00→20:00)
[2021-03-21] MEDS: lisinopriL 20 MG TAB PO SCH (08:00)
[2021-03-21] MEDS: FE SULF/FA/VIT B COMP & C TAB PO SCH (08:00)
[2021-03-21] MEDS: JUVEN PACKET PO SCH (08:00)
[2021-03-21 08:41] LABS: Anisocytosis 2+; Blood Morphology Comment NOTED (NOT SEEN); Platelet Estimate ADEQ; White Blood Cell Scan OK (OK)
[2021-03-21] MEDS: NYSTATIN PWDR 100000 UNIT/GM TOP SCH ×2 (10:47→20:00)
[2021-03-21] MEDS: RIVAROXABAN 20 MG TABLET PO SCH (17:13)
--- NOTE | 2021-03-21 19:35 | R.PN ---
PROGRESS NOTES ENCOUNTER DATE AND TIME: 03/21/2021 19:31 (CDT) NAME RODNEY PUENTE DATE OF : 1945 DATE OF ADMISSION: 03/10/2021 17:00 (CDT) Left foot acute on chronic osteomyelitis. Left BKACHIEF COMPLAINT: Left foot osteomyelitis and gangrene, s/p left BKA. SUBJECTIVE: Pt denied any Shortness of Breath. Pt denied any depression. WBC 5.5, Hgb 9.8, glucose 87 to 98, Lithograph Press Operator 0.67. Sliding board transfer done with contact guard assistance. Propelled wheelchair independently with bilateral upper extremities. Fatigues less. VITAL SIGNS Temperature: 97.0 F SBP/DBP: 115/69 Pulse: 88 Resp: 16 MEDICATION ALLERGIES: acetamenophen dextrose 5% in water linezolid adhesive tape ENVIRONMENTAL ALLERGIES: None Known - Substance Allergies None Known - Other Allergies None Known CONSULT: Perform Consult Certified Prosthetic for prosthesis construction NURSING: - Shower allowing shower - Lab Results blood Sugar Check ACHS - Skin care per protocol PRECAUTIONS: - Weight Bearing Precaution NWB left LE ACTIVITIES OOB only with supervision THERAPIES: - Orthotics/Prosthetics Prosthetic Evaluation. - Dietary and Nutrition Adequate Nutrition. Nutritional Education. Nutritional Supplements. PHYSICAL EXAM - Gen Alert and awake Lying in bed No apparent distress Oriented to: person, time, and place - Skin Left BKA bandage in place with good hemostasis. Atraumatic - Eyes No abnormalities - ENMT No abnormalities - Neck No stiffness No cervical adenopathy - CVS RRR - Chest Clear - Abd + bowel sounds - GI Soft No abnormalities - No abnormalities - Ext No significant edema - MSK 3-4/5 weakness in the proximal left lower extremity. - Psych No abnormalities ASSESSMENT: Pt. is a 76 yo Right-handed white female.On 03/04/2021 she was admitted to [facility] and [place] [facility] for Left foot acute on chronic osteomyelitis. Left BKA (Amputation of Limb(Unilateral Lower Limb Below the Kne e (BK))) by Dr Hernandez.Pre-morbidly, Pt. was independent/mod-I in Transfers Control, Locomotion, Self -Care, Social Cognition, Sphincter Control, and Communication; and she had good Balance and Safety Aw areness.Currently, she has deficits of Transfers Control, Balance, Locomotion, Safety Awareness, and Self-Care.Pt. is now referred to [facility] for acute in-patient rehabilitatio n in order to maximize patient's functional independence in activities of daily living, strength, ROM , and mobility.- Rehab Goal Patient has realistic goal of being discharged at assistance level 6-Franko to reside at Home with Fam yury/Relatives. MDM/PLAN: - Physical Therapy Gait dysfunction - to improve, our physical therapists will perform initial evaluation of pt's statu s upon admission and devise an individualized program for Gait Training, and Wheel Chair mobility Inability to transfer - to improve, our physical therapists will perform initial evaluation of pt's status upon admission and devise an individualized program for Bed mobility Need for home safety evaluation - to improve, our physical therapists will perform initial evaluatio n of pt's status upon admission and devise an individualized program for Home Evaluation Need in caregiver upon discharge - to improve, our physical therapists will perform initial evaluati on of pt's status upon admission and devise an individualized program for Caregiver Training Edema - to improve, our physical therapists will perform initial evaluation of pt's status upon admi ssion and devise an individualized program for Elevation Training, and Lymphedema Therapy New precaution - to improve, our physical therapists will perform initial evaluation of pt's status upon admission and devise an individualized program for Patient precaution education Poor balance - to improve, our physical therapists will perform initial evaluation of pt's status up on admission and devise an individualized program for Balance Training Weakness - to improve, our physical therapists will perform initial evaluation of pt's status upon a dmission and devise an individualized program for Aquatic Therapy, Neuromuscular Reeducation, and Str engthening Achieving independence - to improve, our physical therapists will perform initial evaluation of pt's status upon admission and devise an individualized program for Community Reintegration Activities - Occupational Therapy ADL deficits - to improve, our occupation therapists will perform initial evaluation of pt's status upon admission and devise an individualized program for Bathing, Bed mobility, Community Reintegratio n, Cooking, Dressing, Eating, Fine Motor Skills, Grooming, Homemaking, Kitchen Mobility, Laundry, Pat ient Education, Safety Awareness, Splinting - Positioning, Transfers(Toilet, Tub, Shower), and Wheel Chair Management Need for transitional care manager - to improve, our occupation therapists will perform initial evaluation of pt's status upon admission and devise an individualized program for Caregiver Training Weakness - to improve, our occupation therapists will perform initial evaluation of pt's status upon admission and devise an individualized program for Aquatic Therapy, Balance, Endurance, UE ROM, and UE strengthening - Other See attached MAR (Medication Administration Record) - Diet Type Continue Regular - Diet - Liquid Texture Continue Regular - Tube Feed Continue N/A - Lab Results blood Sugar Check ACHS - Weight Bearing Precaution NWB left LE - Skin care per protocol - N/A Perform Consult Certified Prosthetic for prosthesis construction - Diet - Solid Texture Continue Regular - Shower allowing shower FUNCTIONAL STATUS: UPDATED AT WEEKLY TEAM CONFERENCE - Bladder Same Bladder control device used: diaper - Walking Same score based on distance walked: 0(N/A) - Wheelchair Same score based on distance traveled: 0(N/A) FUNCTIONAL STATUS: - Self-Care A. Eating Ind B. Grooming sup C. Bathing Amber D. Dressing - Upper sup E. Dressing - Lower modA F. Toileting Amber - Sphincter Control G. Bladder control Amber H. Bowel control Amber - Transfers Control I. Bed/Chair/Wheelchair modA J. Toilet modA K. Tub/Shower modA - Locomotion L. Walk/Wheelchair (B) modA M. Stairs ADNO - Communication N. Comprehension (B) Amber O. Expression (B) sup - Social Cognition P. Social Interaction Franko Q. Problem Solving Amber R. Memory Franko - Endurance Fair - Balance Fair - Safety Awareness Fair QI SCORES: - Self-Care A. Eating 04-Supervision or touching assistance B. Oral hygiene 04-Supervision or touching assistance C. Toileting hygiene 03-Partial/moderate assistance E. Shower/bathe self 01-Dependent F. Upper body dressing 02-Substantial/maximal assistance G. Lower body dressing 01-Dependent H. Putting on/taking off footwear 01-Dependent - Mobility A. Roll left and right 04-Supervision or touching assistance B. Sit to lying 04-Supervision or touching assistance C. Lying to sitting on side of bed 04-Supervision or touching assistance D. Sit to stand 04-Supervision or touching assistance E. Chair/zcj-qb-erdea transfer F. Toilet transfer G. Car transfer 88-Not attempted due to medical condition or safety concerns I. Walk 10 feet 88-Not attempted due to medical condition or safety concerns J. Walk 50 feet with two turns 88-Not attempted due to medical condition or safety concerns K. Walk 150 feet 88-Not attempted due to medical condition or safety concerns L. Walking 10 feet on uneven surfaces 88-Not attempted due to medical condition or safety concerns M. 1 step (curb) 88-Not attempted due to medical condition or safety concerns N. 4 steps 88-Not attempted due to medical condition or safety concerns O. 12 steps 88-Not attempted due to medical condition or safety concerns P. Picking up object 88-Not attempted due to medical condition or safety concerns - Bladder and Bowel Bladder continence 0-Always continent Bowel continence 0-Always continent - Endurance Poor - Balance Poor - Safety Awareness Poor CURRENT FUNC. DEFICITS: Self-Care, Mobility, Endurance, Balance, and Safety Awareness SIGNATURE PANEL: (CDT)
[2021-03-21] MEDS: TRAMADOL HCL 50 MG TAB PO PRN (20:12)
[2021-03-21] MEDS: DOCUSATE NA/SENNA CONC 1 TAB PO PRN (20:13)
[2021-03-21] MEDS: MELATONIN 3 MG TABLET PO PRN (20:14)
[2021-03-22] MEDS: carvediloL 3.125 MG TAB PO SCH ×2 (05:13→16:51)
[2021-03-22] MEDS: LEVOTHYROXINE SOD 0.088 MG TAB PO SCH (06:35)
[2021-03-22] MEDS: LIOTHYRONINE SOD 25 MCG TAB PO SCH (06:35)
[2021-03-22] MEDS: TRAMADOL HCL 50 MG TAB PO PRN (07:11)
[2021-03-22] MEDS: POTASSIUM CL SA 10 MEQ TAB PO SCH (07:32)
[2021-03-22] MEDS: FERROUS SULFATE 325 MG TAB PO SCH (07:33)
[2021-03-22] MEDS: GABAPENTIN 400 MG CAP PO SCH ×3 (07:33→20:19)
[2021-03-22] MEDS: FUROSEMIDE 20 MG TABLET PO SCH (07:33)
[2021-03-22] MEDS: lisinopriL 20 MG TAB PO SCH (07:34)
[2021-03-22] MEDS: METFORMIN ER 500 MG TAB PO SCH ×2 (07:34→16:51)
[2021-03-22] MEDS: FE SULF/FA/VIT B COMP & C TAB PO SCH (07:35)
[2021-03-22] MEDS: INSULIN -REGULAR HUMAN 50 UNIT/0.5 ML ML SQ SCH ×2 (08:00→20:00)
--- NOTE | 2021-03-22 09:36 | P.RH.PN ---
Estimated Length of Stay: 17 Expected Discharge Date: 03/26/21 Family Support: Yes Distance Learning Technician Goal: Mobility, Transfers, Self Care Vital Signs: Last Vital Signs Temp 97.0 F 03/22/21 09:04 Pulse 78 03/22/21 09:04 Resp 14 03/22/21 09:04 BP 127/76 03/22/21 09:04 Pulse Ox 100 03/22/21 09:04 Laboratory: Laboratory Last Values WBC 5.50 K/uL (4.3-10.9) 03/21/21 06:13 RBC 3.85 M/uL (3.86-4.86) L 03/21/21 06:13 Hgb 9.8 g/dL (12.0-15.0) L 03/21/21 06:13 Hct 31.1 % (36.0-45.0) L 03/21/21 06:13 MCV 80.7 fL (80-100) 03/21/21 06:13 MCH 25.4 pg (27.0-35.0) L 03/21/21 06:13 MCHC 31.4 g/dL (32.0-36.0) L 03/21/21 06:13 RDW 22.2 % (12.1-15.2) H 03/21/21 06:13 Plt Count 233 K/uL (152-406) D 03/21/21 06:13 MPV 8.5 fL (7.6-11.3) D 03/21/21 06:13 Neutrophils % 42.9 % (41.7-73.7) 03/21/21 06:13 Lymphocytes % 42.4 % (15.3-44.8) 03/21/21 06:13 Monocytes % 7.1 % (3.3-12.3) 03/21/21 06:13 Eosinophils % 6.0 % (0-4.4) H 03/21/21 06:13 Basophils % 1.6 % (0-1.3) H 03/21/21 06:13 Absolute Neutrophils 2.4 K/uL (1.8-8.0) 03/21/21 06:13 Absolute Lymphocytes 2.3 K/uL (0.7-4.9) 03/21/21 06:13 Absolute Monocytes 0.4 K/uL (0.1-1.3) 03/21/21 06:13 Absolute Eosinophils 0.3 K/uL (0-0.5) 03/21/21 06:13 Absolute Basophils 0.1 K/uL (0-0.5) 03/21/21 06:13 Platelet Estimate Adeq 03/21/21 06:13 Anisocytosis 2+ 03/21/21 06:13 Morphology Comment Noted (NOT SEEN) 03/21/21 06:13 Sodium 141 mmol/L (136-145) 03/21/21 06:13 Potassium 4.4 mmol/L (3.5-5.1) 03/21/21 06:13 Chloride 109 mmol/L (98-107) H 03/21/21 06:13 Carbon Dioxide 26 mmol/L (21-32) 03/21/21 06:13 BUN 26 mg/dL (7-18) H 03/21/21 06:13 Creatinine 0.67 mg/dL (0.55-1.3) 03/21/21 06:13 Estimated GFR 86 mL/min (=/>90) L 03/21/21 06:13 Glucose 93 mg/dL (74-106) 03/21/21 06:13 POC Glucose 87 mg/dL (65-120) 03/22/21 07:14 Calcium 9.1 mg/dL (8.5-10.1) 03/21/21 06:13 Magnesium 2.2 mg/dL (1.8-2.4) 03/21/21 06:13 Albumin 2.9 g/dL (3.4-5.0) L 03/21/21 06:13 Prealbumin 25.3 mg/dL (20-40) 03/21/21 06:13 Urine Color Yellow (Yellow) 03/10/21 19:40 Urine Appearance Clear (Clear) 03/10/21 19:40 Urine pH 7.0 (5.0-7.0) 03/10/21 19:40 Ur Specific [place] 1.015 (1.005-1.030) 03/10/21 19:40 Glucose (UA)(Auto) Negative (Negative) 03/10/21 19:40 Urine Ketones Negative (Negative) 03/10/21 19:40 Urine Blood Negative (Negative) 03/10/21 19:40 Urine Nitrite Negative (Negative) 03/10/21 19:40 Urine Bilirubin Negative (Negataive) 03/10/21 19:40 Urine Urobilinogen 4.0 mg/dL (0.2-1.0) H 03/10/21 19:40 Ur Leukocyte Esterase 2+ (Negative) H 03/10/21 19:40 Urine RBC <5 /HPF (NONE SEEN) 03/10/21 19:40 Urine WBC 5-10 /HPF (<5) H 03/10/21 19:40 Ur Squamous Epith Cells 5-10 /HPF (NONE SEEN) H 03/10/21 19:40 Urine Bacteria <20 /HPF (<20) 03/10/21 19:40 Urine Yeast Present (NONE SEEN) H 03/10/21 19:40 Ur Yeast w Hyphae Present 03/10/21 19:40 Urine Yeast (Budding) Present (NONE SEEN) H 03/10/21 19:40 Urine Culture Reflexed Not needed 03/10/21 19:40 Urine Total Protein Negative (Negative) 03/10/21 19:40 SARS-CoV-2 RNA (RT-PCR) Negative (NEGATIVE) 03/10/21 17:10 Smear Scan Ok (OK) 03/21/21 06:13 Weight: 193 lb 6.4 oz Wound Present: No Closed Surgical Incision Present: Yes Negative Pressure Wound Therapy Present: No Physician Update: Labs were reviewed and are stable. She is independent with wheelchair, standby transfer, slide board is standby assistance. Independent with bed mobility. Walking 28' with contact guard. She will need more help in the afternoon due to fatigued. She will go to jail since her home is not yet ready. Summary: Patient's care plan and trim operator goals have been reviewed and revised as necessary. Please see the Rehabilitation Signature page for all necessary signatures.
[2021-03-22] MEDS: NYSTATIN PWDR 100000 UNIT/GM TOP SCH ×2 (09:58→20:18)
[2021-03-22] MEDS: CODEINE 30MG/APAP 300MG TAB PO PRN (13:05)
[2021-03-22] MEDS: RIVAROXABAN 20 MG TABLET PO SCH (16:51)
[2021-03-22] MEDS: CRANBERRY FRUIT EXTRACT 200 MG CAP PO SCH (20:18)
[2021-03-22] MEDS: MELATONIN 3 MG TABLET PO PRN (20:19)
[2021-03-22] MEDS: DOCUSATE NA/SENNA CONC 1 TAB PO PRN (20:19)
[2021-03-23] MEDS: carvediloL 3.125 MG TAB PO SCH ×2 (05:20→16:52)
[2021-03-23] MEDS: LEVOTHYROXINE SOD 0.088 MG TAB PO SCH (06:45)
[2021-03-23] MEDS: LIOTHYRONINE SOD 25 MCG TAB PO SCH (06:45)
[2021-03-23] MEDS: lisinopriL 20 MG TAB PO SCH (08:00)
[2021-03-23] MEDS: FUROSEMIDE 20 MG TABLET PO SCH (08:00)
[2021-03-23] MEDS: INSULIN -REGULAR HUMAN 50 UNIT/0.5 ML ML SQ SCH ×2 (08:00→20:00)
[2021-03-23] MEDS: NYSTATIN PWDR 100000 UNIT/GM TOP SCH ×2 (08:00→20:28)
[2021-03-23] MEDS: POTASSIUM CL SA 10 MEQ TAB PO SCH (08:00)
[2021-03-23] MEDS: METFORMIN ER 500 MG TAB PO SCH ×2 (08:04→16:52)
[2021-03-23] MEDS: GABAPENTIN 400 MG CAP PO SCH ×3 (08:04→20:30)
[2021-03-23] MEDS: CRANBERRY FRUIT EXTRACT 200 MG CAP PO SCH ×2 (08:04→20:27)
[2021-03-23] MEDS: FERROUS SULFATE 325 MG TAB PO SCH (08:05)
[2021-03-23] MEDS: FE SULF/FA/VIT B COMP & C TAB PO SCH (08:05)
[2021-03-23] MEDS: RIVAROXABAN 20 MG TABLET PO SCH (16:52)
[2021-03-23] MEDS: MELATONIN 3 MG TABLET PO PRN (22:21)
[2021-03-24] MEDS: carvediloL 3.125 MG TAB PO SCH ×2 (05:12→17:07)
[2021-03-24] MEDS: LIOTHYRONINE SOD 25 MCG TAB PO SCH (06:43)
[2021-03-24] MEDS: LEVOTHYROXINE SOD 0.088 MG TAB PO SCH (06:43)
[2021-03-24] MEDS: INSULIN -REGULAR HUMAN 50 UNIT/0.5 ML ML SQ SCH ×2 (08:00→20:00)
[2021-03-24] MEDS: NYSTATIN PWDR 100000 UNIT/GM TOP SCH ×2 (08:00→20:51)
[2021-03-24] MEDS: CRANBERRY FRUIT EXTRACT 200 MG CAP PO SCH ×2 (08:06→20:51)
[2021-03-24] MEDS: FUROSEMIDE 20 MG TABLET PO SCH (08:07)
[2021-03-24] MEDS: lisinopriL 20 MG TAB PO SCH (08:07)
[2021-03-24] MEDS: POTASSIUM CL SA 10 MEQ TAB PO SCH (08:07)
[2021-03-24] MEDS: GABAPENTIN 400 MG CAP PO SCH ×3 (08:07→20:51)
[2021-03-24] MEDS: FERROUS SULFATE 325 MG TAB PO SCH (08:08)
[2021-03-24] MEDS: METFORMIN ER 500 MG TAB PO SCH ×2 (08:08→17:06)
[2021-03-24] MEDS: FE SULF/FA/VIT B COMP & C TAB PO SCH (08:08)
[2021-03-24] MEDS: RIVAROXABAN 20 MG TABLET PO SCH (17:06)
[2021-03-24] MEDS: CODEINE 30MG/APAP 300MG TAB PO PRN (20:50)
[2021-03-24] MEDS: MELATONIN 3 MG TABLET PO PRN (20:51)
[2021-03-25] MEDS: carvediloL 3.125 MG TAB PO SCH ×2 (05:15→17:01)
[2021-03-25] MEDS: LEVOTHYROXINE SOD 0.088 MG TAB PO SCH (06:34)
[2021-03-25] MEDS: LIOTHYRONINE SOD 25 MCG TAB PO SCH (06:34)
[2021-03-25] MEDS: INSULIN -REGULAR HUMAN 50 UNIT/0.5 ML ML SQ SCH ×2 (08:00→19:32)
[2021-03-25] MEDS: lisinopriL 20 MG TAB PO SCH (08:00)
[2021-03-25] MEDS: TRAMADOL HCL 50 MG TAB PO PRN ×2 (08:15→19:31)
[2021-03-25] MEDS: POTASSIUM CL SA 10 MEQ TAB PO SCH (08:16)
[2021-03-25] MEDS: METFORMIN ER 500 MG TAB PO SCH ×2 (08:16→17:01)
[2021-03-25] MEDS: FUROSEMIDE 20 MG TABLET PO SCH (08:16)
[2021-03-25] MEDS: CRANBERRY FRUIT EXTRACT 200 MG CAP PO SCH ×2 (08:16→19:31)
[2021-03-25] MEDS: GABAPENTIN 400 MG CAP PO SCH ×3 (08:17→19:31)
[2021-03-25] MEDS: FERROUS SULFATE 325 MG TAB PO SCH (08:17)
[2021-03-25] MEDS: FE SULF/FA/VIT B COMP & C TAB PO SCH (08:17)
[2021-03-25] MEDS: NYSTATIN PWDR 100000 UNIT/GM TOP SCH ×2 (10:02→19:31)
[2021-03-25] MEDS: RIVAROXABAN 20 MG TABLET PO SCH (17:01)
--- NOTE | 2021-03-25 19:09 | R.PN ---
PROGRESS NOTES ENCOUNTER DATE AND TIME: 03/25/2021 19:06 (CDT) NAME RODNEY PUENTE DATE OF : 1945 DATE OF ADMISSION: 03/10/2021 17:00 (CDT) Left foot acute on chronic osteomyelitis. Left BKACHIEF COMPLAINT: Left foot osteomyelitis and gangrene, s/p left BKA. SUBJECTIVE: Pt denied any Shortness of Breath. Pt denied any depression. WBC 5.5, Hgb 9.8, glucose 86 to 112, Pocket Grinder Operator 0.67. Sliding board transfer done with contact guard assistance. Propelled wheelchair independently with bilateral upper extremities. Fatigues less. VITAL SIGNS Temperature: 98.7 F SBP/DBP: 140/71 Pulse: 82 Resp: 16 MEDICATION ALLERGIES: acetamenophen dextrose 5% in water linezolid adhesive tape ENVIRONMENTAL ALLERGIES: None Known - Substance Allergies None Known - Other Allergies None Known CONSULT: Perform Consult Certified Prosthetic for prosthesis construction NURSING: - Shower allowing shower - Lab Results blood Sugar Check ACHS - Skin care per protocol PRECAUTIONS: - Weight Bearing Precaution NWB left LE ACTIVITIES OOB only with supervision THERAPIES: - Orthotics/Prosthetics Prosthetic Evaluation. - Dietary and Nutrition Adequate Nutrition. Nutritional Education. Nutritional Supplements. PHYSICAL EXAM - Gen Alert and awake Lying in bed No apparent distress Oriented to: person, time, and place - Skin Left BKA bandage in place with good hemostasis. Atraumatic - Eyes No abnormalities - ENMT No abnormalities - Neck No stiffness No cervical adenopathy - CVS RRR - Chest Clear - Abd + bowel sounds - GI Soft No abnormalities - No abnormalities - Ext No significant edema - MSK 3-4/5 weakness in the proximal left lower extremity. - Psych No abnormalities ASSESSMENT: Pt. is a 76 yo Right-handed white female.On 03/04/[address] [facility] and [facility] emergency surgery for Left foot acute on chronic osteomyelitis. Left BKA (Amputation of Limb(Unilateral Lower Limb Below the Kne e (BK))) by Dr Hernandez.Pre-morbidly, Pt. was independent/mod-I in Transfers Control, Locomotion, Self -Care, Social Cognition, Sphincter Control, and Communication; and she had good Balance and Safety Aw areness.Currently, she has deficits of Transfers Control, Balance, Locomotion, Safety Awareness, and Self-Care.Pt. is now referred to [facility] for acute in-patient rehabilitatio n in order to maximize patient's functional independence in activities of daily living, strength, ROM , and mobility.- Rehab Goal Patient has realistic goal of being discharged at assistance level 6-Franko to reside at Home with Fam yury/Relatives. MDM/PLAN: - Physical Therapy Gait dysfunction - to improve, our physical therapists will perform initial evaluation of pt's statu s upon admission and devise an individualized program for Gait Training, and Wheel Chair mobility Inability to transfer - to improve, our physical therapists will perform initial evaluation of pt's status upon admission and devise an individualized program for Bed mobility Need for home safety evaluation - to improve, our physical therapists will perform initial evaluatio n of pt's status upon admission and devise an individualized program for Home Evaluation Need in caregiver upon discharge - to improve, our physical therapists will perform initial evaluati on of pt's status upon admission and devise an individualized program for Caregiver Training Edema - to improve, our physical therapists will perform initial evaluation of pt's status upon admi ssion and devise an individualized program for Elevation Training, and Lymphedema Therapy New precaution - to improve, our physical therapists will perform initial evaluation of pt's status upon admission and devise an individualized program for Patient precaution education Poor balance - to improve, our physical therapists will perform initial evaluation of pt's status up on admission and devise an individualized program for Balance Training Weakness - to improve, our physical therapists will perform initial evaluation of pt's status upon a dmission and devise an individualized program for Aquatic Therapy, Neuromuscular Reeducation, and Str engthening Achieving independence - to improve, our physical therapists will perform initial evaluation of pt's status upon admission and devise an individualized program for Community Reintegration Activities - Occupational Therapy ADL deficits - to improve, our occupation therapists will perform initial evaluation of pt's status upon admission and devise an individualized program for Bathing, Bed mobility, Community Reintegratio n, Cooking, Dressing, Eating, Fine Motor Skills, Grooming, Homemaking, Kitchen Mobility, Laundry, Pat ient Education, Safety Awareness, Splinting - Positioning, Transfers(Toilet, Tub, Shower), and Wheel Chair Management Need for hospice home care coordinator - to improve, our occupation therapists will perform initial evaluation of pt's status upon admission and devise an individualized program for Caregiver Training Weakness - to improve, our occupation therapists will perform initial evaluation of pt's status upon admission and devise an individualized program for Aquatic Therapy, Balance, Endurance, UE ROM, and UE strengthening - Other See attached MAR (Medication Administration Record) - Diet Type Continue Regular - Diet - Liquid Texture Continue Regular - Tube Feed Continue N/A - Lab Results blood Sugar Check ACHS - Weight Bearing Precaution NWB left LE - Skin care per protocol - N/A Perform Consult Certified Prosthetic for prosthesis construction - Diet - Solid Texture Continue Regular - Shower allowing shower FUNCTIONAL STATUS: UPDATED AT WEEKLY TEAM CONFERENCE - Bladder Same Bladder control device used: diaper - Walking Same score based on distance walked: 0(N/A) - Wheelchair Same score based on distance traveled: 0(N/A) FUNCTIONAL STATUS: - Self-Care A. Eating Ind B. Grooming sup C. Bathing Amber D. Dressing - Upper sup E. Dressing - Lower modA F. Toileting Amber - Sphincter Control G. Bladder control Amber H. Bowel control Amber - Transfers Control I. Bed/Chair/Wheelchair modA J. Toilet modA K. Tub/Shower modA - Locomotion L. Walk/Wheelchair (B) modA M. Stairs ADNO - Communication N. Comprehension (B) Amber O. Expression (B) sup - Social Cognition P. Social Interaction Franko Q. Problem Solving Amber R. Memory Franko - Endurance Fair - Balance Fair - Safety Awareness Fair QI SCORES: - Self-Care A. Eating 04-Supervision or touching assistance B. Oral hygiene 04-Supervision or touching assistance C. Toileting hygiene 03-Partial/moderate assistance E. Shower/bathe self 01-Dependent F. Upper body dressing 02-Substantial/maximal assistance G. Lower body dressing 01-Dependent H. Putting on/taking off footwear 01-Dependent - Mobility A. Roll left and right 04-Supervision or touching assistance B. Sit to lying 04-Supervision or touching assistance C. Lying to sitting on side of bed 04-Supervision or touching assistance D. Sit to stand 04-Supervision or touching assistance E. Chair/[id number] transfer F. Toilet transfer G. Car transfer 88-Not attempted due to medical condition or safety concerns I. Walk 10 feet 88-Not attempted due to medical condition or safety concerns J. Walk 50 feet with two turns 88-Not attempted due to medical condition or safety concerns K. Walk 150 feet 88-Not attempted due to medical condition or safety concerns L. Walking 10 feet on uneven surfaces 88-Not attempted due to medical condition or safety concerns M. 1 step (curb) 88-Not attempted due to medical condition or safety concerns N. 4 steps 88-Not attempted due to medical condition or safety concerns O. 12 steps 88-Not attempted due to medical condition or safety concerns P. Picking up object 88-Not attempted due to medical condition or safety concerns - Bladder and Bowel Bladder continence 0-Always continent Bowel continence 0-Always continent - Endurance Poor - Balance Poor - Safety Awareness Poor CURRENT FUNC. DEFICITS: Self-Care, Mobility, Endurance, Balance, and Safety Awareness SIGNATURE PANEL: (CDT)
[2021-03-25] MEDS: MELATONIN 3 MG TABLET PO PRN (19:31)
[2021-03-25] MEDS: CODEINE 30MG/APAP 300MG TAB PO PRN (23:04)
[2021-03-26] MEDS: carvediloL 3.125 MG TAB PO SCH (05:09)
[2021-03-26] MEDS: LIOTHYRONINE SOD 25 MCG TAB PO SCH (06:56)
[2021-03-26] MEDS: LEVOTHYROXINE SOD 0.088 MG TAB PO SCH (06:56)
[2021-03-26 07:35] VITALS: BP 95/51; TEMP 97.2
[2021-03-26] MEDS: FE SULF/FA/VIT B COMP & C TAB PO SCH (07:51)
[2021-03-26] MEDS: TRAMADOL HCL 50 MG TAB PO PRN ×2 (07:52→14:23)
[2021-03-26] MEDS: FUROSEMIDE 20 MG TABLET PO SCH (07:52)
[2021-03-26] MEDS: FERROUS SULFATE 325 MG TAB PO SCH (07:53)
[2021-03-26] MEDS: POTASSIUM CL SA 10 MEQ TAB PO SCH (07:53)
[2021-03-26] MEDS: GABAPENTIN 400 MG CAP PO SCH ×2 (07:53→13:16)
[2021-03-26] MEDS: METFORMIN ER 500 MG TAB PO SCH (07:53)
[2021-03-26] MEDS: NYSTATIN PWDR 100000 UNIT/GM TOP SCH (07:53)
[2021-03-26] MEDS: CRANBERRY FRUIT EXTRACT 200 MG CAP PO SCH (07:53)
[2021-03-26] MEDS: INSULIN -REGULAR HUMAN 50 UNIT/0.5 ML ML SQ SCH (08:00)
[2021-03-26] MEDS: lisinopriL 20 MG TAB PO SCH (08:00)
--- NOTE | 2021-04-01 17:10 | R.DS ---
DISCHARGE SUMMARY FACILITY [facility] MR# [id number] NAME RODNEY PUENTE ADDRESS [address] [place] [address] [address] [id number] PHONE DATE OF 1945 AGE 76 SSN# [id number] GENDER Female DEXTERITY Right-handed MARITAL STATUS RACE White ENCOUNTER PHYSICIAN Dr. Javier Chong M.D. 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 Left BKA. DISCHARGE COMORBIDITIES: - Tier 3 Type 2 diabetes mellitus with foot ulcer (E11.621) Type 2 diabetes mellitus with other skin ulcer (E11.622) DATE OF ADMISSION 03/10/2021 17:00 (CDT) MEDICATION ALLERGIES: acetamenophen dextrose 5% in water linezolid adhesive tape ENVIRONMENTAL ALLERGIES: None Known - Substance Allergies None Known - Other Allergies None Known DISCHARGE MEDICATIONS: Other- ContinueSee attached MAR (Medication Administration Record). CONSULT: Perform Consult Certified Prosthetic for prosthesis construction NURSING: - Shower allowing shower - Lab Results blood Sugar Check ACHS - Skin care per protocol PRECAUTIONS: - Weight Bearing Precaution NWB left LE ACTIVITIES OOB only with supervision THERAPIES: - Orthotics/Prosthetics Prosthetic Evaluation - Dietary and Nutrition Adequate Nutrition Nutritional Education Nutritional Supplements HISTORY OF PRESENT ILLNESS: Pt. 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 Left BKA (Amputation of Limb(Unilateral Lower Limb Below the Kne e (BK))) by Dr Hernandez.Pre-morbidly, Pt. was independent/mod-I in Transfers Control, Locomotion, Self -Care, Social Cognition, Sphincter Control, and Communication; and she had good Balance and Safety Aw areness.Currently, she has deficits of Transfers Control, Balance, Locomotion, Safety Awareness, and Self-Care.Pt. is now referred to [facility] for acute in-patient rehabilitatio n in order to maximize patient's functional independence in activities of daily living, strength, ROM , and mobility.- Rehab Goal Patient has realistic goal of being discharged at assistance level 6-Franko to reside at Home with Fam yury/Relatives. HOSPITAL COURSE: DIET - LIQUID TEXTURE: On 03/08/2021 Pt was upgraded to Regular Diet - Liquid Texture. DIET - SOLID TEXTURE: On 03/08/2021 Pt was upgraded to Regular Diet - Solid Texture. DIET TYPE: On 03/08/2021 Pt was upgraded to Regular Diet Type. TUBE FEED: On 03/08/2021 Pt was changed to N/A Tube Feed. WEIGHT BEARING PRECAUTION: On 03/08/2021 the following precautions were added for the patient: Weight Bearing Precaution - NWB l eft LE. On 03/11/2021 the following precautions were added for the patient: Weight Bearing Precaution - NWB left LE. On 03/12/2021 the following precautions were removed for the patient: Weight Bearing Precaution - NW B left LE. On 03/18/2021 the following precautions were added for the patient: Weight Bearing Precaution - NWB left LE. DISCHARGE PHYSICAL EXAM - Gen Alert and awake Lying in bed No apparent distress Oriented to: person, time, and place - Skin Left BKA bandage in place with good hemostasis. Atraumatic - Eyes No abnormalities - ENMT No abnormalities - Neck No stiffness No cervical adenopathy - CVS RRR - Chest Clear - Abd + bowel sounds - GI Soft No abnormalities - No abnormalities - Ext No significant edema - MSK 3-4/5 weakness in the proximal left lower extremity. - Psych No abnormalities FUNCTIONAL STATUS: - Self-Care A. Eating 7-Ind B. Grooming 5-sup C. Bathing 4-Amber D. Dressing - Upper 5-sup E. Dressing - Lower 3-modA F. Toileting 4-Amber - Sphincter Control G. Bladder control 4-Amber H. Bowel control 4-Amber - Transfers Control I. Bed/Chair/Wheelchair 3-modA J. Toilet 3-modA K. Tub/Shower 3-modA - Locomotion L. Walk/Wheelchair (B) 3-modA M. Stairs 0-ADNO - Communication N. Comprehension (B) 4-Amber O. Expression (B) 5-sup - Social Cognition P. Social Interaction 6-Franko Q. Problem Solving 4-Amber R. Memory 6-Franko - Endurance Fair - Balance Fair - Safety Awareness Fair QI SCORES: - Self-Care A. Eating 04-Supervision or touching assistance B. Oral hygiene 04-Supervision or touching assistance C. Toileting hygiene 03-Partial/moderate assistance E. Shower/bathe self 01-Dependent F. Upper body dressing 02-Substantial/maximal assistance G. Lower body dressing 01-Dependent H. Putting on/taking off footwear 01-Dependent - Mobility A. Roll left and right 04-Supervision or touching assistance B. Sit to lying 04-Supervision or touching assistance C. Lying to sitting on side of bed 04-Supervision or touching assistance D. Sit to stand 04-Supervision or touching assistance E. Chair/[id number]-[id number] transfer F. Toilet transfer G. Car transfer 88-Not attempted due to medical condition or safety concerns I. Walk 10 feet 88-Not attempted due to medical condition or safety concerns J. Walk 50 feet with two turns 88-Not attempted due to medical condition or safety concerns K. Walk 150 feet 88-Not attempted due to medical condition or safety concerns L. Walking 10 feet on uneven surfaces 88-Not attempted due to medical condition or safety concerns M. 1 step (curb) 88-Not attempted due to medical condition or safety concerns N. 4 steps 88-Not attempted due to medical condition or safety concerns O. 12 steps 88-Not attempted due to medical condition or safety concerns P. Picking up object 88-Not attempted due to medical condition or safety concerns - Bladder and Bowel Bladder continence 0-Always continent Bowel continence 0-Always continent - Endurance Poor - Balance Poor - Safety Awareness Poor DISCHARGE INSTRUCTIONS: - N/A Xarelto 20 mg daily. DISCHARGE PLAN, FOLLOW UP CARE PROVISIONS: - Estimated Length of Stay (days) 11. - Consensus on plan Discharge plan has been discussed with primary caregiver. Patient/Family is in agreement with the tiesha n. Primary caregiver is in agreement with the plan. - Patient/Family Goals Return home with assistance. - Planned Living Setting Upon Discharge Home, to live with Family/Relatives. SIGNATURE PANEL: (CDT)
== END 2021-03-26 15:10 | DRG 560 ==
LOC: 5TH 16:48
PROVIDERS: ADMIT Psychiatry & Neurology Neurology with Special Qualifications in Child Neurology; ATTEND Psychiatry & Neurology Neurology with Special Qualifications in Child Neurology
DX: Z47.81 Encounter for orthopedic aftercare following surgical amputation (principal); M86.672 Other chronic osteomyelitis, left ankle and foot; E11.52 Type 2 diabetes mellitus with diabetic peripheral angiopathy with gangrene; I96 Gangrene, not elsewhere classified; E11.69 Type 2 diabetes mellitus with other specified complication; E11.621 Type 2 diabetes mellitus with foot ulcer; L97.529 Non-pressure chronic ulcer of other part of left foot with unspecified severity; I10 Essential (primary) hypertension; Z89.512 Acquired absence of left leg below knee; Z88.1 Allergy status to other antibiotic agents; Z88.6 Allergy status to analgesic agent; Z88.8 Allergy status to other drugs, medicaments and biological substances; Z91.048 Other nonmedicinal substance allergy status; Z20.822 Contact with and (suspected) exposure to COVID-19
CPT/HCPCS: 36415; 80048; 81001; 82040; 82947; 83735; 84134; 85025; 87086; 87088; 97110; 97112; 97116; 97161; 97530; 97542; U0002; U0003

== ENCOUNTER 2024-07-10 21:16 | Inpatient (IN) | payer OTHER, BC ==
--- OUTSIDE RECORDS SUMMARY | 2024-07-10 21:21 | XMS REPORT | Continuity of Care Document ---
Author Name Unknown Address [address] [facility] [address] thconnect Address [address] [facility] [address] [place] [address] Care Team Providers Care Estate Planning Attorney Name Role Phone Ezio Hines Attending Clinician Unavailable Blanquita Castro MD Attending Clinician BLANQUITA CASTRO Attending Clinician Unavailable Doctor Unassigned, [place] Attending Clinician U navailable Payers Payer Name Policy Type Policy Number Effective Date Expirati on Date Source Problems Condition Name Condition Details Condition Category Status Onset Date Resolution Date Last Treatment Date Treating Clinician Comments Source Osteomyeli tis Osteomyeli tis Disease Active 01-24 00:00: 00 [facility] Type 2 diabetes mellitus without complicati on Type 2 diabetes mellitus without complicati on Disease Active 01-24 00:00: 00 [facility] Chronic diastolic congestive heart failure Chronic diastolic congestive heart failure Disease Active 01-24 00:00: 00 [facility] Chronic atrial fibrillati on Chronic atrial fibrillati on Disease Active 01-24 00:00: 00 [facility] Essential hypertensi on Essential hypertensi on Disease Active 01-24 00:00: 00 [facility] Type 2 myocardial infarction Type 2 myocardial infarction Disease Active 01-24 00:00: 00 [facility] Congestive heart failure (CHF) Congestive heart failure (CHF) Disease Active 01-23 00:00: 00 [facility] Sepsis Sepsis Disease Active 2018-0 3-10 00:00: 00 [facility] Paroxysmal atrial fibrillati on Paroxysmal atrial fibrillati on Problem Active [facility] Type 2 diabetes mellitus without complicati on, without long-term current use of insulin Type 2 diabetes mellitus without complicati on, without long-term current use of insulin Problem Active [facility] Essential (primary) hypertensi on Essential (primary) hypertensi on Problem Active [facility] Hyperthyro idism Hyperthyro idism Problem Active [facility] Diabetic polyneurop athy associated with diabetes mellitus due to underlying condition Diabetic polyneurop athy associated with diabetes mellitus due to underlying condition Problem Active [facility] Acquired hypothyroi dism Acquired hypothyroi dism Problem Active [facility] Heart disease Heart disease Problem Active [facility] Chronic renal failure, stage 2 (mild) Chronic renal failure, stage 2 (mild) Problem Active [facility] Environmen natasha allergies Environmen natasha allergies Problem Active [facility] Seasonal allergies Seasonal allergies Problem Active 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 Pure hyperchole sterolemia Pure hyperchole sterolemia Problem Active [facility] Obstructiv e sleep apnea syndrome Obstructiv e sleep apnea syndrome Problem Active [facility] Allergies, Adverse Reactions, Alerts Allergy Name Allergy Type Status Severity Reaction(s) Onset Date Inactive Date Treating Clinician Comments Source LINEZOLI D IN DEXTROSE 5% DRUG Active Unknown-Cmnt 2017-11 00:00: 00 [facility] Linezoli d In Dextrose 5% Propensi ty to adverse reaction s Active Unknown - See comments 2017-11 00:00: 00 [facility] Hydrocod one Propensi ty to adverse reaction s Active Itching 07-30 00:00: 00 [facility] HYDROCOD ONE DRUG INGREDI Active ITCHING 07-30 00:00: 00 [facility] Hydrocod one Bitartra te Adverse Reaction Active rash [facility] Zyvox Adverse Reaction Active nausea + blisters in mout [facility] Lortab Adverse Reaction Active rash [facility] Social History Social Habit Start Date Stop Date Quantity Comments Source Exposure to SARS-CoV-2 (event) Not sure [facility] Tobacco use and exposure 2021-02-17 00:00:00 2021-02-17 00:00:00 Never used [facility] Alcohol intake 2021-02-17 00:00:00 2021-02-17 00:00:00 Current non-drinker of alcohol (finding) [facility] Sex Assigned At 1945 00:00:00 1945 00:00:00 [facility] Smoking Status Start Date Stop Date Source Never smoker [facility] Medications Ordered Medication Name Filled Medication Name Start Date Stop Date Current Medication? Ordering Clinician Indication Dosage Frequency Signature (SIG) Comments Components Source cephALEXin (KEFLEX) capsule 500 mg 02-18 05:00: 00 Yes 500mg 500 mg, Oral, Q6H, First dose on Thu02/18/21 at 0000, Until Discontinu ed, MELO
Re ason for Anti-Infec tive: Documented Infection< br>Documen carlyle Infection Site: Urine
D uration of Therapy: Other (see Comments) [facility] NaCl 0.9% (NS) bolus infusion 500 mL 02-18 03:30: 00 02-18 04:23 :00 No 500mL at 999 mL/hr, 500 mL, IV Piggyback, ONCE, 1 dose, 02/17/21 at 2230, STAT [facility] acetaminoph en (TYLENOL) tablet 650 mg 02-18 02:00: 00 02-18 00:55 :00 No 650mg 650 mg, Oral, ONCE, 1 dose, 02/17/21 at 2100, MELO [facility] cephALEXin (KEFLEX) 500 mg capsule 02-17 00:00: 00 02-17 00:00 :00 No [id number] 500mg Take 1 capsule by mouth 2 (two) times daily. [facility] Levothyroxi ne Sodium Levothyroxi ne Sodium 08-05 00:00: 00 Yes Ezio Killiana 1 tablet on an empty stomach in the morning [facility] Liothyronin e Sodium Liothyronin e Sodium 08-05 00:00: 00 Yes Ezio Viviana 1 tablet on an empty stomach [facility] Eliquis 5 mg Eliquis 5 mg 07-25 00:00: 00 01-20 00:00 :00 No Ezio Killiana one [facility] Simvastatin Simvastatin 05 00:00: 00 Yes Ezio Killiana 1 tablet in the evening [facility] Fluticasone Propionate Fluticasone Propionate 08-09 00:00: 00 Yes Ezio Killiana 1 spray in each nostril [facility] levothyroxi ne 150 mcg tablet 01-26 00:00: 00 Yes 150ug Take 1 tablet by mouth every morning. [facility] GABAPENTIN ORAL 01-25 23:43: 13 Yes 800mg Take 800 mg by mouth every morning. [facility] METFORMIN HCL (METFORMIN ORAL) 01-25 23:43: 13 Yes 500mg Take 500 mg by mouth 3 (three) times daily. [facility] GABAPENTIN ORAL 01-25 23:43: 13 Yes 1200mg Take 1,200 mg by mouth every morning and evening. Indication s: noon and night [facility] lisinopril 20 mg tablet 01-25 23:43: 13 Yes 20mg Take 20 mg by mouth daily. [facility] atenolol 25 mg tablet 01-25 23:43: 13 Yes 25mg Take 25 mg by mouth daily. [facility] rivaroxaban (XARELTO) 20 mg tablet 01-25 23:43: 13 Yes 20mg Take 20 mg by mouth daily. [facility] acetaminoph en-codeine 300-60 mg tablet 01-25 23:43: 13 Yes 1{tbl} Take 1 tablet by mouth 3 (three) times daily. [facility] KCL 10 mEq tablet 01-25 23:43: 13 Yes 10meq Take 10 mEq by mouth daily. [facility] ciprofloxac in HCl 500 mg tablet 01-25 00:00: 00 Yes 500mg Take 1 tablet by mouth every 12 (twelve) hours. [facility] doxycycline 100 mg capsule 01-25 00:00: 00 Yes 100mg Take 1 capsule by mouth every 12 (twelve) hours. [facility] Levothyroxi ne Sodium Levothyroxi ne Sodium Yes Ezio Michelle 1 tablet on an empty stomach in the morning [facility] Metformin HCl Metformin HCl Yes Ezio Michelle [address] a meal [facility] Atenolol Atenolol Yes Ezio Michelle TAKE 1 TABLET BY MOUTH EVERY DAY [facility] Potassium Chloride Potassium Chloride Yes Ezio Michelle [address] [facility] Potassium Chloride Eli ER Potassium Chloride Eli ER Yes Ezio Michelle TAKE 1 TABLET BY MOUTH EVERY DAY [facility] Acetaminoph en-Codeine Acetaminoph en-Codeine Yes Ezio Michelle (Schedule III Drug) TK 1 T PO Q [address] [facility] Gabapentin Gabapentin Yes Ezio Michelle TAKE 2 CAPSULES BY MOUTH 3 TIMES A DAY AND 3 CAPSULES BY MOUTH AT BEDTIME [facility] Furosemide Furosemide Yes Ezio Michelle [address] [facility] Lisinopril Lisinopril Yes Ezio Michelle [address] [facility] Vital Signs Vital Name Observation Time Observation Value Comments Jose Raul chanel Systolic blood pressure 2021-02-18 03:31:00 110 mm[Hg] [facility] Diastolic blood pressure 2021-02-18 03:31:00 63 mm[Hg] [facility] Heart rate 2021-02-18 03:31:00 98 /min [facility] Respiratory rate 2021-02-18 03:31:00 16 /min [facility] Oxygen saturation in Arterial blood by Pulse oximetry 2021-02-18 03:31:00 96 /min [facility] Body temperature 2021-02-18 02:26:41 37.67 Marlena [facility] Body height 2021-02-18 00:30:00 167.6 cm [facility] Body weight 2021-02-18 00:30:00 99.791 kg [facility] BMI 2021-02-18 00:30:00 35.51 kg/m2 [facility] Systolic blood pressure 2021-02-18 03:31:00 110 mm[Hg] [facility] Diastolic blood pressure 2021-02-18 03:31:00 63 mm[Hg] [facility] Heart rate 2021-02-18 03:31:00 98 /[facility] Respiratory rate 2021-02-18 03:31:00 16 /min [facility] Oxygen saturation in Arterial blood by Pulse oximetry 2021-02-18 03:31:00 96 /min [facility] Body temperature 2021-02-18 02:26:41 37.67 Marlena [facility] Body height 2021-02-18 00:30:00 167.6 cm [facility] Body weight 2021-02-18 00:30:00 99.791 kg [facility] BMI 2021-02-18 00:30:00 35.51 kg/m2 [facility] Procedures Procedure Date / Time Performed Performing Clinician Source URINALYSIS 2021-02-18 03:19:00 Blanquita Castro [facility] LACTIC ACID WHOLE BLOOD 2021-02-18 01:35:00 Marck Castro [facility] CT HEAD WO CONTRAST 2021-02-18 01:33:59 Blanquiat Castro [facility] ABORH CONFIRMATION 2021-02-18 01:32:00 Blanquita Castro [facility] XR CHEST 1 VW 2021-02-18 01:31:48 Blanquita Castro [facility] HB ABO GROUPING 2021-02-18 01:10:00 [facility] 2021-02-18 00:55:00 Blanquita Castro [facility] MAGNESIUM 2021-02-18 00:55:00 Blanquita Castro [facility] TROPONIN I 2021-02-18 00:55:00 Blanquita Castro [facility] THYROID STIMULATING HORMONE 2021-02-18 00:55:00 Blanquita Castro [facility] COMP. METABOLIC PANEL (79390) 2021-02-18 00:55:00 Blanquita Castro [facility] CBC WITH DIFF 2021-02-18 00:55:00 Blanquita Castro [facility] N-TERMINAL PRO-BNP 2021-02-18 00:55:00 Blanquita Castro [facility] COVID-19 (ID NOW RAPID TESTING) 2021-02-18 00:55:00 Blanquita Castro [facility] HOME HEALTH - OTHER 2020-11-28 06:01:00 Doctor Mireya mcgee, [place] [facility] HEALTH - OTHER 2020-07-31 05:01:00 Doctor Mireya mcgee, [place] [facility] Encounters Start Date/Time End Date/Time Encounter Type Admission Type Attending [facility] Facility Care Department Encounter ID Source 2021-12-11 12:53:47 Outpatient Ezio Hines [facility] [id number] [facility] 2021-12-11 11:18:43 Outpatient Ezio Michelle [facility] [id number] [facility] 2021-02-17 19:27:00 2021-02-18 00:07:00 Emergency Blanquita Castro [facility] [id number] [facility] 2021-02-17 19:27:00 2021-02-18 00:07:00 Emergency Blanquita Castro S [facility] [id number] 2021-02-17 19:27:00 2021-02-17 19:27:00 Emergency X BLANQUITA CASTRO [facility] ERT [id number] [facility] 2020-11-28 00:00:00 2020-11-28 00:00:00 Orders Only Doctor Unassigned, [place] [facility] [id number] [facility] 2020-11-28 00:00:00 2020-11-28 00:00:00 Orders Only Doctor Unassigned, [place] [facility] [id number] 2020-07-31 00:00:00 2020-07-31 00:00:00 Orders Only Doctor Unassigned, [place] [facility] [id number] [facility] 2020-07-31 00:00:00 2020-07-31 00:00:00 Orders Only Doctor Unassigned, [place] [facility] [id number] 2019-09-23 16:28:00 2019-09-23 16:28:00 Outpatient Yovana [facility] Tricia [facility] [id number] [facility] 2019-08-12 13:07:00 2019-08-12 13:07:[address] [facility] [id number] [facility] 2019-08-03 15:14:00 2019-08-03 15:14:[address] [facility] [address] [facility] [id number] [facility] 2019-08-01 15:20:00 2019-08-01 15:20:[address] [facility] [id number] [facility] 2019-07-27 11:40:00 2019-07-27 11:40:00 [address] [facility] [address] [facility] [place] [facility] [id number] [facility] 2019-07-25 14:00:00 2019-07-25 14:00:00 [address] [facility] [id number] [facility] 2019-03-24 10:51:00 2019-03-24 10:51:00 [address] [facility] [address] [facility] [place] [facility] [id number] [facility] 2019-03-23 14:00:00 2019-03-23 14:00:[address] [facility] [address] [facility] [place] [facility] [id number] [facility] 2018-12-21 10:00:00 2018-12-21 10:00:[address] [facility] [address] [facility] [place] [facility] [id number] [facility] 2018-12-06 13:00:00 2018-12-06 13:00:[address] [facility] [address] [facility] [place] [facility] [id number] [facility] 2018-12-06 08:35:00 2018-12-06 08:35:[address] [facility] [address] [facility] [place] [facility] [id number] [facility] 2018-11-25 14:09:00 2018-11-25 14:09:[address] [facility] [address] [facility] [place] [facility] [id number] [facility] 2018-11-11 11:42:00 2018-11-11 11:42:00 Outpatient [facility] [id number] [facility] 2018-08-10 13:19:00 2018-08-10 13:19:00 Outpatient [facility] [id number] [facility] 2018-08-09 10:30:00 2018-08-09 10:30:00 Outpatient [facility] [id number] [facility] 2018-07-23 09:44:00 2018-07-23 09:44:00 Outpatient [facility] [id number] [facility] 2018-07-12 10:30:00 2018-07-12 10:30:00 Outpatient [facility] [id number] [facility] Results Test Description Test Time Test Comments Results Result Co mments Source [facility] [id number] 02:37:57 * Test Item Value Reference Range Interpretation Comme nts TSH (test code = 2628112184) See_Comment L [Automated messa ge] The system which generated this result transmitted reference range: 0.45 - 4.70 mIU/L. The reference range was not used to interpret this result as normal/abnormal. Lab Interpretation (test code = 09471-7) Abnormal [facility] [id number] 02:28:42* Test Item Value Reference Range Interpretation Comme nts ABO & RH (test code = 20) A Positive Performed at [facility] Laboratory Services - [facility] Blood [address] [place] [address]Dzwb Free: [phone] No. [id number] [facility] and Screen - ONCE [id number] 02:16:43 * Test Item Value Reference Range Interpretation Comme nts ABO & RH (test code = 20) A Positive Performed at [facility] Laboratory [facility] Blood [address] [address]Obmp Free: [phone] No. [id number] IAT (test code = 1185) Negative Performed at [facility] Laboratory Services - [facility] Blood [address] [address]Suxj Free: [phone] No. [id number] [facility] [id number] 02:16:32* Test Item Value Reference Range Interpretation Comme nts NT-proBNP (test code = 3924408444) 5410 pg/mL See_Comment H [Automated message] The system which generated this result transmitted reference range: <=450. The reference range was not used to interpret this result as normal/abnormal. ESTRELLA (test code = ESTRELLA) Biotin has been reported to cause a negative bias, interpret results relative to patient's use of biotin. Lab Interpretation (test code = 80135-4) Abnormal [facility]2021-04-05 02:06:13* Test Item Value Reference Range Interpretation Comme nts MAGNESIUM (test code = 7105641241) 1.7 mg/dL 1.7-2.4 Lab Interpretation (test cod e = 99279-0) Normal [facility]21-[facility]-05 02:06:13* Test Item Value Reference Range Interpretation Comme nts LIPASE (test code = 0436401305) 42 U/L 0-220 Lab Interpretation (test cod e = 41876-7) Normal [facility] Whole [id number] 01:41:48* Test Item Value Reference Range Interpretation Comme nts LACTIC ACID (test code = 9099709000) 1.96 mmol/L 0.50-2.20 Lab Interpretation (test cod e = 02795-5) Normal [facility] [id number] 01:35:11* Test Item Value Reference Range Interpretation Comme nts TROPONIN I (test code = 2514318505) 0.003 ng/mL See_Comment [Automated message] The system which generated this result transmitted reference range: <=0.034. The reference range was not used to interpret this result as normal/abnormal. ESTRELLA (test code = ESTRELLA) Equal or Less than 0.034 ng/ml---Normal ?Note: Cardiac troponin begins to rise 3-4 hours after the onset of ischemia. Repeat in 4-6 hours if the sample was drawn within 3-4 hours of the onset of the symptom and found normal. Between 0.035 and 0.120 ng/mL--- Borderline. Questionable myocardial injury or necrosis ? ?Note: Serial measurement may be necessary to confirm or exclude the diagnosis of myocardial injury or necrosis; Clinical correlation (symptoms, EKGs, imaging studies, and others) required; Repeat in 4-6 hours if clinically indicated. ? Equal or Higher than 0.121 ng/mL---Abnormal. Myocardial Injury or Necrosis Likely ? Biotin has been reported to cause a negative bias, interpret results relative to patient's use of biotin. ? Lab Interpretation (test code = 32631-9) Normal [facility] (ID NOW RAPID TESTING)2021-02-18 01:29:14* Test Item Value Reference Range Interpretation Comme nts SARS-CoV-2 Rapid ID NOW (test code = 51566-7) Not Detected Not Detected ESTRELLA (test code = ESTRELLA) ID NOW COVID-19 As say is an isothermal nucleic acid amplification test intended for the qualitative detection of nucleic acid from SARS-CoV-2 viral RNA in nasopharyngeal (AUTOMATIC CLIPPER) specimens. It is used under Emergency Use Authorization (EUA) by FDA. The limit of detection (LOD) of the assay is 125 Genome Equivalents/mL. A positive result is indicative of the presence of SARS-CoV-2 RNA. ?Clinical correlation with patient history and other diagnostic information is necessary to determine patient infection status. A negative (Not Detected) result does not preclude SARS-CoV-2 infection. In patients with clinical symptoms and other tests that are consistent with SARS-CoV-2 infection, negative results should be treated as presumptive negative and a new specimen should be tested with alternative PCR molecular test. Invalid: Please collect a new specimen for repeat patient testing if clinically indicated. Lab Interpretation (test code = 06005-2) Normal [facility] WITH [id number] 01:23:32* Test Item Value Reference Range Interpretation Comme nts WBC (test code = 6690-2) See_Comment H [Automated messa ge] The system which generated this result transmitted reference range: 4.30 - 11.10 10*3/?L. The reference range was not used to interpret this result as normal/abnormal. RBC (test code = 789-8) See_Comment L [Automated messa ge] The system which generated this result transmitted reference range: 3.93 - 5.25 10*6/?L. The reference range was not used to interpret this result as normal/abnormal. HGB (test code = 718-7) 9.7 g/dL 11.6-15.0 L HCT (test code = 4544-3) 32.4 % 35.7-45.2 L MCV (test code = 787-2) 84.2 fL 80.6-95.5 MCH (test code = 785-6) 25.2 pg 25.9-32.8 L MCHC (test code = 786-4) 29.9 g/dL 31.6-35.1 L RDW-SD (test code = 80490-8) 49.2 fL 39.0-49.9 RDW-CV (test code = 788-0) 16.1 % 12.0-15.5 H PLT (test code = 777-3) See_Comment H [Automated messa ge] The system which generated this result transmitted reference range: 166 - 358 10*3/?L. The reference range was not used to interpret this result as normal/abnormal. MPV (test code = 91921-2) 9.3 fL 9.5-12.9 L NRBC/100 WBC (test code = 8402046910) See_Comment [Automated me ssage] The system which generated this result transmitted reference range: 0.0 - 10.0 /100 WBCs. The reference range was not used to interpret this result as normal/abnormal. NRBC x10^3 (test code = 5717571029) <0.01 See_Comment [Automated messa ge] The system which generated this result transmitted reference range: 10*3/?L. The reference range was not used to interpret this result as normal/abnormal. GRAN MAT (NEUT) % (test code = 770-8) 75.8 % IMM GRAN % (test code = 4557136418) 1.30 % LYMPH % (test code = 736-9) 11.3 % MONO % (test code = 5905-5) 10.2 % EOS % (test code = 713-8) 0.8 % BASO % (test code = 706-2) 0.6 % GRAN MAT x10^3(ANC) (test code = 3241985379) 9.94 10*3/uL 1.88-7.09 H IMM GRAN x10^3 (test code = 0465563035) 0.17 10*3/uL 0.00-0.06 H LYMPH x10^3 (test code = 731-0) 1.48 10*3/uL 1.32-3.29 MONO x10^3 (test code = 742-7) 1.33 10*3/uL 0.33-0.92 H EOS x10^3 (test code = 711-2) 0.10 10*3/uL 0.03-0.39 BASO x10^3 (test code = 704-7) 0.08 10*3/uL 0.01-0.07 H Lab Interpretation (test code = 69063-5) Abnormal [facility]OL[facility] PANEL (09476)2021-02-18 01:23:32* Test Item Value Reference Range Interpretation Comme nts NA (test code = 8622870119) 133 mmol/L 135-145 L K (test code = 4822428309) 5.0 mmol/L 3.5-5.0 CL (test code = 9406753110) 98 mmol/L 98-108 CO2 TOTAL (test code = 3088480640) 26 mmol/L 23-31 AGAP (test code = 6427162712) 2-16 BUN (test code = 6798107583) 22 mg/dL 7-23 GLUCOSE (test code = 6769259110) 122 mg/dL 70-110 H CREATININE (test code = 8909100147) 0.80 mg/dL 0.50-1.04 TOTAL BILI (test code = 9157447938) 1.8 mg/dL 0.1-1.1 H CALCIUM (test code = 6387758951) 9.1 mg/dL 8.6-10.6 T PROTEIN (test code = 7393295660) 7.7 g/dL 6.3-8.2 ALBUMIN (test code = 0307799006) 3.8 g/dL 3.5-5.0 ALK PHOS (test code = 3002609007) 152 U/L 34-122 H ALTv (test code = 1742-6) 25 U/L 5-35 AST(SGOT) (test code = 3564122027) 66 U/L 13-40 H eGFR (test code = 7266804524) mL/min/1.73m2 ESTRELLA (test code = ESTRELLA) Association of Glomerular Filtration Rate (GFR) and Staging of Kidney Disease* + --+ --+ ------+| GFR (mL/min/1.73 m2) ?| With Kidney Damage ?| ?Without Kidney Damage+ --------+ --------+ +| ?>90 ?| ?Stage one ?| ? Normal ?+ ---+ ---+ -------+| ?60-89 ?| ?Stage two ?| ? Decreased GFR ? + --+ --+ ------+| ?30-59 ?| ?Stage three ?| ? Stage three ? + --+ --+ ------+| ?15-29 ?| ?Stage four ? | ? Stage four ?+ ---+ ---+ -------+| ?<15 (or dialysis) ? ?| ?Stage five ? | ? Stage five ?+ ---+ ---+ -------+ *Each stage assumes the associated GFR level has been in effect for at least three months. ?Stages 1 to 5, with or without kidney disease, indicate chronic kidney disease. Notes: Determination of stages one and two (with eGFR >59mL/min/1.73 m2) requires estimation of kidney damage for at least three months as defined by structural or functional abnormalities of the kidney, manifested by either:Pathological abnormalities or Markers of kidney damage (including abnormalities in the composition of the blood or urine or abnormalities in imaging tests). Lab Interpretation (test code = 65055-9) Abnormal [facility]"
[2024-07-10] MEDS ORDERED: ACETAMINOPHEN 500 MG TAB ONE (22:36)
[2024-07-10] MEDS ORDERED: CEFEPIME 2 GM VIAL ONE (23:33)
[2024-07-10] MEDS ORDERED: VANCOMYCIN 1 GM/VIAL ONE (23:33)
[2024-07-10] MEDS ORDERED: NA CHLORIDE 0.9% 100 ML ONE (23:34)
[2024-07-10] MEDS ORDERED: NA CHLORIDE 0.9% 250 ML ONE (23:34)
[2024-07-10 23:56] LABS: PT Prothrombin Time 41.7 SECONDS (9.4-12.5); PTT, Activated Partial Thromb 35.1 SECONDS (24.3-36.9); Protime INR 3.87
[2024-07-11 00:07] LABS: Albumin/Globulin Ratio 0.6 (1.1-1.8); Anion Gap 7.8 mEq/L (5.0-15.0); Bilirubin Total 3.5 mg/dL (0.2-1.0); Potassium 3.8 mEq/L (3.5-5.1)
[2024-07-11] MEDS ORDERED: NA CHLORIDE 0.9% 1,000 ML ONE ×2 (00:23→01:55)
[2024-07-11 00:29] LABS: Absolute Basophils 0.1 K/uL (0-0.5); Absolute Lymphocytes (CBC) 1.1 K/uL (0.7-4.9); Absolute Monocytes 1.1 K/uL (0.1-1.3); Basophils % 0.9 % (0-1.3); Eosinophils % 0.1 % (0-4.4); Lymphocytes % 7.3 % (15.3-44.8); MCHC 33.3 g/dL (32.0-36.0); MPV 9.7 fL (7.6-11.3); Monocytes % 7.8 % (3.3-12.3); Neutrophils % 83.9 % (41.7-73.7); Nucleated Red Blood Cells % 0.1 % (0-0); Platelets 260 thou/uL (152-406); RBC Red Blood Cell Count 3.55 M/uL (3.86-4.86); Red Cell Distribution Width 13.9 % (12.1-15.2)
[2024-07-11 00:32] LABS: MCV 93.1 fL (80-100)
--- NOTE | 2024-07-11 02:07 | ER ---
Nurse's Notes [facility] Name: Helen Hdz Age: 79 yrs Sex: Female : 1945 Arrival Date: 07/10/2024 Time: 21:16 Bed 19 [facility] MD: Diagnosis: Pneumonia, unspecified organism;Severe sepsis without septic shock Presentation: 07/10 22:32 Chief complaint: Patient states: sick for about 10 days, feeling week and nauseous, vc1 fell yesterday from being so weak. Patient's son or daughter states: She was a little altered earlier. Coronavirus screen: Client denies travel out of the [place] in the last 14 days. fatigue, fever, headache, muscle pain, Client presents with at least one sign or symptom that may indicate coronavirus-19. Ebola Screen: Patient negative for fever greater than or equal to 101.5 degrees Fahrenheit, and additional compatible Ebola Virus Disease symptoms Patient denies exposure to infectious person. Patient denies travel to an Ebola-affected area in the 21 days before illness onset. No symptoms or risks identified at this time. Initial Sepsis Screen: Does the patient meet any 2 criteria? RR > 20 per min. Temp <36.0*C (96.8*F)) or > 38.3*C (100.9*F). Altered Mental Status. HR > 90 bpm. Yes Does the patient have a suspected source of infection? No. Patient's initial sepsis screen is negative. Risk Assessment: Do you want to hurt yourself or someone else? Patient reports no desire to harm self or others. Onset of symptoms is unknown. 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 - Infectious Disease History:: Denies. - Social history:: Smoking status: Patient denies any tobacco usage or history of. - Family history:: not pertinent. Screenin:32 Abuse screen: Denies threats or abuse. Nutritional screening: No deficits noted. vc1 Tuberculosis screening: No symptoms or risk factors identified. 23:16 [facility] ED Fall Risk Assessment (Adult) History of falling in the last 3 months, me1 including since admission No falls in past 3 months (0 pts) Confusion or Disorientation No (0 pts) Intoxicated or Sedated No (0 pts) Impaired Gait No (0 pts) Mobility Assist Device Used No (0 pt) Altered Elimination No (0 pt) Score/Fall Risk Level 0 - 2 = Low Risk Maintained a safe environment, Provided non-skid footwear, Hourly rounding (assess needs \T\ fall precautionary measures) done. Assessment: 23:16 General: Appears ill, well groomed, well developed, well nourished, Behavior is calm, me1 cooperative, appropriate for age, Reports sick for about 10 days, feeling week and nauseous, fell yesterday from being so weak. GI symptoms, then respiratory symptoms but has had fever and decreased appetite for the past few days. States she did hit her head when she fell and was in the floor all night. c/o pain to head and right shoulder. Pain: Complains of pain in head and anterior aspect of right shoulder Pain does not radiate. Pain currently is 4 out of 10 on a pain scale. Quality of pain is described as tender, Pain began suddenly, 1 day ago. Is continuous. Neuro: Level of Consciousness is awake, alert, obeys commands, Oriented to person, place, time, situation, Appropriate for age. Cardiovascular: Patient's skin is warm and dry. Respiratory: Reports shortness of breath cough that is Airway is patent Respiratory effort is even, unlabored, Respiratory pattern is regular, symmetrical. GI: Abdomen is round non-distended, obese, Reports diarrhea, nausea, vomiting. : No signs and/or symptoms were reported regarding the genitourinary system. EENT: No signs and/or symptoms were reported regarding the EENT system. Derm: Skin is intact, is healthy with good turgor, Skin is pink, warm \T\ dry. 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 Injury Description: trip and fell last night and hit her head and right shoulder. 07/11 00:55 Reassessment: Patient appears in no apparent distress at this time. No changes from pc2 previously documented assessment. Patient and/or family updated on plan of care and expected duration. Pain level reassessed. Patient is alert, oriented x 3, equal unlabored respirations, skin warm/dry/pink. 02:00 Reassessment: Patient and/or family updated on plan of care and expected duration. Pain pc2 level reassessed. Patient is alert, oriented x 3, equal unlabored respirations, skin warm/dry/pink. 03:42 Reassessment: Patient appears in no apparent distress at this time. Patient and/or pc2 family updated on plan of care and expected duration. Pain level reassessed. Vital Signs: 07/10 22:32 BP 98 / 46; Pulse 112; Resp 30; Temp 102.5; Pulse Ox 89% on R/A; vc1 23:14 BP 118 / 82; Pulse 95; Resp 15; Temp 97.8; Pulse Ox 88% on 2 lpm NC; Pain 0/10; ty 07/11 00:21 BP 91 / 44; Pulse 93; Resp 13; Pulse Ox 95% on R/A; me1 00:47 BP 101 / 54; Pulse 93; Resp 16; Pulse Ox 95% ; pc2 02:04 BP 110 / 58; Pulse 80; Resp 18; Pulse Ox 98% on 2 lpm NC; pc2 03:16 BP 101 / 61; Pulse 88; Resp 18; Pulse Ox 98% on 2 lpm NC; Weight 112.04 kg; Height 5 pc2 ft. 6 in. ; 05:05 BP 92 / 57; Pulse 78; Resp 18; Pulse Ox 98% on 2 lpm NC; pc2 03:16 Body Mass Index 39.87 (112.04 kg, 167.64 cm) pc2 23:14 Pain Scale: Adult ty ED Course: 07/10 21:19 Patient arrived in ED. [id number] 21:24 Vladislav Guzman MD is Attending Physician. rt 22:31 Arm band placed on left wrist. vc1 22:37 First set of blood cultures drawn. ty 22:40 Triage completed. vc1 22:50 Inserted saline lock: 22 gauge in right antecubital area, using aseptic technique. ty Blood collected. Flushed with 10 mL NS. 22:50 Second set of blood cultures drawn by me. ty 22:50 Initial lab(s) drawn, by me, sent to lab. ty 23:03 Chest Single View XRAY In Process Unspecified. EDMS 23:05 CT Head C Spine In Process Unspecified. EDMS 23:12 Blood Culture Adult (2) Sent. ty 23:12 CBC with Diff Sent. ty 23:12 CMP Sent. ty 23:12 Lactate w/ 2H reflex if indic. Sent. ty 23:12 Protime (+inr) Sent. ty 23:12 Ptt, Activated Sent. ty 23:15 Isaura Brenner, RN is Primary Nurse. me1 23:16 Patient has correct armband on for positive identification. Bed in low position. Call me1 light in reach. Side rails up X2. Provided Education on: POC. Verbalized understanding. . Client placed on continuous cardiac and pulse oximetry monitoring. NIBP monitoring applied. bus monitor on. Pulse ox on. NIBP on. 23:16 No provider procedures requiring assistance completed. me1 23:33 EKG done, by ED staff, reviewed by Vladislav Guzman MD. ty 23:35 Pillow given. Head of bed elevated. ty 07/11 00:47 Report received from CHRISTIAN Delarosa. pc2 02:06 Ezio Michelle MD is Hospitalizing Provider. rt 03:10 Lab(s) recollected, by me, sent to lab. lactic. pc2 05:07 Patient admitted, IV remains in place. pc2 Administered Medications: 07/10 23:49 Drug: Cefepime IVPB 2 grams IVPB at 200 ml/hr once over 30 mins; (mix in NS 100 mL) me1 Route: IVPB; Rate: 200 ml/hr; Infused Over: 30 mins; Site: right antecubital; 07/11 00:17 Follow up: Response: No adverse reaction; IV Status: Completed infusion me1 00:16 Drug: vancoMYCIN IVPB 1 grams IVPB once over 2 hrs Route: IVPB; Infused Over: 2 hrs; me1 Site: right antecubital; 01:30 Follow up: Response: No adverse reaction; IV Status: Completed infusion; IV Intake: pc2 250ml 00:36 Drug: NS 0.9% IV 1000 ml IV at 1 bolus Per protocol; 1000 mL bolus Route: IV; Rate: 1 me1 bolus; Site: right antecubital; 01:40 Follow up: Response: No adverse reaction; IV Status: Completed infusion; IV Intake: pc2 1000ml 02:04 Drug: NS 0.9% IV 1000 ml IV at 1 bolus Per protocol; 1000 mL bolus Route: IV; Rate: 1 pc2 bolus; Site: right antecubital; 03:05 Follow up: Response: No adverse reaction; IV Status: Completed infusion; IV Intake: pc2 1000ml Medication: 07/10 23:16 VIS not applicable for this client. me1 Intake: 07/11 01:30 IV: 250ml; Total: 250ml. pc2 01:40 IV: 1000ml; Total: 1250ml. pc2 03:05 IV: 1000ml; Total: 2250ml. pc2 Outcome: 02:07 Decision to Hospitalize by Provider. rt 05:06 Admitted to Med/surg accompanied by tech, via stretcher, room 231, with oxygen, with pc2 chart, 05:06 Condition: stable 05:06 Instructed on the need for admit, Demonstrated understanding of instructions, 05:08 Patient left the ED. pc2 Signatures: Dispatcher [employer] EDMS Paola Shields [email or web address] Jacki Mckeon RN RN vc1 Vladislav Guzman MD MD rt Isaura Brenner RN RN me1 Pawel Haro Pam, RN RN pc2 Corrections: (The following items were deleted from the chart) 07/10 23:16 22:32 Chief complaint: Patient states: sick for about 10 days, feeling week and me1 nauseous, fell yesterday from being so weak. Patient's son or daughter states: She was a little altered earlier vc1 07/11 03:21 03:16 BP 101 / 61; Pulse 88bpm; Resp 18bpm; Pulse Ox 98%; pc2 pc2
--- NOTE | 2024-07-11 02:07 | EDPHYS ---
Physician Documentation [facility] Name: Helen Hdz Age: 79 yrs Sex: Female : 1945 Arrival Date: 07/10/2024 Time: 21:16 Bed 19 Private MD: ED Physician Vladislav Guzman HPI: 07/11 04:12 This 79 yrs old Female presents to ER via Wheelchair with complaints of Fall Injury, rt General Weakness, Fever, Altered Mental Status. 04:12 Patient presents to the ED with generalized weakness. Patient reportedly had a fever. rt States that she fell, hitting her head in the bath today, denies loss of consciousness. Denies other acute complaints at this time, symptoms are moderate in severity, no other aggravating alleviating factors.. 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 - Infectious Disease History:: Denies. - Social history:: Smoking status: Patient denies any tobacco usage or history of. - Family history:: not pertinent. ROS: 07/11 04:12 Constitutional: Negative for fever, chills, and weight loss, Cardiovascular: Negative rt for chest pain, palpitations, and edema, Respiratory: Negative for shortness of breath, cough, wheezing, and pleuritic chest pain, Abdomen/GI: Negative for abdominal pain, nausea, vomiting, diarrhea, and constipation, Skin: Negative for injury, rash, and discoloration, Constitutional: Positive for fever, malaise, Neuro: Positive for altered mental status, weakness, Exam: 04:12 Constitutional: This is a well developed, well nourished patient who is awake, alert, rt and in no acute distress. Head/Face: Normocephalic, atraumatic. Chest/axilla: Normal chest wall appearance and motion. Nontender with no deformity. No lesions are appreciated. Cardiovascular: Regular rate and rhythm with a normal S1 and S2. No gallops, murmurs, or rubs. Normal PMI, no JVD. No pulse deficits. Respiratory: Lungs have equal breath sounds bilaterally, clear to auscultation and percussion. No rales, rhonchi or wheezes noted. No increased work of breathing, no retractions or nasal flaring. Abdomen/GI: Soft, non-tender, with normal bowel sounds. No distension or tympany. No guarding or rebound. No evidence of tenderness throughout. Skin: Warm, dry with normal turgor. Normal color with no rashes, no lesions, and no evidence of cellulitis. Neuro: Awake and alert, GCS 15, oriented to person, place, time, and situation. Cranial nerves II-XII grossly intact. Motor strength 5/5 in all extremities. Sensory grossly intact. Cerebellar exam normal. Normal gait. 04:12 ECG was reviewed by the Attending Physician. Vital Signs: 07/10 22:32 BP 98 / 46; Pulse 112; Resp 30; Temp 102.5; Pulse Ox 89% on R/A; vc1 23:14 BP 118 / 82; Pulse 95; Resp 15; Temp 97.8; Pulse Ox 88% on 2 lpm NC; Pain 0/10; ty 07/11 00:21 BP 91 / 44; Pulse 93; Resp 13; Pulse Ox 95% on R/A; me1 00:47 BP 101 / 54; Pulse 93; Resp 16; Pulse Ox 95% ; pc2 02:04 BP 110 / 58; Pulse 80; Resp 18; Pulse Ox 98% on 2 lpm NC; pc2 03:16 BP 101 / 61; Pulse 88; Resp 18; Pulse Ox 98% on 2 lpm NC; Weight 112.04 kg; Height 5 pc2 ft. 6 in. ; 05:05 BP 92 / 57; Pulse 78; Resp 18; Pulse Ox 98% on 2 lpm NC; pc2 03:16 Body Mass Index 39.87 (112.04 kg, 167.64 cm) pc2 23:14 Pain Scale: Adult ty MDM: 07/10 22:22 Patient medically screened. rt 07/11 04:14 Differential diagnosis: Sepsis, pneumonia, UTI. Data reviewed: vital signs, nurses rt notes, lab test result(s), EKG, radiologic studies. Consideration of Admission/Observation Patient was admitted/placed on observation. I considered the following discharge prescriptions or medication management in the emergency department Medications were administered in the Emergency Department. See MAR. Independent interpretation of the following test(s) in the Emergency Department CT Scan: My interpretation is No intracranial hemorrhage seen on interpretation of CT scan images. Care significantly affected by the following chronic conditions: Diabetes. Post IV fluid administration reassessment for Sepsis: Client not prescribed the 30 mL/kg IVF due to: Amount of IVF prescribed: 2000 Patient is morbidly obese, 30 cc/kg likely to harm the patient more than benefit. Blood pressure is improving after second liter. Focused assessment performed: July 11, 2024 at 04:15 Heart: Regular rate/rhythm. Lungs: noted to be clear bilaterally. Neuro: Patient's neurological exam has improved from previous exam. Counseling: I had a detailed discussion with the patient and/or guardian regarding the historical points, exam findings, and any diagnostic results supporting the discharge/admit diagnosis, lab results, radiology results, the need for further work-up and treatment in the hospital. Response to treatment: the patient's symptoms have markedly improved after treatment. 07/10 22:29 Order name: Blood Culture Adult (2) rt 07/10 22:29 Order name: CBC with Diff; Complete Time: 00:55 rt 07/10 22:29 Order name: CMP; Complete Time: 00:22 rt 07/10 22:29 Order name: Lactate w/ 2H reflex if indic.; Complete Time: 00:22 rt 07/10 22:29 Order name: Protime (+inr); Complete Time: 00:22 rt 07/10 22:29 Order name: Ptt, Activated; Complete Time: 00:22 rt 07/10 22:29 Order name: Urinalysis w/ reflexes rt 07/10 23:31 Order name: Glucose, Ancillary Testing; Complete Time: 00:22 [facility] 07/11 02:11 Order name: Ghost Lactate-NO COLLECT Timer EDWI 07/11 04:06 Order name: Lactate Sepsis 2 HR Follow-up EDWI 07/10 22:29 Order name: Chest Single View XRAY rt 07/10 22:29 Order name: CT Head C Spine rt 07/10 22:29 Order name: EKG; Complete Time: 22:29 rt 07/10 22:29 Order name: Accucheck; Complete Time: 23:20 rt 07/10 22:29 Order name: Cardiac monitoring; Complete Time: 23:33 rt 07/10 22:29 Order name: EKG - Nurse/Tech; Complete Time: 23:33 rt 07/10 22:29 Order name: IV Saline Lock - Large Bore; Complete Time: 23:11 rt 07/10 22:29 Order name: Labs collected and sent; Complete Time: 23:11 rt 07/10 22:29 Order name: O2 Per Protocol; Complete Time: 23:11 rt 07/10 22:29 Order name: O2 Sat Monitoring; Complete Time: 23:11 rt 07/10 22:29 Order name: Vital Signs; Complete Time: 23:20 rt EC:12 Rate is 100 beats/min. Rhythm is irregularly irregular, A fib with No ectopy. QRS [place] rt is Normal. QRS interval is normal. QT interval is normal. No Q waves. No ST changes noted. Interpreted by me. Administered Medications: 07/10 23:49 Drug: Cefepime IVPB 2 grams IVPB at 200 ml/hr once over 30 mins; (mix in NS 100 mL) me1 Route: IVPB; Rate: 200 ml/hr; Infused Over: 30 mins; Site: right antecubital; 07/11 00:17 Follow up: Response: No adverse reaction; IV Status: Completed infusion me1 00:16 Drug: vancoMYCIN IVPB 1 grams IVPB once over 2 hrs Route: IVPB; Infused Over: 2 hrs; me1 Site: right antecubital; 01:30 Follow up: Response: No adverse reaction; IV Status: Completed infusion; IV Intake: pc2 250ml 00:36 Drug: NS 0.9% IV 1000 ml IV at 1 bolus Per protocol; 1000 mL bolus Route: IV; Rate: 1 me1 bolus; Site: right antecubital; 01:40 Follow up: Response: No adverse reaction; IV Status: Completed infusion; IV Intake: pc2 1000ml 02:04 Drug: NS 0.9% IV 1000 ml IV at 1 bolus Per protocol; 1000 mL bolus Route: IV; Rate: 1 pc2 bolus; Site: right antecubital; 03:05 Follow up: Response: No adverse reaction; IV Status: Completed infusion; IV Intake: pc2 1000ml Disposition Summary: 07/11/24 02:07 Hospitalization Ordered Notes: Hospitalization Status: Inpatient Admission rt Provider: Ezio Michelle rt Condition: Fair rt Problem: new rt Symptoms: have improved rt Bed/Room Type: Standard rt Location: Telemetry/MedSur (Inpatient)(07/11/24 03:03) vc1 Room Assignment: 231(07/11/24 03:06) sp Diagnosis - Pneumonia, unspecified organism rt - Severe sepsis without septic shock rt Forms: - Medication Reconciliation Form rt - SBAR form rt - Leadership Thank You Letter rt Critical care time excluding procedures: 04:14 Critical care time: Bedside Care: 30 minutes, Consultation: 5 minutes. Total time: 35 rt minutes Signatures: Dispatcher [employer] EDMamta Barrow sp Jacki Mckeon RN RN vc1 Vladislav Guzman MD MD rt Elyssa Laura rv1 Isaura Brenner RN RN me1 Tova Bocanegra, RN RN pc2 Corrections: (The following items were deleted from the chart) 02:36 02:07 Telemetry/MedSurg (Inpatient) rt rv1 02:36 02:07 rt rv1 03:03 02:36 [facility] ER HOLD rv1 vc1 03:03 02:36 ERHOLD- rv1 vc1 03:06 03:03 vc1 sp
[2024-07-11] MEDS: NA CHLORIDE 0.9% 1,000 ML IV SCH (05:57)
[2024-07-11] MEDS ORDERED: LORATADINE 10 MG TAB PO PRN (08:31)
--- NOTE | 2024-07-11 08:46 | P.HP ---
Certification for Inpatient Patient admitted to: Inpatient With expected LOS: >2 Midnights Patient will require the following post-hospital care: Home Health Services Practitioner: I am a practitioner with admitting privileges, knowledge of patient current condition, hospital course, and medical plan of care. Services: Services provided to patient in accordance with Admission requirements found in Title 42 Section 412.3 of the Code of Federal Regulations Patient History Date of Service: 07/11/24 Primary Care Provider: Viviana Reason for admission: Pneumonia, renal failure History of Present Illness: Patient is a office patient of [employer] [employer] with a history of diabetes, HTN and PVD. She was recently seen in the wound care center. Was healing well. However she has been having URT symptoms for the past 10 day. The last 2 days she has been having increased weakness and sputum production. She had a fall on Thursday night. Spent the night on the floor. The patient was brought to the ER by her daughter. Found to have pneumonia and acute renal failure. She has no history of CKD. CURB65 score of 4. Decision was made to admit her Allergies Latex, Natural Rubber Allergy (Verified 03/02/23 15:11) . linezolid [From Zyvox] Allergy (Verified 03/02/23 15:11) Nausea/Vomiting oxycodone Allergy (Verified 03/02/23 15:11) . adhesive tape Adverse Reaction (Verified 03/02/23 15:11) Itching Home Medications: Acetaminophen with Codeine [Acetaminophen-Cod #4 Tablet] 1 tab PO TID PRN 02/25/21 Furosemide [Lasix*] 40 mg PO DAILY 02/25/21 Levothyroxine [Synthroid*] 1 tab PO ACB 02/25/21 Metformin ER [Glucophage ER*] 1 tab PO BID 02/25/21 Rivaroxaban [Xarelto*] 20 mg PO DAILY 02/25/21 Gabapentin [Neurontin*] 800 mg PO TID cap 03/26/21 Liothyronine Sodium [Cytomel] 10 mcg PO DAILY 02/21/23 Lisinopril [Zestril] 10 mg PO DAILY 02/21/23 Rosuvastatin [Crestor*] 10 mg PO DAILY 02/21/23 Doxycycline Hyclate 100 mg PO BID 10 Days #20 tab 02/25/23 Smz./Tmp. [Bactrim Ds 800 MG/160 MG] 1 tab PO BID 10 Days #20 tab 02/25/23 - Past Medical/Surgical History Has patient received pneumonia vaccine in the past: Yes Diabetic: Yes -: AFIB -: HTN -: DM -: CELLULITIS -: Neuropathy -: Obesity -: PVD -: Anemia -: joint replacement knee -: Left BKA -: Hysterectomy Psychosocial/ Personal History: She is a , She has one child, She lives by herself - Family History Father -: Heart disease, Lung disease Mother -: Hypertension - Social History Smoking Status: Never smoker Alcohol use: No CD- Drugs: No Caffeine use: Yes Place of Residence: Home Review of Systems 10-point ROS is otherwise unremarkable General: Weakness, Malaise ENT: Nose Discharge Respiratory: Cough, Shortness of Breath Neurological: Confusion Physical Examination - Vital Signs Temperature: 97.8 F Blood Pressure: 92/57 Pulse: 78 Respirations: 18 Pulse Ox (%): 96 - Physical Exam General: Alert, Moderate distress HEENT: Atraumatic, PERRLA, Mucous membr. moist/pink, EOMI, Sclerae nonicteric Neck: Supple, 2+ carotid pulse no bruit, No LAD, Without JVD or thyroid abnormality Respiratory: Normal air movement, Rhonchi/gurgles Cardiovascular: Regular rate/rhythm, Normal S1 S2 Gastrointestinal: Normal bowel sounds, No tenderness Musculoskeletal: No tenderness Integumentary: No rashes Neurological: Normal gait, Normal speech, Normal strength at 5/5 x4 extr, Normal tone, Normal affect Lymphatics: No axilla or inguinal lymphadenopathy - Studies Laboratory Data (last 24 hrs) 07/10/24 07/10/24 07/10/24 22:50 22:50 22:50 WBC 14.30 H Hgb 11.0 L Hct 33.0 L Plt Count 260 PT 41.7 H INR 3.87 APTT 35.1 Sodium 131 L Potassium 3.8 BUN 61 H Creatinine 1.88 H Glucose 195 H Total Bilirubin 3.5 H AST 65 H ALT 31 Alkaline Phosphatase 56 Assessment and Plan - Problems (Diagnosis) (1) Pneumonia Current Visit: Yes Status: Acute Plan: start the patient on levaquin, fluids and decongestants. Will await blood culture. Her curb65 is associated with a 41% mortality So inpatient is appropriate Qualifiers: Pneumonia type: due to unspecified organism (2) Acute kidney injury Current Visit: Yes Status: Acute Plan: This may be due to her spending a night on the floor. Will continue with normal saline for now. May consider d/5 /2 as she has not been eating. Will monitor her cpk and kidney function (3) Diabetes mellitus with circulatory complication Current Visit: Yes Status: Acute Plan: will start her on carb controlled diet. Will add mild insulin sliding scale. Qualifiers: Diabetes mellitus type: type 2 Diabetes mellitus fdc insulin use: with intermediate school teacher use Diabetes mellitus complication detail: with other circulatory complications Qualified Code(s): E11.59 - Type 2 diabetes mellitus with other circulatory complications; Z79.4 - rodent exterminator (current) use of insulin (4) Protein-energy malnutrition Current Visit: No Status: Acute Plan: consult to PT. Start fall precautions. Qualifiers: Protein-calorie malnutrition severity: moderate Qualified Code(s): E44.0 - Moderate protein-calorie malnutrition (5) HTN (hypertension) Onset Date: 10/17/16 Current Visit: No Status: Chronic Plan: will restart home medication tomorrow. When renal function improves Qualifiers: (6) Hypothyroidism Onset Date: 10/17/16 Current Visit: No Status: Chronic Plan: restart thyroid meds and check a tsh Qualifiers: Hypothyroidism type: unspecified Discharge Plan: Home Plan to discharge in: Greater than 2 days - Advance Directives Does patient have a Living Will: Yes Does patient have a Durable POA for Healthcare: Yes - Code Status/Comfort Care Code Status Assessed: No Physician Review: Patient Assessed, Agree with Above Assessment and Plan Critical Care: No Time Spent Managing Pts Care (In Minutes): 45
[2024-07-11] MEDS ORDERED: CEFEPIME 2 GM in NA CHLORIDE 0.9% 100 ML IV SCH (09:00)
[2024-07-11] MEDS: Levofloxacin500mg IV 500 MG/100 ML BAG IV SCH (09:29)
[2024-07-11] MEDS: FLUTICASONE 50MCG NASAL SPRAY NAS SCH (09:29)
--- NOTE | 2024-07-11 09:59 | EKG ---
Test Date: 2024-07-10 Test Time: 23:29:34 Lot Worker: KARMEN MEASUREMENT RESULTS: Intervals: Rate: 100 GA: QRSD: 74 QT: 326 QTc: 420 [place]: P: GA: QRS: -40 T: 37 INTERPRETIVE STATEMENTS: Atrial fibrillation Left axis deviation Low voltage QRS Inferior infarct, age undetermined Abnormal ECG Compared to ECG 02/25/2021 15:36:20 Left-axis deviation now present Ventricular premature complex(es) no longer present Myocardial infarct finding still present Electronically Signed On 07-11-24 09:58:12 CDT by Cory Wells
[2024-07-11 10:45] LABS: Specific Gravity 1.021 (1.005-1.030); Urine Bacteria <20 /HPF (<20); Urine Bilirubin NEGATIVE (Negative); Urine Blood Trace (Negative); Urine Clarity Extremely Turbid (Clear); Urine Color Yellow (Yellow); Urine Culture Reflex Order NOT NEEDED; Urine Glucose NEGATIVE (Negative); Urine Ketones NEGATIVE (Negative); Urine Microscopic Reflex YN ORDER UMIC; Urine Nitrite NEGATIVE (Negative); Urine Protein 1+ (Negative); Urine RBC <5 /HPF (None Seen); Urine Urobilinogen Normal (Normal); Urine WBC <5 /HPF (<5); Urine pH 5.5 (5.0-7.0)
[2024-07-11] MEDS: INSULIN REGULAR (HUMAN) 100 UNIT/ML SQ SCH (11:30)
--- NOTE | 2024-07-11 14:16 | RAD REPORT ---
EXAM DESCRIPTION: RAD - Chest Single View - 07/10/2024 11:01 pm COMPARISON: No relevant prior studies available. FINDINGS: Lungs: Coarsened interstitial markings. Patchy right basilar opacification. Pleural space: Unremarkable. No pneumothorax. Heart: The cardiac silhouette is mildly enlarged, in part accentuated by portable technique. Mediastinum: Unremarkable. Normal mediastinal contour. Bones/joints: Multilevel spondylosis. No acute fracture. Vasculature: Thoracic aortic atherosclerosis. Upper abdomen: Mild elevation of the right hemidiaphragm. IMPRESSION: Patchy right basilar opacification (atelectasis and/or infiltrate). Electronically signed by: Raghav Carrillo MD 07/10/2024 11:29 PM CDT RP Due to temporary technical issues with the PACS/Fluency reporting system, reports are being signed by the in house radiologist without review as a courtesy to ensure prompt reporting. The interpreting r adiologist is fully responsible for the content of the report.
--- NOTE | 2024-07-11 14:17 | RAD REPORT ---
EXAM DESCRIPTION: CT - Head C Spine Mpr Wo Con - 07/11/2024 5:53 am CLINICAL HISTORY: The patient is 79 years old and is Female; TRAUMA TECHNIQUE: Axial computed tomography images of the head/brain and cervical spine without intravenous contrast. Sagittal and coronal reformatted images were created and reviewed. This CT exam was pe rformed using one or more of the following dose reduction techniques: automated exposure control, a djustment of the mA and/or kV according to patient size, and/or use of iterative reconstruction techn ique. COMPARISON: No relevant prior studies available. FINDINGS: BRAIN: There is diffuse cerebral atrophy present, consistent with this patient's age. There is patchy hypoattenuation of the deep white matter which is non-specific, but most likely owing to chronic small vessel ischemic change in a patient of this age group. No intracranial hemorrhage , mass effect, midline shift is seen. There are no extra-axial fluid collections. VENTRICLES: Unremarkable. No ventriculomegaly. SKULL: No acute fracture. SINUSES: Unremarkable as visualized. No acute sinusitis. MASTOID AIR CELLS: Unremarkable as visualized. No mastoid effusion. DENTAL: The patient is edentulous. There is multi-level intervertebral disc height loss. There ar e disc-osteophyte complexes at several levels, with associated mild spinal canal narrowing. There is also facet hypertrophy and uncovertebral joint osteophytosis, with associated multilevel neural chris inal narrowing. VERTEBRAE: The vertebral body heights and alignment are maintained. No acute fracture. DISCS/SPINAL CANAL/NEURAL FORAMINA: See above. SOFT TISSUES: The soft tissues are normal. LUNG APICES: Unremarkable as visualized. IMPRESSION: 1. No acute intracranial findings. 2. Spondylosis of the cervical spine without acute findings. Electronically signed by: Veena Angulo MD 07/10/2024 11:26 PM CDT RP Due to temporary technical issues with the PACS/Fluency reporting system, reports are being signed by the in house radiologist without review as a courtesy to ensure prompt reporting. The interpreting r adiologist is fully responsible for the content of the report.
[2024-07-11] MEDS: ACETAMINOPHEN 500 MG TAB PO SCH (16:48)
[2024-07-11] MEDS: carvediloL 3.125 MG TAB PO SCH (18:00)
[2024-07-11] MEDS ORDERED: PREGABALIN 150 MG CAP PO SCH (21:00)
[2024-07-11] MEDS: GABAPENTIN 300 MG CAP PO ONE (22:14)
[2024-07-12] MEDS: PANTOPRAZOLE 40MG TABLET PO SCH (06:35)
[2024-07-12 07:28] LABS: Albumin 2.4 g/dL (3.4-5.0); Albumin/Globulin Ratio 0.6 (1.1-1.8); Anion Gap 7.2 mEq/L (5.0-15.0); Globulin 4.2 g/dL (2.3-3.5); Potassium 4.2 mEq/L (3.5-5.1); Protein, Total 6.6 g/dL (6.4-8.2)
[2024-07-12 07:51] LABS: Absolute Basophils 0.1 K/uL (0-0.5); Absolute Eosinophils 0.2 K/uL (0-0.5); Absolute Lymphocytes (CBC) 1.1 K/uL (0.7-4.9); Absolute Monocytes 0.5 K/uL (0.1-1.3); Absolute Neutrophil 5.3 K/uL (1.8-8.0); Basophils % 0.7 % (0-1.3); Eosinophils % 2.4 % (0-4.4); Hematocrit 27.7 % (36.0-45.0); Hemoglobin 9.4 g/dL (12.0-15.0); MCH 32.5 pg (27.0-35.0); MCV 95.5 fL (80-100); MPV 9.3 fL (7.6-11.3); Monocytes % 6.6 % (3.3-12.3); Neutrophils % 75.3 % (41.7-73.7); Nucleated Red Blood Cells % 0.1 % (0-0); Platelets 227 thou/uL (152-406); Red Cell Distribution Width 13.8 % (12.1-15.2)
[2024-07-12] MEDS: LEVALBUTEROL 0.63 MG/3 ML NEB NEB PRN (08:07)
[2024-07-12] MEDS: GABAPENTIN 100 MG CAP PO SCH (09:22)
[2024-07-12] MEDS: MEMANTINE HCL 10 MG TABLET PO SCH (09:23)
--- NOTE | 2024-07-12 12:26 | P.PN ---
Subjective Date of Service: 07/12/24 Primary Care Provider: Viviana Chief Complaint: Pneumonia, renal failure Subjective: New changes (patient has rhinorrhea. States she takes tylenol #4 tid for years. She states I have been giving it to her. Which is not the case) Review of Systems 10-point ROS is otherwise unremarkable ENT: Nose Congestion Respiratory: Cough Neurological: Other (neuropathy pain ) Physical Examination - Vital Signs Temperature: 98.0 F Blood Pressure: 147/82 Pulse: 88 Respirations: 12 Pulse Ox (%): 94 - Physical Exam General: Alert, In no apparent distress HEENT: Atraumatic, PERRLA, EOMI Neck: Supple, JVD not distended Respiratory: Clear to auscultation bilaterally, Normal air movement Cardiovascular: Regular rate/rhythm, Normal S1 S2 Gastrointestinal: Normal bowel sounds, No tenderness Musculoskeletal: No tenderness Integumentary: No rashes Neurological: Normal speech, Normal tone, Normal affect Lymphatics: No axilla or inguinal lymphadenopathy Assessment And Plan - Current Problems (Diagnosis) (1) Pneumonia Current Visit: Yes Status: Acute Plan: start the patient on levaquin, fluids and decongestants. Will await blood culture. Her curb65 is associated with a 41% mortality So inpatient is appropriate Qualifiers: Pneumonia type: due to unspecified organism (2) Acute kidney injury Current Visit: Yes Status: Acute Plan: This may be due to her spending a night on the floor. Will continue with normal saline for now. May consider d/03 16/ as she has not been eating. Will monitor her cpk and kidney function (3) Diabetes mellitus with circulatory complication Current Visit: Yes Status: Acute Plan: will start her on carb controlled diet. Will add mild insulin sliding scale. Qualifiers: Diabetes mellitus type: type 2 Diabetes mellitus intermodal truck driver insulin use: with intermodal truck driver use Diabetes mellitus complication detail: with other circulatory complications Qualified Code(s): E11.59 - Type 2 diabetes mellitus with other circulatory complications; Z79.4 - FDC (current) use of insulin (4) Protein-energy malnutrition Current Visit: No Status: Acute Plan: consult to PT. Start fall precautions. Qualifiers: Protein-calorie malnutrition severity: moderate Qualified Code(s): E44.0 - Moderate protein-calorie malnutrition (5) HTN (hypertension) Onset Date: 10/17/16 Current Visit: No Status: Chronic Plan: will restart home medication tomorrow. When renal function improves Qualifiers: (6) Hypothyroidism Onset Date: 10/17/16 Current Visit: No Status: Chronic Plan: restart thyroid meds and check a tsh Qualifiers: Hypothyroidism type: unspecified (7) Opioid dependence Current Visit: Yes Status: Acute Plan: have not been able to control her pain. She also has signs of congestion. These are signs of opiod withdrawal. Will start her on tylenol #3. Check NURSE SEXUAL ASSAULT aware. Consider suboxone as an outpatient Qualifiers: Substance use status: with unspecified opioid-induced disorder Qualified Code(s): F11.29 - Opioid dependence with unspecified opioid-induced disorder Discharge Plan: Home Plan to discharge in: 24 Hours - Code Status/Comfort Care Code Status Assessed: No Physician Review: Patient Assessed, Agree with Above Assessment and Plan Critical Care: No Time Spent Managing PTS Care (In Minutes): 20
[2024-07-12] MEDS: CODEINE 30MG/APAP 300MG TAB PO SCH (16:31)
[2024-07-13] MEDS ORDERED: FLUTICASONE 50MCG NASAL SPRAY NAS SCH (09:00)
--- NOTE | 2024-07-13 11:44 | P.PN ---
Subjective Date of Service: 07/13/24 Primary Care Provider: iVviana Chief Complaint: Pneumonia, renal failure Subjective: No new changes Review of Systems 10-point ROS is otherwise unremarkable General: Weakness Respiratory: Cough Physical Examination - Vital Signs Temperature: 97.6 F Blood Pressure: 163/77 Pulse: 96 Respirations: 16 Pulse Ox (%): 97 - Physical Exam General: Alert, In no apparent distress HEENT: Atraumatic, PERRLA, EOMI Neck: Supple, JVD not distended Respiratory: Clear to auscultation bilaterally, Normal air movement Cardiovascular: Regular rate/rhythm, Normal S1 S2 Gastrointestinal: Normal bowel sounds, No tenderness Musculoskeletal: No tenderness Integumentary: No rashes Neurological: Normal speech, Normal tone, Normal affect Lymphatics: No axilla or inguinal lymphadenopathy Assessment And Plan - Current Problems (Diagnosis) (1) Pneumonia Current Visit: Yes Status: Acute Plan: start the patient on levaquin, fluids and decongestants. Will await blood culture. Her curb65 is associated with a 41% mortality So inpatient is appropriate 8.28 cultures negative. Patient still has a cough. Will have her seen by PT as she has not been out of bed in 2 days. Plan for discharge tomorrow Qualifiers: Pneumonia type: due to unspecified organism (2) Acute kidney injury Current Visit: Yes Status: Acute Plan: This may be due to her spending a night on the floor. Will continue with normal saline for now. May consider d/03 16/ as she has not been eating. Will monitor her cpk and kidney function (3) Diabetes mellitus with circulatory complication Current Visit: Yes Status: Acute Plan: will start her on carb controlled diet. Will add mild insulin sliding scale. Qualifiers: Diabetes mellitus type: type 2 Diabetes mellitus correction insulin use: with terminal worker use Diabetes mellitus complication detail: with other circulatory complications Qualified Code(s): E11.59 - Type 2 diabetes mellitus with other circulatory complications; Z79.4 - MCC (current) use of insulin (4) Protein-energy malnutrition Current Visit: No Status: Acute Plan: consult to PT. Start fall precautions. Qualifiers: Protein-calorie malnutrition severity: moderate Qualified Code(s): E44.0 - Moderate protein-calorie malnutrition (5) HTN (hypertension) Onset Date: 10/17/16 Current Visit: No Status: Chronic Plan: will restart home medication tomorrow. When renal function improves Qualifiers: (6) Hypothyroidism Onset Date: 10/17/16 Current Visit: No Status: Chronic Plan: restart thyroid meds and check a tsh Qualifiers: Hypothyroidism type: unspecified (7) Opioid dependence Current Visit: Yes Status: Acute Plan: have not been able to control her pain. She also has signs of congestion. These are signs of opiod withdrawal. Will start her on tylenol #3. Check INSURANCE BILLING SPECIALIST aware. Consider suboxone as an outpatient Qualifiers: Substance use status: with unspecified opioid-induced disorder Qualified Code(s): F11.29 - Opioid dependence with unspecified opioid-induced disorder Discharge Plan: Home Plan to discharge in: 24 Hours - Code Status/Comfort Care Code Status Assessed: No Physician Review: Patient Assessed, Agree with Above Assessment and Plan Critical Care: No Time Spent Managing PTS Care (In Minutes): 25
[2024-07-13] MEDS ORDERED: [UNRECOGNIZED DRUG - REMARK] PO PRN (11:45)
[2024-07-13] MEDS: GABAPENTIN 400 MG CAP PO SCH (14:14)
[2024-07-13] MEDS: RIVAROXABAN 20 MG TABLET PO SCH (16:47)
[2024-07-14 04:34] VITALS: BMI 39.6
[2024-07-14] MEDS: ROSUVASTATIN 10 MG TAB PO SCH (09:11)
[2024-07-14] MEDS: lisinopriL 10 MG TAB PO SCH (09:11)
[2024-07-14] MEDS: LEVOTHYROXINE SOD 0.088 MG TAB PO SCH (09:13)
--- NOTE | 2024-07-14 11:12 | P.DS ---
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 Diabetes mellitus complication detail: with other circulatory complications Qualified Code(s): E11.59 - Type 2 diabetes mellitus with other circulatory complications; Z79.4 - custodial (current) use of insulin (4) Protein-energy malnutrition Current Visit: No Status: Acute Qualifiers: Protein-calorie malnutrition severity: moderate Qualified Code(s): E44.0 - Moderate protein-calorie malnutrition (5) HTN (hypertension) Onset Date: 10/17/16 Current Visit: No Status: Chronic Qualifiers: (6) Hypothyroidism Onset Date: 10/17/16 Current Visit: No Status: Chronic Qualifiers: Hypothyroidism type: unspecified (7) Opioid dependence Current Visit: Yes Status: Acute Qualifiers: Substance use status: with unspecified opioid-induced disorder Qualified Code(s): F11.29 - Opioid dependence with unspecified opioid-induced disorder Brief History of Present Illness: Patient is a office patient of [employer] with a history of diabetes, HTN and PVD. She was recently seen in the wound care center. Was healing well. However she has been having URT symptoms for the past 10 day. The last 2 days she has been having increased weakness and sputum production. She had a fall on Thursday night. Spent the night on the floor. The patient was brought to the ER by her daughter. Found to have pneumonia and acute renal failure. She has no history of CKD. CURB65 score of 4. Decision was made to admit her Hospital Course: Patient came in with sob. The patient was found to have a pneumonia. She was admitted and started on levaquin. The patient was having difficulty. She has been taking tylenol #4 which was unknown to me. The patient was most likely going through withdrawal. We restarted her on Tylenol #3. She is doing better. Culutures are negative. Will send her home on oral levaquin. Thank you for allowing me to take part in her care. Vital Signs/Physical Exam: Temp Pulse Resp BP Pulse Ox 97.6 F 80 16 150/87 H 95 07/14/24 08:00 07/14/24 09:11 07/14/24 10:09 07/14/24 09:11 07/14/24 09:09 General: Alert, In no apparent distress HEENT: Atraumatic, PERRLA, EOMI Neck: Supple, JVD not distended Respiratory: Clear to auscultation bilaterally, Normal air movement Cardiovascular: Regular rate/rhythm, Normal S1 S2 Gastrointestinal: Normal bowel sounds, No tenderness Musculoskeletal: No tenderness Integumentary: No rashes Neurological: Normal speech, Normal tone, Normal affect Lymphatics: No axilla or inguinal lymphadenopathy Laboratory Data at Discharge: WBC 7.10 thou/uL (4.3-10.9) 07/12/24 05:50 Hgb 9.4 g/dL (12.0-15.0) L 07/12/24 05:50 Hct 27.7 % (36.0-45.0) L 07/12/24 05:50 Plt Count 227 thou/uL (152-406) 07/12/24 05:50 PT 41.7 SECONDS (9.4-12.5) H 07/10/24 22:50 INR 3.87 07/10/24 22:50 APTT 35.1 SECONDS (24.3-36.9) 07/10/24 22:50 Sodium 139 mEq/L (136-145) 07/12/24 05:50 Potassium 4.2 mEq/L (3.5-5.1) 07/12/24 05:50 BUN 36 mg/dL (7-18) H 07/12/24 05:50 Creatinine 0.90 mg/dL (0.55-1.02) 07/12/24 05:50 Glucose 127 mg/dL (74-106) H 07/12/24 05:50 Total Bilirubin 2.0 mg/dL (0.2-1.0) H 07/12/24 05:50 AST 48 U/L (15-37) H 07/12/24 05:50 ALT 32 U/L (13-56) 07/12/24 05:50 Alkaline Phosphatase 59 U/L (45-117) 07/12/24 05:50 Home Medications: Acetaminophen with Codeine [Acetaminophen-Cod #4 Tablet] 1 tab PO TID PRN 02/25/21 Furosemide [Lasix*] 40 mg PO BID 02/25/21 Levothyroxine [Synthroid*] 1 tab PO ACB 02/25/21 Rivaroxaban [Xarelto*] 20 mg PO DAILY 02/25/21 Gabapentin [Neurontin*] 800 mg PO TID cap 03/26/21 Lisinopril [Zestril] 10 mg PO DAILY 02/21/23 Rosuvastatin [Crestor*] 10 mg PO DAILY 02/21/23 Levocetirizine Dihydrochloride [Allergy Relief] 5 mg PO PRN 07/12/24 Albuterol Neb [Proventil 0.083% Neb Soln] 2.5 mg IH Q6HP PRN 30 Days #100 ml 07/14/24 Levofloxacin [Levaquin] 500 mg PO DAILY #5 tab 07/14/24 Nebulizer and Compressor [[place] Choice Nebulizer] 1 each MC Q6HP PRN 90 Days #1 ea 07/14/24 New Medications: Nebulizer and Compressor [[place] Choice Nebulizer] 1 each MC Q6HP PRN 90 Days #1 ea PRN Reason: Shortness Of Breath Levofloxacin [Levaquin] 500 mg PO DAILY #5 tab Albuterol Neb [Proventil 0.083% Neb Soln] 2.5 mg IH Q6HP PRN 30 Days #100 ml PRN Reason: Shortness Of Breath Physician Discharge Instructions: Referral for home health with physical therapy sent to: [facility] [phone] fax [phone] Diet: ADA Activity: Ad carin Followup: Ezio Michelle MD [Primary Care Provider] - 1 Week Time spent managing pt's care (in minutes): 30
[2024-07-14 12:35] VITALS: BP 159/86; TEMP 97.7
[2024-07-14 14:24] VITALS: O2SAT 98
== END 2024-07-14 14:20 | disposition home health service (06) | DRG 871 ==
LOC: ER 21:16 → 2ND 07-11 02:45
PROVIDERS: ADMIT Internal Medicine; ATTEND Internal Medicine
DX: A41.9 Sepsis, unspecified organism (principal); J18.9 Pneumonia, unspecified organism; N17.9 Acute kidney failure, unspecified; E44.0 Moderate protein-calorie malnutrition; F11.23 Opioid dependence with withdrawal; R65.20 Severe sepsis without septic shock; I10 Essential (primary) hypertension; E03.9 Hypothyroidism, unspecified; I48.91 Unspecified atrial fibrillation; E11.40 Type 2 diabetes mellitus with diabetic neuropathy, unspecified; E11.59 Type 2 diabetes mellitus with other circulatory complications; E11.51 Type 2 diabetes mellitus with diabetic peripheral angiopathy without gangrene; Z60.2 Problems related to living alone; Z88.5 Allergy status to narcotic agent; Z79.4 Long term (current) use of insulin; Z79.01 Long term (current) use of anticoagulants; Z68.39 Body mass index [BMI] 39.0-39.9, adult; Z91.040 Latex allergy status; Z28.310 Unvaccinated for COVID-19; Z79.890 Hormone replacement therapy; Z89.512 Acquired absence of left leg below knee; Z79.899 Other long term (current) drug therapy; Z91.048 Other nonmedicinal substance allergy status; Z90.710 Acquired absence of both cervix and uterus
CPT/HCPCS: 36415; 70450; 71045; 72125; 80053; 81001; 82550; 82947; 83605; 85025; 85610; 85730; 87040; 93005; 94640; 96361; 96365; 97110; 97161; 97530; 99285; J0692; J7030; J7050; J7614